=== PATIENT | female | born 1945 | race Caucasian/White ===

== ENCOUNTER → 2017-02-04 | Outpatient (CLI) | payer OTHER ==
[~2017-02-04] MED LIST: ALBINS/ NEB; ALBU18002 INH; ALBUAER2 INH; CALC1CAP36 PO; CELE1CAP30 PO; DICY10CA12 PO; DPH/ PO; DSY100 PO; DTRSR/2 PO; ERGO500011 PO; ERGO500037 PO; ESOM1CAP34 PO; FLNIN/ NAE; IBUP-1050 PO; LYR/50 PO; MBXC PO; MCRK20 PO; METH-589 PO; METH-848 PO; METH20TA66 PO; MIRT15TA PO; MIRT15TA3 PO; NYSS5 PO; ONDA-63 PO; ONDA8TAB62 SL; OXYC-164 PO; OXYC1TAB3 PO; POLY335019 PO; POTA20TA13 PO; RBX500 PO; RCL25 PO; ROPI1TAB29 PO; RQP2 PO; RTL20 PO; SIME1CAP11 PO; TRAZ100T29 PO; TRAZ300T PO; VNTHFA/IN INH; ZNTT/150 PO; immodium
[2017-02-04 13:19] LABS: HEMATOCRIT 43.3 % (37-47); MEAN CELL VOLUME 85.6 fL (80-100); MEAN CORPUSCULAR HEMOGLOBIN 30.2 pg (25-34); MEAN CORPUSCULAR HGB CONC 35.3 g/dl (32-36); PLATELET COUNT 297 K/uL (130-400); RED BLOOD COUNT 5.06 M/uL (4.2-5.4)
[2017-02-04 13:41] LABS: ESTIMATED AVERAGE GLUCOSE 114 mg/dl; HA1C FLAG Normal (Normal)
[2017-02-04 13:52] LABS: BLOOD UREA NITROGEN 12 mg/dl (7-18); CALCIUM 8.8 mg/dl (8.5-10.1); CARBON DIOXIDE 27 mmol/L (21-32); CHLORIDE 105 mmol/L (98-107); CHOLESTEROL 195 mg/dl (0-200); CREATININE 0.85 mg/dl (0.60-1.20); GLUCOSE 91 mg/dl (70-99); POTASSIUM 3.5 mmol/L (3.5-5.1); SODIUM 140 mmol/L (136-145)
[2017-02-04 14:03] LABS: ALB/GLOB RATIO 0.9 (0.9-2); ALKALINE PHOSPHATASE 89 U/L (45-117); ALT/SGPT 18 U/L (12-78); AST/SGOT 16 U/L (15-37); CHOLESTEROL/HDL RATIO 5.3; FERRITIN 70.1 ng/ml (8.0-388.0); HDL CHOLESTEROL 37 mg/dl; LDL CHOLESTEROL CALCULATED 123 mg/dl; THYROID STIMULATING HORMONE 0.359 uIu/ml (0.300-4.500); TRIGLYCERIDES 175 mg/dl (0-150); VERY LOW DENSITY LIPOPROT CALC 35 mg/dl
[2017-02-04 14:15] LABS: URINE APPEARANCE CLEAR (CLEAR); URINE BILIRUBIN NEG (NEG); URINE COLOR DK YELLOW; URINE NITRITE NEG (NEG); URINE SPECIFIC GRAVITY 1.016 (1.000-1.030); UROBILINOGEN NEG (NEG)
[2017-02-04 14:18] LABS: MANUAL MICROSCOPIC REQUIRED? NO; REVIEW REQ? NO
== END | disposition home or self-care (01) ==
LOC: C.LAB1850 12:15
PROVIDERS: ATTEND Physician Assistant
DX: Z00.00 Encounter for general adult medical examination without abnormal findings (principal); R39.9 Unspecified symptoms and signs involving the genitourinary system; L29.8 Other pruritus; R73.01 Impaired fasting glucose; G25.81 Restless legs syndrome; E01.2 Iodine-deficiency related (endemic) goiter, unspecified; M81.0 Age-related osteoporosis without current pathological fracture; E55.9 Vitamin D deficiency, unspecified; E88.09 Other disorders of plasma-protein metabolism, not elsewhere classified; N95.0 Postmenopausal bleeding

== ENCOUNTER → 2017-02-10 | Outpatient (CLI) | payer OTHER ==
[~2017-02-10] MED LIST changes: +OPTIRAY 320 IV PRN
--- NOTE | 2017-02-10 13:27 | DIAGNOSTIC IMAGING REPORT ---
CT SCAN OF THE ABDOMEN AND PELVIS WITH IV CONTRAST CLINICAL HISTORY: Adnexal mass. COMPARISON STUDY: Abdominal ultrasound dated 09/17/2010. TECHNIQUE: Following the IV administration of 92 cc of Optiray 320, CT scan of the abdomen and pelvis is performed from the lung bases to the proximal femora. Images are reviewed in the axial, sagittal, and coronal planes. IV contrast was administered without complication. Automated dose control exposure was utilized. CT DOSE: 1094.81 mGycm FINDINGS: Lung bases: The heart is mildly enlarged and there is a small pericardial effusion. There are foci of linear scarring versus atelectasis present the lung bases. No airspace consolidation or pleural effusion is seen. Liver: The contrast-enhanced liver is normal in size, contour, and attenuation. There is mild central intrahepatic biliary ductal dilatation. The hepatic veins and portal veins are patent. Gallbladder: Surgically absent noting clips in the gallbladder fossa. Spleen: Normal in size and attenuation. Pancreas: Moderately atrophic and grossly unremarkable. Adrenal glands: Unremarkable. Kidneys: The contrast enhanced kidneys demonstrate cortical atrophy and are without hydronephrosis. The kidneys enhance symmetrically. A subcentimeter cortical hypodensity in the interpolar right kidney likely represents a cyst but is too small for definitive characterization. Abdominal vasculature: The abdominal aorta is normal in course and caliber noting mild atherosclerotic calcification. Stomach and bowel: There is a moderate to large hiatal hernia, with approximately half of the stomach located in the thoracic cavity. The duodenum is normal in configuration. No bowel obstruction is seen. There is moderate to advanced colonic diverticulosis without CT evidence of acute diverticulitis. The appendix is well-visualized and normal. Peritoneum: There is no intraperitoneal free air or abdominal ascites. There is a small fat-containing umbilical hernia. There is a small fat-containing ventral hernia seen just the right of midline on image #[id number]. Lymphadenopathy: None. Pelvic viscera: The bladder is decompressed and grossly unremarkable. No adnexal lesion is seen. The uterus is enlarged. There are parenchyma calcifications and small uterine masses measuring up to 3.1 cm and are typical in appearance for fibroids. There is complex and predominantly low-attenuation material filling the distended uterine cavity. The cervix is heterogeneous. Skeletal structures: The skeletal structures are osteopenic. There is mild lumbosacral spondylosis. No lytic or blastic lesions are seen. IMPRESSION: 1. The endometrial canal is distended with complex and predominantly low-attenuation fluid/debris, likely representing hematocolpos. The cervix appears heterogeneous, and this could be related to cervical stenosis or possibly obstructing neoplasm. The top differential consideration would be a large involuted fibroid, which is considered much less likely. Gynecologic follow-up with possible hysteroscopy is recommended for further assessment. 2. Small uterine fibroids are identified. 3. Moderate to advanced colonic diverticulosis without CT evidence of acute diverticulitis. 4. Mild cardiomegaly. 5. Moderate to large hiatal hernia. 6. Additional changes as above. Electronically signed by: Juan J Nugent M.D. 02/10/2017 1:24 PM Dictated Date/Time: 02/10/2017 1:08 PM
== END | disposition home or self-care (01) ==
LOC: C.CTS 12:15
PROVIDERS: ATTEND Physician Assistant
DX: N85.2 Hypertrophy of uterus (principal); N94.9 Unspecified condition associated with female genital organs and menstrual cycle; R10.32 Left lower quadrant pain; D25.9 Leiomyoma of uterus, unspecified; K57.90 Diverticulosis of intestine, part unspecified, without perforation or abscess without bleeding

== ENCOUNTER → 2017-03-18 | Day surgery (SDC) | payer OTHER ==
[2017-02-16 13:35] VITALS: Ht 158.8 cm; Wt 83.6 kg
--- NOTE | 2017-02-25 12:17 | PAT Medication Instructions ---
Service Date Feb 25, 2017. Current Home Medication List Albuterol (Ventolin), 2 PUFFS INH QID PRN for SOB/Wheezing Albuterol Sulf (Proventil 0.083% 2.5MG/3ML), 2.5 MG INH Q4-6HR PRN Celecoxib (Celecoxib), 200 MG PO QAM Dicyclomine Hcl (Dicyclomine Hcl), 10 MG PO ACHS Esomeprazole Magnesium (Esomeprazole Magnesium), 40 MG PO BID Ibuprofen (Advil), 1,000 MG PO BID Methylphenidate (Ritalin), 20 MG PO BID Ondansetron Odt (Zofran Odt), 8 MG SL Q6H PRN for Nausea Oxycodone Immediate Rel Tab (Roxicodone Ir), 5 MG PO QID PRN for Severe Pain Pregabalin (Lyrica), 50 MG PO BID Ranitidine (Zantac), 150 MG PO HS Ropinirole Hcl (Requip), 2 MG PO BID PRN Medication Instructions For Your Scheduled Surgery -Check with surgeon for instructions: Ibuprofen (Advil), 1,000 MG PO BID Celecoxib (Celecoxib), 200 MG PO QAM - Hold the following medications 24 hours prior to surgery: Ropinirole Hcl (Requip), 2 MG PO BID PRN - Hold the following medications the morning of surgery: Methylphenidate (Ritalin), 20 MG PO BID Dicyclomine Hcl (Dicyclomine Hcl), 10 MG PO ACHS - Take the following medications the morning of surgery with a sip of water OTHERWISE NOTHING TO EAT OR DRINK AFTER MIDNIGHT: Pregabalin (Lyrica), 50 MG PO BID Albuterol (Ventolin), 2 PUFFS INH QID PRN for SOB/Wheezing (use if needed; BRING TO HOSPITAL) Albuterol Sulf (Proventil 0.083% 2.5MG/3ML), 2.5 MG INH Q4-6HR PRN Oxycodone Immediate Rel Tab (Roxicodone Ir), 5 MG PO QID PRN for Severe Pain ( may take if needed up to 4 hours prior to surgery) Esomeprazole Magnesium (Esomeprazole Magnesium), 40 MG PO BID Ondansetron Odt (Zofran Odt), 8 MG SL Q6H PRN for Nausea - Take the following medications as scheduled the night before surgery: Ranitidine (Zantac), 150 MG PO HS Pregabalin (Lyrica), 50 MG PO BID Methylphenidate (Ritalin), 20 MG PO BID Albuterol (Ventolin), 2 PUFFS INH QID PRN for SOB/Wheezing Dicyclomine Hcl (Dicyclomine Hcl), 10 MG PO ACHS Albuterol Sulf (Proventil 0.083% 2.5MG/3ML), 2.5 MG INH Q4-6HR PRN Oxycodone Immediate Rel Tab (Roxicodone Ir), 5 MG PO QID PRN for Severe Pain Esomeprazole Magnesium (Esomeprazole Magnesium), 40 MG PO BID Ondansetron Odt (Zofran Odt), 8 MG SL Q6H PRN for Nausea If you have any questions please call us at [phone] or [phone] or [phone]
--- NOTE | 2017-03-03 17:31 | HISTORY & PHYSICAL EXAMINATION ---
DATE OF ADMISSION: 03/18/2017 CHIEF COMPLAINT: Postmenopausal bleeding, thickened endometrium and uterine enlargement. HISTORY OF PRESENT ILLNESS: The patient is a 72-year-old white female 4, para 3, postmenopausal, was not sexually active, who presented for initial evaluation for followup of left lower quadrant pain, enlarged uterus and postmenopausal bleeding. The patient presented initially to our [facility] for left lower quadrant pain and postmenopausal bleeding. Ultrasound showed an enlarged uterus to 740 mL and an endometrium that was very abnormal measuring 63 mm with cystic and solid components. She subsequently had a CT scan showing an enlarged uterus with several fibroids. No adnexal masses or lesions in the endometrium as described above. The patient noted when she presented to me on February 11 that she had vaginal bleeding for about 2 weeks. She still notes slight bleeding. She also notes that she is very uncomfortable in her left lower quadrant. CT scan did not show an adnexal mass, but did show diverticulosis, but no inflammation. I attempted an endometrial biopsy in the office and was unfortunately not able to complete this. The cervix points directly posteriorly. I was able to straighten it out partially, but was not able to pass anything through the internal os and into the internal cavity to perform a biopsy. So, I have recommended a D\T\C hysteroscopy for initial evaluation of this thickened endometrium. REVIEW OF SYSTEMS: Negative except for that noted above. PAST MEDICAL HISTORY: Significant for an abnormal electrocardiogram, agoraphobia, allergic rhinitis, asthmatic bronchitis, degenerative disk disease of the lumbar spine, GERD, hiatal hernia, irritable bowel syndrome, major depression, Meniere's disease, goiter, osteoarthritis, osteoporosis, postherpetic neuralgia, rosacea and vitamin D deficiency. PAST SURGICAL HISTORY: Includes cholecystectomy, multiple corneal transplants, EGD, D\T\C, knee surgery, right salpingo-oophorectomy, bunion surgery, and tubal ligation. FAMILY HISTORY: Significant for mother with type 2 diabetes and osteoporosis. Father with acute AL, emphysema and hypertension. Sibling with colon cancer. There is no family history of breast cancer, cancer of the uterus or ovaries, pancreatic cancer, or prostate cancer. SOCIAL HISTORY: The patient denies tobacco, alcohol or drug use. She is a former smoker, however. She is . CURRENT MEDICATIONS: Albuterol, dicyclomine, esomeprazole, Lyrica, meloxicam, metronidazole lotion, Zofran, oxycodone as needed, ProAir, ranitidine, Ritalin, ropinirole, trazodone and vitamin D. ALLERGIES: CODEINE AND TORADOL. PHYSICAL EXAMINATION: GENERAL: This is a well-developed and well-nourished elderly white female in no acute distress. VITAL SIGNS: Height 5 feet 2 inches, weight 189 pounds, and BMI 34.5. Blood pressure 146/86. NECK: Supple without thyromegaly or lymphadenopathy. CHEST: Clear to auscultation bilaterally. CARDIOVASCULAR: Regular rate and rhythm without murmurs, gallops or rubs. BACK: Without costovertebral angle tenderness. PELVIC: There is normal external female genitalia. Normal Bartholin, urethra and [place] glands. The vagina is atrophic with scant bleeding. The cervix palpates very firm and points posteriorly. There are no obvious lesions on the cervix. The uterus palpates to 16-18 weeks' size. It is nontender and mobile. The adnexa are not palpable. Palpation of the bladder reveals no abnormalities. There are no appreciable femoral or inguinal lymph nodes. IMAGING STUDIES: Ultrasound performed on February 04 revealed a uterus, measuring 15.4 x 9.1 x 10.1 cm for a volume of 740 mL. The endometrium measures 63.9 mm. It is thick heterogeneous, containing both cystic and solid components. The right ovary is surgically absent per the patient. The left ovary was not seen with certainty. In the left adnexa though, there was a questionable potentially complex mass, although very difficult to evaluate. CT scan performed on February 10 revealed a mildly enlarged heart. A small pericardial effusion. Some linear scarring with atelectasis at all lung bases. There is some mild central intrahepatic biliary duct dilation. Gallbladder absent. Pancreas is moderate atrophic and grossly unremarkable. Kidneys demonstrated cortical atrophy and no hydronephrosis. A subcentimeter cortical hypodensity is noted in the right kidney, likely representing a cyst. The abdominal aorta is normal with mild atherosclerotic calcification. There is a moderate to large hiatal hernia that is approximately half of the stomach in the thoracic cavity. There is moderate advanced colonic diverticulosis without CT evidence of acute diverticulitis. The appendix is well visualized and normal. No intraperitoneal free air. Small fat containing umbilical hernia. The uterus is enlarged and there are masses within the uterus consistent with fibroids. There is a complex and predominantly low attenuation material filling the distended uterine cavity and the cervix is heterogeneous. ASSESSMENT: This is a 72-year-old postmenopausal patient with postmenopausal bleeding, had very abnormal appearing endometrium and enlarged uterus with the uterine fibroids. I tried to perform an endometrial biopsy in the office, but was unable to do so. Therefore, I have recommended a D\T\C hysteroscopy for evaluation. The risks of the procedure were discussed with the patient including the risks of anesthesia, bleeding requiring transfusion, infection and poor wound healing, 1% chance of perforation, damage to surrounding structures including bowel, bladder, vessels, nerves, ureters and uterus that may require further surgery, hospitalization or evaluation. The patient understands that if her pathology returns back cancer, she will need further evaluation with [employer]GER [employer] and oncology. Questions were asked and answered. Surgery is planned for March 18.
[~2017-03-18] VITALS: Ht 158.8 cm; Wt 83.6 kg
[~2017-03-18] MED LIST changes: +DEXAMETHASONE SOD INJ 4 MG/ML VIAL ONE; +EpHEDrine SULFATE INJ 50 MG/ML AMP IV PRN; +FENTANYL CITRATE INJ 50 MCG/1 ML 2 ML VIAL ONE; +IBUPROFEN 200 MG TAB ONE; +IBUPROFEN 600 MG TAB PO PRN; +LACTATED RINGER'S 1000ML 1,000 ML IV SCH; +LIDOCAINE HCL 2% 2 ML VIAL (20MG/ML) ONE; +ONDANSETRON INJ 2 MG/ML 2 ML VIAL IV PRN; +ONDANSETRON INJ 2 MG/ML 2 ML VIAL ONE; -OPTIRAY 320 IV PRN; +PROPOFOL IV EMULSION 10 MG/ML 20 ML VIAL IV ONE; +SODIUM CHLORIDE 0.9% 1000ML 1,000 ML IV SCH
--- NOTE | 2017-03-18 11:53 | History & Physical Bridge - SC ---
H&P Re-Evaluation Bridge Note: I have examined the patient, reviewed the History & Physical and in the interval since the performance of the History & Physical I have noted the following changes of clinical significance: No changes noted
--- NOTE | 2017-03-18 12:46 | [facility] Post Operative Brief Note ---
Immediate Operative Summary Operative Date March 18, 2017. Pre-Operative Diagnosis Post Menopausal Bleeding, Thickened Endometrium Post-Operative Diagnosis same Procedure(s) Performed Dilatation And Curettage, Hysteroscopy, Possible Polypectomy Surgeon Dr Suero Autobody Technician Surgeon(s) none Estimated Blood Loss 20cc Findings firm cervix, induration of the anterior vaginal wall from 10-2 o'clock, obvious bleeding from the cervical os. Was only able to sound to about 8cm. I do believe I was at least in the lower uterine segment and copious amounts of tissue noted. Could not visualize tubal ostia. Did not see a mass on the cervix or in the cervix. uterus was 16 weeks size by exam and irregular. Fluids (cc crystalloids) 500cc Specimens A) pap smear Drains none Anesthesia lma Complication(s) None Disposition Recovery Room / PACU
--- NOTE | 2017-03-18 12:47 | Discharge Instructions ---
Discharge Instructions Date of Service March 18, 2017. Visit Reason for Visit: Post Menopausal Bleeding, Thickened Endometrium Discharge Discharge Diagnosis / Problem: s/p Dilation and curretage with hysteroscopy Discharge Goals Goal(s): Specific goals Activity Recommendations Activity Limitations: per Instructions/Follow-up section Anesthesia . Post Anesthesia Instructions: If you have had General Anesthesia or IV Sedation: * Do not drive today. * Resume driving when surgeon permits. * Do not make important decisions or sign legal documents today. * Call surgeon for: 1. Temperature elevations greater than 101 degrees F. 2. Uncontrollable pain. 3. Excessive bleeding. 4. Persistent nausea and vomiting. 5. Medication intolerance (nausea, vomiting or rash). * For nausea and vomiting use only clear liquids such as: tea, soda, bouillon until nausea subsides, then gradually increase diet as tolerated. * If you have any concerns or questions, call your surgeon's office. If physician is unavailable and it is an emergency, call 911 or go to the nearest emergency room. . Instructions / Follow-Up Instructions / Follow-Up ACTIVITY RECOMMENDATIONS: * Avoid tampons, douching, hot tubs, pools, and intercourse until bleeding has stopped. * May shower as usual. * No strenuous activity for 24-48 hours. After 24-48 hours, you may do anything you feel like doing (driving and sports are okay). SPECIAL CARE INSTRUCTIONS: Special Diet: * Mild nausea may occur in the immediate post-operative period. * Take clear liquids such as tea, cola or bouillon until all nausea has subsided; you may then resume your normal diet. Special Care: * Light bleeding and vaginal spotting can last from a few days to 3-4 weeks. Call your doctor if bleeding becomes heavier than the heaviest part of your period. * Check your temperature twice a day for one week. If it goes above 100.4 degrees Fahrenheit (38.0 Celsius), notify your doctor. * Call your doctor's office for an appointment for 6 weeks after your surgery. FOLLOW-UP VISIT: Call your doctor's office for an appointment for 6 weeks after your surgery. Diet Recommendations Recommended Home Diet: no limitations, resume previous diet Procedures Procedures Performed: Dilatation And Curettage, Hysteroscopy, Pap Smear Pending Studies Studies pending at discharge: no Medical Emergencies . Who to Call and When: Medical Emergencies: If at any time you feel your situation is an emergency, please call 911 immediately. . Non-Emergent Contact Non-Emergency issues call your: Tape Maker . . "Provider Documentation" section prepared by Reva Suero. .
[2017-03-18] MEDS: FENTANYL CITRATE INJ 50 MCG/1 ML 2 ML VIAL IV PRN ×2 (13:11→13:19)
--- NOTE | 2017-03-18 14:03 | Anesthesia Progress Nt - [facility] ---
Anesthesia Post Op Note Date & Time March 18, 2017 at 14:03 Vital Signs Pain Intensity: 4 Vital Signs Past 12 Hours Date Time Temp Pulse Resp B/P Pulse Ox O2 Delivery O2 Flow Rate FiO2 03/18/17 13:37 36.7 72 16 152/82 94 Room Air 03/18/17 13:31 130/90 03/18/17 13:29 70 24 03/18/17 13:29 70 24 94 03/18/17 13:28 66 10 93 03/18/17 13:28 67 10 03/18/17 13:27 37.1 94 Room Air 03/18/17 13:26 109/71 03/18/17 13:23 69 15 03/18/17 13:23 69 15 93 03/18/17 13:21 121/66 03/18/17 13:18 72 13 03/18/17 13:18 71 13 94 03/18/17 13:17 70 20 03/18/17 13:17 70 20 94 03/18/17 13:16 132/86 03/18/17 13:12 73 13 96 03/18/17 13:12 74 13 03/18/17 13:11 156/95 03/18/17 13:07 73 14 03/18/17 13:07 72 14 94 03/18/17 13:05 145/94 03/18/17 13:02 73 21 94 03/18/17 13:02 74 21 03/18/17 13:01 132/86 03/18/17 12:57 75 20 93 03/18/17 12:57 76 20 03/18/17 12:56 143/88 03/18/17 12:52 72 19 03/18/17 12:52 73 19 98 03/18/17 12:51 143/102 03/18/17 12:47 75 18 03/18/17 12:47 75 18 100 03/18/17 12:46 150/82 03/18/17 12:42 36.7 70 16 130/96 100 Mask 8 03/18/17 12:42 130/96 03/18/17 11:17 37.0 91 20 139/104 99 Room Air 142/111 Notes Mental Status: alert / awake / arousable, participated in evaluation Pt Amnestic to Procedure: Yes Nausea / Vomiting: adequately controlled Pain: adequately controlled Airway Patency, RR, SpO2: stable & adequate BP & HR: stable & adequate Hydration State: stable & adequate Anesthetic Complications: no major complications apparent
[2017-03-18 14:05] VITALS: BP 144/82; PULSE 73; O2SAT 94
--- NOTE | 2017-03-18 18:08 | OPERATIVE REPORT ---
DATE OF OPERATION: 03/18/2017 PREOPERATIVE DIAGNOSES: 1. Postmenopausal bleeding. 2. Thickened endometrium with mass. POSTOPERATIVE DIAGNOSES: 1. Same. 2. Same. 3. Firm indurated cervix. 4. Indurated anterior vaginal wall. PROCEDURES: 1. Pap smear. 2. D\T\C hysteroscopy. 3. Pipelle endometrial biopsy. SURGEON: Dr. Reva Suero. COMMUNICATIONS BILLING ANALYST: No family and divorce legal assistant. ANESTHESIA: General per laryngeal mask. ESTIMATED BLOOD LOSS: 20 mL. FLUIDS: 500 mL of lactated Ringer's. INDICATIONS: The patient is a 72-year-old postmenopausal female who has had a few months of postmenopausal bleeding. Ultrasound shows an enlarged uterus with a volume of 700 mL. No obvious masses noted. The endometrium was 63 mm, filled with fluid and mass. I was unable to biopsy the patient in the office. FINDINGS: The anterior vaginal wall was indurated by exam and thickened. This is palpable from about 10 o'clock to 2 o'clock around the cervix. The cervix is multiparous and quite firm. There is obvious bleeding from the cervix. I was able to sound the uterus to a depth of 7 cm. I was able to place a hysteroscope into what I believe at least the lower uterine segment. There was significant amounts of tissue noted, making visualization difficult. The tubal ostia were not visualized. I did not visualize the mass on the external cervix or the internal cervix. The uterus on exam under anesthesia is approximately 16 weeks' size, mobile and irregular. The adnexa are not palpable. Four specimens were taken, the first for the Pap smear, the second was an endocervical curettage, the third was an endometrial curettage and the fourth was a Pipelle of the endometrium. I did remove firm tissue, most likely consistent with some kind of cancerous mass on both the endocervical curettage and the endometrial curettage. COMPLICATIONS: None. DRAINS: Platt. DISPOSITION: To recovery room in stable condition. DESCRIPTION OF PROCEDURE: The patient was taken to the operating room, where she was identified verbally and by bracelet. She was placed in dorsal supine position and general anesthesia was induced without difficulty. She was then placed in dorsal supine position in [facility] stirrups and prepped and draped in normal sterile fashion. Timeout was held identifying correct patient, procedure and positioning. An exam under anesthesia was performed with the above noted findings. The bladder was drained of urine with a metal straight catheterization. The cervix was visualized and it did point somewhat posteriorly with some difficult visualization, but no obvious mass was noted. I was able to place a curved dilator to 7 cm. At first, a Pap smear was done before all of that though and then an endocervical curettage was done with removal of tissue and then a hysteroscope was introduced with the above noted findings. Hysteroscope was removed. Curettage was performed with removal of firm tissue. After that, a Pipelle biopsy was then performed. I am not sure we got a lot of tissue with that, it was mostly blood. The procedure was terminated. The tenaculum was removed from the anterior cervix. There was a laceration of the cervix, but it was hemostatic, so no intervention was performed and the procedure was terminated. All sponge, lap and needle counts were correct x2. The patient tolerated the procedure well and was taken to recovery room in stable condition. I attest to the content of the Intraoperative Record and any orders documented therein. Any exceptions are noted below. MAXIMO
== END | disposition home or self-care (01) ==
LOC: X.SURG 11:03
PROVIDERS: ATTEND Obstetrics & Gynecology
DX: C54.1 Malignant neoplasm of endometrium (principal); N95.0 Postmenopausal bleeding; N85.2 Hypertrophy of uterus; K21.9 Gastro-esophageal reflux disease without esophagitis; F32.9 Major depressive disorder, single episode, unspecified; H81.09 Meniere's disease, unspecified ear; M81.0 Age-related osteoporosis without current pathological fracture; E55.9 Vitamin D deficiency, unspecified; Z87.891 Personal history of nicotine dependence

== ENCOUNTER → 2017-05-25 | Outpatient (CLI) | payer OTHER ==
[~2017-05-25] MED LIST changes: -DEXAMETHASONE SOD INJ 4 MG/ML VIAL ONE; +ERGO1CAP41 PO; -ERGO500011 PO; -EpHEDrine SULFATE INJ 50 MG/ML AMP IV PRN; -FENTANYL CITRATE INJ 50 MCG/1 ML 2 ML VIAL ONE; -IBUPROFEN 200 MG TAB ONE; -IBUPROFEN 600 MG TAB PO PRN; -LACTATED RINGER'S 1000ML 1,000 ML IV SCH; -LIDOCAINE HCL 2% 2 ML VIAL (20MG/ML) ONE; -ONDANSETRON INJ 2 MG/ML 2 ML VIAL IV PRN; -ONDANSETRON INJ 2 MG/ML 2 ML VIAL ONE; +OPTIRAY 320 IV PRN; -PROPOFOL IV EMULSION 10 MG/ML 20 ML VIAL IV ONE; -SODIUM CHLORIDE 0.9% 1000ML 1,000 ML IV SCH
--- NOTE | 2017-05-25 16:35 | DIAGNOSTIC IMAGING REPORT ---
CT SCAN OF THE BRAIN COMBO CLINICAL HISTORY: Pelvic cancer. COMPARISON STUDY: No priors. TECHNIQUE: Axial CT scan of the brain is performed from the vertex to the skull base before and following the IV administration of 92 cc of Optiray 320. IV contrast was administered without complication. CT DOSE: 1277.12 mGycm FINDINGS: Brain parenchyma: There are age-related involutional changes noting mild subcortical and periventricular microangiopathic change. There is no hemorrhage, mass effect, or evidence of acute territorial ischemia by CT criteria. No enhancing lesion is seen on the postcontrast images. [place]-white matter is preserved. No extra-axial fluid collection is seen. Ventricles, sulci, cisterns: Prominent secondary to involutional change. Intracranial vasculature: There is atherosclerotic calcification of the cavernous carotid and vertebral arteries. Calvarium: Unremarkable. Sinuses and mastoids: The visualized paranasal sinuses are clear. The mastoid air cells are well pneumatized. Orbits: The bony orbits are grossly intact. There are bilateral ocular lens implants. IMPRESSION: There is no hemorrhage, enhancing mass, or evidence of acute territorial ischemia by CT criteria. Electronically signed by: Juan J Nugent M.D. 05/25/2017 4:34 PM Dictated Date/Time: 05/25/2017 4:31 PM
== END | disposition home or self-care (01) ==
LOC: C.CTS 15:53
PROVIDERS: ATTEND Radiology Radiation Oncology
DX: Z51.0 Encounter for antineoplastic radiation therapy (principal); C76.3 Malignant neoplasm of pelvis; C54.1 Malignant neoplasm of endometrium

== ENCOUNTER 2017-07-22 12:33 | Inpatient (IN) | payer OTHER ==
[2017-07-22] VITALS (14 sets, daily range): BP systolic 108–144; BP diastolic 75–97; PULSE 80–93; TEMP 36.4–37; O2SAT 94–100; Ht 157.5 cm; Wt 76.0 kg
[~2017-07-22] VITALS: Ht 157.5 cm; Wt 76.0 kg
[~2017-07-22 12:33] MED LIST changes: -ALBINS/ NEB; -ALBU18002 INH; -CALC1CAP36 PO; -DICY10CA12 PO; -DSY100 PO; -ERGO1CAP41 PO; -ERGO500037 PO; -ESOM1CAP34 PO; -FLNIN/ NAE; -MBXC PO; -MCRK20 PO; -METH-589 PO; -METH-848 PO; -METH20TA66 PO; -MIRT15TA PO; -MIRT15TA3 PO; -NYSS5 PO; -ONDA-63 PO; -OPTIRAY 320 IV PRN; -OXYC-164 PO; -POLY335019 PO; -POTA20TA13 PO; -RBX500 PO; -RCL25 PO; -ROPI1TAB29 PO; -RTL20 PO; -TRAZ300T PO; -VNTHFA/IN INH
[2017-07-22] MEDS ORDERED: SODIUM CHLORIDE 0.9% 1000ML 1,000 ML IV STA ×2 (12:56)
[2017-07-22] MEDS ORDERED: LORAZEPAM 2 MG/ML 1 ML VIAL IV STA (12:56)
--- NOTE | 2017-07-22 13:04 | EMERGENCY ROOM VISIT NOTE ---
History Report prepared by Reva: Tashi Heredia Under the Supervision of: Dr. Juan J Damon M.D. First contact with patient: 12:49 Chief Complaint: WEAKNESS Stated Complaint: NAUSEA, TACHYCARDIA, SOB History of Present Illness The patient is a 72 year old female who presents to the Emergency Room via EMS with complaints of worsening weakness that started a couple days ago. She had 28 straight days of radiation for cervical cancer in early May, and has a history of Mnire disease and a D&C. The patient says that she has been short of breath the past few days, and she feels like her "insides have been shaking" . She adds that she feel like her heart is beating fast, but it could be anxiety related. She says that she has never had anxiety this bad before and she cannot sleep at night. She adds that she has been vomiting phlegm. The patient notes that she had diarrhea, but then it turned to constipation. She says that she has not been eating or drinking well lately, as her mouth has an "awful taste". The patient adds that she only ate a banana today. She states that she feels thirsty and dehydrated. She says that she has been given Oxycodone for pain but nothing for anxiety. She denies any fevers or suicidal ideations. Per medic report, the patient fell recently. The patient notes that she has had burning urination ever since the radiation. She notes no history of abdominal surgeries. Per the patient's family, the patient is having dehydration issues. The patient has not had any chemotherapy. She follows up with Dr. Keys from the cancer department and Dr. Suero of OBGYN. Source of History: patient, family Onset: Couple days ago Position: other (global - weakness) Timing: worsening Associated Symptoms: + SOB, + diarrhea (now constipation) Note: Associated symptoms: Recent fall. Heart beating fast, anxious, feels thirsty and dehydrated. Not eating or drinking well. Vomiting phlegm. Review of Systems See HPI for pertinent positives & negatives. A total of 10 systems reviewed and were otherwise negative. Past Medical & Surgical Medical Problems: (1) Asthma (2) Esophageal stricture (3) Herpes zoster (4) Multiple falls (5) Osteoporosis (6) Sciatic pain (7) severe hypokalemia (8) severe hypokalemia (9) Shingles Family History Cancer Diabetes mellitus Hypertension Lung disease Social History Smoking Status: Former Smoker Alcohol Use: none Marital Status: Housing Status: lives alone Occupation Status: unemployed Current/Historical Medications Scheduled Albuterol Hfa (Ventolin Hfa), 2-4 PUFFS INH Q6H Albuterol Sulf (Proventil 0.083% 2.5MG/3ML), 2.5 MG INH Q4-6HR PRN Celecoxib (Celecoxib), 200 MG PO QAM Dicyclomine Hcl (Dicyclomine Hcl), 10 MG PO ACHS Diphenoxylate W/ Atropine (Lomotil), 1 TAB PO DIRECTED Esomeprazole Magnesium (Esomeprazole Magnesium), 40 MG PO BID Fluticasone Propionate (Fluticasone Propionate), 2 SPRAYS MAY DAILY Ibuprofen (Advil), 1,000 MG PO BID Methocarbamol (Methocarbamol), 1 TAB PO TID Methylphenidate (Ritalin), 20 MG PO PRN Oxycodone Hcl (Oxycodone Hcl), 1 TAB PO Q6H Ropinirole Hcl (Requip), 2 MG PO BID PRN Simethicone (Simethicone), 250 MG PO QDL Trazodone Hcl (Trazodone), 100 MG PO HS Scheduled PRN Ondansetron Odt (Zofran Odt), 8 MG SL Q6H PRN for Nausea Allergies Coded Allergies: Codeine (Verified Allergy, Severe, ANAPHYLAXIS, 07/22/17) LIQUID CODEINE CAN TAKE PERCOCET OR HYDROCODONE VIA TABLET Homatropine (Verified Allergy, Intermediate, CHEST TIGHTNESS, 07/22/17) PT STATES SHE HAS USED PERCOCET AND VICODIN WITH NO S/SX Hydrocodone (Verified Allergy, Intermediate, CHEST TIGHTNESS, 07/22/17) PT STATES SHE HAS USED PERCOCET AND VICODIN WITH NO S/SX Aspirin (Verified Adverse Reaction, Mild, ACID REFLUX, 07/22/17) Ketorolac (Verified Adverse Reaction, Mild, SICK IN STOMACH, THROWS UP, ) Physical Exam Vital Signs Date Time Temp Pulse Resp B/P (MAP) Pulse Ox O2 Delivery O2 Flow Rate FiO2 07/22/17 15:32 83 18 123/85 07/22/17 13:40 96 Nasal Cannula 2.0 07/22/17 13:39 88 20 88 Room Air 07/22/17 12:52 96 Room Air 07/22/17 12:49 93 07/22/17 12:43 36.7 83 18 129/92 92 Room Air Physical Exam GENERAL: Patient is in no acute distress. HEENT: No acute trauma, normocephalic atraumatic, mucous membranes dry, no nasal congestion, no scleral icterus. NECK: No stridor, no adenopathy, no meningismus, trachea is midline. LUNGS: Clear to auscultation bilaterally, no wheeze, no rhonchi, breath sounds equal. HEART: Without murmurs gallops or rubs, regular rate and rhythm. ABDOMEN: Soft, nontender, bowel sounds positive, no hernias, no peritonitis. EXTREMITIES: No cyanosis or edema, full range of motion of all the joints without pain or difficulty, no signs for acute trauma. NEUROLOGIC: Oriented x 3, no acute motor or sensory deficits, no focal weakness. SKIN: No rash, no jaundice, no diaphoresis. Medical Decision & Procedures ER Provider Diagnostic Interpretation: Radiology results as stated below per my review and radiologist interpretation: HEAD WITHOUT CONTRAST (CT) CT DOSE: 537.48 mGy.cm HISTORY: Trauma. Mental status change. fall, confused TECHNIQUE: Multiaxial CT images of the head were performed without the use of intravenous contrast. A dose lowering technique was utilized adhering to the principles of ALARA. Comparison: 05/25/2017 Findings: The paranasal sinuses and mastoid air cells are clear. The calvarium and skull base are intact. The ventricles and sulci are within normal limits. There is no mass, hematoma, midline shift, or acute infarct. Impression: No acute intracranial abnormality. The above report was generated using voice recognition software. It may contain grammatical, syntax or spelling errors. Electronically signed by: Yayo Dolan M.D. 07/22/2017 2:03 PM Dictated Date/Time: 07/22/2017 2:01 PM SINGLE VIEW CHEST CLINICAL HISTORY: Generalized weakness. Change in mental status. FINDINGS: An AP, portable, upright chest radiograph is compared to chest x-ray and chest CT dated 03/01/2012. The cardiomediastinal heart is enlarged. The pulmonary vasculature is noncongested. Chronic interstitial thickening is similar to previous and there is bibasilar atelectasis. No airspace consolidation or large pleural effusion is identified. No pneumothorax is seen. The skeletal structures are osteopenic. The bony thorax is grossly intact. IMPRESSION: Cardiomegaly with no acute cardiopulmonary abnormality. Electronically signed by: Juan J Nugent M.D 07/22/2017 2:30 PM Dictated Date/Time: 07/22/2017 2:29 PM Laboratory Results 07/22/17 13:05 Red Blood Count 4.37, Mean Corpuscular Volume 90.8, Mean Corpuscular Hemoglobin 29.3, Mean Corpuscular Hemoglobin Concent 32.2, Mean Platelet Volume 10.0, Neutrophils (%) (Auto) 82.7, Lymphocytes (%) (Auto) 9.2, Monocytes (%) (Auto) 5.4, Eosinophils (%) (Auto) 0.0, Basophils (%) (Auto) 0.1, Neutrophils # (Auto) 6.28, Lymphocytes # (Auto) 0.70, Monocytes # (Auto) 0.41, Eosinophils # (Auto) 0.00, Basophils # (Auto) 0.01 07/22/17 15:45 Test 07/22/17 13:05 07/22/17 13:23 07/22/17 14:45 07/22/17 15:45 White Blood Count 7.60 K/uL (4.8-10.8) Red Blood Count 4.37 M/uL (4.2-5.4) Hemoglobin 12.8 g/dL (12.0-16.0) Hematocrit 39.7 % (37-47) Mean Corpuscular Volume 90.8 fL (80-100) Mean Corpuscular Hemoglobin 29.3 pg (25-34) Mean Corpuscular Hemoglobin Concent 32.2 g/dl (32-36) Platelet Count 127 K/uL (130-400) Mean Platelet Volume 10.0 fL (7.4-10.4) Neutrophils (%) (Auto) 82.7 % Lymphocytes (%) (Auto) 9.2 % Monocytes (%) (Auto) 5.4 % Eosinophils (%) (Auto) 0.0 % Basophils (%) (Auto) 0.1 % Neutrophils # (Auto) 6.28 K/uL (1.4-6.5) Lymphocytes # (Auto) 0.70 K/uL (1.2-3.4) Monocytes # (Auto) 0.41 K/uL (0.11-0.59) Eosinophils # (Auto) 0.00 K/uL (0-0.5) Basophils # (Auto) 0.01 K/uL (0-0.2) RDW Standard Deviation 52.0 fL (36.4-46.3) RDW Coefficient of Variation 15.8 % (11.5-14.5) Immature Granulocyte % (Auto) 2.6 % Immature Granulocyte # (Auto) 0.20 K/uL (0.00-0.02) Nucleated RBC Absolute Count (auto) 0.12 K/uL (0-0) Nucleated Red Blood Cells % 1.5 % Prothrombin Time 12.4 SECONDS (9.0-12.0) Prothromb Time International Ratio 1.2 (0.9-1.1) Activated Partial Thromboplast Time 22.2 SECONDS (21.0-31.0) Partial Thromboplastin Ratio 0.9 Total Bilirubin 2.1 mg/dl (0.2-1) Aspartate Amino Transf (AST/SGOT) 92 U/L (15-37) Alanine Aminotransferase (ALT/SGPT) 160 U/L (12-78) Alkaline Phosphatase 114 U/L (45-117) Troponin I 0.023 ng/ml (0-0.045) Total Protein 5.8 gm/dl (6.4-8.2) Albumin 2.9 gm/dl (3.4-5.0) Globulin 2.9 gm/dl (2.5-4.0) Albumin/Globulin Ratio 1.0 (0.9-2) Thyroid Stimulating Hormone (TSH) 0.016 uIu/ml (0.300-4.500) Free Triiodothyronine 2.60 pg/ml (2.30-4.20) Urine Color DK YELLOW Urine Appearance CLEAR (CLEAR) Urine pH 8.0 (4.5-7.5) Urine Specific [place] 1.023 (1.000-1.030) Urine Protein 2+ (NEG) Urine Glucose (UA) 1+ (NEG) Urine Ketones TRACE (NEG) Urine Occult Blood NEG (NEG) Urine Nitrite NEG (NEG) Urine Bilirubin NEG (NEG) Urine Urobilinogen POS (NEG) Urine Leukocyte Esterase TRACE (NEG) Urine WBC (Auto) 1-5 /hpf (0-5) Urine RBC (Auto) 0-4 /hpf (0-4) Urine Hyaline Casts (Auto) 5-10 /lpf (0-5) Urine Epithelial Cells (Auto) >30 /lpf (0-5) Urine Bacteria (Auto) NEG (NEG) Urine Renal Epithelial Cells 5-10 /lpf (0-5) Urine Pathogenic Casts 0-3 GRANULAR CASTS /lpf (0) Urine Mucus PRESENT (NONE PRSENT) Arterial Blood pH 7.60 (7.35-7.45) Arterial Blood Partial Pressure CO2 48 mmHg (35-46) Arterial Blood Partial Pressure O2 126 mm/Hg (80-95) Arterial Blood HCO3 45 mmol/L (19-24) Arterial Blood Oxygen Saturation 98.8 % (90-95) Arterial Blood Base Excess 21.3 mEq/L (-9-1.8) Arterial Blood Gas Delivery 2 L Kishore Test POS (POS) Anion Gap 6.0 mmol/L (3-11) Est Creatinine Clear Calc Drug Dose 130.0 ml/min Estimated GFR () 123.3 Estimated GFR (Non- 106.4 BUN/Creatinine Ratio 20.5 (10-20) Calcium Level 7.3 mg/dl (8.5-10.1) Phosphorus Level 1.2 mg/dl (2.5-4.9) Magnesium Level 2.1 mg/dl (1.8-2.4) Total Creatine Kinase 96 U/L (26-192) Free Thyroxine 1.75 ng/dl (0.80-1.60) Laboratory results reviewed by me. Medications Administered Medications (Trade) Dose Ordered Sig/Jose Route Start Time Stop Time Status Last Admin Dose Admin Sodium Chloride 1,000 ml @ 999 mls/hr Q1H1M STAT IV 07/22/17 12:56 07/22/17 13:56 DC 07/22/17 13:12 999 MLS/HR Sodium Chloride 1,000 ml @ 200 mls/hr Q5H STAT IV 07/22/17 12:56 07/22/17 17:52 DC 07/22/17 13:12 200 MLS/HR Lorazepam (Ativan Inj) 0.5 mg NOW STAT IV 07/22/17 12:56 07/22/17 13:00 DC 07/22/17 13:12 0.5 MG Potassium Chloride (Kcl 10 Meq / Wtr) 10 meq NOW STAT IV 07/22/17 14:00 07/22/17 14:01 DC 07/22/17 14:12 10 MEQ Potassium Chloride (Klor-Con M10) 40 meq NOW STAT PO 07/22/17 14:00 07/22/17 14:01 DC 07/22/17 14:11 40 MEQ Potassium Chloride (Klor-Con M10) 20 meq NOW STAT PO 07/22/17 15:57 07/22/17 16:42 DC 07/22/17 16:54 20 MEQ Pantoprazole Sodium (Protonix Tab) 40 mg NOW STAT PO 07/22/17 15:57 07/22/17 16:42 DC 07/22/17 16:54 40 MG ECG Indication: weakness Rate (beats per minute): 93 Rhythm: normal sinus Findings: no ectopy, other (nonspecific ST change, poor R-wave progression) ED Course 1250: The patient was evaluated in room B9. A complete history and physical exam was performed. 1256: Ordered Ativan Inj 0.5 mg IV, NSS 1000 ml @ 200 mls/hr IV, NSS 1000 ml @ 999 mls/hr IV. 1400: Ordered Klor-Con M10 40 meq PO, Kcl 10 Meq / Wtr 10 meq IV. 1410: Upon reexamination the patient is resting. I discussed results and treatment plan with the patient. She verbalizes agreement and understanding. The patient will be evaluated for further management. 1415: I discussed the patient with Dr. Emma BRISCOE hospitalist - he will evaluate the patient for further treatment. Medical Decision Differential diagnosis includes but is not limited to intracranial bleeding, dehydration, anxiety, thyroid disorder, electrolyte imbalance, anemia, UTI, dysrhythmia or RI. There is no leukocytosis or concerning anemia. Renal panel testing shows a markedly low potassium at 1.5. CO2 was elevated. No renal failure. There were some elevations to the liver enzymes. TSH was low suggesting some possible early hyperthyroidism. Urinalysis does not show obvious infection. EKG shows a normal sinus rhythm, no acute ischemia. Cardiac enzyme testing times one is not consistent with acute cardiac injury. Chest x-ray does not show CHF or pneumonia. Brain CT shows no acute bleed or mass effect. ABG demonstrates a metabolic alkalosis. The patient received IV saline, she was given IV potassium and oral potassium. She received IV Ativan. The patient presents with weakness and palpitations. She has a critically low potassium value. She is alkalotic. She requires a hospital stay for further workup and for correction of her chemistry abnormalities. I spoke with the patient and case management. The on-call hospitalist was consulted. Medication Reconcilliation Current Medication List: was personally reviewed by me Blood Pressure Screening Patient's blood pressure: Normal blood pressure Consults Time Called: 141 Consulting Physician: Dr. Emma BRISCOE hospitalist Returned Call: 1415 I discussed the patient with Dr. Emma BRISCOE hospitalist - he will evaluate the patient for further treatment. Impression Primary Impression: Dehydration Additional Impressions: Hypokalemia Anxiety Cervical cancer Scribe Attestation The scribe's documentation has been prepared under my direction and personally reviewed by me in its entirety. I confirm that the note above accurately reflects all work, treatment, procedures, and medical decision making performed by me. Departure Information Dispostion Being Evaluated By Hospitalist Referrals Sury Jones M.D. (PCP) Patient Instructions My [facility] Problem Qualifiers Additional Impressions: Cervical cancer Malignant neoplasm of cervix location: unspecified location Qualified Codes: C53.9 - Malignant neoplasm of cervix uteri, unspecified
[2017-07-22 13:24] LABS: BASO % 0.1 %; BASO ABS # 0.01 K/uL (0-0.2); COMPLETE YES; HEMATOCRIT 39.7 % (37-47); IG% 2.6 %; LYMPH % 9.2 %; MEAN CELL VOLUME 90.8 fL (80-100); MEAN CORPUSCULAR HEMOGLOBIN 29.3 pg (25-34); MEAN CORPUSCULAR HGB CONC 32.2 g/dl (32-36); MONO % 5.4 %; NEUT % 82.7 %; PLATELET COUNT 127 K/uL (130-400); RED BLOOD COUNT 4.37 M/uL (4.2-5.4)
[2017-07-22 13:39] LABS: URINE APPEARANCE CLEAR (CLEAR); URINE COLOR DK YELLOW; URINE EPITHELIAL CELL AUTO >30 /lpf (0-5); URINE NITRITE NEG (NEG); URINE SPECIFIC GRAVITY 1.023 (1.000-1.030); UROBILINOGEN POS (NEG); ZZURINE CULT IF INDIC CATH NO
[2017-07-22] MEDS ORDERED: RBX500 PO (13:45)
[2017-07-22] MEDS ORDERED: VNTHFA/IN INH (13:46)
[2017-07-22 13:50] LABS: MANUAL MICROSCOPIC REQUIRED? NO; REVIEW REQ? YES
[2017-07-22 13:51] LABS: SULFASALICYLIC ACID POS (NEG); URINE BILIRUBIN NEG (NEG)
[2017-07-22 14:00] LABS: BUN/CREATININE RATIO 18.4 (10-20); CALCIUM 8.1 mg/dl (8.5-10.1); CREATININE 0.55 mg/dl (0.60-1.20); MAGNESIUM 2.2 mg/dl (1.8-2.4); POTASSIUM 1.5 mmol/L (3.5-5.1); THYROID STIMULATING HORMONE 0.016 uIu/ml (0.300-4.500)
[2017-07-22] MEDS ORDERED: POTASSIUM CHLORIDE 10 MEQ / 100ML WTR IV STA (14:00)
[2017-07-22] MEDS ORDERED: POTASSIUM CHLORIDE 10 MEQ TABCR PO STA ×2 (14:00→15:57)
[2017-07-22 14:01] LABS: URINE PATH CASTS 0-3 GRANULAR CASTS /lpf (0)
[2017-07-22 14:02] LABS: URINE MUCUS PRESENT (NONE PRSENT)
--- NOTE | 2017-07-22 14:04 | DIAGNOSTIC IMAGING REPORT ---
HEAD WITHOUT CONTRAST (CT) CT DOSE: 537.48 mGy.cm HISTORY: Trauma. Mental status change. fall, confused TECHNIQUE: Multiaxial CT images of the head were performed without the use of intravenous contrast. A dose lowering technique was utilized adhering to the principles of ALARA. Comparison: 05/25/2017 Findings: The paranasal sinuses and mastoid air cells are clear. The calvarium and skull base are intact. The ventricles and sulci are within normal limits. There is no mass, hematoma, midline shift, or acute infarct. Impression: No acute intracranial abnormality. The above report was generated using voice recognition software. It may contain grammatical, syntax or spelling errors. Electronically signed by: Yayo Dolan M.D. 07/22/2017 2:03 PM Dictated Date/Time: 07/22/2017 2:01 PM
--- NOTE | 2017-07-22 14:31 | DIAGNOSTIC IMAGING REPORT ---
SINGLE VIEW CHEST CLINICAL HISTORY: Generalized weakness. Change in mental status. FINDINGS: An AP, portable, upright chest radiograph is compared to chest x-ray and chest CT dated 03/01/2012. The cardiomediastinal heart is enlarged. The pulmonary vasculature is noncongested. Chronic interstitial thickening is similar to previous and there is bibasilar atelectasis. No airspace consolidation or large pleural effusion is identified. No pneumothorax is seen. The skeletal structures are osteopenic. The bony thorax is grossly intact. IMPRESSION: Cardiomegaly with no acute cardiopulmonary abnormality. Electronically signed by: Juan J Nugent M.D. 07/22/2017 2:30 PM Dictated Date/Time: 07/22/2017 2:29 PM
[2017-07-22 14:56] LABS: ARTERIAL BLD GAS O2 SATURATION 98.8 % (90-95); ARTERIAL BLOOD GAS BASE EXCESS 21.3 mEq/L (-9-1.8); ARTERIAL BLOOD GAS HCO3 45 mmol/L (19-24); ARTERIAL BLOOD GAS PO2 126 mm/Hg (80-95)
[2017-07-22 14:59] LABS: ALLEN TEST POS (POS); O2 ADMINISTRATION 2 L
[2017-07-22] MEDS ORDERED: ALUMINUM/MAGNESIUM/SIMETH (MAALOX MAX) 30 ML UDC PO PRN (15:45)
[2017-07-22] MEDS ORDERED: ACETAMINOPHEN 325 MG TAB PO PRN (15:45)
[2017-07-22] MEDS ORDERED: MAGNESIUM HYDROXIDE SUSP 30 ML UDC PO PRN (15:45)
[2017-07-22] MEDS ORDERED: ZOLPIDEM TARTRATE 5 MG TAB PO PRN ×2 (15:45)
[2017-07-22] MEDS ORDERED: POTASSIUM CHLR 20 MEQ / WTR 40 MEQ in PREMIXED WATER 100 ML IV STA (15:49)
[2017-07-22] MEDS ORDERED: PANTOprazole SOD 40 MG TAB PO STA (15:57)
--- NOTE | 2017-07-22 16:12 | History and Physical ---
History & Physical Date of Service Jul 22, 2017. History & Physical severe hypokalemia, [id number]
[2017-07-22] MEDS ORDERED: POLYETHYLENE (MIRALAX) 17 GM PACK PO PRN (16:15)
[2017-07-22 16:32] LABS: INR 1.2 (0.9-1.1); PARTIAL THROMBOPLASTIN RATIO 0.9; PROTHROMBIN TIME (PATIENT) 12.4 SECONDS (9.0-12.0)
[2017-07-22 16:35] LABS: BUN/CREATININE RATIO 20.5 (10-20); CALCIUM 7.3 mg/dl (8.5-10.1); CREATININE 0.39 mg/dl (0.60-1.20); MAGNESIUM 2.1 mg/dl (1.8-2.4); PHOSPHORUS 1.2 mg/dl (2.5-4.9); POTASSIUM 1.7 mmol/L (3.5-5.1)
[2017-07-22] MEDS ORDERED: POTASSIUM CHLR 10 MEQ / WTR 10 MEQ in PREMIXED WATER 100 ML IV SCH (17:00)
--- NOTE | 2017-07-22 17:10 | HISTORY & PHYSICAL EXAMINATION ---
DATE OF ADMISSION: 07/22/2017 This is level 3 inpatient admission, 40 minutes. CHIEF COMPLAINT: Generalized weakness, not eating, drinking well. HISTORY OF PRESENT ILLNESS: This is a 72-year-old white female with a significant past medical history of recently diagnosed cervical cancer, had radiation treatment from May with radiation oncologist comes to the hospital Emergency Department because of the above chief complaint. The report has complained about worsening generalized weakness that started about 5-7 days. She started 28 straight days of radiation of cervical cancer early from May. History of Meniere disease and D&C. Report has shortness of breath for past few days, and sometimes shaky associated with racing heart. She thought may be anxiety related. Cannot sleep well, not eating, drinking well. Has been vomiting some. Denied diarrhea or constipation. Reported of some urine burning sensations for several days. Has not been eating, drinking well. There has been no taste or awful taste. She only ate some other today. Feels thirsty and dehydrated. She was given some pain medicines but nothing for anxiety. In the Emergency Room, she was found to have severe hypokalemia with potassium 1.5. ED physician gave 10 IV and 40 mEq p.o. of the potassium. When I interviewed with her, she was awake, alert and orientated, but has generalized weakness. Very difficult to move upper and lower extremities but able to move it. No labored breathing, does not need oxygen at home, but currently need 2 liter oxygen, pulse ox was 96%. When she arrived into the Emergency Room, pulse ox was 88% in room air. Denied fever or chills. Denied skin rashes. Denied nauseation and vomiting for now. Denied sputum or chest pain. Denied any were skin bluish or skin rashes. Denied facial droop, slurry speeches or local weakness. PAST MEDICAL HISTORY: Like I mentioned in the above include: 1. Cervical cancer, currently on radiation treatment. 2. Asthma. 3. Esophageal stricture. 4. Herpes zoster. 5. Multiple falls. 6. Osteoporosis. 7. Sciatica pain. 8. Shingle. FAMILY HISTORY: Include cancer, diabetic, hypertension, lung disease. SOCIAL HISTORY: Remote history of smoking. Denied alcohol abuse disorder. The patient is , lives alone. MEDICATIONS: Taking at home, which include: 1. Albuterol 2-4 puff inhaled q. 6 hours. 2. Celecoxib 200 mg p.o. q.a.m. 3. Dicyclomine 10 mg p.o. a.c. and at bedtime. 4. Lomotil 1 tab p.o. as directed. 5. Esomeprazole 40 mg p.o. b.i.d. 6. Fluticasone 2 sprays daily. 7. Ibuprofen 1000 mg p.o. b.i.d. 8. Methocarbamol 1 tab p.o. t.i.d. 9. Ritalin 20 mg p.o. p.r.n. 10. Oxycodone 1 tab p.o. 6 hours. 11. Requip 2 mg p.o. b.i.d. p.r.n. 12. Simethicone to 50 mg p.o. daily. 13. Trazodone 100 mg p.o. at bedtime. 14. Zofran 8 mg sublingual q. 6 hours p.r.n. for the nauseation. ALLERGIES: 1. CODEINE. 2. HOMATROPINE. 3. HYDROCODONE. 4. ASPIRIN. 5. KETOROLAC. REVIEW OF SYSTEMS: Please see HPI, otherwise 14 points organ system review were negative. PHYSICAL EXAMINATION: VITAL SIGNS: Temperature is 36.7, pulse 83, respirations 18, blood pressure 129/93, and pulse ox was 92% in room air. GENERAL: The patient is a white female, awake, alert and orientated, generalized weakness. HEAD: Normocephalic. EYES: Pupils equal, round responds to light. EARS: Ear was normal. NOSE: Normal. NECK: Supple, no acute trauma. Thyroid no enlargement. Trachea midline. HEART: Regular rhythm. S1, S2. LUNGS: Decreased breathing sounds. There were no wheezing, rhonchi or crackles. ABDOMEN: Soft, nontender. Bowel sound was positive. GENITOURINARY AND RECTAL: Deferred. Bilateral CVA was nontender. EXTREMITIES: The lower extremities, no edema. No limited range of motion. NEUROLOGICAL EVALUATION: Cranial nerve II-XII was intact. There were no local deficits. SKIN: Has no rashes. LABORATORY STUDIES: WBC 7, hemoglobin 12, platelet 127. BMP: Sodium 144, potassium 1.5, chloride 91, bicarbonate 45. BUN 10, creatinine 0.5. Blood glucose 165. Calcium 8.1, magnesium 2.2. Total bili 2.1, AST 92, ALT was 160. Alkaline phosphate 114. Troponin was negative. TSH 0.016. ABG: pH 7.6, pCO2 48, PaO2 126, bicarbonate 45. UA shows no obvious UTI. IMAGING STUDIES: Include: 1. Head CT studies has no acute intracranial disease. 2. Chest x-ray shows cardiomegaly, no acute cardiopulmonary abnormalities. 3. EKGs, there was normal sinus rhythm. There were no obvious ST-T phase changes, unspecific T wave changes. There was no obvious E wave. ASSESSMENT AND PLAN. A 72-year-old white female with significant conditions see below: 1. Severe hypokalemia, etiology unknown. 2. Metabolic alkalosis with elevated pH value at 7.6. 3. Borderline hypoxic. Pulse ox was 88% in room air, currently need oxygen. 4. Mild decreased platelet level at 127, which means mild thrombocytopenia. 5. Abnormal liver function tests with elevated AST at 92, ALT at 160. 6. Minimal decreased TSH at 0.16. 7. Possible urinary tract infection with dysuria. 8. Recently diagnosed of cervical cancer is on radiation treatment. 9. History of asthma, esophageal stricture, osteoporosis, sciatica pain. PLAN: 1. Because the patient has significant hypokalemia which may compromise respiratory muscles, after talking to ICU physician planned ICU admit. However , I will admit her to the PCU at least for now on a PCU bed. We will have tele monitor. We will have continuous pulse ox monitoring. Vital signs q. 12 hours x3 and then q. 4 hours x3. Any sign of respiratory muscle compromise, need to sent to ICU. In the Emergency Room, the patient got 10 mEq IV and 40 mEq p.o. of the potassium. I will order 40 mEq IV and another 20 mEq p.o. now. I ordered midnight potassium checking and nurse need to call to on-call M.D. to report potassium results. 2. Like I mentioned, I ordered continue possible monitoring to monitor of the respiratory muscles and respiratory rate. Nurse need to call M.D. if respiratory rate less than 10. Has ordered tomorrow morning labs include potassium, magnesium and phosphorus. Also, ordered 24-hour urine testing. Liver function test to follow up abnormal liver function test. The patient has some mild decrease TSH levels, possible like sick thyroid syndromes from the acute disease. We will need to follow up. I did order T3-T4. 3. For other medical conditions such as history of asthma, we will continue home medications. 4. Discussed with patient and family about the care plan. I answered all the questions. Discussed about the code status, patient is full code. MTDD
--- NOTE | 2017-07-22 17:25 | Critical Care Consultation ---
Critical Care Consultation Date of Consultation: Jul 22, 2017. Attending Physician: Reason for Consultation: profound hypokalemia. History of Present Illness Dear Dr. Harley: Thank you for your kind referral of Mrs. Marie to ICU service. this is 72 yo female with a hx of cervical CA , s/p XRTX finished in june of 2017, complicated by diarrhea requiring Lomotil on regular basis. she also has a hx of Asthma but denies using her MDI excessively. no chemo therapy was given. she underwent D and C at [facility] a week ago under general anesthesia but she never had a bad reaction to GA in the past. she was brought to the ED by her Daughter and granddaughter who are the caregivers , they noted she has been weak and unable to stand from a chair position. she claims having palpitation but no chest pain. no abdominal pain , only cramps, no NV and now she is constipated. In the ED, she was found to have a profound hypokalemia with met alkalosis , she was started on IVF, IV potassium, no EKG changes noted , profound fatigue was the only findings. other labs were acceptable, she denies recent sick contact , no travel and has had hx of hypokalemia in the past as well. she does have periodic episodes of weakness but not since childhood. she has been followed by Dr. Keys from [facility] and from [facility]. Family History Cancer Diabetes mellitus Hypertension Lung disease Social History Smoking Status: Former Smoker Alcohol Use: none Drug Use: none Marital Status: Housing Status: lives alone Occupation Status: unemployed Allergies Coded Allergies: Codeine (Verified Allergy, Severe, ANAPHYLAXIS, 07/22/17) LIQUID CODEINE CAN TAKE PERCOCET OR HYDROCODONE VIA TABLET Homatropine (Verified Allergy, Intermediate, CHEST TIGHTNESS, 07/22/17) PT STATES SHE HAS USED PERCOCET AND VICODIN WITH NO S/SX Hydrocodone (Verified Allergy, Intermediate, CHEST TIGHTNESS, 07/22/17) PT STATES SHE HAS USED PERCOCET AND VICODIN WITH NO S/SX Aspirin (Verified Adverse Reaction, Mild, ACID REFLUX, 07/22/17) Ketorolac (Verified Adverse Reaction, Mild, SICK IN STOMACH, THROWS UP, ) Home Medications Scheduled Albuterol Hfa (Ventolin Hfa), 2-4 PUFFS INH Q6H Albuterol Sulf (Proventil 0.083% 2.5MG/3ML), 2.5 MG INH Q4-6HR PRN Celecoxib (Celecoxib), 200 MG PO QAM Dicyclomine Hcl (Dicyclomine Hcl), 10 MG PO ACHS Diphenoxylate W/ Atropine (Lomotil), 1 TAB PO DIRECTED Esomeprazole Magnesium (Esomeprazole Magnesium), 40 MG PO BID Fluticasone Propionate (Fluticasone Propionate), 2 SPRAYS MAY DAILY Ibuprofen (Advil), 1,000 MG PO BID Methocarbamol (Methocarbamol), 1 TAB PO TID Methylphenidate (Ritalin), 20 MG PO PRN Oxycodone Hcl (Oxycodone Hcl), 1 TAB PO Q6H Ropinirole Hcl (Requip), 2 MG PO BID PRN Simethicone (Simethicone), 250 MG PO QDL Trazodone Hcl (Trazodone), 100 MG PO HS Scheduled PRN Ondansetron Odt (Zofran Odt), 8 MG SL Q6H PRN for Nausea Current Inpatient Medications Current Inpatient Medications Medications (Trade) Dose Ordered Sig/Jose Route Start Time Stop Time Status Last Admin Dose Admin Sodium Chloride 1,000 ml @ 200 mls/hr Q5H STAT IV 07/22/17 12:56 07/22/17 17:55 07/22/17 13:12 200 MLS/HR Enoxaparin Sodium (Lovenox Inj) 40 mg Q24H SC 07/22/17 15:45 08/21/17 15:44 UNV Potassium Chloride/Sodium Chloride 1,000 ml @ 100 mls/hr Q10H IV 07/22/17 15:44 08/21/17 15:43 UNV Acetaminophen (Tylenol Tab) 650 mg Q4H PRN PO 07/22/17 15:45 08/21/17 15:44 Al Hydrox/Mg Hydrox/Simethicone (Maalox Max Susp) 15 ml Q4H PRN PO 07/22/17 15:45 08/21/17 15:44 Magnesium Hydroxide (Milk Of Magnesia Susp) 30 ml Q12H PRN PO 07/22/17 15:45 08/21/17 15:44 Zolpidem Tartrate (Ambien Tab) 5 mg HSZ PRN PO 07/22/17 15:45 08/21/17 15:44 Zolpidem Tartrate (Ambien Tab) 5 mg HSZ PRN PO 07/22/17 15:45 08/21/17 15:44 Ondansetron HCl (Zofran Inj) 4 mg Q6H PRN IV 07/22/17 15:45 08/21/17 15:44 Polyethylene (Miralax Powder Packet) 17 gm DAILY PRN PO 07/22/17 16:15 08/21/17 16:14 Cephalexin Monohydrate (Keflex Cap) 500 mg QID PO 07/22/17 17:00 08/01/17 16:59 Pantoprazole Sodium (Protonix Tab) 40 mg QAM PO 07/23/17 09:00 08/22/17 08:59 Potassium Chloride 10 meq/ Prmx 100 ml @ 100 mls/hr Q1H IV 07/22/17 17:00 07/22/17 18:59 07/22/17 16:54 100 MLS/HR Review of Systems Constitutional: + chills, + sweats, No fever, No weight loss, No weakness, No fatigue, No problem reported Eyes: + worsening of vision, No eye pain, No redness, No discharge, No diplopia , No problem reported ENT: + hearing loss, No unusual epistaxis, No nasal symptoms, No sore throat, No tinnitus, No dental problems, No trouble swallowing, No problem reported Respiratory: + cough, + sputum, No wheezing, No shortness of breath, No dyspnea on exertion, No dyspnea at rest, No hemoptysis, No problem reported Cardiovascular: No chest pain, No orthopnea, No PND, No edema, No claudication , No palpitations, No problem reported Abdomen: + diarrhea, + constipation Musculoskeletal: + joint pain Genitourinary - Female: + urinary frequency, + urinary urgency Neurologic: + memory loss Psychiatric: + depression symptoms, + anhedonism Endocrine: + fatigue Integumentary: No rash, No itch, No new/changing skin lesions, No color change , No bleeding, No problem reported Allergic / Immunologic: No environmental allergies, No seasonal allergies, No pet sensitivities, No food allergies, No hives, No frequent infections, No poor healing, No prolonged convalescence, No problem reported Physical Exam Date Time Temp Pulse Resp B/P (MAP) Pulse Ox O2 Delivery O2 Flow Rate FiO2 07/22/17 15:32 83 18 123/85 07/22/17 13:40 96 Nasal Cannula 2.0 07/22/17 13:39 88 20 88 Room Air 07/22/17 12:52 96 Room Air 07/22/17 12:49 93 07/22/17 12:43 36.7 83 18 129/92 92 Room Air her VSS , hr 85 in NSR, BP is 121/57, sat on RA was 94%, lungs are clear, enlarged goitre, abdomen is benign, no edema. neuro is non focal but difficult to assess. General Appearance: well-appearing, no apparent distress Eyes: PERRLA, no discharge, EOMI Neck: normal range of motion Respiratory: breath sounds normal, clear to auscultation, clear to percussion Cardiovasular: regular rate/rhythm, normal S1S2, no M/G/R Abdomen: non tender Lower Extremities: no edema, no deformity Pulses: dorsalis pedis (R), dorsalis pedis (L) Neuro: alert, oriented x 3, normal motor exam, normal sensation Psychiatric: normal affect Laboratory Results Last 24 Hours Test 07/22/17 13:05 07/22/17 13:23 07/22/17 14:45 07/22/17 15:45 White Blood Count 7.60 K/uL Red Blood Count 4.37 M/uL Hemoglobin 12.8 g/dL Hematocrit 39.7 % Mean Corpuscular Volume 90.8 fL Mean Corpuscular Hemoglobin 29.3 pg Mean Corpuscular Hemoglobin Concent 32.2 g/dl Platelet Count 127 K/uL Mean Platelet Volume 10.0 fL Neutrophils (%) (Auto) 82.7 % Lymphocytes (%) (Auto) 9.2 % Monocytes (%) (Auto) 5.4 % Eosinophils (%) (Auto) 0.0 % Basophils (%) (Auto) 0.1 % Neutrophils # (Auto) 6.28 K/uL Lymphocytes # (Auto) 0.70 K/uL Monocytes # (Auto) 0.41 K/uL Eosinophils # (Auto) 0.00 K/uL Basophils # (Auto) 0.01 K/uL RDW Standard Deviation 52.0 fL RDW Coefficient of Variation 15.8 % Immature Granulocyte % (Auto) 2.6 % Immature Granulocyte # (Auto) 0.20 K/uL Nucleated RBC Absolute Count (auto) 0.12 K/uL Nucleated Red Blood Cells % 1.5 % Prothrombin Time 12.4 SECONDS Prothromb Time International Ratio 1.2 Activated Partial Thromboplast Time 22.2 SECONDS Partial Thromboplastin Ratio 0.9 Sodium Level 144 mmol/L 143 mmol/L Potassium Level 1.5 mmol/L 1.7 mmol/L Chloride Level 91 mmol/L 94 mmol/L Carbon Dioxide Level 45 mmol/L 44 mmol/L Anion Gap 8.0 mmol/L 6.0 mmol/L Blood Urea Nitrogen 10 mg/dl 8 mg/dl Creatinine 0.55 mg/dl 0.39 mg/dl Est Creatinine Clear Calc Drug Dose 92.2 ml/min 130.0 ml/min Estimated GFR () 110.1 123.3 Estimated GFR (Non- 95.0 106.4 BUN/Creatinine Ratio 18.4 20.5 Random Glucose 165 mg/dl 164 mg/dl Calcium Level 8.1 mg/dl 7.3 mg/dl Magnesium Level 2.2 mg/dl 2.1 mg/dl Total Bilirubin 2.1 mg/dl Aspartate Amino Transf (AST/SGOT) 92 U/L Alanine Aminotransferase (ALT/SGPT) 160 U/L Alkaline Phosphatase 114 U/L Total Creatine Kinase 99 U/L Troponin I 0.023 ng/ml Total Protein 5.8 gm/dl Albumin 2.9 gm/dl Globulin 2.9 gm/dl Albumin/Globulin Ratio 1.0 Thyroid Stimulating Hormone (TSH) 0.016 uIu/ml Free Triiodothyronine 2.60 pg/ml Urine Color DK YELLOW Urine Appearance CLEAR Urine pH 8.0 Urine Specific [place] 1.023 Urine Protein 2+ Urine Glucose (UA) 1+ Urine Ketones TRACE Urine Occult Blood NEG Urine Nitrite NEG Urine Bilirubin NEG Urine Urobilinogen POS Urine Leukocyte Esterase TRACE Urine WBC (Auto) 1-5 /hpf Urine RBC (Auto) 0-4 /hpf Urine Hyaline Casts (Auto) 5-10 /lpf Urine Epithelial Cells (Auto) >30 /lpf Urine Bacteria (Auto) NEG Urine Renal Epithelial Cells 5-10 /lpf Urine Pathogenic Casts 0-3 GRANULAR CASTS /lpf Urine Mucus PRESENT Arterial Blood pH 7.60 Arterial Blood Partial Pressure CO2 48 mmHg Arterial Blood Partial Pressure O2 126 mm/Hg Arterial Blood HCO3 45 mmol/L Arterial Blood Oxygen Saturation 98.8 % Arterial Blood Base Excess 21.3 mEq/L Arterial Blood Gas Delivery 2 L Kishore Test POS Phosphorus Level 1.2 mg/dl Free Thyroxine 1.75 ng/dl Diagnostic Results CXR was unremarkable. head ct was negative. reviewed personally. Assessment & Plan 1- profound hypokalemia, appeared to be recurrent from the past. 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 2- fatigue appeared to be chronic, related to the above as well. 3- cervical CA , completed her XRTX, no chemo. 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 now constipated. 5- Thyroid Goiter, ? Grave's which accompany hypokalemia. 6- Asthma, not using excessive amount of albuterol per pt. now in remission. 7- esophageal Schatzki ring , s/p dilation in 2013. Plan: 1- continue with IVF, watch for the sodium that is elevated to begin with. 2- aggressive potassium replacement. 3- check urine potassium and chloride , eval for secondary cause of met alkalosis other than volume loss. 4- if the above failed to restore her potassium , will add Amiloride 10 mg po daily for potassium sparing, Aldactone is another option. 5- place a central line for aggressive potassium replacement. 6- check T 4 with reflex, eval for Grave's. Thyroglobulin as well. 7- oral intake with solid food , the family confirmed she has no restrictions. 8- stop Lomotil, the pt is constipated. 9- avoid Albuterol for BD , use Atrovent only. 10- labs every 4 hours. 11- check CPK. 12- consider renal consult. 13- thyroid US. 14- Heparin SC. 15- ICU monitoring. 16- check phosphorus. 17- I do believe that her hypokalemia and fatigue are chronic, the level of K would have been detrimental on her cardiac status, no arrhythmia noted whatsoever. discussed with the staff and with Dr. Harley and with the family in details. CCT 60 min excluding procedure time.
[2017-07-22] MEDS ORDERED: POTASSIUM PHOS 3 MMOL/1 ML INFUSION IV STA ×2 (18:14→18:24)
--- NOTE | 2017-07-22 18:20 | Procedure Note ---
Procedure Note Procedure Date Jul 22, 2017. Procedure Description Procedure Name: central line placement. Procedure time out: side/site verified, patient ID confirmed, correct procedure Consent obtained: written Performed by: attending Indications: therapeutic Contraindications: none Description: the pt needed a central line for aggressive potassium replacement. consent obtained from the pt , discussed with the family, risks and benefits, agreed to the procedure . the pt had right IJ approached under US guidance, strict sterile field, chlorhexidine , 5 ml 1% lido, Viptable tech, no scalple. dilator and the CVL placed to 16 cm. all ports flushed with NS. secured with two surgical sutures. covered with surgical dressing. no immediate complication. CXR reviewed. tip of the CVL at the SVC. no PTX, may use the line.
--- NOTE | 2017-07-22 18:26 | DIAGNOSTIC IMAGING REPORT ---
CHEST ONE VIEW PORTABLE CLINICAL HISTORY: Central line confirmation COMPARISON STUDY: 07/22/2017 FINDINGS: The heart remains enlarged. There has been interval placement of a right internal jugular central venous catheter. The tip projects over the superior vena cava. There is no pneumothorax. There is no focal pulmonary consolidation. There is stable linear scar/atelectatic change at the lung bases. No pleural effusions are visualized.[ IMPRESSION: No evidence of pneumothorax status post placement of a right internal jugular central venous catheter. The tip projects over the superior vena cava. Electronically signed by: Vargas Barnett M.D. 07/22/2017 6:25 PM Dictated Date/Time: 07/22/2017 6:24 PM
[2017-07-22] MEDS: NSS + 20MEQ KCL 1000ML 1,000 ML IV SCH (18:41)
[2017-07-22] MEDS ORDERED: INFLUENZA ADMINISTRATION CHARGE ONE (19:00)
[2017-07-22] MEDS ORDERED: INFLUENZA VACCINE HIGH DOSE 65+ 0.5 ML SYR IM. ONE (19:00)
[2017-07-22] MEDS ORDERED: POTASSIUM PHOSPHATE INJ 30 MMOL in SODIUM CHLORIDE 0.9% 500ML 500 ML IV SCH (19:30)
[2017-07-22] MEDS: CEPHALEXIN MONOHYDRATE 500 MG CAP PO SCH ×2 (19:41→22:58)
[2017-07-22] MEDS: ENOXAPARIN 40 MG/0.4 ML SYR SC SCH (21:00)
--- NOTE | 2017-07-22 21:34 | DIAGNOSTIC IMAGING REPORT ---
THYROID ULTRASONOGRAPHY CLINICAL HISTORY: Thyromegaly. Low TSH. COMPARISON STUDY: No previous studies for comparison. FINDINGS: The right lobe measures 34 x 11 x 13 mm. The right lobe is heterogeneous in echotexture. The left globe is enlarged measuring 73 x 32 x 32 mm. The lobe is heterogeneous in echotexture. There are 2 tangential nodules measuring 35 x 27 x 30 mm and 45 x 42 x 41 mm. The dominant lower pole nodule is heterogeneous in echotexture. There are no definite calcifications. IMPRESSION: 1. Diffusely heterogeneous thyroid echotexture, a finding consistent with a history of thyroiditis. 2. There are 2 dominant left lobe nodules, the largest of which is located within the lower pole measuring 4.5 cm in maximal diameter. Fine-needle aspiration should be considered based on size criteria. Electronically signed by: Vargas Barnett M.D. 07/22/2017 9:33 PM Dictated Date/Time: 07/22/2017 9:30 PM
[2017-07-23] VITALS (28 sets, daily range): BP systolic 97–161; BP diastolic 57–114; PULSE 69–98; TEMP 36.7–37; O2SAT 92–99
[2017-07-23 00:30] LABS: CALCIUM 6.4 mg/dl (8.5-10.1); CREATININE 0.37 mg/dl (0.60-1.20); POTASSIUM 2.1 mmol/L (3.5-5.1)
[2017-07-23] MEDS ORDERED: NURSING VERBAL MED ORDER ONE ×2 (00:45→12:30)
[2017-07-23] MEDS ORDERED: OXYCODONE HCL IR 5 MG TAB (IMMEDIATE RELEASE) PO PRN (01:00)
[2017-07-23] MEDS: POTASSIUM PHOSPHATE INJ 30 MMOL in SODIUM CHLORIDE 0.9% 500ML 500 ML IV SCH ×3 (01:02→11:59)
[2017-07-23] MEDS ORDERED: NURSING VERBAL MED ORDER STA (01:34)
[2017-07-23] MEDS ORDERED: OXYCODONE HCL IR 5 MG TAB (IMMEDIATE RELEASE) PO STA (01:43)
[2017-07-23] MEDS: NSS + 20MEQ KCL 1000ML 1,000 ML IV SCH (04:45)
[2017-07-23 05:50] LABS: HEMATOCRIT 32.8 % (37-47); MEAN CELL VOLUME 90.9 fL (80-100); MEAN CORPUSCULAR HEMOGLOBIN 30.2 pg (25-34); MEAN CORPUSCULAR HGB CONC 33.2 g/dl (32-36); RED BLOOD COUNT 3.61 M/uL (4.2-5.4); WHITE BLOOD COUNT 5.19 K/uL (4.8-10.8)
[2017-07-23] MEDS: ALBUTEROL HFA 8 GM INHALER INH SCH ×3 (06:00→17:44)
[2017-07-23 06:06] LABS: ESTIMATED AVERAGE GLUCOSE 114 mg/dl; HA1C FLAG Normal (Normal)
[2017-07-23] MEDS: DICYCLOMINE HCL 10 MG CAP PO SCH ×4 (06:21→19:29)
[2017-07-23 06:30] LABS: MEAN PLATELET VOLUME 9.4 fL (7.4-10.4); PLATELET COUNT 91 K/uL (130-400)
[2017-07-23 06:36] LABS: BASO % 0.2 %; BASO ABS # 0.01 K/uL (0-0.2); COMPLETE YES; EOS % 0.2 %; IG% 4.2 %; LYMPH % 8.1 %; LYMPH ABS # 0.42 K/uL (1.2-3.4); MONO % 5.4 %; NEUT % 81.9 %; PLT ESTIMATE DECREASED
[2017-07-23 06:43] LABS: BUN/CREATININE RATIO 14.4 (10-20); CALCIUM 6.3 mg/dl (8.5-10.1); CREATININE 0.3 mg/dl (0.60-1.20); PHOSPHORUS 3.8 mg/dl (2.5-4.9); POTASSIUM 2.2 mmol/L (3.5-5.1)
[2017-07-23] MEDS: CEPHALEXIN MONOHYDRATE 500 MG CAP PO SCH ×4 (09:07→19:28)
[2017-07-23] MEDS: POTASSIUM CHLR 10 MEQ / WTR 10 MEQ in PREMIXED WATER 100 ML IV SCH ×3 (09:07→11:59)
[2017-07-23] MEDS: FLUTICASONE PROPIONATE NA SPR 16 GM BTL NAE SCH (09:07)
[2017-07-23] MEDS: METHOCARBAMOL 500 MG TAB PO SCH ×4 (09:09→21:19)
[2017-07-23] MEDS: CeleBREX 200 MG CAP PO SCH (09:09)
[2017-07-23] MEDS ORDERED: POTASSIUM CHLORIDE 10 MEQ TABCR PO ONE (09:45)
[2017-07-23] MEDS: PANTOprazole SOD 40 MG TAB PO SCH (09:48)
--- NOTE | 2017-07-23 09:50 | Critical Care Progress Note ---
Critical Care Progress Note Date of Service Jul 23, 2017. Attending Dr. Loredo Subjective asymptomatic overnight, slightly confused, no pain , no nausia or vomiting, following commands. Objective inadvertently, she pulled her CVL. no evidence of bleeding or large hematoma. other harvey uneventful night. Current SOFA Score SOFA Score Response (Comments) Value PaO2/FiO2 (mmHg) < 400 1 SaO2 / FIO2 221 - 301 1 Platelets (x10) > 150 0 Bilirubin (mg/dL) < 1.2 0 Divine Coma Score 15 0 Level of Hypotension No Hypotension 0 Creatinine (mg/dL) < 1.2 0 Total 2 Assessment & Plan 1- profound hypokalemia with hypertension and hypophosphatemia and fatigue with alkalosis, concerning to me for hyperaldosteronism . 2- thyroid nodule, which needs eval due to r/o Grave's / hyperthyroidism, although usually it is diffuse thyromegaly . 3- cervical CA with persistent diarrhea due to XRTX, done in June 2017, responding to Lomotil , now she is off Lomotil due to constipation. 4- HTN. 5- generalized weakness with hypophosphatemia. Plan: 1- check aldosterone level, and add aldosterone to the 24 hr urine already been collected. 2- continue to replace K and Po4. 3- will add aldactone once the urine is collected, ( significant hypokalemia with alkalosis). 4- FNA of the thyroid, appreciate Dr. Marquez assist in obtaining it. 5- dc IVF and continue with potassium supplements. ( hypernatremia). 6- oral intake. 7- place PICC line, she is consented to it. she pulled her CVL last night inadvertently. 8- PT/OT , eval for movement OOB. 9- disposition plan per attending of records. 10- discussed in details with the staff on rounds. 11- no skin issues. 12- refused heparin sc and venodyne boots, she understand the risk of DVT without prophylaxis especially with generalized weakness. 13 full code. CCT 45 min. Consults & Procedures Consultants: ccm, renal, endocrine. IR for thyroid FNA Procedures: CVL, FNA. Data Medications: Current Inpatient Medications Medications (Trade) Dose Ordered Sig/Jose Route Start Time Stop Time Status Last Admin Dose Admin Enoxaparin Sodium (Lovenox Inj) 40 mg HS SC 07/22/17 21:00 08/21/17 20:59 Acetaminophen (Tylenol Tab) 650 mg Q4H PRN PO 07/22/17 15:45 08/21/17 15:44 Al Hydrox/Mg Hydrox/Simethicone (Maalox Max Susp) 15 ml Q4H PRN PO 07/22/17 15:45 08/21/17 15:44 Magnesium Hydroxide (Milk Of Magnesia Susp) 30 ml Q12H PRN PO 07/22/17 15:45 08/21/17 15:44 Zolpidem Tartrate (Ambien Tab) 5 mg HSZ PRN PO 07/22/17 15:45 08/21/17 15:44 07/22/17 21:17 5 MG Ondansetron HCl (Zofran Inj) 4 mg Q6H PRN IV 07/22/17 15:45 08/21/17 15:44 Polyethylene (Miralax Powder Packet) 17 gm DAILY PRN PO 07/22/17 16:15 08/21/17 16:14 Cephalexin Monohydrate (Keflex Cap) 500 mg QID PO 07/22/17 17:00 08/01/17 16:59 07/23/17 09:07 500 MG Pantoprazole Sodium (Protonix Tab) 40 mg QAM PO 07/23/17 09:00 08/22/17 08:59 Potassium Phosphate 30 mmol/ Sodium Chloride 510 ml @ 88 mls/hr Q4H IV 07/23/17 01:15 08/22/17 01:14 07/23/17 06:21 88 MLS/HR Albuterol (Ventolin Hfa Inhaler) 2 puffs Q6HWA INH 07/23/17 06:00 08/22/17 05:59 Celecoxib (CeleBREX CAP) 200 mg QAM PO 07/23/17 09:00 08/22/17 08:59 07/23/17 09:09 200 MG Dicyclomine HCl (Bentyl Cap) 10 mg ACHS PO 07/23/17 06:45 08/22/17 06:44 07/23/17 06:21 10 MG Diphenoxylate HCl/ Atropine (Lomotil Tab) 1 tab Q6H PRN PO 07/23/17 01:00 08/22/17 00:59 Fluticasone Propionate (Flonase Nasal [place]) 2 sprays DAILY MAY 07/23/17 09:00 08/22/17 08:59 07/23/17 09:07 2 SPRAYS Methocarbamol (Robaxin Tab) 500 mg TID PO 07/23/17 09:00 08/22/17 08:59 07/23/17 09:09 500 MG Ropinirole HCl (Requip Tab) 2 mg HS PO 07/23/17 21:00 08/22/17 20:59 Trazodone HCl (Desyrel Tab) 100 mg HS PO 07/23/17 21:00 08/22/17 20:59 Oxycodone HCl (Roxicodone Immediate Rel Tab) 10 mg Q6H PRN PO 07/23/17 01:45 08/06/17 01:44 Potassium Chloride 10 meq/ Prmx 100 ml @ 100 mls/hr Q1H IV 07/23/17 09:00 08/22/17 08:59 07/23/17 09:07 100 MLS/HR Potassium Chloride (Klor-Con M10) 40 meq NOW ONCE PO 07/23/17 09:45 07/23/17 09:46 Calcium Gluconate 1000 mg/Sodium Chloride 60 ml @ 240 mls/hr NOW ONCE IV 07/23/17 10:00 07/23/17 10:14 Vital Signs: Date Time Temp Pulse Resp B/P (MAP) Pulse Ox O2 Delivery O2 Flow Rate FiO2 07/23/17 08:01 36.9 95 14 134/98 (110) 93 Room Air 07/23/17 08:00 Room Air 07/23/17 06:01 72 12 127/76 (96) 97 07/23/17 05:01 80 17 123/76 (93) 97 07/23/17 04:01 69 21 112/57 (79) 98 07/23/17 04:00 37.0 07/23/17 04:00 99 Nasal Cannula 1.0 07/23/17 03:01 76 12 109/81 (87) 99 07/23/17 02:01 71 14 135/79 (96) 99 07/23/17 01:01 80 18 131/88 (101) 98 07/23/17 00:31 85 20 124/75 (80) 95 07/23/17 00:01 37.0 07/23/17 00:01 78 18 136/81 (97) 99 07/22/17 23:59 99 Nasal Cannula 2.0 07/22/17 23:01 81 16 134/90 (111) 99 07/22/17 22:30 84 14 98 07/22/17 22:22 80 16 133/92 (104) 98 07/22/17 22:12 88 10 137/94 (105) 98 07/22/17 21:30 92 24 97 07/22/17 21:01 88 14 138/78 (110) 97 07/22/17 20:30 90 15 98 07/22/17 20:01 93 17 131/91 (119) 98 07/22/17 20:00 95 Nasal Cannula 2.0 07/22/17 20:00 37.0 07/22/17 19:30 93 16 100 07/22/17 19:02 92 17 108/75 (85) 94 07/22/17 18:00 87 16 140/97 (111) 95 Nasal Cannula 2.0 07/22/17 17:45 36.4 91 18 144/96 96 Nasal Cannula 2.0 07/22/17 17:24 85 16 130/89 96 07/22/17 15:32 83 18 123/85 07/22/17 13:40 96 Nasal Cannula 2.0 07/22/17 13:39 88 20 88 Room Air 07/22/17 12:52 96 Room Air 07/22/17 12:49 93 07/22/17 12:43 36.7 83 18 129/92 92 Room Air Laboratory Results: Last 24 Hours Test 07/22/17 13:05 07/22/17 13:23 07/22/17 14:45 07/22/17 15:45 White Blood Count 7.60 K/uL Red Blood Count 4.37 M/uL Hemoglobin 12.8 g/dL Hematocrit 39.7 % Mean Corpuscular Volume 90.8 fL Mean Corpuscular Hemoglobin 29.3 pg Mean Corpuscular Hemoglobin Concent 32.2 g/dl Platelet Count 127 K/uL Mean Platelet Volume 10.0 fL Neutrophils (%) (Auto) 82.7 % Lymphocytes (%) (Auto) 9.2 % Monocytes (%) (Auto) 5.4 % Eosinophils (%) (Auto) 0.0 % Basophils (%) (Auto) 0.1 % Neutrophils # (Auto) 6.28 K/uL Lymphocytes # (Auto) 0.70 K/uL Monocytes # (Auto) 0.41 K/uL Eosinophils # (Auto) 0.00 K/uL Basophils # (Auto) 0.01 K/uL RDW Standard Deviation 52.0 fL RDW Coefficient of Variation 15.8 % Immature Granulocyte % (Auto) 2.6 % Immature Granulocyte # (Auto) 0.20 K/uL Nucleated RBC Absolute Count (auto) 0.12 K/uL Nucleated Red Blood Cells % 1.5 % Prothrombin Time 12.4 SECONDS Prothromb Time International Ratio 1.2 Activated Partial Thromboplast Time 22.2 SECONDS Partial Thromboplastin Ratio 0.9 Sodium Level 144 mmol/L 143 mmol/L Potassium Level 1.5 mmol/L 1.7 mmol/L Chloride Level 91 mmol/L 94 mmol/L Carbon Dioxide Level 45 mmol/L 44 mmol/L Anion Gap 8.0 mmol/L 6.0 mmol/L Blood Urea Nitrogen 10 mg/dl 8 mg/dl Creatinine 0.55 mg/dl 0.39 mg/dl Est Creatinine Clear Calc Drug Dose 92.2 ml/min 130.0 ml/min Estimated GFR () 110.1 123.3 Estimated GFR (Non- 95.0 106.4 BUN/Creatinine Ratio 18.4 20.5 Random Glucose 165 mg/dl 164 mg/dl Calcium Level 8.1 mg/dl 7.3 mg/dl Magnesium Level 2.2 mg/dl 2.1 mg/dl Total Bilirubin 2.1 mg/dl Aspartate Amino Transf (AST/SGOT) 92 U/L Alanine Aminotransferase (ALT/SGPT) 160 U/L Alkaline Phosphatase 114 U/L Total Creatine Kinase 99 U/L 96 U/L Troponin I 0.023 ng/ml Total Protein 5.8 gm/dl Albumin 2.9 gm/dl Globulin 2.9 gm/dl Albumin/Globulin Ratio 1.0 Thyroid Stimulating Hormone (TSH) 0.016 uIu/ml Free Triiodothyronine 2.60 pg/ml Urine Color DK YELLOW Urine Appearance CLEAR Urine pH 8.0 Urine Specific [place] 1.023 Urine Protein 2+ Urine Glucose (UA) 1+ Urine Ketones TRACE Urine Occult Blood NEG Urine Nitrite NEG Urine Bilirubin NEG Urine Urobilinogen POS Urine Leukocyte Esterase TRACE Urine WBC (Auto) 1-5 /hpf Urine RBC (Auto) 0-4 /hpf Urine Hyaline Casts (Auto) 5-10 /lpf Urine Epithelial Cells (Auto) >30 /lpf Urine Bacteria (Auto) NEG Urine Renal Epithelial Cells 5-10 /lpf Urine Pathogenic Casts 0-3 GRANULAR CASTS /lpf Urine Mucus PRESENT Arterial Blood pH 7.60 Arterial Blood Partial Pressure CO2 48 mmHg Arterial Blood Partial Pressure O2 126 mm/Hg Arterial Blood HCO3 45 mmol/L Arterial Blood Oxygen Saturation 98.8 % Arterial Blood Base Excess 21.3 mEq/L Arterial Blood Gas Delivery 2 L Kishore Test POS Phosphorus Level 1.2 mg/dl Free Thyroxine 1.75 ng/dl Test 07/22/17 18:55 07/22/17 19:21 07/22/17 23:17 07/23/17 05:37 Urine Random Potassium 29.7 mEq/L Sodium Level 146 mmol/L 147 mmol/L Potassium Level 2.1 mmol/L 2.2 mmol/L Chloride Level 99 mmol/L 99 mmol/L Carbon Dioxide Level 41 mmol/L 40 mmol/L Anion Gap 6.0 mmol/L 7.0 mmol/L Blood Urea Nitrogen 6 mg/dl 4 mg/dl Creatinine 0.37 mg/dl 0.30 mg/dl Est Creatinine Clear Calc Drug Dose 135.4 ml/min 168.6 ml/min Estimated GFR () 125.5 134.5 Estimated GFR (Non- 108.3 116.0 BUN/Creatinine Ratio 17.0 14.4 Random Glucose 164 mg/dl 153 mg/dl Calcium Level 6.4 mg/dl 6.3 mg/dl White Blood Count 5.19 K/uL Red Blood Count 3.61 M/uL Hemoglobin 10.9 g/dL Hematocrit 32.8 % Mean Corpuscular Volume 90.9 fL Mean Corpuscular Hemoglobin 30.2 pg Mean Corpuscular Hemoglobin Concent 33.2 g/dl Platelet Count 91 K/uL Mean Platelet Volume 9.4 fL Neutrophils (%) (Auto) 81.9 % Lymphocytes (%) (Auto) 8.1 % Monocytes (%) (Auto) 5.4 % Eosinophils (%) (Auto) 0.2 % Basophils (%) (Auto) 0.2 % Neutrophils # (Auto) 4.25 K/uL Lymphocytes # (Auto) 0.42 K/uL Monocytes # (Auto) 0.28 K/uL Eosinophils # (Auto) 0.01 K/uL Basophils # (Auto) 0.01 K/uL RDW Standard Deviation 52.6 fL RDW Coefficient of Variation 16.1 % Immature Granulocyte % (Auto) 4.2 % Immature Granulocyte # (Auto) 0.22 K/uL Nucleated RBC Absolute Count (auto) 0.05 K/uL Nucleated Red Blood Cells % 1.0 % Platelet Estimate DECREASED Estimated Average Glucose 114 mg/dl Hemoglobin A1c 5.6 % Phosphorus Level 3.8 mg/dl Total Bilirubin 1.2 mg/dl Direct Bilirubin 0.5 mg/dl Aspartate Amino Transf (AST/SGOT) 69 U/L Alanine Aminotransferase (ALT/SGPT) 131 U/L Alkaline Phosphatase 95 U/L Total Protein 4.8 gm/dl Albumin 2.3 gm/dl Test 07/23/17 05:47 07/23/17 08:11 07/23/17 08:20 07/23/17 08:58 Bedside Glucose 150 mg/dl Test 07/23/17 09:22
[2017-07-23] MEDS ORDERED: CALCIUM GLUCONATE 10% 1,000 MG in SODIUM CHLORIDE 0.9% 50ML 50 ML IV ONE (10:00)
--- NOTE | 2017-07-23 11:10 | DIAGNOSTIC IMAGING REPORT ---
CHEST ONE VIEW PORTABLE CLINICAL HISTORY: Picc tip placement COMPARISON STUDY: No previous studies for comparison. FINDINGS: PICC catheter placement of left-sided approach. The tip is located within the superior vena cava and is oriented slightly in a cephalad direction. The catheter should be pulled back slightly. No evidence pneumothorax. IMPRESSION: PICC catheter place in superior vena cava with the tip slightly cephalad in terms of angulation. The catheter should be pulled back slightly. No evidence pneumothorax. The above report was generated using voice recognition software. It may contain grammatical, syntax or spelling errors. Electronically signed by: Yayo Dolan M.D. 07/23/2017 11:08 AM Dictated Date/Time: 07/23/2017 11:06 AM
--- NOTE | 2017-07-23 12:02 | Clinical Documentation Query ---
CLINICAL DOCUMENTATION QUERY A 72 yo female with a significant hypokalemia, generalized weakness, and episode of altered mental status. In your clinical opinion is this patient being managed for: ( xx ) Encephalopathy, resolved ( ) Not Agree ( ) Other explanation of clinical findings (Please Explain) ( ) Unable to determine (Please Define) ( ) Need to Discuss The medical record reflects the following clinical findings, treatment, and risk factors. Clinical Indicators: Episode of confusion and pulling of CVL, SOFA score of 2, documented hypoxemia Treatment: ICU monitoring, O2, IV fluids Risk Factors: age, metabolic processes, fall Please clarify and document your clinical opinion in the progress notes and discharge summary. Terms such as "probable", "suspected", "likely", "questionable", "possible", or "still to be ruled out" are acceptable. IF IN AGREEMENT, YOU MUST DOCUMENT ABOVE DIAGNOSTIC STATEMENT IN DAILY PROGRESS NOTES AND DISCHARGE SUMMARY. This document is not part of the patient's record. Thank You, Rosalie Brian RN [phone]
[2017-07-23] MEDS ORDERED: METOPROLOL TARTRATE 1 MG/ML VIAL ONE (12:18)
[2017-07-23] MEDS: METOPROLOL TARTRATE 1 MG/ML VIAL IV. SCH ×2 (12:30→17:44)
[2017-07-23 12:31] LABS: CREATININE RANDOM URINE < 13.0 mg/dl
--- NOTE | 2017-07-23 12:45 | ECHOCARDIOGRAM REPORT ---
*NOTICE TO RECEIVING DEMOCRAT AGENCY This information is strictly Confidential and protected under [place] law. [place] law prohibits you from making any further disclosure of this information unless further disclosure is expressly permitted by the written consent of the person to whom it pertains or is authorized by law. A general authorization for the release of medical or other information is not sufficient for this purpose. Hospital accepts no responsibility if the information is made available to any other person, INCLUDING THE PATIENT. Interpretation Summary * Name: DECLAN LIMA Study Date: 07/23/2017 09:15 AM BP: 134/98 mmHg * Patient Location: [facility] [place]\S\[address]\S\1 HR: 100 * : 1945 (M/d/yyyy) Gender: Female Height: 62 in * Age: 72 yrs Ethnicity: [place] Weight: 172 lb * Ordering Physician: Keny Loredo * Referring Physician: Self, Referred * Performed By: Shana Pham [facility] * * Reason For Study: CARDIOMEGALY * BSA: 1.8 m2 * -- Conclusions -- * 1. Normal left ventricular size and systolic function. EF 60-65%. No regional wall motion abnormalities. No left ventricular hypertrophy. Type 1 diastolic dysfunction. * 2. No significant valvular abnormalities visualized. * 3. No prior study available for comparison. Procedure Details * A complete two-dimensional transthoracic echocardiogram was performed (2D, M-mode, Doppler and color flow Doppler). Left Ventricle * Normal left ventricular size and systolic function. EF 60-65%. No regional wall motion abnormalities. No left ventricular hypertrophy. Type 1 diastolic dysfunction. Right Ventricle * The right ventricle is normal in size and function. * The right ventricular systolic function is normal as assessed by tricuspid annular plane systolic excursion (TAPSE) (normal >1.5 cm). Atria * Borderline left atrial enlargement. * Right atrium not well visualized. * The thickening of interatrial septum suggests lipomatous hypertrophy. Mitral Valve * The mitral valve is grossly normal. * There is no mitral valve stenosis. * Significant mitral regurgitation is absent. Tricuspid Valve * The tricuspid valve is not well visualized. * There is no tricuspid stenosis. * Significant tricuspid regurgitation is absent. Aortic Valve * The aortic valve is not well visualized. * The aortic valve opens well. * No hemodynamically significant valvular aortic stenosis. * No aortic regurgitation is present. Pulmonic Valve * The pulmonary valve is inadequately visualized, but the Doppler data is adequate for interpretation. * There is no pulmonic valvular stenosis. * Trace pulmonic valvular regurgitation. Great Vessels * The aortic root is normal size. * Ascending aorta of normal dimension * Aortic arch of normal dimension. Pericardium/Pleural * There is no pericardial effusion. Great Vessels * Normal pulmonary venous flow pattern. * Normal inferior vena cava size and collapsability with sniff indicates a normal right atrial pressure of 3 mmHg MMode 2D Measurements and Calculations IVSd 0.79 cm IVSs 1.5 cm LVIDd 4.7 cm LVIDs 2.9 cm LVPWd 0.80 cm LVPWs 1.1 cm IVS/LVPW 0.99 FS 37.0 % EDV(Teich) 100.2 ml ESV(Teich) 33.1 ml EF(Teich) 66.9 % EDV(cubed) 101.0 ml ESV(cubed) 25.2 ml EF(cubed) 75.0 % % IVS thick 92.4 % % LVPW thick 38.3 % LV mass(C)d 120.3 grams LV mass(C)dI 67.1 grams/m\S\2 LV mass(C)s 123.7 grams LV mass(C)sI 69.0 grams/m\S\2 SV(Teich) 67.1 ml SI(Teich) 37.4 ml/m\S\2 SV(cubed) 75.8 ml SI(cubed) 42.3 ml/m\S\2 Ao root diam 3.0 cm Ao root area 7.0 cm\S\2 ACS 1.7 cm asc Aorta Diam 2.7 cm LVOT diam 2.0 cm LVOT area 3.3 cm\S\2 LVAd ap4 21.7 cm\S\2 LVLd ap4 6.6 cm EDV(MOD-sp4) 59.0 ml EDV(sp4-el) 60.4 ml LVAs ap4 11.6 cm\S\2 LVLs ap4 5.9 cm ESV(MOD-sp4) 20.6 ml ESV(sp4-el) 19.6 ml EF(MOD-sp4) 65.1 % EF(sp4-el) 67.5 % SV(MOD-sp4) 38.4 ml SI(MOD-sp4) 21.4 ml/m\S\2 SV(sp4-el) 40.7 ml SI(sp4-el) 22.7 ml/m\S\2 Doppler Measurements and Calculations MV E max tayler 94.9 cm/sec MV A max tayler 114.3 cm/sec MV E/A 0.83 MV P1/2t max tayler 99.2 cm/sec MV P1/2t 51.1 msec MVA(P1/2t) 4.3 cm\S\2 MV dec slope 568.9 cm/sec\S\2 MV dec time 0.11 sec Ao V2 max 166.9 cm/sec Ao max PG 11.1 mmHg Ao max PG (full) 6.0 mmHg JENNIFER(V,A) 2.2 cm\S\2 JENNIFER(V,D) 2.2 cm\S\2 LV V1 max PG 5.2 mmHg LV V1 max 113.8 cm/sec PA V2 max 117.3 cm/sec PA max PG 5.5 mmHg RAP systole 3.0 mmHg
[2017-07-23] MEDS: POTASSIUM CHLR 20 MEQ / WTR 20 MEQ in PREMIXED WATER 100 ML IV SCH ×2 (13:12→15:29)
[2017-07-23 13:32] LABS: ISTAT CARBON DIOXIDE > 40 mEq/l (24-31); ISTAT CHLORIDE 86 mEq/L (101-112); ISTAT CREATININE 0.6 mg/dl (0.6-1.3); ISTAT HEMATOCRIT 33 % (37-47); ISTAT HEMOGLOBIN 11.2 g/dl (12.0-16.0); ISTAT IONIZED CALCIUM 0.85 mmol/l (1.12-1.32); ISTAT SODIUM 143 mEq/L (135-144)
--- NOTE | 2017-07-23 13:32 | Nephrology Consultation ---
Nephrology Consultation Date & Providers Date of Consultation: Jul 23, 2017. Primary Care Provider: Sury Jones M.D. Referring Provider: Reason for Consultation Evaluation management for hypokalemia and metabolic alkalosis. 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 Electronic medical records including labs and imaging are reviewed in detail during patient's visit. Rosi presented to the hospital with 3 days history of generalized weakness and shortness of breath On admission she was found to have profound hypokalemia, potassium was 1.6, metabolic alkalosis, hypophosphatemia and hypocalcemia. She has been receiving replacement with both oral and IV however potassium continues to be low at 2.2. Has normal renal function. Urinalysis was positive for 2+ proteinuria The she denies any recent diuretic use. Has been using Celebrex for pain. She reports having diarrhea for last almost 1 month which stopped few days before admission Appetite and p.o. intake has been poor. She was diagnosed with endometrial adenocarcinoma by biopsy on 03/18/2017. She was scheduled for surgery however during surgery hysterectomy was not done due to extensive disease and adhesion to bladder and decision was made to treat with radiation therapy. Did not receive any chemotherapy. She received 28 days of radiation therapy completed on 06/16/2017. Since the completion of radiation overall she has been feeling poorly. CT abdomen pelvis in January 2017 showed otherwise normal adrenal gland, kidney had cortical thinning but otherwise normal. She has low TSH and imaging showed thyroid nodule. Allergies Coded Allergies: Codeine (Verified Allergy, Severe, ANAPHYLAXIS, 07/22/17) LIQUID CODEINE CAN TAKE PERCOCET OR HYDROCODONE VIA TABLET Homatropine (Verified Allergy, Intermediate, CHEST TIGHTNESS, 07/22/17) PT STATES SHE HAS USED PERCOCET AND VICODIN WITH NO S/SX Hydrocodone (Verified Allergy, Intermediate, CHEST TIGHTNESS, 07/22/17) PT STATES SHE HAS USED PERCOCET AND VICODIN WITH NO S/SX Aspirin (Verified Adverse Reaction, Mild, ACID REFLUX, 07/22/17) Ketorolac (Verified Adverse Reaction, Mild, SICK IN STOMACH, THROWS UP, ) Inpatient Medications Current Inpatient Medications Medications (Trade) Dose Ordered Sig/Jose Route Start Time Stop Time Status Last Admin Dose Admin Enoxaparin Sodium (Lovenox Inj) 40 mg HS SC 07/22/17 21:00 08/21/17 20:59 Potassium Chloride/Sodium Chloride 1,000 ml @ 100 mls/hr Q10H IV 07/22/17 18:30 08/21/17 18:29 07/23/17 04:45 100 MLS/HR Acetaminophen (Tylenol Tab) 650 mg Q4H PRN PO 07/22/17 15:45 08/21/17 15:44 Al Hydrox/Mg Hydrox/Simethicone (Maalox Max Susp) 15 ml Q4H PRN PO 07/22/17 15:45 08/21/17 15:44 Magnesium Hydroxide (Milk Of Magnesia Susp) 30 ml Q12H PRN PO 07/22/17 15:45 08/21/17 15:44 Zolpidem Tartrate (Ambien Tab) 5 mg HSZ PRN PO 07/22/17 15:45 08/21/17 15:44 07/22/17 21:17 5 MG Ondansetron HCl (Zofran Inj) 4 mg Q6H PRN IV 07/22/17 15:45 08/21/17 15:44 Polyethylene (Miralax Powder Packet) 17 gm DAILY PRN PO 07/22/17 16:15 08/21/17 16:14 Cephalexin Monohydrate (Keflex Cap) 500 mg QID PO 07/22/17 17:00 08/01/17 16:59 07/22/17 22:58 500 MG Pantoprazole Sodium (Protonix Tab) 40 mg QAM PO 07/23/17 09:00 08/22/17 08:59 Potassium Phosphate 30 mmol/ Sodium Chloride 510 ml @ 88 mls/hr Q4H IV 07/23/17 01:15 08/22/17 01:14 07/23/17 06:21 88 MLS/HR Albuterol (Ventolin Hfa Inhaler) 2 puffs Q6HWA INH 07/23/17 06:00 08/22/17 05:59 Celecoxib (CeleBREX CAP) 200 mg QAM PO 07/23/17 09:00 08/22/17 08:59 Dicyclomine HCl (Bentyl Cap) 10 mg ACHS PO 07/23/17 06:45 08/22/17 06:44 07/23/17 06:21 10 MG Diphenoxylate HCl/ Atropine (Lomotil Tab) 1 tab Q6H PRN PO 07/23/17 01:00 08/22/17 00:59 Fluticasone Propionate (Flonase Nasal Dennis) 2 sprays DAILY MAY 07/23/17 09:00 08/22/17 08:59 Methocarbamol (Robaxin Tab) 500 mg TID PO 07/23/17 09:00 08/22/17 08:59 Ropinirole HCl (Requip Tab) 2 mg HS PO 07/23/17 21:00 08/22/17 20:59 Trazodone HCl (Desyrel Tab) 100 mg HS PO 07/23/17 21:00 08/22/17 20:59 Oxycodone HCl (Roxicodone Immediate Rel Tab) 10 mg Q6H PRN PO 07/23/17 01:45 08/06/17 01:44 Potassium Chloride 10 meq/ Prmx 100 ml @ 100 mls/hr Q1H IV 07/23/17 09:00 08/22/17 08:59 Family History Cancer Diabetes mellitus Hypertension Lung disease Social History Smoking Status: Never Smoker Alcohol Use: none Drug Use: none Marital Status: Housing Status: lives alone Occupation: unemployed Review of Systems A complete review of systems was performed. Pertinent positives are noted above. All other systems are negative. Physical Exam Date Time Temp Pulse Resp B/P (MAP) Pulse Ox O2 Delivery O2 Flow Rate FiO2 07/23/17 08:01 36.9 95 14 134/98 (110) 93 Room Air 07/23/17 08:00 Room Air 07/23/17 06:01 72 12 127/76 (96) 97 07/23/17 05:01 80 17 123/76 (93) 97 07/23/17 04:01 69 21 112/57 (79) 98 07/23/17 04:00 37.0 07/23/17 04:00 99 Nasal Cannula 1.0 07/23/17 03:01 76 12 109/81 (87) 99 07/23/17 02:01 71 14 135/79 (96) 99 07/23/17 01:01 80 18 131/88 (101) 98 07/23/17 00:31 85 20 124/75 (80) 95 07/23/17 00:01 37.0 07/23/17 00:01 78 18 136/81 (97) 99 07/22/17 23:59 99 Nasal Cannula 2.0 07/22/17 23:01 81 16 134/90 (111) 99 07/22/17 22:30 84 14 98 07/22/17 22:22 80 16 133/92 (104) 98 07/22/17 22:12 88 10 137/94 (105) 98 07/22/17 21:30 92 24 97 07/22/17 21:01 88 14 138/78 (110) 97 07/22/17 20:30 90 15 98 07/22/17 20:01 93 17 131/91 (119) 98 07/22/17 20:00 95 Nasal Cannula 2.0 07/22/17 20:00 37.0 07/22/17 19:30 93 16 100 07/22/17 19:02 92 17 108/75 (85) 94 07/22/17 18:00 87 16 140/97 (111) 95 Nasal Cannula 2.0 07/22/17 17:45 36.4 91 18 144/96 96 Nasal Cannula 2.0 07/22/17 17:24 85 16 130/89 96 07/22/17 15:32 83 18 123/85 07/22/17 13:40 96 Nasal Cannula 2.0 07/22/17 13:39 88 20 88 Room Air 07/22/17 12:52 96 Room Air 07/22/17 12:49 93 07/22/17 12:43 36.7 83 18 129/92 92 Room Air GENERAL: Elderly female. AAA x 3, pleasant, healthy-appearing, not in any distress. HEENT: Atraumatic, normocephalic. NECK: Supple, no JVD, no carotid bruit appreciated. ENT: No sinus tenderness MOUTH and THROAT: Moist oral mucosa, no oral ulcer or pharyngeal erythema RESPIRATORY: Normal breathing efforts, no accessory muscle use, clear to auscultation bilaterally, no wheezes or rales. CARDIOVASCULAR: S1, S2 normal, rate rhythm regular. ABDOMEN: Soft, nontender, positive bowel sound. MUSCULOSKELETAL: No CVA tenderness. No joint swelling, erythema or tenderness. Normal range of motion. SKIN: No skin rash EXTREMITY: No lower extremity edema NEURO: No gross focal neurological deficit, speech fluent. PSYCHIATRY: Normal mood and judgment Laboratory Results Last 24 Hours Test 07/22/17 13:05 07/22/17 13:23 07/22/17 14:45 07/22/17 15:45 White Blood Count 7.60 K/uL Red Blood Count 4.37 M/uL Hemoglobin 12.8 g/dL Hematocrit 39.7 % Mean Corpuscular Volume 90.8 fL Mean Corpuscular Hemoglobin 29.3 pg Mean Corpuscular Hemoglobin Concent 32.2 g/dl Platelet Count 127 K/uL Mean Platelet Volume 10.0 fL Neutrophils (%) (Auto) 82.7 % Lymphocytes (%) (Auto) 9.2 % Monocytes (%) (Auto) 5.4 % Eosinophils (%) (Auto) 0.0 % Basophils (%) (Auto) 0.1 % Neutrophils # (Auto) 6.28 K/uL Lymphocytes # (Auto) 0.70 K/uL Monocytes # (Auto) 0.41 K/uL Eosinophils # (Auto) 0.00 K/uL Basophils # (Auto) 0.01 K/uL RDW Standard Deviation 52.0 fL RDW Coefficient of Variation 15.8 % Immature Granulocyte % (Auto) 2.6 % Immature Granulocyte # (Auto) 0.20 K/uL Nucleated RBC Absolute Count (auto) 0.12 K/uL Nucleated Red Blood Cells % 1.5 % Prothrombin Time 12.4 SECONDS Prothromb Time International Ratio 1.2 Activated Partial Thromboplast Time 22.2 SECONDS Partial Thromboplastin Ratio 0.9 Sodium Level 144 mmol/L 143 mmol/L Potassium Level 1.5 mmol/L 1.7 mmol/L Chloride Level 91 mmol/L 94 mmol/L Carbon Dioxide Level 45 mmol/L 44 mmol/L Anion Gap 8.0 mmol/L 6.0 mmol/L Blood Urea Nitrogen 10 mg/dl 8 mg/dl Creatinine 0.55 mg/dl 0.39 mg/dl Est Creatinine Clear Calc Drug Dose 92.2 ml/min 130.0 ml/min Estimated GFR () 110.1 123.3 Estimated GFR (Non- 95.0 106.4 BUN/Creatinine Ratio 18.4 20.5 Random Glucose 165 mg/dl 164 mg/dl Calcium Level 8.1 mg/dl 7.3 mg/dl Magnesium Level 2.2 mg/dl 2.1 mg/dl Total Bilirubin 2.1 mg/dl Aspartate Amino Transf (AST/SGOT) 92 U/L Alanine Aminotransferase (ALT/SGPT) 160 U/L Alkaline Phosphatase 114 U/L Total Creatine Kinase 99 U/L 96 U/L Troponin I 0.023 ng/ml Total Protein 5.8 gm/dl Albumin 2.9 gm/dl Globulin 2.9 gm/dl Albumin/Globulin Ratio 1.0 Thyroid Stimulating Hormone (TSH) 0.016 uIu/ml Free Triiodothyronine 2.60 pg/ml Urine Color DK YELLOW Urine Appearance CLEAR Urine pH 8.0 Urine Specific [place] 1.023 Urine Protein 2+ Urine Glucose (UA) 1+ Urine Ketones TRACE Urine Occult Blood NEG Urine Nitrite NEG Urine Bilirubin NEG Urine Urobilinogen POS Urine Leukocyte Esterase TRACE Urine WBC (Auto) 1-5 /hpf Urine RBC (Auto) 0-4 /hpf Urine Hyaline Casts (Auto) 5-10 /lpf Urine Epithelial Cells (Auto) >30 /lpf Urine Bacteria (Auto) NEG Urine Renal Epithelial Cells 5-10 /lpf Urine Pathogenic Casts 0-3 GRANULAR CASTS /lpf Urine Mucus PRESENT Arterial Blood pH 7.60 Arterial Blood Partial Pressure CO2 48 mmHg Arterial Blood Partial Pressure O2 126 mm/Hg Arterial Blood HCO3 45 mmol/L Arterial Blood Oxygen Saturation 98.8 % Arterial Blood Base Excess 21.3 mEq/L Arterial Blood Gas Delivery 2 L Kishore Test POS Phosphorus Level 1.2 mg/dl Free Thyroxine 1.75 ng/dl Test 07/22/17 18:55 07/22/17 19:21 07/22/17 23:17 07/23/17 05:37 Urine Random Potassium 29.7 mEq/L Sodium Level 146 mmol/L 147 mmol/L Potassium Level 2.1 mmol/L 2.2 mmol/L Chloride Level 99 mmol/L 99 mmol/L Carbon Dioxide Level 41 mmol/L 40 mmol/L Anion Gap 6.0 mmol/L 7.0 mmol/L Blood Urea Nitrogen 6 mg/dl 4 mg/dl Creatinine 0.37 mg/dl 0.30 mg/dl Est Creatinine Clear Calc Drug Dose 135.4 ml/min 168.6 ml/min Estimated GFR () 125.5 134.5 Estimated GFR (Non- 108.3 116.0 BUN/Creatinine Ratio 17.0 14.4 Random Glucose 164 mg/dl 153 mg/dl Calcium Level 6.4 mg/dl 6.3 mg/dl White Blood Count 5.19 K/uL Red Blood Count 3.61 M/uL Hemoglobin 10.9 g/dL Hematocrit 32.8 % Mean Corpuscular Volume 90.9 fL Mean Corpuscular Hemoglobin 30.2 pg Mean Corpuscular Hemoglobin Concent 33.2 g/dl Platelet Count 91 K/uL Mean Platelet Volume 9.4 fL Neutrophils (%) (Auto) 81.9 % Lymphocytes (%) (Auto) 8.1 % Monocytes (%) (Auto) 5.4 % Eosinophils (%) (Auto) 0.2 % Basophils (%) (Auto) 0.2 % Neutrophils # (Auto) 4.25 K/uL Lymphocytes # (Auto) 0.42 K/uL Monocytes # (Auto) 0.28 K/uL Eosinophils # (Auto) 0.01 K/uL Basophils # (Auto) 0.01 K/uL RDW Standard Deviation 52.6 fL RDW Coefficient of Variation 16.1 % Immature Granulocyte % (Auto) 4.2 % Immature Granulocyte # (Auto) 0.22 K/uL Nucleated RBC Absolute Count (auto) 0.05 K/uL Nucleated Red Blood Cells % 1.0 % Platelet Estimate DECREASED Estimated Average Glucose 114 mg/dl Hemoglobin A1c 5.6 % Phosphorus Level 3.8 mg/dl Total Bilirubin 1.2 mg/dl Direct Bilirubin 0.5 mg/dl Aspartate Amino Transf (AST/SGOT) 69 U/L Alanine Aminotransferase (ALT/SGPT) 131 U/L Alkaline Phosphatase 95 U/L Total Protein 4.8 gm/dl Albumin 2.3 gm/dl Test 07/23/17 05:47 07/23/17 08:11 07/23/17 08:20 Bedside Glucose 150 mg/dl Sharon Aranda is a 72-year-old female admitted with severe hypokalemia, metabolic alkalosis, hypophosphatemia, hypocalcemia and generalized weakness for several days. She was having diarrhea for almost a month with RT. She was diagnosed with endometrial adenocarcinoma, treated with radiation completed on 06/16/2017. Had surgery but could not have hysterectomy because of extensive disease and did not receive any chemotherapy. On admission potassium was 1.6, slightly improved to 2.2 after oral and IV replacement, has metabolic alkalosis. TTKG 8 suggestive of renal K loss although pt has been having diarrhea for almost a month. Normal renal function. Blood pressure has been stable. Was not on any diuretics. Concern for hyperaldosteronism remains, CT abdomen pelvis with IV contrast in January showed otherwise normal adrenal gland. Hypokalemia definitely worsened metabolic alkalosis due to transcellular shift Recommendations --Give extra dose of 40 meq1 dose now and another dose in 4 hours --check ionized ca, give ca Gluconate 1 gm IV x 1 dose --check PTH, vit D --discontinue normal saline change the IV to KCl 40 meq over 4 hours --once urine study samples were collected, will start on spironolactone --check electrolyte panel every 6 hours Thank you for allowing me to participate in your patient's care. It was a pleasure to see Rosi This chart was completed utilizing [employer] Speech and voice recognition software. Grammatical errors, random word insertions, pronoun errors and incomplete sentences are occasional consequences of this system. Any questions or concerns about the content, text or information contained within the body of this dictation should be addressed directly to the physician for clarification.
[2017-07-23 15:46] LABS: BUN/CREATININE RATIO 8.9 (10-20); CALCIUM 6.8 mg/dl (8.5-10.1); CREATININE 0.41 mg/dl (0.60-1.20)
[2017-07-23 16:17] LABS: PHOSPHORUS 4.1 mg/dl (2.5-4.9)
[2017-07-23] MEDS: LISINOPRIL 20 MG TAB PO SCH (16:24)
--- NOTE | 2017-07-23 17:18 | Progress Note ---
Subjective Date of Service: Jul 23, 2017. Subjective Patient feels somewhat better having persistent paresthesias to her hands she feels generally weak however she was able tolerate small amounts of oral intake is no focal complaints or problems and is not noticeable of a thyroid nodule described on initial ultrasound Problem List Medical Problems: (1) Acute exacerbation of chronic low back pain Status: Acute (2) Anxiety Status: Acute (3) Cervical cancer Status: Acute (4) Dehydration Status: Acute (5) Hypokalemia Status: Acute Review of Systems Constitutional: + weakness, + fatigue, No fever, No chills Respiratory: No cough, No sputum Cardiac: No chest pain, No edema Abdomen: No pain, No nausea, No vomiting, No diarrhea Female : No dysuria, No urinary frequency Objective Vital Signs Date Time Temp Pulse Resp B/P (MAP) Pulse Ox O2 Delivery O2 Flow Rate FiO2 07/23/17 16:01 36.7 95 18 137/105 (116) 97 Room Air 07/23/17 16:00 Room Air 07/23/17 15:17 84 93 07/23/17 15:01 90 16 140/106 (117) 95 Room Air 07/23/17 14:30 83 15 156/100 (118) 95 Room Air 07/23/17 14:26 85 12 144/107 (119) 07/23/17 14:01 86 13 140/98 (112) 97 Room Air 07/23/17 13:01 82 16 143/100 (114) 95 Room Air 07/23/17 12:25 79 20 156/103 (120) 97 Room Air 07/23/17 12:20 92 161/109 07/23/17 12:12 93 14 161/109 (126) 94 Room Air 07/23/17 12:11 93 14 151/104 (120) 95 Room Air 07/23/17 12:01 92 14 157/114 (128) 97 Room Air 07/23/17 12:00 Room Air 07/23/17 11:01 36.9 87 14 146/99 (115) 95 Room Air 07/23/17 09:01 98 20 127/98 (108) 92 Room Air 07/23/17 08:01 36.9 95 14 134/98 (110) 93 Room Air 07/23/17 08:00 Nasal Cannula 07/23/17 08:00 Room Air 07/23/17 06:01 72 12 127/76 (96) 97 07/23/17 05:01 80 17 123/76 (93) 97 07/23/17 04:01 69 21 112/57 (79) 98 07/23/17 04:00 37.0 07/23/17 04:00 99 Nasal Cannula 1.0 07/23/17 03:01 76 12 109/81 (87) 99 07/23/17 02:01 71 14 135/79 (96) 99 07/23/17 01:01 80 18 131/88 (101) 98 07/23/17 00:31 85 20 124/75 (80) 95 07/23/17 00:01 37.0 07/23/17 00:01 78 18 136/81 (97) 99 07/22/17 23:59 99 Nasal Cannula 2.0 07/22/17 23:01 81 16 134/90 (111) 99 07/22/17 22:30 84 14 98 07/22/17 22:22 80 16 133/92 (104) 98 07/22/17 22:12 88 10 137/94 (105) 98 07/22/17 21:30 92 24 97 07/22/17 21:01 88 14 138/78 (110) 97 07/22/17 20:30 90 15 98 07/22/17 20:01 93 17 131/91 (119) 98 07/22/17 20:00 95 Nasal Cannula 2.0 07/22/17 20:00 37.0 07/22/17 19:30 93 16 100 07/22/17 19:02 92 17 108/75 (85) 94 07/22/17 18:00 87 16 140/97 (111) 95 Nasal Cannula 2.0 07/22/17 17:45 36.4 91 18 144/96 96 Nasal Cannula 2.0 07/22/17 17:24 85 16 130/89 96 Physical Exam General Appearance: WD/WN, + mild distress Eyes: PERRL, EOMI ENT: hearing grossly normal, pharynx normal Respiratory/Chest: chest non-tender, lungs clear, normal breath sounds Cardiovascular: regular rate, rhythm, no murmur Abdomen: normal bowel sounds, non tender, soft Extremities: non-tender, no pedal edema Skin: normal color, warm/dry Laboratory Results Last 24 Hours Test 07/22/17 18:55 07/22/17 19:21 07/22/17 22:34 07/22/17 23:17 Urine Random Potassium 29.7 mEq/L Bedside Glucose 170 mg/dl Sodium Level 146 mmol/L Potassium Level 2.1 mmol/L Chloride Level 99 mmol/L Carbon Dioxide Level 41 mmol/L Anion Gap 6.0 mmol/L Blood Urea Nitrogen 6 mg/dl Creatinine 0.37 mg/dl Est Creatinine Clear Calc Drug Dose 135.4 ml/min Estimated GFR () 125.5 Estimated GFR (Non- 108.3 BUN/Creatinine Ratio 17.0 Random Glucose 164 mg/dl Calcium Level 6.4 mg/dl Test 07/23/17 05:37 07/23/17 05:47 07/23/17 10:05 07/23/17 10:32 White Blood Count 5.19 K/uL Red Blood Count 3.61 M/uL Hemoglobin 10.9 g/dL Hematocrit 32.8 % Mean Corpuscular Volume 90.9 fL Mean Corpuscular Hemoglobin 30.2 pg Mean Corpuscular Hemoglobin Concent 33.2 g/dl Platelet Count 91 K/uL Mean Platelet Volume 9.4 fL Neutrophils (%) (Auto) 81.9 % Lymphocytes (%) (Auto) 8.1 % Monocytes (%) (Auto) 5.4 % Eosinophils (%) (Auto) 0.2 % Basophils (%) (Auto) 0.2 % Neutrophils # (Auto) 4.25 K/uL Lymphocytes # (Auto) 0.42 K/uL Monocytes # (Auto) 0.28 K/uL Eosinophils # (Auto) 0.01 K/uL Basophils # (Auto) 0.01 K/uL RDW Standard Deviation 52.6 fL RDW Coefficient of Variation 16.1 % Immature Granulocyte % (Auto) 4.2 % Immature Granulocyte # (Auto) 0.22 K/uL Nucleated RBC Absolute Count (auto) 0.05 K/uL Nucleated Red Blood Cells % 1.0 % Platelet Estimate DECREASED Sodium Level 147 mmol/L Potassium Level 2.2 mmol/L Chloride Level 99 mmol/L Carbon Dioxide Level 40 mmol/L Anion Gap 7.0 mmol/L Blood Urea Nitrogen 4 mg/dl Creatinine 0.30 mg/dl Est Creatinine Clear Calc Drug Dose 168.6 ml/min Estimated GFR () 134.5 Estimated GFR (Non- 116.0 BUN/Creatinine Ratio 14.4 Random Glucose 153 mg/dl Estimated Average Glucose 114 mg/dl Hemoglobin A1c 5.6 % Calcium Level 6.3 mg/dl Phosphorus Level 3.8 mg/dl Total Bilirubin 1.2 mg/dl Direct Bilirubin 0.5 mg/dl Aspartate Amino Transf (AST/SGOT) 69 U/L Alanine Aminotransferase (ALT/SGPT) 131 U/L Alkaline Phosphatase 95 U/L Total Protein 4.8 gm/dl Albumin 2.3 gm/dl Bedside Glucose 150 mg/dl Osmolality 297 mOsm/kg Ionized Calcium 0.81 mmol/l Test 07/23/17 11:10 07/23/17 11:40 07/23/17 15:09 Bedside Glucose 161 mg/dl Urine Osmolality 382 mOms/kg Urine Random Creatinine < 13.0 mg/dl Urine Random Potassium 22.3 mEq/L Sodium Level 145 mmol/L Potassium Level 3.0 mmol/L Chloride Level 99 mmol/L Carbon Dioxide Level 38 mmol/L Anion Gap 5.0 mmol/L Blood Urea Nitrogen 4 mg/dl Creatinine 0.41 mg/dl Est Creatinine Clear Calc Drug Dose 123.3 ml/min Estimated GFR () 121.3 Estimated GFR (Non- 104.7 BUN/Creatinine Ratio 8.9 Random Glucose 153 mg/dl Calcium Level 6.8 mg/dl Phosphorus Level 4.1 mg/dl Total Bilirubin 1.3 mg/dl Aspartate Amino Transf (AST/SGOT) 84 U/L Alanine Aminotransferase (ALT/SGPT) 157 U/L Alkaline Phosphatase 119 U/L Total Protein 5.6 gm/dl Albumin 2.8 gm/dl Globulin 2.8 gm/dl Albumin/Globulin Ratio 1.0 25-Hydroxy Vitamin D Total 11.3 ng/ml Parathyroid Hormone (Intact) 791.0 pg/mL Assessment and Plan 72-year-old female profound hypokalemia and recent treatment for cervical cancer with radiation therapy and radiation proctitis Profound hypokalemia continue aggressive augmentation endocrinological evaluation is underway including 24-hour urine collection. There is some consideration as aldosterone has been sent. Beginning spironolactone may be begun once the 24 urine collection is underway nephrology is participating in this management. An SHEYLA inhibitor has been begun Patient previously had outpatient diarrhea associated with likely radiation changes from therapy this however has stopped continue to follow supportive care Abnormal urinalysis was present on admission but culture could not be obtained because of 24 urine collection The patient does have minor anemia unclear whether this is anemia of chronic disease given her recent chemotherapeutic treatment Thyroid nodule considerations for fine-needle aspiration be undertaken during this hospital stay Patient has refused chemoprophylaxis for DVT therapy
[2017-07-23] MEDS: SODIUM CHLORIDE 0.9% IV SCH ×2 (17:42→21:48)
[2017-07-23] MEDS: POTASSIUM PHOSPHATE IV SCH ×2 (17:42→21:48)
[2017-07-23] MEDS: STERILE WATER IV SCH ×3 (17:43→21:47)
[2017-07-23] MEDS: POTASSIUM CHLORIDE IV SCH ×3 (17:43→21:47)
[2017-07-23] MEDS: CHOLECALCIFEROL 1000 INTER.UNIT TAB PO SCH (17:48)
[2017-07-23] MEDS: OXYCODONE HCL IR 5 MG TAB (IMMEDIATE RELEASE) PO PRN (19:22)
[2017-07-23] MEDS: ROPINIROLE HCL 1 MG TAB PO SCH (19:24)
[2017-07-23] MEDS: ENOXAPARIN 40 MG/0.4 ML SYR SC SCH (20:17)
[2017-07-23] MEDS: TRAZODONE HCL 100 MG TAB PO SCH (21:19)
[2017-07-23 22:54] LABS: BUN/CREATININE RATIO 11.9 (10-20); CALCIUM 7.3 mg/dl (8.5-10.1); CREATININE 0.31 mg/dl (0.60-1.20); PHOSPHORUS 5.7 mg/dl (2.5-4.9); POTASSIUM 4.1 mmol/L (3.5-5.1)
[2017-07-24] VITALS (11 sets, daily range): BP systolic 114–149; BP diastolic 67–91; PULSE 69–88; TEMP 36.5–37; O2SAT 92–99
[2017-07-24] MEDS: POTASSIUM CHLORIDE IV SCH ×3 (00:11→03:11)
[2017-07-24] MEDS: STERILE WATER IV SCH ×3 (00:11→03:11)
[2017-07-24] MEDS: SODIUM CHLORIDE 0.9% IV SCH (01:24)
[2017-07-24] MEDS: POTASSIUM PHOSPHATE IV SCH (01:24)
[2017-07-24] MEDS: METOPROLOL TARTRATE 1 MG/ML VIAL IV. SCH ×2 (01:25→06:17)
[2017-07-24 01:36] LABS: POTASSIUM URINE 36.9 meq/L
[2017-07-24 05:34] LABS: HEMATOCRIT 32.8 % (37-47); MEAN CELL VOLUME 91.1 fL (80-100); MEAN CORPUSCULAR HEMOGLOBIN 30.3 pg (25-34); MEAN CORPUSCULAR HGB CONC 33.2 g/dl (32-36); WHITE BLOOD COUNT 5.36 K/uL (4.8-10.8)
[2017-07-24 05:36] LABS: MEAN PLATELET VOLUME 9.8 fL (7.4-10.4); PLATELET COUNT 95 K/uL (130-400)
[2017-07-24 06:07] LABS: CALCIUM 6.8 mg/dl (8.5-10.1); CREATININE 0.31 mg/dl (0.60-1.20); MAGNESIUM 1.8 mg/dl (1.8-2.4); POTASSIUM 4.7 mmol/L (3.5-5.1)
[2017-07-24] MEDS: ALBUTEROL HFA 8 GM INHALER INH SCH ×2 (06:17)
[2017-07-24 06:26] LABS: PHOSPHORUS 4.2 mg/dl (2.5-4.9)
[2017-07-24] MEDS: CeleBREX 200 MG CAP PO SCH (08:44)
[2017-07-24] MEDS: METOPROLOL TARTRATE 25 MG TAB PO SCH ×2 (08:45→20:05)
[2017-07-24] MEDS: PANTOprazole SOD 40 MG TAB PO SCH (08:45)
[2017-07-24] MEDS: LISINOPRIL 20 MG TAB PO SCH (08:45)
[2017-07-24] MEDS: DICYCLOMINE HCL 10 MG CAP PO SCH ×4 (08:45→20:39)
[2017-07-24] MEDS: FLUTICASONE PROPIONATE NA SPR 16 GM BTL NAE SCH (08:45)
[2017-07-24] MEDS: CEPHALEXIN MONOHYDRATE 500 MG CAP PO SCH ×4 (08:46→20:03)
[2017-07-24] MEDS: CHOLECALCIFEROL 1000 INTER.UNIT TAB PO SCH (08:46)
[2017-07-24] MEDS ORDERED: ERGOCALCIFEROL 50,000 INTER.UNIT CAP PO SCH (09:00)
--- NOTE | 2017-07-24 09:51 | Critical Care Progress Note ---
Critical Care Progress Note Date of Service Jul 24, 2017. Attending Dr. Loredo Subjective continued to have fatigue and dysphagia , no sob , although one episode yesterday occurred , possible anxiety component. today she denies further symptoms. minimal lethargy likely ativan related. Objective inadvertently, she pulled her CVL. no evidence of bleeding or large hematoma. other harvey uneventful night. Current SOFA Score SOFA Score Response (Comments) Value PaO2/FiO2 (mmHg) < 400 1 SaO2 / FIO2 221 - 301 1 Platelets (x10) > 150 0 Bilirubin (mg/dL) < 1.2 0 Divine Coma Score 15 0 Level of Hypotension No Hypotension 0 Creatinine (mg/dL) < 1.2 0 Total 2 Assessment & Plan 1- profound hypokalemia, resolved. 2- hyperparathyroidism. 3- hyperthyroidism. 4- ? hyperaldo. 5- esophageal stricture. 6- thyroid nodule. Plan: 1- stop potassium supplement , K is > 4. 2- stop phosphorus. 3- appreciate Dr. Yadav input. 4- the pt will need Endocrine consult. 5- GI consult to Dr. Jaquez in regard to EGD with esophageal dilation. 6- discussed with Dr. Marquez, appreciate his acceptance of this case to regular floor. discussed with the staff on rounds in details. Consults & Procedures Consultants: ccm, renal, endocrine. IR for thyroid FNA Procedures: CVL, FNA. Data Medications: Current Inpatient Medications Medications (Trade) Dose Ordered Sig/Jose Route Start Time Stop Time Status Last Admin Dose Admin Enoxaparin Sodium (Lovenox Inj) 40 mg HS SC 07/22/17 21:00 08/21/17 20:59 Acetaminophen (Tylenol Tab) 650 mg Q4H PRN PO 07/22/17 15:45 08/21/17 15:44 Al Hydrox/Mg Hydrox/Simethicone (Maalox Max Susp) 15 ml Q4H PRN PO 07/22/17 15:45 08/21/17 15:44 Ondansetron HCl (Zofran Inj) 4 mg Q6H PRN IV 07/22/17 15:45 08/21/17 15:44 Cephalexin Monohydrate (Keflex Cap) 500 mg QID PO 07/22/17 17:00 08/01/17 16:59 07/23/17 19:28 500 MG Pantoprazole Sodium (Protonix Tab) 40 mg QAM PO 07/23/17 09:00 08/22/17 08:59 07/23/17 09:48 40 MG Celecoxib (CeleBREX CAP) 200 mg QAM PO 07/23/17 09:00 08/22/17 08:59 07/23/17 09:09 200 MG Dicyclomine HCl (Bentyl Cap) 10 mg ACHS PO 07/23/17 06:45 08/22/17 06:44 07/23/17 19:29 10 MG Diphenoxylate HCl/ Atropine (Lomotil Tab) 1 tab Q6H PRN PO 07/23/17 01:00 08/22/17 00:59 Fluticasone Propionate (Flonase Nasal Wilmer) 2 sprays DAILY MAY 07/23/17 09:00 08/22/17 08:59 07/23/17 09:07 2 SPRAYS Ropinirole HCl (Requip Tab) 2 mg HS PO 07/23/17 21:00 08/22/17 20:59 07/23/17 19:24 2 MG Trazodone HCl (Desyrel Tab) 100 mg HS PO 07/23/17 21:00 08/22/17 20:59 07/23/17 21:19 100 MG Oxycodone HCl (Roxicodone Immediate Rel Tab) 10 mg Q6H PRN PO 07/23/17 01:45 08/06/17 01:44 07/23/17 19:22 10 MG Lisinopril (Zestril Tab) 20 mg DAILY PO 07/23/17 15:30 08/22/17 15:29 07/23/17 16:24 20 MG Cholecalciferol (Vitamin D Tab) 3,000 inter.unit DAILY PO 07/23/17 17:00 08/22/17 16:59 07/23/17 17:48 3,000 INTER.UNIT Heparin Sodium (Porcine) (Heparin 10 Unit/ ml 5 ml Flush) 5 ml PRN PRN FLUSH 07/24/17 00:45 08/23/17 00:44 Albuterol (Ventolin Hfa Inhaler) 2 puffs Q6HWA PRN INH 07/24/17 12:00 08/23/17 11:59 Metoprolol Tartrate (Lopressor Tab) 25 mg BID PO 07/24/17 09:00 08/23/17 08:59 Ergocalciferol (Vitamin D Cap) 50,000 interunit Fr@0900 PO 07/24/17 09:00 10/09/17 09:01 Calcitriol (Rocaltrol Cap) 0.25 mcg QAM PO 07/24/17 09:00 08/23/17 08:59 UNV Vital Signs: Date Time Temp Pulse Resp B/P (MAP) Pulse Ox O2 Delivery O2 Flow Rate FiO2 07/24/17 08:02 77 22 130/67 (88) 92 Room Air 07/24/17 08:00 Room Air 07/24/17 07:01 79 16 128/85 (99) 94 Room Air 07/24/17 06:17 84 138/86 07/24/17 06:07 78 17 138/86 (103) 98 07/24/17 04:00 97 Nasal Cannula 2.0 07/24/17 04:00 17 114/72 (86) 97 Nasal Cannula 2.0 07/24/17 01:25 77 131/79 07/24/17 01:01 79 21 131/79 (96) 99 07/24/17 00:01 36.9 78 18 135/85 (102) 98 Nasal Cannula 2.0 07/24/17 00:00 98 Nasal Cannula 2.0 07/23/17 22:00 76 21 113/77 (89) 98 Nasal Cannula 2.0 07/23/17 20:00 97 Nasal Cannula 2.0 07/23/17 20:00 36.7 81 22 135/87 (103) 97 Nasal Cannula 2.0 07/23/17 18:02 81 18 97/73 (81) 96 Room Air 07/23/17 17:44 96 126/97 07/23/17 17:42 97 12 126/97 (107) 95 Room Air 07/23/17 17:01 90 16 136/94 (108) 96 Room Air 07/23/17 16:01 36.7 95 18 137/105 (116) 97 Room Air 07/23/17 16:00 Room Air 07/23/17 15:17 84 93 07/23/17 15:01 90 16 140/106 (117) 95 Room Air 07/23/17 14:30 83 15 156/100 (118) 95 Room Air 07/23/17 14:26 85 12 144/107 (119) 07/23/17 14:01 86 13 140/98 (112) 97 Room Air 07/23/17 13:01 82 16 143/100 (114) 95 Room Air 07/23/17 12:25 79 20 156/103 (120) 97 Room Air 07/23/17 12:20 92 161/109 07/23/17 12:12 93 14 161/109 (126) 94 Room Air 07/23/17 12:11 93 14 151/104 (120) 95 Room Air 07/23/17 12:01 92 14 157/114 (128) 97 Room Air 07/23/17 12:00 Room Air 07/23/17 11:01 36.9 87 14 146/99 (115) 95 Room Air Laboratory Results: Last 24 Hours Test 07/23/17 10:05 07/23/17 11:10 07/23/17 11:40 07/23/17 15:09 Osmolality 297 mOsm/kg Ionized Calcium 0.81 mmol/l Bedside Glucose 161 mg/dl Urine Osmolality 382 mOms/kg Urine Random Creatinine < 13.0 mg/dl Urine Random Potassium 22.3 mEq/L Sodium Level 145 mmol/L Potassium Level 3.0 mmol/L Chloride Level 99 mmol/L Carbon Dioxide Level 38 mmol/L Anion Gap 5.0 mmol/L Blood Urea Nitrogen 4 mg/dl Creatinine 0.41 mg/dl Est Creatinine Clear Calc Drug Dose 123.3 ml/min Estimated GFR () 121.3 Estimated GFR (Non- 104.7 BUN/Creatinine Ratio 8.9 Random Glucose 153 mg/dl Calcium Level 6.8 mg/dl Phosphorus Level 4.1 mg/dl Total Bilirubin 1.3 mg/dl Aspartate Amino Transf (AST/SGOT) 84 U/L Alanine Aminotransferase (ALT/SGPT) 157 U/L Alkaline Phosphatase 119 U/L Total Protein 5.6 gm/dl Albumin 2.8 gm/dl Globulin 2.8 gm/dl Albumin/Globulin Ratio 1.0 25-Hydroxy Vitamin D Total 11.3 ng/ml Parathyroid Hormone (Intact) 791.0 pg/mL Test 07/23/17 21:53 07/23/17 23:55 07/24/17 00:55 07/24/17 05:15 Sodium Level 144 mmol/L 145 mmol/L Potassium Level 4.1 mmol/L 4.7 mmol/L Chloride Level 101 mmol/L 106 mmol/L Carbon Dioxide Level 36 mmol/L 36 mmol/L Anion Gap 7.0 mmol/L 3.0 mmol/L Blood Urea Nitrogen 4 mg/dl 4 mg/dl Creatinine 0.31 mg/dl 0.31 mg/dl Est Creatinine Clear Calc Drug Dose 163.1 ml/min 163.1 ml/min Estimated GFR () 133.0 133.0 Estimated GFR (Non- 114.8 114.8 BUN/Creatinine Ratio 11.9 14.0 Random Glucose 157 mg/dl 148 mg/dl Calcium Level 7.3 mg/dl 6.8 mg/dl Phosphorus Level 5.7 mg/dl 4.2 mg/dl Urine Collection Time 24 HOURS Urine Total Volume 3800 mL Urine Potassium 24 Hour 140 MEQ/24 H White Blood Count 5.36 K/uL Red Blood Count 3.60 M/uL Hemoglobin 10.9 g/dL Hematocrit 32.8 % Mean Corpuscular Volume 91.1 fL Mean Corpuscular Hemoglobin 30.3 pg Mean Corpuscular Hemoglobin Concent 33.2 g/dl RDW Standard Deviation 59.2 fL RDW Coefficient of Variation 18.0 % Platelet Count 95 K/uL Mean Platelet Volume 9.8 fL Nucleated RBC Absolute Count (auto) 0.07 K/uL Nucleated Red Blood Cells % 1.3 % Magnesium Level 1.8 mg/dl Total Bilirubin 0.7 mg/dl Aspartate Amino Transf (AST/SGOT) 65 U/L Alanine Aminotransferase (ALT/SGPT) 132 U/L Alkaline Phosphatase 102 U/L Total Protein 4.9 gm/dl Albumin 2.4 gm/dl Globulin 2.5 gm/dl Albumin/Globulin Ratio 1.0 Test 07/24/17 05:25 Bedside Glucose 145 mg/dl
--- NOTE | 2017-07-24 10:31 | Nephrology Progress Note ---
Nephrology Progress Note Date of Service Jul 24, 2017. Chief Complaint F/U for hypokalemia and metabolic alkalosis. Katie Aranda was seen and examined in her room this am. Overall she feels better, BP well controlled, denies SOB, CP, fever, chills. Electrolyte abnormality mostly resolved. Review of Systems A complete review of systems was performed. Pertinent positives are noted above. All other systems are negative. Vital Signs Last 8 Hrs Date Time Temp Pulse Resp B/P (MAP) Pulse Ox O2 Delivery O2 Flow Rate FiO2 07/24/17 06:17 84 138/86 07/24/17 06:07 78 17 138/86 (103) 98 07/24/17 04:00 97 Nasal Cannula 2.0 07/24/17 04:00 17 114/72 (86) 97 Nasal Cannula 2.0 07/24/17 01:25 77 131/79 07/24/17 01:01 79 21 131/79 (96) 99 07/24/17 00:01 36.9 78 18 135/85 (102) 98 Nasal Cannula 2.0 07/24/17 00:00 98 Nasal Cannula 2.0 Last Recorded Weight Weight (Kilograms): 77.800 Physical Exam GENERAL: elderly female, AAA x 3, pleasant, not in any distress. NECK: Supple, no JVD. RESPIRATORY: Normal breathing efforts. CTA. CARDIOVASCULAR: S1, S2 normal, rate rhythm regular. EXTREMITY: No lower extremity edema NEURO: speech fluent. PSYCHIATRY: Normal mood and judgment Family History Cancer Diabetes mellitus Hypertension Lung disease Social History Smoking Status: Current some day smoker Alcohol Use: none Drug Use: none Marital Status: Housing Status: lives alone Occupation: unemployed Laboratory Results Past 24 Hours 07/24/17 05:15 07/23/17 15:09 07/23/17 21:53 07/24/17 05:15 Test 07/23/17 10:05 07/23/17 11:10 07/23/17 11:40 07/23/17 15:09 Osmolality 297 mOsm/kg (280-300) Ionized Calcium 0.81 mmol/l (1.12-1.32) Bedside Glucose 161 mg/dl (70-90) Urine Osmolality 382 mOms/kg (500-800) Urine Random Creatinine < 13.0 mg/dl Urine Random Potassium 22.3 mEq/L Anion Gap 5.0 mmol/L (3-11) Est Creatinine Clear Calc Drug Dose 123.3 ml/min Estimated GFR () 121.3 Estimated GFR (Non- 104.7 BUN/Creatinine Ratio 8.9 (10-20) Calcium Level 6.8 mg/dl (8.5-10.1) Phosphorus Level 4.1 mg/dl (2.5-4.9) Total Bilirubin 1.3 mg/dl (0.2-1) Aspartate Amino Transf (AST/SGOT) 84 U/L (15-37) Alanine Aminotransferase (ALT/SGPT) 157 U/L (12-78) Alkaline Phosphatase 119 U/L (45-117) Total Protein 5.6 gm/dl (6.4-8.2) Albumin 2.8 gm/dl (3.4-5.0) Globulin 2.8 gm/dl (2.5-4.0) Albumin/Globulin Ratio 1.0 (0.9-2) 25-Hydroxy Vitamin D Total 11.3 ng/ml (30-100) Parathyroid Hormone (Intact) 791.0 pg/mL (11.1-79.5) Test 07/23/17 21:53 07/23/17 23:55 07/24/17 00:55 07/24/17 05:15 Anion Gap 7.0 mmol/L (3-11) 3.0 mmol/L (3-11) Est Creatinine Clear Calc Drug Dose 163.1 ml/min 163.1 ml/min Estimated GFR () 133.0 133.0 Estimated GFR (Non- 114.8 114.8 BUN/Creatinine Ratio 11.9 (10-20) 14.0 (10-20) Calcium Level 7.3 mg/dl (8.5-10.1) 6.8 mg/dl (8.5-10.1) Phosphorus Level 5.7 mg/dl (2.5-4.9) 4.2 mg/dl (2.5-4.9) Urine Collection Time 24 HOURS Urine Total Volume 3800 mL Urine Potassium 24 Hour 140 MEQ/24 H (30-90) Red Blood Count 3.60 M/uL (4.2-5.4) Mean Corpuscular Volume 91.1 fL (80-100) Mean Corpuscular Hemoglobin 30.3 pg (25-34) Mean Corpuscular Hemoglobin Concent 33.2 g/dl (32-36) RDW Standard Deviation 59.2 fL (36.4-46.3) RDW Coefficient of Variation 18.0 % (11.5-14.5) Mean Platelet Volume 9.8 fL (7.4-10.4) Nucleated RBC Absolute Count (auto) 0.07 K/uL (0-0) Nucleated Red Blood Cells % 1.3 % Magnesium Level 1.8 mg/dl (1.8-2.4) Total Bilirubin 0.7 mg/dl (0.2-1) Aspartate Amino Transf (AST/SGOT) 65 U/L (15-37) Alanine Aminotransferase (ALT/SGPT) 132 U/L (12-78) Alkaline Phosphatase 102 U/L (45-117) Total Protein 4.9 gm/dl (6.4-8.2) Albumin 2.4 gm/dl (3.4-5.0) Globulin 2.5 gm/dl (2.5-4.0) Albumin/Globulin Ratio 1.0 (0.9-2) Test 07/24/17 05:25 Bedside Glucose 145 mg/dl (70-90) Allergies Coded Allergies: Codeine (Verified Allergy, Severe, ANAPHYLAXIS, 07/22/17) LIQUID CODEINE CAN TAKE PERCOCET OR HYDROCODONE VIA TABLET Homatropine (Verified Allergy, Intermediate, CHEST TIGHTNESS, 07/22/17) PT STATES SHE HAS USED PERCOCET AND VICODIN WITH NO S/SX Hydrocodone (Verified Allergy, Intermediate, CHEST TIGHTNESS, 07/22/17) PT STATES SHE HAS USED PERCOCET AND VICODIN WITH NO S/SX Aspirin (Verified Adverse Reaction, Mild, ACID REFLUX, 07/22/17) Ketorolac (Verified Adverse Reaction, Mild, SICK IN STOMACH, THROWS UP, ) Medications Current Inpatient Medications Medications (Trade) Dose Ordered Sig/Jose Route Start Time Stop Time Status Last Admin Dose Admin Enoxaparin Sodium (Lovenox Inj) 40 mg HS SC 07/22/17 21:00 08/21/17 20:59 Acetaminophen (Tylenol Tab) 650 mg Q4H PRN PO 07/22/17 15:45 08/21/17 15:44 Al Hydrox/Mg Hydrox/Simethicone (Maalox Max Susp) 15 ml Q4H PRN PO 07/22/17 15:45 08/21/17 15:44 Ondansetron HCl (Zofran Inj) 4 mg Q6H PRN IV 07/22/17 15:45 08/21/17 15:44 Cephalexin Monohydrate (Keflex Cap) 500 mg QID PO 07/22/17 17:00 08/01/17 16:59 07/23/17 19:28 500 MG Pantoprazole Sodium (Protonix Tab) 40 mg QAM PO 07/23/17 09:00 08/22/17 08:59 07/23/17 09:48 40 MG Celecoxib (CeleBREX CAP) 200 mg QAM PO 07/23/17 09:00 08/22/17 08:59 07/23/17 09:09 200 MG Dicyclomine HCl (Bentyl Cap) 10 mg ACHS PO 07/23/17 06:45 08/22/17 06:44 07/23/17 19:29 10 MG Diphenoxylate HCl/ Atropine (Lomotil Tab) 1 tab Q6H PRN PO 07/23/17 01:00 08/22/17 00:59 Fluticasone Propionate (Flonase Nasal Rand) 2 sprays DAILY MAY 07/23/17 09:00 08/22/17 08:59 07/23/17 09:07 2 SPRAYS Methocarbamol (Robaxin Tab) 500 mg TID PO 07/23/17 09:00 08/22/17 08:59 07/23/17 21:19 500 MG Ropinirole HCl (Requip Tab) 2 mg HS PO 07/23/17 21:00 08/22/17 20:59 07/23/17 19:24 2 MG Trazodone HCl (Desyrel Tab) 100 mg HS PO 07/23/17 21:00 08/22/17 20:59 07/23/17 21:19 100 MG Oxycodone HCl (Roxicodone Immediate Rel Tab) 10 mg Q6H PRN PO 07/23/17 01:45 08/06/17 01:44 07/23/17 19:22 10 MG Lisinopril (Zestril Tab) 20 mg DAILY PO 07/23/17 15:30 08/22/17 15:29 07/23/17 16:24 20 MG Cholecalciferol (Vitamin D Tab) 3,000 inter.unit DAILY PO 07/23/17 17:00 08/22/17 16:59 07/23/17 17:48 3,000 INTER.UNIT Heparin Sodium (Porcine) (Heparin 10 Unit/ ml 5 ml Flush) 5 ml PRN PRN FLUSH 07/24/17 00:45 08/23/17 00:44 Albuterol (Ventolin Hfa Inhaler) 2 puffs Q6HWA PRN INH 07/24/17 12:00 08/23/17 11:59 Metoprolol Tartrate (Lopressor Tab) 25 mg BID PO 07/24/17 09:00 08/23/17 08:59 Impression (1) Hypokalemia (2) Hypocalcemia (3) Hypertension (4) Hyperparathyroidism (5) Endometrial adenocarcinoma Rosi is a 72-year-old female admitted with severe hypokalemia, metabolic alkalosis, hypophosphatemia, hypocalcemia and generalized weakness for several days. She was having diarrhea for almost a month with RT. She was diagnosed with endometrial adenocarcinoma, treated with radiation completed on 06/16/2017. Had surgery but could not have hysterectomy because of extensive disease and did not receive any chemotherapy. On admission potassium was 1.6, slightly improved to 2.2 after oral and IV replacement, has metabolic alkalosis. TTKG 8 suggestive of renal K loss. Normal renal function. Blood pressure has been stable. Was not on any diuretics. Concern for hyperaldosteronism remains, CT abdomen pelvis with IV contrast in January showed otherwise normal adrenal gland. Urine study suggest renal potassium wasting, pending [place]in [place]. has low ca and high PTH possibly primary hyperparathyroidism. vit D was 11 ? Concern for renal tubulopathy or paraneoplastic syndrome with multiple electrolyte abnormality and malignancy Recommendations --start on ergocalciferol. calcitriol 0.25 mcg /d --schedule for NM parathyroid scan once stable or as an out pt --would hold ACEI/ARB and aldosterone antagonist until we have a definitive diagnosis as these can alter the results in case we need to do a saline suppression test for possible hyperal. will sign off and see for f/u as out pt.
[2017-07-24] MEDS ORDERED: ALBUTEROL HFA 8 GM INHALER INH PRN (12:00)
[2017-07-24] MEDS: CALCITRIOL 0.25 MCG CAP PO SCH (13:09)
[2017-07-24] MEDS: METHIMAZOLE 5 MG TAB PO SCH ×2 (13:09→20:05)
[2017-07-24] MEDS: ONDANSETRON INJ 2 MG/ML 2 ML VIAL IV PRN (17:12)
--- NOTE | 2017-07-24 19:12 | Progress Note ---
Subjective Date of Service: Jul 24, 2017. Subjective this pt states she does not feel like herself, she however cannot be more clear , she has no focal complaints Problem List Medical Problems: (1) Acute exacerbation of chronic low back pain Status: Acute (2) Anxiety Status: Acute (3) Cervical cancer Status: Acute (4) Dehydration Status: Acute (5) Hypokalemia Status: Acute Review of Systems Constitutional: No fever, No chills Respiratory: No cough, No sputum Objective Vital Signs Date Time Temp Pulse Resp B/P (MAP) Pulse Ox O2 Delivery O2 Flow Rate FiO2 07/24/17 16:00 Room Air 07/24/17 15:32 36.5 75 18 127/84 (98) 96 Room Air 07/24/17 11:06 36.6 69 18 143/91 (108) 95 Room Air 07/24/17 10:36 36.9 77 22 92 07/24/17 08:02 77 22 130/67 (88) 92 Room Air 07/24/17 08:00 Room Air Nasal Cannula 07/24/17 08:00 Room Air 07/24/17 07:01 79 16 128/85 (99) 94 Room Air 07/24/17 06:17 84 138/86 07/24/17 06:07 78 17 138/86 (103) 98 07/24/17 04:00 97 Nasal Cannula 2.0 07/24/17 04:00 17 114/72 (86) 97 Nasal Cannula 2.0 07/24/17 01:25 77 131/79 07/24/17 01:01 79 21 131/79 (96) 99 07/24/17 00:01 36.9 78 18 135/85 (102) 98 Nasal Cannula 2.0 07/24/17 00:00 98 Nasal Cannula 2.0 07/23/17 22:00 76 21 113/77 (89) 98 Nasal Cannula 2.0 07/23/17 20:00 97 Nasal Cannula 2.0 07/23/17 20:00 36.7 81 22 135/87 (103) 97 Nasal Cannula 2.0 Physical Exam General Appearance: WD/WN, + mild distress Eyes: PERRL, EOMI Neck: supple, no JVD Respiratory/Chest: chest non-tender, lungs clear, normal breath sounds Cardiovascular: regular rate, rhythm, no murmur Abdomen: normal bowel sounds, non tender, soft Extremities: no pedal edema, no calf tenderness Neurologic/Psychiatric: alert, oriented x 3 Laboratory Results Last 24 Hours Test 07/23/17 21:53 07/23/17 23:55 07/24/17 00:55 07/24/17 05:15 Sodium Level 144 mmol/L 145 mmol/L Potassium Level 4.1 mmol/L 4.7 mmol/L Chloride Level 101 mmol/L 106 mmol/L Carbon Dioxide Level 36 mmol/L 36 mmol/L Anion Gap 7.0 mmol/L 3.0 mmol/L Blood Urea Nitrogen 4 mg/dl 4 mg/dl Creatinine 0.31 mg/dl 0.31 mg/dl Est Creatinine Clear Calc Drug Dose 163.1 ml/min 163.1 ml/min Estimated GFR () 133.0 133.0 Estimated GFR (Non- 114.8 114.8 BUN/Creatinine Ratio 11.9 14.0 Random Glucose 157 mg/dl 148 mg/dl Calcium Level 7.3 mg/dl 6.8 mg/dl Phosphorus Level 5.7 mg/dl 4.2 mg/dl Urine Collection Time 24 HOURS Urine Total Volume 3800 mL Urine Potassium 24 Hour 140 MEQ/24 H White Blood Count 5.36 K/uL Red Blood Count 3.60 M/uL Hemoglobin 10.9 g/dL Hematocrit 32.8 % Mean Corpuscular Volume 91.1 fL Mean Corpuscular Hemoglobin 30.3 pg Mean Corpuscular Hemoglobin Concent 33.2 g/dl RDW Standard Deviation 59.2 fL RDW Coefficient of Variation 18.0 % Platelet Count 95 K/uL Mean Platelet Volume 9.8 fL Nucleated RBC Absolute Count (auto) 0.07 K/uL Nucleated Red Blood Cells % 1.3 % Magnesium Level 1.8 mg/dl Total Bilirubin 0.7 mg/dl Aspartate Amino Transf (AST/SGOT) 65 U/L Alanine Aminotransferase (ALT/SGPT) 132 U/L Alkaline Phosphatase 102 U/L Total Protein 4.9 gm/dl Albumin 2.4 gm/dl Globulin 2.5 gm/dl Albumin/Globulin Ratio 1.0 Test 07/24/17 05:25 Bedside Glucose 145 mg/dl Assessment and Plan 72-year-old female profound hypokalemia and recent treatment for cervical cancer with radiation therapy and radiation proctitis Profound hypokalemia continue aggressive augmentation, did discuss with Endocrine and feels this maybe longstanding untreated Graves disease, she has has supressed TSH for some time and if it is profound could be associated with hypokalemia Vitamin D deficiency may be associated with dyana Calcium and thus high parathyroid hormone Patient previously had outpatient diarrhea associated with likely radiation changes from therapy this however has stopped continue to follow supportive care Abnormal urinalysis was present on admission but culture pending The patient does have minor anemia unclear whether this is anemia of chronic disease given her recent chemotherapeutic treatment Thyroid nodule considerations for fine-needle aspiration be undertaken but endocrine feels maybe associated with graves disease, starting methimazole Patient has refused chemoprophylaxis for DVT therapy
[2017-07-24] MEDS: TRAZODONE HCL 100 MG TAB PO SCH (20:39)
[2017-07-24] MEDS: ENOXAPARIN 40 MG/0.4 ML SYR SC SCH (20:39)
[2017-07-24] MEDS: ROPINIROLE HCL 1 MG TAB PO SCH (20:39)
[2017-07-25] VITALS (7 sets, daily range): BP systolic 124–156; BP diastolic 77–94; PULSE 64–87; TEMP 36.4–36.7; O2SAT 92–96
[2017-07-25] MEDS: DICYCLOMINE HCL 10 MG CAP PO SCH ×4 (06:06→19:34)
[2017-07-25] MEDS: LISINOPRIL 20 MG TAB PO SCH (08:26)
[2017-07-25] MEDS: DIPHENOXYLATE/ATROPINE 2.5/0.025MG TAB PO PRN ×2 (08:26→16:19)
[2017-07-25] MEDS: METOPROLOL TARTRATE 25 MG TAB PO SCH (08:26)
[2017-07-25] MEDS: CeleBREX 200 MG CAP PO SCH (08:27)
[2017-07-25] MEDS: CEPHALEXIN MONOHYDRATE 500 MG CAP PO SCH ×2 (08:27→12:28)
[2017-07-25] MEDS: CALCITRIOL 0.25 MCG CAP PO SCH (08:28)
[2017-07-25] MEDS: PANTOprazole SOD 40 MG TAB PO SCH (08:28)
[2017-07-25] MEDS: METHIMAZOLE 5 MG TAB PO SCH ×3 (08:28→19:34)
[2017-07-25] MEDS: CHOLECALCIFEROL 1000 INTER.UNIT TAB PO SCH (08:29)
[2017-07-25] MEDS: FLUTICASONE PROPIONATE NA SPR 16 GM BTL NAE SCH (08:29)
[2017-07-25] MEDS: ONDANSETRON INJ 2 MG/ML 2 ML VIAL IV PRN (08:33)
[2017-07-25] MEDS ORDERED: CHOLECALCIFEROL 1000 INTER.UNIT TAB PO SCH (09:00)
[2017-07-25 10:23] LABS: BUN/CREATININE RATIO 18.9 (10-20); CREATININE 0.37 mg/dl (0.60-1.20); POTASSIUM 3.1 mmol/L (3.5-5.1)
[2017-07-25] MEDS: POTASSIUM CITRATE 10 MEQ TAB PO SCH ×2 (13:03→19:34)
--- NOTE | 2017-07-25 15:45 | Progress Note ---
Subjective Date of Service: Jul 25, 2017. Subjective pt feels weak and is not like herself, she has some stomach upset after taking po potassium Problem List Medical Problems: (1) Acute exacerbation of chronic low back pain Status: Acute (2) Anxiety Status: Acute (3) Cervical cancer Status: Acute (4) Dehydration Status: Acute (5) Hypokalemia Status: Acute Review of Systems Constitutional: No fever, No chills Respiratory: No cough, No sputum Cardiac: No chest pain Abdomen: + pain, + nausea Objective Vital Signs Date Time Temp Pulse Resp B/P (MAP) Pulse Ox O2 Delivery O2 Flow Rate FiO2 07/25/17 11:23 36.6 86 18 156/90 (112) 94 Room Air 07/25/17 10:30 Room Air 07/25/17 06:22 36.6 87 19 154/94 (114) 92 Room Air 07/25/17 03:35 36.7 84 16 147/87 (107) 93 Room Air 07/25/17 00:15 Room Air 07/25/17 00:13 36.7 74 20 140/87 (104) 94 Room Air 07/24/17 20:04 37.0 88 20 149/88 (108) 96 Room Air 07/24/17 16:00 Room Air Physical Exam General Appearance: WD/WN, + mild distress Eyes: PERRL, EOMI Respiratory/Chest: chest non-tender, lungs clear, normal breath sounds Cardiovascular: regular rate, rhythm, no murmur Abdomen: normal bowel sounds, non tender, soft Extremities: no pedal edema, no calf tenderness Neurologic/Psychiatric: alert, oriented x 3 Laboratory Results Last 24 Hours Test 07/25/17 08:54 Sodium Level 145 mmol/L Potassium Level 3.1 mmol/L Chloride Level 105 mmol/L Carbon Dioxide Level 32 mmol/L Anion Gap 8.0 mmol/L Blood Urea Nitrogen 7 mg/dl Creatinine 0.37 mg/dl Est Creatinine Clear Calc Drug Dose 137.0 ml/min Estimated GFR () 125.5 Estimated GFR (Non- 108.3 BUN/Creatinine Ratio 18.9 Random Glucose 152 mg/dl Calcium Level 8.0 mg/dl Assessment and Plan 72-year-old female profound hypokalemia and recent treatment for cervical cancer with radiation therapy and radiation proctitis Profound hypokalemia continue augmentation, did discuss with Endocrine and feels this maybe longstanding untreated Graves disease, she has has suppressed TSH for some time(since 1997) and if it is profound could be associated with hypokalemia . with concern for hyperthyroidism started on methimazole Vitamin D deficiency continue supplementation may be associated with dyana Calcium and thus high parathyroid hormone Patient previously had outpatient diarrhea associated with likely radiation changes from therapy this however has stopped continue to follow supportive care Abnormal urinalysis was present on admission but culture shows no growth The patient does have minor anemia unclear whether this is anemia of chronic disease given her recent chemotherapeutic treatment Thyroid nodule considerations for fine-needle aspiration be undertaken but endocrine feels maybe associated with graves disease, starting methimazole Patient has refused chemoprophylaxis for DVT therapy
[2017-07-25] MEDS: METOPROLOL TARTRATE 50 MG TAB PO SCH (19:32)
[2017-07-25] MEDS: ENOXAPARIN 40 MG/0.4 ML SYR SC SCH ×2 (19:33→19:37)
[2017-07-25] MEDS: ROPINIROLE HCL 1 MG TAB PO SCH (19:33)
[2017-07-25] MEDS: TRAZODONE HCL 100 MG TAB PO SCH (19:34)
[2017-07-26] VITALS (7 sets, daily range): BP systolic 99–163; BP diastolic 66–109; PULSE 61–81; TEMP 36.4–36.8; O2SAT 92–96
[2017-07-26] MEDS: DICYCLOMINE HCL 10 MG CAP PO SCH ×4 (05:54→20:28)
[2017-07-26 06:42] LABS: BUN/CREATININE RATIO 18.4 (10-20); CREATININE 0.44 mg/dl (0.60-1.20); POTASSIUM 3.6 mmol/L (3.5-5.1)
[2017-07-26] MEDS: FLUTICASONE PROPIONATE NA SPR 16 GM BTL NAE SCH ×2 (08:38→20:29)
[2017-07-26] MEDS: CHOLECALCIFEROL 1000 INTER.UNIT TAB PO SCH (08:38)
[2017-07-26] MEDS: LISINOPRIL 20 MG TAB PO SCH (08:38)
[2017-07-26] MEDS: CALCITRIOL 0.25 MCG CAP PO SCH (08:39)
[2017-07-26] MEDS: CeleBREX 200 MG CAP PO SCH (08:39)
[2017-07-26] MEDS: METOPROLOL TARTRATE 50 MG TAB PO SCH ×2 (08:39→19:34)
[2017-07-26] MEDS: POTASSIUM CITRATE 10 MEQ TAB PO SCH ×3 (08:40→19:34)
[2017-07-26] MEDS: PANTOprazole SOD 40 MG TAB PO SCH (08:40)
[2017-07-26] MEDS: METHIMAZOLE 5 MG TAB PO SCH ×2 (08:40→19:34)
--- NOTE | 2017-07-26 14:03 | Progress Note ---
Subjective Date of Service: Jul 26, 2017. Subjective this pt is feeling better she does have caregivers at home typically but is still requiring assistance to transfer, otherwise no new issues Problem List Medical Problems: (1) Acute exacerbation of chronic low back pain Status: Acute (2) Anxiety Status: Acute (3) Cervical cancer Status: Acute (4) Dehydration Status: Acute (5) Hypokalemia Status: Acute Review of Systems Constitutional: No fever, No chills Cardiac: No chest pain, No edema Abdomen: No pain, No nausea, No vomiting Objective Vital Signs Date Time Temp Pulse Resp B/P (MAP) Pulse Ox O2 Delivery O2 Flow Rate FiO2 07/26/17 11:16 36.8 64 18 125/82 (96) 95 Room Air 07/26/17 09:00 Room Air 07/26/17 07:26 36.5 81 16 118/79 (92) 96 Room Air 07/26/17 05:54 79 130/84 (99) 07/26/17 04:49 36.4 81 20 163/109 (127) 95 Room Air 152/103 (119) 07/26/17 03:40 Room Air 07/25/17 23:09 36.5 64 18 124/79 (94) 94 Room Air 07/25/17 20:00 Room Air 07/25/17 19:14 36.4 78 20 127/82 (97) 95 Room Air 07/25/17 17:19 Room Air 07/25/17 15:54 36.7 71 16 131/77 (95) 96 Room Air Physical Exam General Appearance: WD/WN, + mild distress Eyes: PERRL, EOMI Respiratory/Chest: chest non-tender, lungs clear, normal breath sounds Cardiovascular: regular rate, rhythm, no murmur Abdomen: normal bowel sounds, non tender, soft Extremities: no pedal edema, no calf tenderness Neurologic/Psychiatric: alert, oriented x 3 (can be confused in the morning) Laboratory Results Last 24 Hours Test 07/26/17 05:50 Sodium Level 145 mmol/L Potassium Level 3.6 mmol/L Chloride Level 105 mmol/L Carbon Dioxide Level 34 mmol/L Anion Gap 6.0 mmol/L Blood Urea Nitrogen 8 mg/dl Creatinine 0.44 mg/dl Est Creatinine Clear Calc Drug Dose 115.2 ml/min Estimated GFR () 118.5 Estimated GFR (Non- 102.3 BUN/Creatinine Ratio 18.4 Random Glucose 150 mg/dl Calcium Level 8.0 mg/dl Assessment and Plan 72-year-old female profound hypokalemia and recent treatment for cervical cancer with radiation therapy and radiation proctitis Profound hypokalemia continue augmentation with daily supplementation, did discuss with Endocrine Dr Hawk and he feels this maybe longstanding untreated Graves disease, she has has suppressed TSH for some time(since 1997) and if it is profound could be associated with hypokalemia . with concern for hyperthyroidism started on methimazole Vitamin D deficiency supplementation to also improve low Calcium and thus high parathyroid hormone Patient previously had outpatient diarrhea associated with likely radiation changes from therapy this however has resolved Abnormal urinalysis was present on admission but culture shows no growth anemia of chronic disease given her recent chemotherapeutic treatment Thyroid nodule considerations for fine-needle aspiration be undertaken but endocrine feels maybe associated with graves disease, starting methimazole Patient has refused chemoprophylaxis for DVT therapy
[2017-07-26] MEDS: ENOXAPARIN 40 MG/0.4 ML SYR SC SCH (19:36)
[2017-07-26] MEDS: TRAZODONE HCL 100 MG TAB PO SCH (20:28)
[2017-07-26] MEDS: ROPINIROLE HCL 1 MG TAB PO SCH (20:29)
[2017-07-26] MEDS: OXYCODONE HCL IR 5 MG TAB (IMMEDIATE RELEASE) PO PRN (20:31)
[2017-07-27 04:56] VITALS: BP 138/85; PULSE 72; TEMP 36.5; O2SAT 96
[2017-07-27] MEDS: DICYCLOMINE HCL 10 MG CAP PO SCH ×4 (06:02→19:43)
[2017-07-27 06:31] LABS: BUN/CREATININE RATIO 15.7 (10-20); CALCIUM 8.3 mg/dl (8.5-10.1); CREATININE 0.47 mg/dl (0.60-1.20); POTASSIUM 4.1 mmol/L (3.5-5.1)
[2017-07-27 07:47] VITALS: BP 110/69; PULSE 65; TEMP 36.5; O2SAT 97
[2017-07-27] MEDS: CeleBREX 200 MG CAP PO SCH (08:11)
[2017-07-27] MEDS: METOPROLOL TARTRATE 50 MG TAB PO SCH ×2 (08:11→19:42)
[2017-07-27] MEDS: PANTOprazole SOD 40 MG TAB PO SCH (08:12)
[2017-07-27] MEDS: CALCITRIOL 0.25 MCG CAP PO SCH (08:12)
[2017-07-27] MEDS: POTASSIUM CITRATE 10 MEQ TAB PO SCH ×2 (08:12→19:43)
[2017-07-27] MEDS: METHIMAZOLE 5 MG TAB PO SCH ×2 (08:12→19:42)
[2017-07-27] MEDS: CHOLECALCIFEROL 1000 INTER.UNIT TAB PO SCH (08:13)
[2017-07-27] MEDS: LISINOPRIL 20 MG TAB PO SCH (08:13)
[2017-07-27 11:34] VITALS: BP 116/80; PULSE 57; TEMP 36.7; O2SAT 95
[2017-07-27] MEDS: NYSTATIN SUSP 500,000 U/5 ML UDC PO SCH ×3 (14:06→19:44)
[2017-07-27 15:09] VITALS: BP 132/80; PULSE 64; TEMP 36.6; O2SAT 94
--- NOTE | 2017-07-27 15:42 | DIAGNOSTIC IMAGING REPORT ---
LUMBAR SPINE WITHOUT CT DOSE: 895.35 mGy.cm HISTORY: Pain cervical cancer, weakness of legs; bowel/bladder incontinence TECHNIQUE: Multiaxial CT images of the lumbar spine were performed and reformatted in the sagittal and coronal plane without the use of contrast. A dose lowering technique was utilized adhering to the principles of ALARA. COMPARISON: Routine lumbar spine 10/23/2014 CT abdomen and pelvis 11/12/2016 FINDINGS: Mild compression deformity superior endplate L3. Has minimal loss of vertebral body height is 10-20%. No significant retropulsion of any component of the posterior margin of the vertebral body. Moderate degenerative disc change throughout. No additional compression deformity. The findings in its superior and but of L3 was not present on the prior study. This appears to relate to an osteoporotic compression deformity. No significant surrounding soft tissue lesion or mass. No evidence for major compromise of the spinal canal. Degenerative changes of the posterior elements throughout the mid to lower lumbar region. Moderate degenerative change superior sacroiliac joints. IMPRESSION: 1. Mild compression deformity superior endplate L3. 2. This appears to relate to a benign osteoporotic compression deformity. 3. Estimated loss of vertebral body height is no more than 10-20%. 4. Moderate degenerative disc change as well as vertebral endplate disc changes throughout. 5. No significant compromise of the spinal canal. The above report was generated using voice recognition software. It may contain grammatical, syntax or spelling errors. Electronically signed by: Yayo Dolan M.D. 07/27/2017 3:40 PM Dictated Date/Time: 07/27/2017 3:33 PM
[2017-07-27 16:00] VITALS: O2SAT 94
[2017-07-27] MEDS: ENOXAPARIN 40 MG/0.4 ML SYR SC SCH (19:39)
[2017-07-27] MEDS: OXYCODONE HCL IR 5 MG TAB (IMMEDIATE RELEASE) PO PRN (19:41)
[2017-07-27] MEDS: ROPINIROLE HCL 1 MG TAB PO SCH (19:42)
[2017-07-27] MEDS: TRAZODONE HCL 100 MG TAB PO SCH (19:43)
[2017-07-28] VITALS: BP 120/75; PULSE 66; TEMP 36.4; O2SAT 93
[2017-07-28 04:00] VITALS: BP 118/74; PULSE 68; TEMP 36.7; O2SAT 97
[2017-07-28] MEDS: DICYCLOMINE HCL 10 MG CAP PO SCH ×2 (05:52→12:20)
[2017-07-28 05:59] LABS: HEMATOCRIT 36.9 % (37-47); MEAN CELL VOLUME 93.4 fL (80-100); MEAN CORPUSCULAR HEMOGLOBIN 30.9 pg (25-34); MEAN CORPUSCULAR HGB CONC 33.1 g/dl (32-36); RED BLOOD COUNT 3.95 M/uL (4.2-5.4)
[2017-07-28 06:04] LABS: PLATELET COUNT 97 K/uL (130-400)
[2017-07-28 06:34] LABS: BUN/CREATININE RATIO 20.2 (10-20); CALCIUM 8.2 mg/dl (8.5-10.1); CREATININE 0.45 mg/dl (0.60-1.20); MAGNESIUM 2.1 mg/dl (1.8-2.4)
[2017-07-28] MEDS: CeleBREX 200 MG CAP PO SCH (07:43)
[2017-07-28] MEDS: CALCITRIOL 0.25 MCG CAP PO SCH (07:43)
[2017-07-28] MEDS: METOPROLOL TARTRATE 50 MG TAB PO SCH (07:43)
[2017-07-28] MEDS: FLUTICASONE PROPIONATE NA SPR 16 GM BTL NAE SCH (07:43)
[2017-07-28] MEDS: CHOLECALCIFEROL 1000 INTER.UNIT TAB PO SCH (07:44)
[2017-07-28] MEDS: METHIMAZOLE 5 MG TAB PO SCH (07:45)
[2017-07-28] MEDS: POTASSIUM CITRATE 10 MEQ TAB PO SCH (07:45)
[2017-07-28] MEDS: PANTOprazole SOD 40 MG TAB PO SCH (07:45)
[2017-07-28 07:57] VITALS: BP 137/85; PULSE 72; TEMP 36.5; O2SAT 96
[2017-07-28] MEDS: NYSTATIN SUSP 500,000 U/5 ML UDC PO SCH ×2 (08:04→12:20)
--- NOTE | 2017-07-28 08:07 | Progress Note ---
Subjective Date of Service: Jul 27, 2017. Subjective Pt evaluation today including: conversation w/ patient, physical exam, chart review, lab review, review of studies (thyroid u/s, Lumbar spine CT), review of inpatient medication list PO Intake: poor Voiding: incontinence reports worsening b/l leg weakness, urinary incontinence, and bowel incontinence for about 1 month and getting worse no dysuria no appetite ever since getting radiation treatment for cervical cancer wants to go home - does NOT want rehab does c/o low back pain - present for a "few weeks" Problem List Medical Problems: (1) Acute exacerbation of chronic low back pain Status: Acute (2) Anxiety Status: Acute (3) Cervical cancer Status: Acute (4) Dehydration Status: Acute (5) Hypokalemia Status: Acute Review of Systems Constitutional: No fever Respiratory: No shortness of breath Cardiac: No chest pain Abdomen: No pain Objective Vital Signs Date Time Temp Pulse Resp B/P (MAP) Pulse Ox O2 Delivery O2 Flow Rate FiO2 07/27/17 16:00 94 Room Air 07/27/17 15:09 36.6 64 18 132/80 (97) 94 Room Air 07/27/17 11:34 36.7 57 18 116/80 (92) 95 07/27/17 10:56 Room Air 07/27/17 07:47 36.5 65 18 110/69 (83) 97 Room Air 07/27/17 04:56 36.5 72 18 138/85 (102) 96 Room Air 07/27/17 00:00 Room Air 07/26/17 22:55 36.4 61 18 99/66 (77) 92 Room Air Physical Exam General Appearance: no apparent distress ENT: pharynx normal Neck: no JVD Respiratory/Chest: lungs clear, no respiratory distress, no accessory muscle use Cardiovascular: regular rate, rhythm, no gallop, no murmur Abdomen: normal bowel sounds, non tender, soft, no organomegaly Extremities: no pedal edema Neurologic/Psychiatric: alert, oriented x 3, + pertinent finding (mild hip flexion weakness but distal leg strength 5/5 bilaterally; b/l arm strength 5/5 - proximally and distally ) Laboratory Results Last 24 Hours Test 07/27/17 05:27 Sodium Level 143 mmol/L Potassium Level 4.1 mmol/L Chloride Level 104 mmol/L Carbon Dioxide Level 33 mmol/L Anion Gap 6.0 mmol/L Blood Urea Nitrogen 7 mg/dl Creatinine 0.47 mg/dl Est Creatinine Clear Calc Drug Dose 106.1 ml/min Estimated GFR () 116.0 Estimated GFR (Non- 100.1 BUN/Creatinine Ratio 15.7 Random Glucose 141 mg/dl Calcium Level 8.3 mg/dl Assessment and Plan 72-year-old female with: 1. hypokalemia - resolved. could be due to renal wasting. diarrhea from radiation proctitis could have contributing. long-standing mild hyperthyroidism could have caused wasting as well. continue K supplement but cut back to BID dosing. BMP in am. Check mag as well. 2. hyperthyroidism - appears long-standing. cont methimazole BID will need f/u with endo no overt hyperthyroid symptoms at this time 3. thyroid nodule - will likely need bx in future as outpatient 4. radiation proctitis - if this worsens then GI consultation 5. cervical cancer - s/p extensive radiation treatment 6. lumbar back pain, urinary/bowel incontinence - checked l-spine CT to r/o cord issues/mets - none seen unsure if her bowel/bladder issues are due to cervical cancer and xrt - follow for now 7. anemia of chronic disease - CBC in am 8. vitamin D def - supplement 9. DVT proph - lovenox 10. 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
[2017-07-28 12:03] VITALS: BP 115/74; PULSE 58; TEMP 36.5; O2SAT 94
[2017-07-28 15:28] VITALS: BP 121/70; PULSE 70; TEMP 36.7; O2SAT 94
[2017-07-28] MEDS ORDERED: MIRT15TA PO (16:15)
[2017-07-28] MEDS ORDERED: NYSS5 PO (16:15)
[2017-07-28] MEDS ORDERED: METH-589 PO (16:15)
[2017-07-28] MEDS ORDERED: RCL25 PO (16:15)
[2017-07-28] MEDS ORDERED: MCRK20 PO (16:15)
[2017-07-28] MEDS ORDERED: ERGO1CAP41 PO (16:15)
--- NOTE | 2017-07-28 16:33 | Discharge Instructions ---
Discharge Instructions Date of Service Jul 28, 2017. Admission Reason for Admission: Hypokalemia (very low potassium) Discharge Discharge Diagnosis / Problem: Low potassium - resolved. Hyperthyroidism - Mild. Discharge Goals Goal(s): Learn about illness, Diagnostic testing, Therapeutic intervention Activity Recommendations Activity Limitations: resume your previous activity (as tolerated and with assistance of PT/OT at home as well as your children) . Instructions / Follow-Up Instructions / Follow-Up From Dr. Rowell - 1. For your low potassium - * please note that your potassium level on day of discharge was 4.1 * this is well within normal range * please continue on potassium supplementation - script called to [facility] * take 40meq twice daily until otherwise instructed; start this TONIGHT * please have your potassium level RECHECKED THIS 07/31/17 * you can do this at [facility] - take the prescription for the lab draw to the Main Entrance for this * see Dr. Yadav - kidney doctor - thursday as scheduled 2. For your low vitamin D levels - * take ergocalciferol 40717 units once a week for 12 weeks * take calcitriol daily * both prescriptions sent to [facility] 3. For your mild hyperthyroidism - * take methimazole 2.5mg twice daily until otherwise instructed * follow-up with [facility] - they will be calling you with an appointment date/time 4. For your thrush - * this is yeast infection in the mouth * swish and swallow 5ml of nystatin solution four times a day for 7--10 days 5. For your depression and lack of sleep and lack of appetite - * start remeron (mirtazapine) 15mg once a night at bedtime * the biggest side effect is sedation * if you find it is making you too sleepy please talk to your doctors about this medication * it will start to help your appetite in the next 1-2 weeks * it will start to help your depression in the next 3-4 weeks 6. Return to [facility] if - * you develop extreme weakness - much like what brought you to the hospital a few days ago * you have fever over 100.4 degrees * you develop difficulty breathing, chest pain, abdominal pain * any other concerns 7. Follow-up appointments - * see Dr. Yadav - nephrology (kidney doctor) - thursday as scheduled * see [facility] in the next 2-3 weeks, sooner if possible * see oncology at [place] as scheduled * see Dr. Jones, your family doctor, for any other needs Current Hospital Diet Patient's current hospital diet: Regular Diet Discharge Diet Recommended Diet: Regular Diet Procedures Procedures Performed: CAT scan of head - normal. CAT scan of lumbar spine - NO evidence of cancer in the bones of the back. Spinal cord was normal. You do have a compression fracture (from osteoporosis) in one of the bones. Thyroid ultrasound showing a large nodule. Pending Studies Studies pending at discharge: yes List of pending studies: renin, aldosterone levels Laboratory Results Hemoglobin A1c Test 07/23/17 05:37 Range/Units Estimated Average Glucose 114 mg/dl Hemoglobin A1c 5.6 4.5-5.6 % Medical Emergencies . Who to Call and When: Medical Emergencies: If at any time you feel your situation is an emergency, please call 911 immediately. . Non-Emergent Contact Non-Emergency issues call your: Primary Care Provider, Banana Expert, Oncologist Call Non-Emergent contact if: temperature is above 100.5, your pain is not controlled, your pain is worsening, your pain is unusual for you, your pain is concerning you, you have any medication questions . . "Provider Documentation" section prepared by Chava Rowell. . VTE Core Measure Inpt VTE Proph given/why not?: Enoxaparin (Lovenox)SQ
[2017-07-28 16:56] VITALS: BP 121/70; PULSE 70; TEMP 36.7; O2SAT 94
--- NOTE | 2017-07-31 08:35 | Discharge Summary ---
Discharge Summary Date of Service Jul 30, 2017. Discharge Summary Admission Date: Jul 22, 2017 at 16:30 Discharge Date: Jul 28, 2017 Discharge Disposition: Home with services Principal Diagnosis: severe hypokalemia Problems/Secondary Diagnoses: 1. severe metabolic alkalosis 2. abnormal LFTs 3. hyperthyroidism 4. hypocalcemia 5. hypophosphatemia 6. cervical cancer 7. radiation proctitis 8. urinary incontinence 9. ambulatory dysfunction / deconditioning 10. L3 compression fracture 11. osteoporosis 12. asthma 13. thrush 14. depression 15. anemia of chronic disease 16. vitamin D deficiency 17. thyroid nodule Immunizations: Have You Had Influenza Vaccine: No History of Tetanus Vaccine?: Yes Tetanus Immunization Date: Jan 02, 2006 History of Pneumococcal: No History of Hepatitis B Vaccine: No Procedures: 1. echocardiogram: -- Conclusions -- 1. Normal left ventricular size and systolic function. EF 60-65%. No regional wall motion abnormalities. No left ventricular hypertrophy. Type 1 diastolic dysfunction. 2. No significant valvular abnormalities visualized. 3. No prior study available for comparison. 2. head CT: normal. No stroke or ICH. 3. thyroid ultrasound: IMPRESSION: 1. Diffusely heterogeneous thyroid echotexture, a finding consistent with a history of thyroiditis. 2. There are 2 dominant left lobe nodules, the largest of which is located within the lower pole measuring 4.5 cm in maximal diameter. Fine-needle aspiration should be considered based on size criteria. 4. lumbar spine CT: IMPRESSION: 1. Mild compression deformity superior endplate L3. 2. This appears to relate to a benign osteoporotic compression deformity. 3. Estimated loss of vertebral body height is no more than 10-20%. 4. Moderate degenerative disc change as well as vertebral endplate disc changes throughout. 5. No significant compromise of the spinal canal. 5. central venous catheter line placement 6. PICC line placement Consultations: critical care nephrology PT, OT Medication Reconciliation New Medications: Mirtazapine (Remeron) 15 Mg Tab 1 TAB PO HS for 30 Days, #30 TAB 1 Refill for depression, sleep difficulty, and poor appetite Potassium Chloride (Klor-Con M20) 20 Meq Tabcr 40 MEQ PO BID for 14 Days, #56 TAB 0 Refills Calcitriol (Calcitriol) 0.25 Mcg Cap 0.25 MCG PO QAM, #30 CAP 2 Refills Ergocalciferol (Vitamin D 27831 Unit) 50,000 Unit Cap 42762 INTERUNIT PO once a week, #4 CAP 2 Refills total course of 12 weeks Methimazole (Methimazole ) 5 Mg Tab 2.5 MG PO BID, #60 TAB 2 Refills for hyperthyroidism Nystatin (Nystatin) 5 Ml Susp 5 ML PO QID for 10 Days, #200 ML 0 Refills swish and swallow Continued Medications: Albuterol Hfa (Ventolin Hfa) 200 Puffs/95240 Mcg Aers 2-4 PUFFS INH Q6H Albuterol Sulf (Proventil 0.083% 2.5MG/3ML) 2.5 Mg/3 Ml Nebu 2.5 MG INH Q4-6HR PRN Celecoxib (Celecoxib) 200 Mg Cap 200 MG PO QAM Dicyclomine Hcl (Dicyclomine Hcl) 10 Mg Cap 10 MG PO ACHS Diphenoxylate W/ Atropine (Lomotil) 1 Tab Tab 1 TAB PO DIRECTED, TAB Esomeprazole Magnesium (Esomeprazole Magnesium) 40 Mg Cap 40 MG PO BID Fluticasone Propionate (Fluticasone Propionate) 120 Sprays/6000 Mcg Inha 2 SPRAYS MAY DAILY, #16 Methylphenidate (Ritalin) 20 Mg Tab 20 MG PO PRN, TAB Ondansetron Odt (Zofran Odt) 8 Mg Soltab 8 MG SL Q6H PRN for Nausea, TAB Oxycodone Hcl (Oxycodone Hcl) 10 Mg Tab 1 TAB PO Q6H, #120 Ropinirole Hcl (Requip) 2 Mg Tab 2 MG PO BID PRN for RESTLESS LEG Simethicone (Simethicone) 180 Mg Cap 250 MG PO QDL Trazodone Hcl (Trazodone) 100 Mg Tab 100 MG PO HS, TAB Discontinued Medications: Ibuprofen (Advil) 200 Mg Tab 1000 MG PO BID for Pain Discharge Exam Physical Exam: General Appearance: WD/WN, no apparent distress ENT: pharynx normal (thrush resolving) Neck: no JVD Respiratory/Chest: lungs clear, no respiratory distress, no accessory muscle use Cardiovascular: regular rate, rhythm, no gallop, no murmur, normal peripheral pulses Abdomen / GI: normal bowel sounds, non tender, soft, no organomegaly Extremities: no pedal edema Neurologic/Psychiatric: alert, oriented x 3 Hospital Course HISTORY OF PRESENT ILLNESS: Mrs. Marie is a pleasant 72yo female with recent history of cervical CA , s/p XRT with completion in June of 2017, complicated by diarrhea requiring Lomotil on regular basis. She also has a history of asthma but denies using her MDI excessively. She did not receive chemotherapy for her cervical cancer. She underwent D and C at [facility] a week ago under general anesthesia but she never had a bad reaction to anesthesia in the past. She was brought to the ED by her daughter and granddaughter who are the caregivers as they noted she had been profoundly weak and unable to stand from a chair. She claims having palpitations but no chest pain or abdominal pain. Denied any nausea or emesis. In the ED, she was found to have a profound hypokalemia with metabolic alkalosis. She was started on IVF, IV potassium. Fortunately she had no EKG changes. She denied any recent sick contacts or travel. Denied any past history of hypokalemia. HOSPITAL COURSE: 1. hypokalemia - the patient was initially admitted to the ICU due to the severity of her hypokalemia. The patient's presenting potassium level was 1.5 with discharge potassium level of 4. She required copious amounts of IV/PO potassium to resolve the issue. The cause of the severe hypokalemia was felt to be multifactorial including GI losses due to diarrhea/radiation proctitis, renal losses through wasting ( proven based on urine potassium levels), and perhaps even poor oral intake in the setting of her cancer. Her newly diagnosed hyperthyroidism could have also been contributing via renal losses. Hyperaldosteronism was considered and renin & aldosterone levels were sent prior to discharge. Phosphorus and calcium levels were replaced as needed. Surprisingly her magnesium level was normal her entire stay. At discharge she will take 40meq of potassium twice a day and have a repeat BMP on 07/31/17. She will then follow-up with Dr. Yadav from nephrology early the following week. 2. hyperthyroidism - bases on old TSH levels it appears she has had subclinical hyperthyroidism for some time. Her thyroid functions were now consistent with mild hyperthyroidism, however. Dr. Ajay Hawk from endocrinology was contacted who recommended initiation of methimazole 2.5mg twice a day. Thyroid ultrasound was completed; see full report above. TSH and free T4 will be repeated on 07/31/17. Endocrinology follow-up has been established in the [facility] End[facility] clinic. 3. lumbar back pain, urinary/bowel incontinence - checked l-spine CT to rule out cord compromise and the CT was negative for such. No metastatic disease was found either. However, there was incidental finding of L3 compression fracture, likely from osteoporosis. 4. vitamin D deficiency - she will supplement with ergocalciferol and calcitriol. Close follow-up with future levels will be needed. 5. severe deconditioning / ambulatory dysfunction - the patient received PT/OT services while hospitalized. Rehab was recommended, but she has multiple family caregivers and all parties felt she could return home with them. Due to her significant weakness and ambulatory difficulties a hospital bed was ordered for the patient as well as home PT/OT services. 6. abnormal LFTs - these improved during her stay. The exact cause of such was uncertain. She will need repeat LFTs in the future to ensure normalization. All other medical problems remained stable while here. Total Time Spent: Greater than 30 minutes This includes examination of the patient, discharge planning, medication reconciliation, and communication with other providers. Discharge Instructions Please refer to the electronic Patient Visit Report (Discharge Instructions) for additional information. Follow-Up 1. Dr. Nazanin Yadav - ThursdayAugust 03 at 8:45 am 2. [facility] Endocrinology - Dr. Tom - September 28 at 1:50 pm 3. [facility] - as scheduled Additional Copies To Sury Jones M.D.; Reva Suero M.D.; Nazanin Yadav MD; Katherin Keys M.D.(CALL CENTER DISPATCHER/OB); Bharti Tom M.D. ; [facility]
[2017-08-04] MEDS ORDERED: RTL20 PO (13:32)
[2017-08-04] MEDS ORDERED: OXYC-164 PO (13:45)
[2017-08-04] MEDS ORDERED: FLNIN/ NAE (13:45)
[2017-08-04] MEDS ORDERED: ALBINS/ NEB (15:19)
[2017-08-04] MEDS ORDERED: ESOM1CAP34 PO (16:15)
[2017-08-04] MEDS ORDERED: DICY10CA12 PO (16:15)
== END 2017-07-28 17:40 | disposition home health service (06) | DRG 641 ==
LOC: EDBD 12:33 → C.EDB 12:34 → CANRESERV 16:05 → ENRESERV 16:05 → C.MSICU 16:30 → CANBEDREQ 16:35 → CANRESERV 16:59 → ENRESERV 16:59 → C.4E 07-24 10:58
PROVIDERS: ADMIT Hospitalist; ATTEND Internal Medicine
PROC: 05HM33Z Insertion of Infusion Device into Right Internal Jugular Vein, Percutaneous Approach (ICD-10-PCS; principal; 2017-07-22)
DX: E87.6 Hypokalemia (principal); N39.0 Urinary tract infection, site not specified; J45.909 Unspecified asthma, uncomplicated; M81.0 Age-related osteoporosis without current pathological fracture; C53.9 Malignant neoplasm of cervix uteri, unspecified; E86.0 Dehydration; F41.9 Anxiety disorder, unspecified; E87.3 Alkalosis; E05.00 Thyrotoxicosis with diffuse goiter without thyrotoxic crisis or storm; K62.7 Radiation proctitis; Z87.891 Personal history of nicotine dependence; Z83.3 Family history of diabetes mellitus; Z80.9 Family history of malignant neoplasm, unspecified; Z82.49 Family history of ischemic heart disease and other diseases of the circulatory system

== ENCOUNTER → 2017-07-31 | Day surgery (SDC) | payer OTHER ==
[~2017-07-31] VITALS: Ht 215.9 cm; Wt 75.5 kg
[~2017-07-31] MED LIST changes: +ALBINS/ NEB; +ALBU18002 INH; -ALBUAER2 INH; +CALC1CAP36 PO; +DICY10CA12 PO; -DTRSR/2 PO; +ERGO1CAP41 PO; +ERGO500037 PO; +ESOM1CAP34 PO; +FENTANYL CITRATE INJ 50 MCG/1 ML 2 ML VIAL ONE; +FLNIN/ NAE; -IBUP-1050 PO; +LIDOCAINE HCL 2% 2 ML VIAL (20MG/ML) ONE; -LYR/50 PO; +MCRK20 PO; +METH-589 PO; +METH-848 PO; +METH20TA66 PO; +MIRT15TA PO; +MIRT15TA3 PO; +NYSS5 PO; +ONDA-63 PO; +OXYC-164 PO; -OXYC1TAB3 PO; +POTA20TA13 PO; +PROPOFOL IV EMULSION 10 MG/ML 20 ML VIAL IV ONE; +RCL25 PO; +ROPI1TAB29 PO; +RTL20 PO; +TRAZ300T PO; +VNTHFA/IN INH; -ZNTT/150 PO; -immodium
[2017-07-31 14:03] VITALS: Ht 215.9 cm; Wt 75.5 kg
--- NOTE | 2017-07-31 14:24 | Endo History and Physical ---
History & Physical Date of Service: Jul 31, 2017. Chief Complaint: dysphagia Referring Physician: Dr. Sury Jones History of Present Illness 72 yo CF who presents for EGD secondary to dysphagia. Past Surgical History Hx Cardiac Surgery: No Hx Internal Defibrillator: No Hx Pacemaker: No Hx Abdominal Surgery: Yes (gallbladder) Hx of Implantable Prosthesis: No Hx Post-Op Nausea and Vomiting: No Hx Cancer Surgery: Yes (D&C with bx) Hx Thoracic Surgery: No Hx Orthopedic: No Hx Urinary Tract Surgery: No Family History None Social History Smoking Status: Former Smoker Hx Substance Use: No Hx Alcohol Use: No Allergies Coded Allergies: Codeine (Verified Allergy, Severe, ANAPHYLAXIS, 07/22/17) LIQUID CODEINE CAN TAKE PERCOCET OR HYDROCODONE VIA TABLET Homatropine (Verified Allergy, Intermediate, CHEST TIGHTNESS, 07/22/17) PT STATES SHE HAS USED PERCOCET AND VICODIN WITH NO S/SX Hydrocodone (Verified Allergy, Intermediate, CHEST TIGHTNESS, 07/22/17) PT STATES SHE HAS USED PERCOCET AND VICODIN WITH NO S/SX Aspirin (Verified Adverse Reaction, Mild, ACID REFLUX, 07/22/17) Ketorolac (Verified Adverse Reaction, Mild, SICK IN STOMACH, THROWS UP, ) Current Medications Reported Home Medications Medications Dose Route/Sig Max Daily Dose Days Date Category Dose Instructions Klor-Con M20 (Potassium Chloride) 20 Meq Tabcr 40 Meq PO BID 14 07/28/17 Rx Remeron (Mirtazapine) 15 Mg Tab 1 Tab PO HS 30 07/28/17 Rx for depression, sleep difficulty, and poor appetite Vitamin D 20981 Unit (Ergocalciferol) 50,000 Unit Cap 50,000 Interunit PO ONCE A WEEK 07/28/17 Rx total course of 12 weeks Calcitriol 0.25 Mcg Cap 0.25 Mcg PO QAM 07/28/17 Rx Methimazole (Methimazole) 5 Mg Tab 2.5 Mg PO BID 07/28/17 Rx for hyperthyroidism Nystatin 5 Ml Susp 5 Ml PO QID 10 07/28/17 Rx swish and swallow Ventolin Hfa (Albuterol) 200 Puffs/40739 Mcg Aers 2-4 Puffs INH Q6H 07/22/17 Reported Fluticasone Propionate 120 Sprays/6000 Mcg Inha 2 Sprays MAY DAILY 07/22/17 Reported Oxycodone Hcl 10 Mg Tab 1 Tab PO Q6H 07/22/17 Reported Lomotil (Diphenoxylate W/ Atropine) 1 Tab Tab 1 Tab PO DIRECTED 05/25/17 Reported Simethicone 180 Mg Cap 250 Mg PO QDL 05/18/17 Reported Trazodone (Trazodone HCl) 100 Mg Tab 100 Mg PO HS 04/23/17 Reported Ritalin (Methylphenidate HCl) 20 Mg Tab 20 Mg PO PRN 02/16/17 Reported Zofran Odt (Ondansetron HCl) 8 Mg Soltab 8 Mg SL Q6H PRN 02/16/17 Reported Celecoxib 200 Mg Cap 200 Mg PO QAM 01/16/16 Reported Esomeprazole Magnesium 40 Mg Cap 40 Mg PO BID 01/16/16 Reported Dicyclomine Hcl 10 Mg Cap 10 Mg PO ACHS 01/16/16 Reported Requip (Ropinirole Hcl) 2 Mg Tab 2 Mg PO BID PRN 03/01/12 Reported Proventil 0.083% 2.5MG/3ML (Albuterol Sulf) 2.5 Mg/3 Ml Nebu 2.5 Mg INH Q4-6HR PRN 03/01/12 Reported Vital Signs Weight (Kilograms): 75.45 Height (Feet): 5 Height (Inches): 25 Date Time Temp Pulse Resp B/P (MAP) Pulse Ox O2 Delivery O2 Flow Rate FiO2 07/31/17 14:12 36.9 97 20 140/80 (100) 97 Room Air Physical Exam General Appearance: WD/WN, no apparent distress Respiratory/Chest: Auscultation: breath sounds normal Cardiovascular: Heart Auscultation: RRR Abdomen: Bowel Sounds: normal Inspection & Palpation: soft, non-distended, no tenderness, guarding & rebound Assessment and Plan Assessment: 72 yo CF who presents for EGD secondary to dysphagia. Plan: Proceed with EGD.
--- NOTE | 2017-07-31 15:31 | GI REPORT ---
Procedure Date: 07/31/2017 2:50 PM Procedure: Upper GI endoscopy Indications: Dysphagia Medicines: Monitored Anesthesia Care Complications: No immediate complications. Estimated Blood Loss: Estimated blood loss: none. Procedure: Pre-Anesthesia Assessment: - Prior to the procedure, a History and Physical was performed, and patient medications and allergies were reviewed. The patient's tolerance of previous anesthesia was also reviewed. The risks and benefits of the procedure and the sedation options and risks were discussed with the patient. All questions were answered, and informed consent was obtained. Prior Anticoagulants: The patient has taken no previous anticoagulant or antiplatelet agents. ASA Grade Assessment: III - A patient with severe systemic disease. After reviewing the risks and benefits, the patient was deemed in satisfactory condition to undergo the procedure. After obtaining informed consent, the endoscope was passed under direct vision. Throughout the procedure, the patient's blood pressure, pulse, and oxygen saturations were monitored continuously. The scope was introduced through the mouth, and advanced to the second part of duodenum. The upper GI endoscopy was accomplished without difficulty. The patient tolerated the procedure well. Findings: One moderate benign-appearing, intrinsic stenosis was found. This measured 1.6 cm (inner diameter) x 1 cm (in length) and was traversed. A guidewire was placed and the scope was withdrawn. Dilation was performed with a Savary dilator with mild resistance at 54 Fr and 60 Fr. A small hiatus hernia was present. The examined duodenum was normal. Impression: - Benign-appearing esophageal stenosis. Dilated. - Small hiatus hernia. - Normal examined duodenum. - No specimens collected. Recommendation: - Resume previous diet. - Continue present medications. - Return to GI office as previously scheduled. Estuardo Jaquez, 07/31/2017 3:31:16 PM This report has been signed electronically. Note Initiated On: 07/31/2017 2:50 PM I attest to the content of the Intraoperative Record and orders documented therein, exceptions below
--- NOTE | 2017-07-31 15:34 | Discharge Instructions ---
Endoscopy Patient Instructions Date / Procedure(s) Performed Jul 31, 2017. EGD Allergy Information Coded Allergies: Codeine (Verified Allergy, Severe, ANAPHYLAXIS, 07/22/17) LIQUID CODEINE CAN TAKE PERCOCET OR HYDROCODONE VIA TABLET Homatropine (Verified Allergy, Intermediate, CHEST TIGHTNESS, 07/22/17) PT STATES SHE HAS USED PERCOCET AND VICODIN WITH NO S/SX Hydrocodone (Verified Allergy, Intermediate, CHEST TIGHTNESS, 07/22/17) PT STATES SHE HAS USED PERCOCET AND VICODIN WITH NO S/SX Aspirin (Verified Adverse Reaction, Mild, ACID REFLUX, 07/22/17) Ketorolac (Verified Adverse Reaction, Mild, SICK IN STOMACH, THROWS UP, ) Discharge Date / Findings Jul 31, 2017. Esophageal stricture s/p dilation Hiatal hernia Medication Instructions OK to resume all medications today as prescribed Reported Home Medications Medications Dose Route/Sig Max Daily Dose Days Date Category Dose Instructions Klor-Con M20 (Potassium Chloride) 20 Meq Tabcr 40 Meq PO BID 14 07/28/17 Rx Remeron (Mirtazapine) 15 Mg Tab 1 Tab PO HS 30 07/28/17 Rx for depression, sleep difficulty, and poor appetite Vitamin D 96781 Unit (Ergocalciferol) 50,000 Unit Cap 50,000 Interunit PO ONCE A WEEK 07/28/17 Rx total course of 12 weeks Calcitriol 0.25 Mcg Cap 0.25 Mcg PO QAM 07/28/17 Rx Methimazole (Methimazole) 5 Mg Tab 2.5 Mg PO BID 07/28/17 Rx for hyperthyroidism Nystatin 5 Ml Susp 5 Ml PO QID 10 07/28/17 Rx swish and swallow Ventolin Hfa (Albuterol) 200 Puffs/67495 Mcg Aers 2-4 Puffs INH Q6H 07/22/17 Reported Fluticasone Propionate 120 Sprays/6000 Mcg Inha 2 Sprays MAY DAILY 07/22/17 Reported Oxycodone Hcl 10 Mg Tab 1 Tab PO Q6H 07/22/17 Reported Lomotil (Diphenoxylate W/ Atropine) 1 Tab Tab 1 Tab PO DIRECTED 05/25/17 Reported Simethicone 180 Mg Cap 250 Mg PO QDL 05/18/17 Reported Trazodone (Trazodone HCl) 100 Mg Tab 100 Mg PO HS 04/23/17 Reported Ritalin (Methylphenidate HCl) 20 Mg Tab 20 Mg PO PRN 02/16/17 Reported Zofran Odt (Ondansetron HCl) 8 Mg Soltab 8 Mg SL Q6H PRN 02/16/17 Reported Celecoxib 200 Mg Cap 200 Mg PO QAM 01/16/16 Reported Esomeprazole Magnesium 40 Mg Cap 40 Mg PO BID 01/16/16 Reported Dicyclomine Hcl 10 Mg Cap 10 Mg PO ACHS 01/16/16 Reported Requip (Ropinirole Hcl) 2 Mg Tab 2 Mg PO BID PRN 03/01/12 Reported Proventil 0.083% 2.5MG/3ML (Albuterol Sulf) 2.5 Mg/3 Ml Nebu 2.5 Mg INH Q4-6HR PRN 03/01/12 Reported Provider Instructions Activity Restrictions - No exercising or heavy lifting for 24 hours. - Do not drink alcohol the day of the procedure. - Do not drive a car or operate machinery until the day after the procedure. - Do not make any important decisions or sign important papers in 24 hours after the procedure. Following Day: - Return to full activity which may include returning to work/school. Diet Start your diet with liquids and light foods (jello, soup, juice, toast). Then eat your usual diet if not nauseated. Treatment For Common After Affects For mild abdominal pain, bloating, or excessive gas: - Rest - Eat lightly - Lie on right side Follow-Up Information Follow-up with Dr. Sury Jones as scheduled Anesthesia Information What You Should Know You have had a procedure that required some medicine to reduce anxiety and discomfort. This treatment is called moderate sedation. After receiving the treatment, you may be sleepy, but you will be able to breathe on your own. The effects of the treatment may last for several hours. Follow these instructions along with Activity/Diet recommendations noted above: * Do NOT do anything where dizziness or clumsiness would be dangerous. * Rest quietly at home today, then you can be up and about tomorrow. * Have a responsible person stay with you the rest of today. * You may have had an I.V. today. If so, you may take the dressing off later today. Recommendations Call your doctor if: * Trouble breathing * Continuous vomiting for more than 24 hours * Temperature above 101 degrees * Severe abdominal pain or bloating * Pain not relieved by pain medicine ordered * There is increased drainage or redness from any incision * A large amount of rectal bleeding greater than 2-3 tablespoons. (If you had a polyp/s removed or have hemorrhoids, a small amount of blood - from the rectum is to be expected.) * You have any unanswered questions or concerns. IN THE EVENT OF A SERIOUS EMERGENCY, GO TO THE NEAREST EMERGENCY ROOM Your discharge instructions were prepared by provider Estuardo Jaquez. Patient Instructions Signature Page Rosi Marie Patient (or Guardian) Signature/Date: I have read and understand the instructions given to me by my caregivers. Caregiver/RN/Doctor Signature/Date: The above-named patient and/or guardian has received patient instructions on this date. + Original Patient Signature Page (only) stays with chart. Please make copy for patient.
--- NOTE | 2017-07-31 15:45 | Anesthesiology Progress Note ---
Anesthesia Post Op Note Date & Time Jul 31, 2017 at 15:45 Vital Signs Pain Intensity: 0 Vital Signs Past 12 Hours Date Time Temp Pulse Resp B/P (MAP) Pulse Ox O2 Delivery O2 Flow Rate FiO2 07/31/17 15:29 88 20 124/76 (92) 94 Room Air 07/31/17 14:12 36.9 97 20 140/80 (100) 97 Room Air Notes Mental Status: alert / awake / arousable, participated in evaluation Pt Amnestic to Procedure: Yes Nausea / Vomiting: adequately controlled Pain: adequately controlled Airway Patency, RR, SpO2: stable & adequate BP & HR: stable & adequate Hydration State: stable & adequate Anesthetic Complications: no major complications apparent
[2017-07-31 16:16] VITALS: BP 142/93; PULSE 97; O2SAT 98
== END | disposition home or self-care (01) ==
LOC: C.GI 13:03
PROVIDERS: ATTEND Internal Medicine
DX: K22.2 Esophageal obstruction (principal); K44.9 Diaphragmatic hernia without obstruction or gangrene; Z87.891 Personal history of nicotine dependence; Z79.899 Other long term (current) drug therapy

== ENCOUNTER 2017-08-04 19:12 | Inpatient (IN) | payer OTHER ==
[2017-08-03] MEDS: POTASSIUM CHLR 10 MEQ / WTR 10 MEQ in PREMIXED WATER 100 ML IV SCH (00:45)
[~2017-08-04] VITALS: Ht 157.5 cm; Wt 79.6 kg
[~2017-08-04 19:12] MED LIST changes: -ALBU18002 INH; -CALC1CAP36 PO; -ERGO500037 PO; -METH-848 PO; -METH20TA66 PO; -MIRT15TA3 PO; -ONDA-63 PO; -POTA20TA13 PO; -ROPI1TAB29 PO; -TRAZ300T PO
[2017-08-04] MEDS ORDERED: SODIUM CHLORIDE 0.9% 1000ML 1,000 ML IV STA (20:10)
[2017-08-04] MEDS ORDERED: POTASSIUM CHLORIDE 10 MEQ / 100ML WTR IV STA (20:10)
[2017-08-04] MEDS ORDERED: ONDANSETRON INJ 2 MG/ML 2 ML VIAL IV STA (20:27)
[2017-08-04] MEDS ORDERED: FAMOTIDINE 20MG/102 ML D5W IV STA (20:27)
[2017-08-04 20:34] LABS: BASO % 0.2 %; BASO ABS # 0.02 K/uL (0-0.2); COMPLETE YES; HEMATOCRIT 40.3 % (37-47); IG% 3.4 %; LYMPH ABS # 0.62 K/uL (1.2-3.4); MEAN CELL VOLUME 89.4 fL (80-100); MEAN CORPUSCULAR HEMOGLOBIN 29.9 pg (25-34); MEAN CORPUSCULAR HGB CONC 33.5 g/dl (32-36); MEAN PLATELET VOLUME 11.2 fL (7.4-10.4); MONO % 5.3 %; NEUT % 84.1 %; PLATELET COUNT 117 K/uL (130-400); RED BLOOD COUNT 4.51 M/uL (4.2-5.4); WHITE BLOOD COUNT 8.92 K/uL (4.8-10.8)
[2017-08-04 20:51] LABS: BUN/CREATININE RATIO 12.8 (10-20); CALCIUM 7.9 mg/dl (8.5-10.1); CREATININE 0.64 mg/dl (0.60-1.20)
[2017-08-04 20:52] LABS: POTASSIUM 1.9 mmol/L (3.5-5.1)
[2017-08-04 20:57] LABS: PHOSPHORUS 1.8 mg/dl (2.5-4.9)
--- NOTE | 2017-08-04 20:59 | DIAGNOSTIC IMAGING REPORT ---
SINGLE VIEW CHEST CLINICAL HISTORY: Generalized abdominal pain. FINDINGS: An AP, portable, upright chest radiograph is compared to chest x-ray dated 07/23/2017 and correlated with chest CT dated 03/01/2012. The examination is degraded by portable technique and patient rotation. The heart is enlarged. The pulmonary vasculature is noncongested. Chronic interstitial thickening is similar to previous and there is left bibasilar atelectasis. No airspace consolidation typical for pneumonia or large pleural effusion is identified. No pneumothorax is seen. The skeletal structures are osteopenic. The bony thorax is grossly intact. Degenerative change is seen throughout the thoracic spine. IMPRESSION: Cardiomegaly with no acute cardiopulmonary abnormality. Electronically signed by: Juan J Nugent M.D. 08/04/2017 8:58 PM Dictated Date/Time: 08/04/2017 8:57 PM
[2017-08-04] MEDS ORDERED: MIRT15TA3 PO (21:08)
[2017-08-04] MEDS ORDERED: METH20TA66 PO (21:08)
[2017-08-04] MEDS ORDERED: POTA20TA13 PO (21:08)
[2017-08-04] MEDS ORDERED: ERGO500037 PO (21:08)
[2017-08-04] MEDS ORDERED: CALC1CAP36 PO (21:08)
[2017-08-04] MEDS ORDERED: METH-848 PO (21:08)
[2017-08-04] MEDS ORDERED: ROPI1TAB29 PO (21:28)
[2017-08-04] MEDS ORDERED: ALBU18002 INH (21:28)
[2017-08-04] MEDS ORDERED: ONDA-63 PO (21:28)
[2017-08-04] MEDS ORDERED: TRAZ300T PO (21:28)
--- NOTE | 2017-08-04 23:08 | History and Physical ---
History & Physical Date & Time of Service: Aug 04, 2017 at 23:08 Chief Complaint: Weakness, Abnormal Lab Primary Care Physician: Sury Jones M.D. History of Present Illness Source: patient, family The patient is a 72-year-old female, status post [facility] hospitalization from July 22 through July 28, who presents to the emergency department with persistent weakness over the past few months. She did undergo an EGD by Dr. Jaquez on July 31, which revealed a benign appearing 1.6 cm area of stenosis that was easily dilated. Her daughter reports that she was unable to take potassium pills, and her insurance would not pay for potassium liquid, so therefore she has not had any potassium supplementation since last hospitalization. During her last hospitalization she was admitted from the ED due to hypokalemia of 1.5. She has had intermittent issues with diarrhea during this interval, and reports that her diarrhea has been more severe again today. Her daughter brought her to the emergency department today, due to concerns regarding low potassium again. Past Medical/Surgical History Medical Problems: (1) Asthma Status: Chronic (2) Esophageal stricture Status: Chronic (3) Herpes zoster Status: Resolved (4) Multiple falls Status: Resolved (5) Osteoporosis Status: Chronic (6) Sciatic pain Status: Resolved (7) Shingles Status: Chronic Family History Cancer Diabetes mellitus Hypertension Lung disease Social History Smoking Status: Former Smoker Smokeless Tobacco Use: No Alcohol Use: none Drug Use: none Marital Status: Housing status: lives alone Occupational Status: unemployed Immunizations History of Influenza Vaccine: No History of Tetanus Vaccine?: Yes Tetanus Immunization Date: Jan 02, 2006 History of Pneumococcal: No History of Hepatitis B Vaccine: No Multi-Drug Resistant Organisms History of MDRO: No Allergies Coded Allergies: Codeine (Verified Allergy, Severe, ANAPHYLAXIS, 07/22/17) LIQUID CODEINE CAN TAKE PERCOCET OR HYDROCODONE VIA TABLET Homatropine (Verified Allergy, Intermediate, CHEST TIGHTNESS, 07/22/17) PT STATES SHE HAS USED PERCOCET AND VICODIN WITH NO S/SX Hydrocodone (Verified Allergy, Intermediate, CHEST TIGHTNESS, 07/22/17) PT STATES SHE HAS USED PERCOCET AND VICODIN WITH NO S/SX Aspirin (Verified Adverse Reaction, Mild, ACID REFLUX, 07/22/17) Ketorolac (Verified Adverse Reaction, Mild, SICK IN STOMACH, THROWS UP, ) Home Medications Scheduled Calcitriol (Calcitriol), 0.25 MCG PO QAM Dicyclomine Hcl (Dicyclomine Hcl), 10 MG PO ACHS Ergocalciferol (Vitamin D 97475 Unit), 50,000 INTER.UNIT PO WK Esomeprazole Magnesium (Esomeprazole Magnesium), 40 MG PO BID Methimazole (Methimazole), 2.5 MG PO BID Methylphenidate (Ritalin), 20 MG PO QD@1200 Methylphenidate HCl (Methylphenidate HCl), 20 MG PO QAM Mirtazapine (Remeron), 15 MG PO HS Nystatin (Nystatin), 5 ML PO QID Oxycodone Hcl (Oxycodone Hcl), 10 MG PO Q6H Potassium Chloride Microencaps (Potassium Chloride Er), 40 MEQ PO BID Ropinirole HCl (Ropinirole HCl), 1 MG PO HS Simethicone (Simethicone), 250 MG PO QDL Trazodone Hcl (Desyrel), 300 MG PO HS Scheduled PRN Albuterol Sulf (Proventil 0.083% 2.5MG/3ML), 2.5 MG NEB Q4-6HRS PRN for Wheezing Albuterol Sulfate (Proair Respiclick), 2 PUFFS INH Q6H PRN for Cough/Wheeze Fluticasone Propionate (Fluticasone Propionate), 2 SPRAYS MAY DAILY PRN for Allergy Symptoms Ondansetron (Ondansetron HCl), 8 MG PO Q6H PRN for Nausea Review of Systems The patient denies chest pain, palpitations, shortness of breath, cough, lower extremity swelling, vision change, hearing change, sore throat, fevers, chills, sweats, weight change, nausea, vomiting, constipation, abdominal pain, pelvic pain, blood in urine or stool, dysuria, urinary frequency or urgency, lightheadedness , dizziness, headache, memory loss, rash, abnormal bruising or bleeding, imbalance, focal weakness, numbness or tingling in arms or legs, generalized arthralgias or myalgias, back or neck pain, or night sweats. The review of systems is otherwise negative other than for that already noted above, and at least 10 systems have been reviewed. Physical Exam Vital Signs Date Time Temp Pulse Resp B/P (MAP) Pulse Ox O2 Delivery O2 Flow Rate FiO2 08/04/17 21:05 99 14 120/86 92 Room Air 08/04/17 20:41 102 08/04/17 19:53 93 Room Air 08/04/17 19:21 37.0 108 20 132/87 93 Room Air The patient is awake, alert and oriented 3, normocephalic and atraumatic, looks chronically ill, lying in bed and in no acute distress. HEENT--PERRL, EOMI, mucous membranes and oropharynx dry. Neck--supple, no JVD or bruits, thyroid normal, trachea midline, no adenopathy. Heart--normal S1 and S2, no extra beats, no murmurs, rubs or gallops. Lungs--clear bilaterally, but diminished throughout, no respiratory distress, no accessory muscle use. Abdomen--normal bowel sounds and soft, nontender and nondistended, no hernias or masses, no organomegaly. Extremities--no cyanosis, clubbing or edema. There are good distal pulses b/l. Dermatologic--skin is dry and flaky. Neurologic--cranial nerves II through XII grossly intact. Rheumatologic--normal range of motion, nontender, muscles and joints. Psychiatric--normal affect. Diagnostics Laboratory Results Results Past 24 Hours Test 08/04/17 19:40 Range/Units White Blood Count 8.92 4.8-10.8 K/uL Red Blood Count 4.51 4.2-5.4 M/uL Hemoglobin 13.5 12.0-16.0 g/dL Hematocrit 40.3 37-47 % Mean Corpuscular Volume 89.4 80-100 fL Mean Corpuscular Hemoglobin 29.9 25-34 pg Mean Corpuscular Hemoglobin Concent 33.5 32-36 g/dl Platelet Count 117 130-400 K/uL Mean Platelet Volume 11.2 7.4-10.4 fL Neutrophils (%) (Auto) 84.1 % Lymphocytes (%) (Auto) 7.0 % Monocytes (%) (Auto) 5.3 % Eosinophils (%) (Auto) 0.0 % Basophils (%) (Auto) 0.2 % Neutrophils # (Auto) 7.51 1.4-6.5 K/uL Lymphocytes # (Auto) 0.62 1.2-3.4 K/uL Monocytes # (Auto) 0.47 0.11-0.59 K/uL Eosinophils # (Auto) 0.00 0-0.5 K/uL Basophils # (Auto) 0.02 0-0.2 K/uL RDW Standard Deviation 51.5 36.4-46.3 fL RDW Coefficient of Variation 16.0 11.5-14.5 % Immature Granulocyte % (Auto) 3.4 % Immature Granulocyte # (Auto) 0.30 0.00-0.02 K/uL Nucleated RBC Absolute Count (auto) 0.07 0-0 K/uL Nucleated Red Blood Cells % 0.8 % Sodium Level 143 136-145 mmol/L Potassium Level 1.9 3.5-5.1 mmol/L Chloride Level 97 98-107 mmol/L Carbon Dioxide Level 34 21-32 mmol/L Anion Gap 12.0 3-11 mmol/L Blood Urea Nitrogen 8 7-18 mg/dl Creatinine 0.64 0.60-1.20 mg/dl Est Creatinine Clear Calc Drug Dose 78.7 ml/min Estimated GFR () 104.8 Estimated GFR (Non- 90.4 BUN/Creatinine Ratio 12.8 10-20 Random Glucose 236 70-99 mg/dl Calcium Level 7.9 8.5-10.1 mg/dl Phosphorus Level 1.8 2.5-4.9 mg/dl Magnesium Level 2.0 1.8-2.4 mg/dl Total Bilirubin 1.2 0.2-1 mg/dl Direct Bilirubin 0.6 0-0.2 mg/dl Aspartate Amino Transf (AST/SGOT) 111 15-37 U/L Alanine Aminotransferase (ALT/SGPT) 217 12-78 U/L Alkaline Phosphatase 136 45-117 U/L Troponin I 0.028 0-0.045 ng/ml Total Protein 5.4 6.4-8.2 gm/dl Albumin 2.4 3.4-5.0 gm/dl Lipase 131 73-393 U/L Diagnostic Radiology Patient Name: DECLAN LIMA Unit Number: [id number] Dictated: 08/04/172056 Transcribed: 08/04/172056 EV Printed Date/Time: [~ rep prt dt]/[~ rep prt tm] [~ rep ct labl] - [~ rep ct ivnm] [facility] Radiology Department [place], [place] [id number] Dictated: 08/04/172056 Transcribed: 08/04/172056 EV Printed Date/Time: [~ rep prt dt]/[~ rep prt tm] [~ rep ct labl] - [~ rep ct ivnm] SINGLE VIEW CHEST CLINICAL HISTORY: Generalized abdominal pain. FINDINGS: An AP, portable, upright chest radiograph is compared to chest x-ray dated 07/23/2017 and correlated with chest CT dated 03/01/2012. The examination is degraded by portable technique and patient rotation. The heart is enlarged. The pulmonary vasculature is noncongested. Chronic interstitial thickening is similar to previous and there is left bibasilar atelectasis. No airspace consolidation typical for pneumonia or large pleural effusion is identified. No pneumothorax is seen. The skeletal structures are osteopenic. The bony thorax is grossly intact. Degenerative change is seen throughout the thoracic spine. IMPRESSION: Cardiomegaly with no acute cardiopulmonary abnormality. Electronically signed by: Juan J Nugent M.D. 08/04/2017 8:58 PM Dictated Date/Time: 08/04/2017 8:57 PM The status of this report is Signed. Draft = Not yet reviewed or approved by Radiologist. Signed = Reviewed and approved by Radiologist. <AttendingPhy></AttendingPhy> <FamilyPhy>Sury Jones M.D.</FamilyPhy > <PrimaryPhy>Sury Jones M.D.</PrimaryPhy> <UnitNumber>[id number]</ UnitNumber> <VisitNumber>[id number]</VisitNumber> <PatientName>JANIEDECLAN Mayfield< /PatientName> <DateOfBirth>1945</DateOfBirth> <Location>[facility]</Location> < ServiceDate>08/04/17</ServiceDate> <MNE>ESINDI</MNE> <OrderingPhy>Jay Pickard M.D.</OrderingPhy> <OrderingPhyMNE>f rep ord dr mar</OrderingPhyMNE> <DictatingPhyMNE>f rep dict dr mar</DictatingPhyMNE> <CCListMNE>f rep ct zaid</ CCListMNE> <AdmittingPhyMNE>f pt admit dr mar</AdmittingPhyMNE> <AttendingPhyMNE >f pt attend dr mar</AttendingPhyMNE> <ConsultingPhyMNE>f pt consult dr mar</ConsultingPhyMNE> <FamilyPhyMNE>f pt fam dr mar</FamilyPhyMNE> <OtherPhyMNE>f pt other dr mar</OtherPhyMNE> < PrimaryPhyMNE>f pt prim care dr mar</PrimaryPhyMNE> <ReferringPhyMNE>f pt referring dr mar</ReferringPhyMNE> Impression Assessment and Plan Severe hypokalemia/diarrhea/dehydration-- Admit to telemetry unit for rhythm monitoring. Has received 40 mEq of potassium chloride IV in the ED. Given another 60 mEq of potassium IV. K-Phos 30 mmol IV. Repeat laboratories every morning. Hold Lomotil as it tends to cause severe constipation. Give cholestyramine powder 4 g tonight and then twice a day. Hyperthyroidism/thyrotoxicosis-- She was started on methimazole 2.5 mg by mouth twice a day during last admission due to concerns regarding contribution to severe hypokalemia. Increased dosing to 5 mg by mouth twice a day. Diabetes mellitus-- Her blood sugar was 236 upon admission. She does not appear to be on any active medications at this time. Place on Accu-Cheks before meals and at bedtime with NovoLog coverage per scale. Thrombocytopenia-- Platelets have improved to 117. GERD/esophageal stricture/diarrhea-- Status post dilatation on July 31. Change Nexium to pantoprazole 40 mg by mouth twice a day. Discontinue Lomotil since it causes severe constipation. Start Cholestyramine powder 4 g by mouth twice a day. Continue simethicone and dicyclomine Anxiety and depression/ADD-- Continue methylphenidate, mirtazapine, trazodone RLS-- Continue Requip 1 mg by mouth at bedtime. Chronic pain management-- Continue oxycodone 10 mg by mouth every 6 hours. Transaminitis-- Worsening since last visit. Check an ultrasound of right upper quadrant of abdomen. Level of Care Telemetry Advanced Directives Existing Advance Directive: No Existing Living Will: No Existing Power of Regional Cra: No Resuscitation Status FULL RESUSCITATION VTE Prophylaxis VTE Risk Assessment Done? Y/N: Yes Risk Level: Moderate Given or contraindicated: SCD's Social Service Consult Cancer Patient Under [place]
[2017-08-04] MEDS ORDERED: CHOLESTYRAMINE LIGHT 4 GM PKT PO ONE (23:14)
[2017-08-04] MEDS ORDERED: ALBUTEROL HFA 8 GM INHALER INH PRN (23:15)
[2017-08-04] MEDS ORDERED: ALBUTEROL 0.083% NEBU SOLN 3 ML VIAL INH PRN (23:15)
[2017-08-04] MEDS ORDERED: FLUTICASONE PROPIONATE NA SPR 16 GM BTL NAE PRN (23:15)
[2017-08-04] MEDS ORDERED: ZOLPIDEM TARTRATE 5 MG TAB PO PRN (23:15)
[2017-08-04] MEDS ORDERED: ACETAMINOPHEN 325 MG TAB PO PRN (23:15)
[2017-08-04] MEDS ORDERED: POTASSIUM PHOS 3 MMOL/1 ML INFUSION IV STA (23:21)
--- NOTE | 2017-08-04 23:22 | EMERGENCY ROOM VISIT NOTE ---
History Report prepared by Reva: Gosia Sharma Under the Supervision of: Dr. Jay Pickard M.D. First contact with patient: 19:51 Chief Complaint: ABNORMAL LABS Stated Complaint: WEAKNESS, ABNORMAL LAB History of Present Illness The patient is a 72 year old female who presents to the Emergency Room with complaints of persistent weakness for the past couple of months. She was sent to the ED by her ICU doctor. She was admitted last week to the ICU after her potassium was found to be low. She has had difficulty taking her potassium over the past week. She has a history of esophageal stricture. She had her esophagus stretched 4 days ago. She feels that her throat is closing up again. She has also had nausea when she tries to take her potassium and has been vomiting. They are concerned that her potassium is low again. She states that her throat feels dry. She has some abdominal pain and diarrhea which started today. She denies any chest pain, SOB, back pain, constipation, or dysuria. The patient is being treated for uterine cancer. Source of History: patient, family Onset: couple months Position: other (global) Quality: other (weakness) Timing: other (persistent) Associated Symptoms: + nausea, + vomiting, + abdominal pain, + diarrhea, No chest pain, No SOB, No back pain Note: Pt reports dry throat. Pt denies constipation. Review of Systems See HPI for pertinent positives and negatives. A total of ten systems were reviewed and were otherwise negative. Past Medical & Surgical Medical Problems: (1) Asthma (2) Esophageal stricture (3) Herpes zoster (4) Hyperparathyroidism (5) Hypertension (6) Hypocalcemia (7) Multiple falls (8) Osteoporosis (9) Sciatic pain (10) severe hypokalemia (11) severe hypokalemia (12) Shingles Family History Cancer Diabetes mellitus Hypertension Lung disease Social History Smoking Status: Former Smoker Alcohol Use: none Drug Use: none Marital Status: Housing Status: lives alone Occupation Status: unemployed Current/Historical Medications Scheduled Calcitriol (Calcitriol), 0.25 MCG PO QAM Dicyclomine Hcl (Dicyclomine Hcl), 10 MG PO ACHS Ergocalciferol (Vitamin D 63740 Unit), 50,000 INTER.UNIT PO WK Esomeprazole Magnesium (Esomeprazole Magnesium), 40 MG PO BID Methimazole (Methimazole), 2.5 MG PO BID Methylphenidate (Ritalin), 20 MG PO QD@1200 Methylphenidate HCl (Methylphenidate HCl), 20 MG PO QAM Mirtazapine (Remeron), 15 MG PO HS Nystatin (Nystatin), 5 ML PO QID Oxycodone Hcl (Oxycodone Hcl), 10 MG PO Q6H Potassium Chloride Microencaps (Potassium Chloride Er), 40 MEQ PO BID Ropinirole HCl (Ropinirole HCl), 1 MG PO HS Simethicone (Simethicone), 250 MG PO QDL Trazodone Hcl (Desyrel), 300 MG PO HS Scheduled PRN Albuterol Sulf (Proventil 0.083% 2.5MG/3ML), 2.5 MG NEB Q4-6HRS PRN for Wheezing Albuterol Sulfate (Proair Respiclick), 2 PUFFS INH Q6H PRN for Cough/Wheeze Fluticasone Propionate (Fluticasone Propionate), 2 SPRAYS MAY DAILY PRN for Allergy Symptoms Ondansetron (Ondansetron HCl), 8 MG PO Q6H PRN for Nausea Allergies Coded Allergies: Codeine (Verified Allergy, Severe, ANAPHYLAXIS, 07/22/17) LIQUID CODEINE CAN TAKE PERCOCET OR HYDROCODONE VIA TABLET Homatropine (Verified Allergy, Intermediate, CHEST TIGHTNESS, 07/22/17) PT STATES SHE HAS USED PERCOCET AND VICODIN WITH NO S/SX Hydrocodone (Verified Allergy, Intermediate, CHEST TIGHTNESS, 07/22/17) PT STATES SHE HAS USED PERCOCET AND VICODIN WITH NO S/SX Aspirin (Verified Adverse Reaction, Mild, ACID REFLUX, 07/22/17) Ketorolac (Verified Adverse Reaction, Mild, SICK IN STOMACH, THROWS UP, ) Physical Exam Vital Signs Date Time Temp Pulse Resp B/P (MAP) Pulse Ox O2 Delivery O2 Flow Rate FiO2 08/04/17 21:05 99 14 120/86 92 Room Air 08/04/17 20:41 102 08/04/17 19:53 93 Room Air 08/04/17 19:21 37.0 108 20 132/87 93 Room Air Physical Exam GENERAL: Awake, alert, well-appearing, in no distress HENT: Normocephalic, atraumatic. Dry mucous membranes. Slight thrush on the tongue. No pain with tracheal manipulation. No tongue elevation. No trismus. No stridor. EYES: Normal conjunctiva. Sclera non-icteric. NECK: Supple. No nuchal rigidity. FROM. No JVD. RESPIRATORY: Clear to auscultation. CARDIAC: Regular rate, normal rhythm. Extremities warm and well perfused. Pulses equal. ABDOMEN: Soft, non-distended. Mild generalized abdominal tenderness to palpation. No peritoneal signs. No rebound or guarding. No masses. RECTAL: Deferred. MUSCULOSKELETAL: Chest examination reveals no tenderness. The back is symmetrical on inspection without obvious abnormality. There is no CVA tenderness to palpation. No joint edema. LOWER EXTREMITIES: Calves are equal size bilaterally and non-tender. No edema. No discoloration. NEURO: Normal sensorium. No sensory or motor deficits noted. SKIN: No rash or jaundice noted. Medical Decision & Procedures ER Provider Diagnostic Interpretation: Radiology results as stated below per my review and radiologist interpretation: SINGLE VIEW CHEST CLINICAL HISTORY: Generalized abdominal pain. FINDINGS: An AP, portable, upright chest radiograph is compared to chest x-ray dated 07/23/2017 and correlated with chest CT dated 03/01/2012. The examination is degraded by portable technique and patient rotation. The heart is enlarged. The pulmonary vasculature is noncongested. Chronic interstitial thickening is similar to previous and there is left bibasilar atelectasis. No airspace consolidation typical for pneumonia or large pleural effusion is identified. No pneumothorax is seen. The skeletal structures are osteopenic. The bony thorax is grossly intact. Degenerative change is seen throughout the thoracic spine. IMPRESSION: Cardiomegaly with no acute cardiopulmonary abnormality. Electronically signed by: Juan J Nugent M.D. 08/04/2017 8:58 PM Dictated Date/Time: 08/04/2017 8:57 PM Laboratory Results Test 08/04/17 19:40 08/04/17 19:55 Phosphorus Level 1.8 mg/dl (2.5-4.9) Troponin I 0.028 ng/ml (0-0.045) Lipase 131 U/L (73-393) Thyroid Stimulating Hormone (TSH) 0.010 uIu/ml (0.300-4.500) Bedside Hemoglobin 12.9 g/dl (12.0-16.0) Bedside Hematocrit 38 % (37-47) Bedside Sodium 142 mEq/L (135-144) Bedside Potassium < 2.0 mEq/L (3.3-5.0) Bedside Chloride 92 mEq/L (101-112) Bedside Total CO2 39 mEq/l (24-31) Bedside Blood Urea Nitrogen 8 mg/dl (7-18) Bedside Creatinine 0.6 mg/dl (0.6-1.3) Bedside Glucose (other) 237 mg/dl (70-99) Bedside Ionized Calcium (Maribel) 0.96 mmol/l (1.12-1.32) Laboratory results reviewed by me Medications Administered Medications (Trade) Dose Ordered Sig/Jose Route Start Time Stop Time Status Last Admin Dose Admin Sodium Chloride 1,000 ml @ 999 mls/hr Q1H1M STAT IV 08/04/17 20:10 08/04/17 21:10 DC 08/04/17 20:33 999 MLS/HR Potassium Chloride (Kcl 10 Meq / Wtr) 40 meq NOW STAT IV 08/04/17 20:10 08/04/17 20:14 DC 08/04/17 20:34 40 MEQ Famotidine (Pepcid 20mg/100 ml) 20 mg ONE STAT IV 08/04/17 20:27 08/04/17 20:30 DC 08/04/17 21:04 20 MG Ondansetron HCl (Zofran Inj) 4 mg NOW STAT IV 08/04/17 20:27 08/04/17 20:30 DC 08/04/17 21:04 4 MG ECG Indication: other (hypokalemia) Rate (beats per minute): 106 Rhythm: sinus tachycardia Findings: no acute ischemic change, left axis deviation ED Course 2006: The patient was evaluated in room C2B. A complete history and physical exam was performed. 2009: Potassium Chloride 40 meq IV, NSS 1000 ml @ 999 mls/hr IV. 2026: Zofran Inj 4 mg IV, Famotidine 20 mg IV. 2142: Upon reexamination, the patient was resting comfortably. I discussed the test results and treatment plan with her. The patient will be evaluated for further management. 2199: I discussed the patient's case with Dr. Manzo, [facility] hospitalist. The patient will be evaluated for further treatment and disposition. Medical Decision I reviewed the patient's past medical history, medications, and the nursing notes as described above. Differential diagnosis: gastroenteritis, gastritis, esophageal stricture, electrolyte abnormality, dehydration, UTI. The patient is a 72-year-old woman with a past medical history of a esophageal strictures with regular surveillance and dilations recently admitted for esophageal dilation discharged and return for repeat dilation on Thursday after patient had persistent this dysphagia. While initially improved subsequently had return of her symptoms and was unable to tolerate her oral potassium is going had significantly reduced potassium and 1.6 on outpatient labs and sent to the ED for evaluation. While the patient appears chronically ill, fatigued, she is in no acute distress. Afebrile with stable vital signs. Potassium 1.9. Given the patient's profound hypokalemia and her persistent dysphagia will admit the patient for further electrolyte repletion and likely GI consultation. Case d/w Dr. Manzo, [facility] hospitalist who will admit the patient for further management. Medication Reconcilliation Current Medication List: was personally reviewed by me Blood Pressure Screening Patient's blood pressure: Normal blood pressure Blood pressure disposition: Did not require urgent referral Consults Time Called: 2152 Consulting Physician: Dr. Wilcox, [facility] hospitalist Returned Call: 2200 Discussed the patient's case. The patient will be evaluated for further treatment and disposition. Impression Primary Impression: Hypokalemia Additional Impression: Dysphagia Scribe Attestation The scribe's documentation has been prepared under my direction and personally reviewed by me in its entirety. I confirm that the note above accurately reflects all work, treatment, procedures, and medical decision making performed by me. Departure Information Dispostion Being Evaluated By Hospitalist Referrals Sury Jones M.D. (PCP) Patient Instructions My [facility] Problem Qualifiers
[2017-08-04] MEDS ORDERED: LORAZEPAM 2 MG/ML 1 ML VIAL IV PRN (23:30)
[2017-08-04] MEDS ORDERED: ALBUMIN HUMAN 25% 12.5 GM/50 ML VIAL IV STA (23:44)
[2017-08-04] MEDS ORDERED: POTASSIUM PHOSPHATE INJ 30 MMOL in SODIUM CHLORIDE 0.9% 500ML 500 ML IV STA (23:45)
[2017-08-05] VITALS (8 sets, daily range): BP systolic 98–143; BP diastolic 63–94; PULSE 87–111; TEMP 36.3–36.9; O2SAT 90–97; Ht 157.5 cm; Wt 79.6 kg
[2017-08-05] MEDS ORDERED: LORAZEPAM 2 MG/ML 1 ML VIAL ONE (00:15)
[2017-08-05] MEDS: NSS + 20MEQ KCL 1000ML 1,000 ML IV SCH ×2 (01:40→11:46)
[2017-08-05] MEDS: POTASSIUM CHLR 10 MEQ / WTR 10 MEQ in PREMIXED WATER 100 ML IV SCH ×5 (02:05→07:18)
[2017-08-05 02:44] LABS: URINE APPEARANCE CLOUDY (CLEAR); URINE COLOR DK YELLOW; URINE EPITHELIAL CELL AUTO >30 /lpf (0-5); URINE NITRITE NEG (NEG); URINE PH 6.5 (4.5-7.5); URINE SPECIFIC GRAVITY 1.023 (1.000-1.030); UROBILINOGEN POS (NEG); ZZUR CULT IF INDIC CLEAN CATCH YES
[2017-08-05] MEDS ORDERED: DEXTROSE 50% 50 ML SYR IV PRN (02:45)
[2017-08-05] MEDS ORDERED: GLUCOSE 10 TABS/TUBE PO PRN (02:45)
[2017-08-05] MEDS ORDERED: GLUCOSE 40% GEL 15 GM TUBE PO PRN (02:45)
[2017-08-05] MEDS ORDERED: GLUCAGON FOR INJ 1 MG VIAL SQ PRN (02:45)
[2017-08-05 02:46] LABS: MANUAL MICROSCOPIC REQUIRED? NO; REVIEW REQ? YES
[2017-08-05 02:48] LABS: URINE BILIRUBIN NEG (NEG)
[2017-08-05 03:15] LABS: URINE MUCUS PRESENT (NONE PRSENT)
[2017-08-05] MEDS ORDERED: INFLUENZA ADMINISTRATION CHARGE ONE (03:15)
[2017-08-05] MEDS ORDERED: INFLUENZA VACCINE HIGH DOSE 65+ 0.5 ML SYR IM. ONE (03:15)
[2017-08-05 03:44] LABS: THYROID STIMULATING HORMONE 0.01 uIu/ml (0.300-4.500)
[2017-08-05] MEDS: OXYCODONE HCL IR 5 MG TAB (IMMEDIATE RELEASE) PO PRN (03:56)
[2017-08-05 07:33] LABS: HEMATOCRIT 31.7 % (37-47); MEAN CORPUSCULAR HEMOGLOBIN 30.3 pg (25-34); MEAN CORPUSCULAR HGB CONC 34.1 g/dl (32-36); RED BLOOD COUNT 3.56 M/uL (4.2-5.4); WHITE BLOOD COUNT 5.35 K/uL (4.8-10.8)
[2017-08-05 07:44] LABS: INR 1.2 (0.9-1.1); PARTIAL THROMBOPLASTIN RATIO 0.9; PROTHROMBIN TIME (PATIENT) 12.6 SECONDS (9.0-12.0)
[2017-08-05 08:01] LABS: PLATELET COUNT 68 K/uL (130-400)
[2017-08-05 08:03] LABS: BUN/CREATININE RATIO 16.7 (10-20); CALCIUM 6.7 mg/dl (8.5-10.1); CREATININE 0.33 mg/dl (0.60-1.20); MAGNESIUM 1.7 mg/dl (1.8-2.4); POTASSIUM 3.1 mmol/L (3.5-5.1)
[2017-08-05 08:04] LABS: BASO % 0.2 %; BASO ABS # 0.01 K/uL (0-0.2); COMPLETE YES; HYPERSEGMENTED POLYS 1+; IG% 4.5 %; LYMPH % 6.2 %; LYMPH ABS # 0.33 K/uL (1.2-3.4); MONO % 4.1 %; PLT ESTIMATE DECREASED
--- NOTE | 2017-08-05 08:31 | DIAGNOSTIC IMAGING REPORT ---
ABDOMINAL ULTRASOUND, RIGHT UPPER QUADRANT HISTORY: Worsening liver function tests. COMPARISON: CT of the abdomen and pelvis February 10, 2017. FINDINGS: The liver is heterogeneous. There is suggestion of multiple hepatic lesions, some of which have a target appearance. The largest apparent lesion measures 2.5 cm. These were not present on CT of February 10, 2017. The common bile duct is mildly dilated status post cholecystectomy, measuring 8 mm in caliber. The pancreas is obscured. There is no right hydronephrosis. A small amount of perihepatic ascites is noted. IMPRESSION: 1. Heterogeneous appearance of the liver with multiple suspected hepatic lesions which raises the possibility of metastatic disease. A three-phase CT of the liver is recommended. 2. Mild dilatation of the common bile duct status post cholecystectomy. Electronically signed by: Clifford Jones M.D. 08/05/2017 8:30 AM Dictated Date/Time: 08/05/2017 8:17 AM
[2017-08-05] MEDS ORDERED: INSULIN GLARGINE SOLOSTAR 100 UNITS/ML 3 ML PEN SC SCH (09:00)
[2017-08-05] MEDS ORDERED: POTASSIUM CHLORIDE 20 MEQ TABCR PO SCH (09:00)
[2017-08-05] MEDS: INSULIN ASPART 100 UNITS/ML 3 ML PEN SC SCH ×4 (09:08→21:11)
[2017-08-05] MEDS: PANTOprazole SOD 40 MG TAB PO SCH ×2 (09:14→21:09)
[2017-08-05] MEDS: DICYCLOMINE HCL 10 MG CAP PO SCH ×4 (09:15→21:08)
[2017-08-05] MEDS: CALCITRIOL 0.25 MCG CAP PO SCH (09:16)
[2017-08-05] MEDS: NYSTATIN SUSP 500,000 U/5 ML UDC PO SCH ×4 (09:16→21:06)
[2017-08-05] MEDS: METHIMAZOLE 5 MG TAB PO SCH ×2 (09:16→21:08)
[2017-08-05] MEDS: METHYLPHENIDATE HCL 10 MG TAB PO SCH ×2 (09:23→12:00)
[2017-08-05] MEDS ORDERED: NURSING VERBAL MED ORDER ONE (10:45)
[2017-08-05] MEDS: CHOLESTYRAMINE LIGHT 4 GM PKT PO SCH ×2 (11:41→22:00)
[2017-08-05] MEDS: POTASSIUM CHLORIDE 20MEQ/15ML 473ML PO SCH ×2 (11:44→18:06)
[2017-08-05] MEDS: SIMETHICONE 80 MG CHEW PO SCH (11:48)
[2017-08-05] MEDS: MAGNESIUM SULFATE 1GM / D5W 1 GM in PREMIXED IN D5W 100 ML IV SCH ×2 (12:52→14:00)
[2017-08-05 14:58] LABS: ISTAT CARBON DIOXIDE 39 mEq/l (24-31); ISTAT CHLORIDE 92 mEq/L (101-112); ISTAT CREATININE 0.6 mg/dl (0.6-1.3); ISTAT HEMATOCRIT 38 % (37-47); ISTAT HEMOGLOBIN 12.9 g/dl (12.0-16.0); ISTAT IONIZED CALCIUM 0.96 mmol/l (1.12-1.32); ISTAT SODIUM 142 mEq/L (135-144)
[2017-08-05] MEDS ORDERED: OPTIRAY 320 IV PRN (15:15)
--- NOTE | 2017-08-05 16:07 | DIAGNOSTIC IMAGING REPORT ---
(CHEST FOR PE) ANGIO WITH CT DOSE: 893.14 mGy.cm HISTORY: 72 years-old Female presents with acute tachycardia with history of endometrial carcinoma. TECHNIQUE: Multiple CTA images of the chest were obtained after the intravenous administration of Optiray 320. Coronal and sagittal MIPS were obtained from the axial data set and were submitted for review. A dose lowering technique was utilized adhering to the principles of ALARA. COMPARISON: CTA chest 03/01/2012, CT abdomen and pelvis of same day and also 02/10/2017. FINDINGS: CTA: Heart is moderately enlarged. Thoracic aorta is normal in course and caliber with mild atherosclerotic plaquing. The imaged great vessels are patent. Note is made of the left vertebral artery emanating directly from the aortic arch. There is mild tortuosity of the descending thoracic aorta. The distal segmental and subsegmental branches are not well-seen secondary to extensive respiratory motion. No focal filling defect identified to suggest pulmonary thromboembolic disease. CT CHEST: Large multinodular goiter is redemonstrated which extends into the anterior mediastinum measuring over 5 cm in greatest dimension. There is no definite pathologic adenopathy about the chest identified. There is no pneumothorax identified. There are trace bilateral pleural effusions. Subsegmental bibasilar consolidative opacities are noted. There are multiple new randomly distributed bilateral noncalcified pulmonary nodules, many of which are pleural-based measuring up to 7 mm. Nodularity of the adrenal glands is noted, also new from 02/10/2017. Innumerable hepatic metastasis are also seen. Prior cholecystectomy. Moderate sized hiatal hernia with partially intrathoracic stomach. Soft tissues are unremarkable. The bones are osteopenic. No definite lytic or blastic bony lesions identified. IMPRESSION: 1. Limited evaluation of the distal segmental and subsegmental branches of the pulmonary arterial tree secondary to respiratory motion. Within the limitations of the study, there is no acute aortic pathology or evidence of pulmonary thromboembolic disease. 2. Multiple noncalcified pulmonary nodules as well innumerable low attenuating hepatic lesions and adrenal nodularity are new from comparison studies, most compatible with metastatic disease as above. Please see CT abdomen and pelvis study of same day for further details. 3. Hiatal hernia with partially intrathoracic stomach. 4. Trace bilateral pleural effusions with bibasilar subsegmental consolidative opacities suggesting atelectasis or pneumonitis. The above report was generated using voice recognition software. It may contain grammatical, syntax or spelling errors. Electronically signed by: Efrain Magdaleno M.D. 08/05/2017 4:06 PM Dictated Date/Time: 08/05/2017 3:57 PM
--- NOTE | 2017-08-05 16:11 | DIAGNOSTIC IMAGING REPORT ---
CT SCAN OF THE ABDOMEN AND PELVIS WITH IV CONTRAST CLINICAL HISTORY: Endometrial cancer. COMPARISON STUDY: Abdominal CT dated 02/10/2017. Abdominal ultrasound dated 08/05/2017. TECHNIQUE: Following the IV administration of 94 cc of Optiray 320, CT scan of the abdomen and pelvis is performed from the lung bases to the proximal femora. Images are reviewed in the axial, sagittal, and coronal planes. IV contrast was administered without complication. Automated dose control exposure was utilized. Examination is significantly degraded by motion artifact. FINDINGS: Lung bases: The heart is mildly enlarged and there is a small pericardial effusion. There are trace pleural effusions with bibasilar atelectasis. A 9 mm pulmonary nodule is seen in the left lung base on image #20. At least 5 additional smaller pulmonary nodules are present at both lung bases. Liver: The contrast-enhanced liver is normal in size, contour, and attenuation. There is minimal central intrahepatic biliary ductal dilatation. The hepatic veins and portal veins are patent. There are numerous (greater than 20) low-attenuation hepatic lesions identified. The largest measures 1.7 cm as seen in the right lobe on image #63. These are new from 02/10/2017 and consistent with multifocal hepatic metastatic disease. Gallbladder: Surgically absent noting clips in the gallbladder fossa. Spleen: Normal in size and attenuation. Pancreas: Moderately atrophic and grossly unremarkable. Adrenal glands: There is nonspecific thickening of the adrenal glands. This has increased from 02/10/2017. Kidneys: The contrast enhanced kidneys demonstrate cortical atrophy and are without hydronephrosis. The kidneys enhance symmetrically. A subcentimeter cortical hypodensity in the interpolar right kidney likely represents a cyst but is too small for definitive characterization. Abdominal vasculature: The abdominal aorta is normal in course and caliber noting mild atherosclerotic calcification. Stomach and bowel: There is a moderate to large hiatal hernia, with approximately half of the stomach located in the thoracic cavity. The duodenum is normal in configuration. No bowel obstruction is seen. There is moderate to advanced colonic diverticulosis without CT evidence of acute diverticulitis. Wall thickening suggested in the right colon. The appendix is normal as visualized. Peritoneum: There is trace perihepatic and perisplenic free fluid. There is a small volume of free fluid in the pelvis. No intraperitoneal free air is seen. There is a small fat-containing umbilical hernia. There are numerous small foci of peritoneal nodularity. The largest is seen in the ventral mesentery on image #169 measuring 2.4 cm. Additional indirect sales representative nodules are seen below the left hemidiaphragm on images #36 and #40, in the left upper quadrant on image #123, and in the left lower quadrant image #244. Lymphadenopathy: There is an enlarged left periaortic lymph node seen on image #171. This measures 1.3 cm. Pelvic viscera: The bladder is normal as visualized. No adnexal lesion is seen. The uterus is enlarged and the endometrium is thickened, and the volume of intraluminal debris has decreased from 02/10/2017. Uterine mass lesions and calcified fibroids are noted. The cervix is heterogeneous. Skeletal structures: The skeletal structures are osteopenic. There is mild lumbosacral spondylosis. There is a mild superior endplate compression deformity of L3, new from 02/10/2017. No lytic or blastic lesions are seen. IMPRESSION: 1. Findings are overall consistent with marked progression of multifocal metastatic disease as compared to 02/10/2017. 2. There is diffuse/multifocal hepatic metastatic disease. 3. Metastatic pulmonary lesions are seen at the lung bases. 4. There is evidence of peritoneal carcinomatosis with a small volume of abdominopelvic ascites. 5. There is metastatic retroperitoneal lymphadenopathy. 6. The endometrium remains thickened and heterogeneous. The volume of intraluminal debris has improved from 02/10/2017. 7. Cardiomegaly and hiatal hernia. 8. Moderate to advanced colonic diverticulosis without CT evidence of acute diverticulitis. 9. There is nonspecific wall thickening suggested in the right colon. Clinical correlation will be required. 10. Trace pleural effusions. 11. There is a mild superior endplate compression deformity of L3, new from 02/10/2017. 12. Additional findings as above. Electronically signed by: Juan J Nugent M.D. 08/05/2017 4:10 PM Dictated Date/Time: 08/05/2017 3:58 PM
--- NOTE | 2017-08-05 17:45 | Progress Note ---
Subjective Date of Service: Aug 05, 2017. Subjective Pt evaluation today including: conversation w/ patient, conversation w/ family (daughter), physical exam, chart review, lab review, review of studies (CT chest /abd/pelvis), conversation w/ analytical consultant (heme/onc), review of inpatient medication list Pain: denies any chest pain/abd pain PO Intake: poor Voiding: no voiding problems tele with NSR or sinus tach she feels very weak she voices she "wants to get stronger" but refuses any rehab, stating she will ultimately go home continues with difficulty swallowing despite recent dilatation during her EGD reports she cannot swallow the potassium pills and that her insurance would not pay for potassium liquid Problem List Medical Problems: (1) Acute exacerbation of chronic low back pain Status: Acute (2) Anxiety Status: Acute (3) Cervical cancer Status: Acute (4) Dehydration Status: Acute (5) Dysphagia Status: Acute (6) Hypokalemia Status: Acute (7) Hypokalemia Status: Acute Review of Systems Constitutional: No fever Respiratory: No cough, No shortness of breath, No dyspnea on exertion Cardiac: No chest pain Abdomen: No pain, No nausea, No vomiting Objective Vital Signs Date Time Temp Pulse Resp B/P (MAP) Pulse Ox O2 Delivery O2 Flow Rate FiO2 08/05/17 16:15 36.9 111 18 125/92 (103) 90 Room Air 08/05/17 16:00 Room Air 08/05/17 12:07 36.7 110 16 131/89 (103) 92 Room Air 08/05/17 12:00 Room Air 08/05/17 08:00 Room Air 08/05/17 07:50 36.4 89 20 131/89 (103) 96 Room Air 08/05/17 04:15 36.3 88 20 122/82 (95) 97 Room Air 08/05/17 04:10 93 Room Air 08/05/17 00:45 Room Air 08/05/17 00:45 36.5 87 17 126/80 08/05/17 00:29 93 116/73 93 08/05/17 00:00 87 17 94 08/04/17 23:50 119/79 08/04/17 23:30 87 16 93 08/04/17 23:17 92 20 137/88 90 Room Air 08/04/17 21:05 99 14 120/86 92 Room Air 08/04/17 20:41 102 08/04/17 19:53 93 Room Air 08/04/17 19:21 37.0 108 20 132/87 93 Room Air Physical Exam General Appearance: no apparent distress, + pertinent finding (slightly confused) ENT: + pertinent finding (MM dry with ?thrush plaquest on buccal mucosa) Neck: no JVD Respiratory/Chest: no respiratory distress, no accessory muscle use, + decreased breath sounds (both bases) Cardiovascular: no gallop, no murmur, + tachycardia Abdomen: normal bowel sounds, non tender, soft, no organomegaly Extremities: no pedal edema Neurologic/Psychiatric: alert Laboratory Results Last 24 Hours Test 08/04/17 19:40 08/04/17 19:55 08/05/17 02:15 08/05/17 06:30 White Blood Count 8.92 K/uL Red Blood Count 4.51 M/uL Hemoglobin 13.5 g/dL Hematocrit 40.3 % Mean Corpuscular Volume 89.4 fL Mean Corpuscular Hemoglobin 29.9 pg Mean Corpuscular Hemoglobin Concent 33.5 g/dl Platelet Count 117 K/uL Mean Platelet Volume 11.2 fL Neutrophils (%) (Auto) 84.1 % Lymphocytes (%) (Auto) 7.0 % Monocytes (%) (Auto) 5.3 % Eosinophils (%) (Auto) 0.0 % Basophils (%) (Auto) 0.2 % Neutrophils # (Auto) 7.51 K/uL Lymphocytes # (Auto) 0.62 K/uL Monocytes # (Auto) 0.47 K/uL Eosinophils # (Auto) 0.00 K/uL Basophils # (Auto) 0.02 K/uL RDW Standard Deviation 51.5 fL RDW Coefficient of Variation 16.0 % Immature Granulocyte % (Auto) 3.4 % Immature Granulocyte # (Auto) 0.30 K/uL Nucleated RBC Absolute Count (auto) 0.07 K/uL Nucleated Red Blood Cells % 0.8 % Sodium Level 143 mmol/L Potassium Level 1.9 mmol/L Chloride Level 97 mmol/L Carbon Dioxide Level 34 mmol/L Anion Gap 12.0 mmol/L mmol/L Blood Urea Nitrogen 8 mg/dl Creatinine 0.64 mg/dl Est Creatinine Clear Calc Drug Dose 78.7 ml/min Estimated GFR () 104.8 Estimated GFR (Non- 90.4 BUN/Creatinine Ratio 12.8 Random Glucose 236 mg/dl Calcium Level 7.9 mg/dl Phosphorus Level 1.8 mg/dl Magnesium Level 2.0 mg/dl Total Bilirubin 1.2 mg/dl Direct Bilirubin 0.6 mg/dl Aspartate Amino Transf (AST/SGOT) 111 U/L Alanine Aminotransferase (ALT/SGPT) 217 U/L Alkaline Phosphatase 136 U/L Troponin I 0.028 ng/ml Total Protein 5.4 gm/dl Albumin 2.4 gm/dl Lipase 131 U/L Thyroid Stimulating Hormone (TSH) 0.010 uIu/ml Bedside Hemoglobin 12.9 g/dl Bedside Hematocrit 38 % Bedside Sodium 142 mEq/L Bedside Potassium < 2.0 mEq/L Bedside Chloride 92 mEq/L Bedside Total CO2 39 mEq/l Bedside Blood Urea Nitrogen 8 mg/dl Bedside Creatinine 0.6 mg/dl Bedside Glucose (other) 237 mg/dl Bedside Ionized Calcium ([place]) 0.96 mmol/l Urine Color DK YELLOW Urine Appearance CLOUDY Urine pH 6.5 Urine Specific [place] 1.023 Urine Protein 1+ Urine Glucose (UA) 3+ Urine Ketones NEG Urine Occult Blood NEG Urine Nitrite NEG Urine Bilirubin NEG Urine Urobilinogen POS Urine Leukocyte Esterase TRACE Urine WBC (Auto) 5-10 /hpf Urine RBC (Auto) 0-4 /hpf Urine Hyaline Casts (Auto) 10-30 /lpf Urine Epithelial Cells (Auto) >30 /lpf Urine Bacteria (Auto) NEG Urine Renal Epithelial Cells /lpf Urine Crystals HIPPURIC ACID Urine Mucus PRESENT Urine Yeast (Auto) BUDDING Bedside Glucose 183 mg/dl Test 08/05/17 07:12 08/05/17 11:14 08/05/17 16:38 White Blood Count 5.35 K/uL Red Blood Count 3.56 M/uL Hemoglobin 10.8 g/dL Hematocrit 31.7 % Mean Corpuscular Volume 89.0 fL Mean Corpuscular Hemoglobin 30.3 pg Mean Corpuscular Hemoglobin Concent 34.1 g/dl Platelet Count 68 K/uL Mean Platelet Volume 10.0 fL Neutrophils (%) (Auto) 85.0 % Lymphocytes (%) (Auto) 6.2 % Monocytes (%) (Auto) 4.1 % Eosinophils (%) (Auto) 0.0 % Basophils (%) (Auto) 0.2 % Neutrophils # (Auto) 4.55 K/uL Lymphocytes # (Auto) 0.33 K/uL Monocytes # (Auto) 0.22 K/uL Eosinophils # (Auto) 0.00 K/uL Basophils # (Auto) 0.01 K/uL RDW Standard Deviation 52.9 fL RDW Coefficient of Variation 16.3 % Immature Granulocyte % (Auto) 4.5 % Immature Granulocyte # (Auto) 0.24 K/uL Nucleated RBC Absolute Count (auto) 0.04 K/uL Nucleated Red Blood Cells % 0.7 % Hypersegmented Polys 1+ Platelet Estimate DECREASED Prothrombin Time 12.6 SECONDS Prothromb Time International Ratio 1.2 Activated Partial Thromboplast Time 22.6 SECONDS Partial Thromboplastin Ratio 0.9 Sodium Level 146 mmol/L Potassium Level 3.1 mmol/L Chloride Level 106 mmol/L Carbon Dioxide Level 31 mmol/L Anion Gap 9.0 mmol/L Blood Urea Nitrogen 6 mg/dl Creatinine 0.33 mg/dl Est Creatinine Clear Calc Drug Dose 150.9 ml/min Estimated GFR () 130.3 Estimated GFR (Non- 112.4 BUN/Creatinine Ratio 16.7 Random Glucose 195 mg/dl Calcium Level 6.7 mg/dl Magnesium Level 1.7 mg/dl Total Bilirubin 1.3 mg/dl Direct Bilirubin 0.7 mg/dl Aspartate Amino Transf (AST/SGOT) 86 U/L Alanine Aminotransferase (ALT/SGPT) 166 U/L Alkaline Phosphatase 101 U/L Total Protein 4.7 gm/dl Albumin 2.4 gm/dl Bedside Glucose 218 mg/dl 155 mg/dl Assessment and Plan 72yo female - 1. severe hypokalemia - improving. Recently hospitalized for same issue. Thought to be multifactorial with largest culprit due to renal wasting. Poor oral intake also suspected. +/- diarrhea. Continue supplementation; BMP am. 2. endometrial cancer, stage 4 - pt reported having scans at [facility] about 1 month ago; I reviewed her record from [facility] - no scans found. Obtained l[place]-CT today -- extensive metastatic disease. Family coming today - will discuss all results. Consult heme/onc in AM for any remaining options for her vs hospice. 3. hyperglycemia - 2nd to stress from illness. Lantus + novolog. 4. failure to thrive - due to #2. 5. recent thrush - nystatin QID. 6. abnormal LFTs - 2nd to liver mets. 7. dysphagia - s/p EGD last week with dilatation. Still with symptoms - speech therapy consult for swallow eval. 8. DVT proph - add heparin TID. 9. hyperthyroidism - methimazole increased to 5mg BID. 10. dispo - really needs SNF vs rehab. D/w pt's daughter later today. Continued [facility] stay due to: inadequate po fluid intake, ambulation difficulties , multiple IV medications needed Discharge planning: uncertain
--- NOTE | 2017-08-05 19:55 | Progress Note ---
Progress Note Date of Service Aug 05, 2017. Progress Note time - 1951 Lengthy discussion (minimum 30-35 minutes) spent with patient and her daughter discussing results of CT chest/abd/pelvis today. I told them that her cancer had progressed considerably since her last scans and that there was evidence of mets to the lungs, liver, etc. We discussed heme/onc consultation tomorrow and that I had already spoken with Dr. Stern regarding her case. They were very tearful and had numerous questions. They asked about whether they should continue the care at [facility] or here. I told them that it was their choice but I felt that her care could be managed locally at [facility]. Formal consult placed to Dr. Stern. Total time today including the above discussion - about 60 minutes which included reviewing records from [place], multiple visits to the pt's room, the above discussion, etc. Chava Rowell MD
[2017-08-05] MEDS: TRAZODONE HCL 100 MG TAB PO SCH (21:06)
[2017-08-05] MEDS: MIRTAZAPINE TAB 15 MG TAB PO SCH (21:08)
[2017-08-05] MEDS: ROPINIROLE HCL 1 MG TAB PO SCH (21:09)
[2017-08-06] VITALS (8 sets, daily range): BP systolic 115–138; BP diastolic 76–92; PULSE 86–124; TEMP 36.4–37.2; O2SAT 18–97
[2017-08-06] MEDS: POTASSIUM CHLORIDE 20MEQ/15ML 473ML PO SCH ×4 (01:28→20:49)
[2017-08-06] MEDS: NSS + 20MEQ KCL 1000ML 1,000 ML IV SCH (01:29)
[2017-08-06 06:12] LABS: HEMATOCRIT 33.1 % (37-47); MEAN CELL VOLUME 90.2 fL (80-100); MEAN CORPUSCULAR HEMOGLOBIN 29.7 pg (25-34); MEAN CORPUSCULAR HGB CONC 32.9 g/dl (32-36); RED BLOOD COUNT 3.67 M/uL (4.2-5.4); WHITE BLOOD COUNT 5.86 K/uL (4.8-10.8)
[2017-08-06 06:23] LABS: MEAN PLATELET VOLUME 9.9 fL (7.4-10.4); PLATELET COUNT 76 K/uL (130-400)
[2017-08-06 06:42] LABS: BUN/CREATININE RATIO 11.5 (10-20); CALCIUM 6.5 mg/dl (8.5-10.1); CREATININE 0.31 mg/dl (0.60-1.20); MAGNESIUM 2.1 mg/dl (1.8-2.4)
[2017-08-06] MEDS: PANTOprazole SOD 40 MG TAB PO SCH ×2 (07:55→20:50)
[2017-08-06] MEDS: DICYCLOMINE HCL 10 MG CAP PO SCH ×4 (07:55→20:50)
[2017-08-06] MEDS: METHIMAZOLE 5 MG TAB PO SCH ×2 (07:56→20:53)
[2017-08-06] MEDS: CALCITRIOL 0.25 MCG CAP PO SCH (07:56)
[2017-08-06] MEDS: NYSTATIN SUSP 500,000 U/5 ML UDC PO SCH ×4 (07:57→20:49)
[2017-08-06] MEDS: METHYLPHENIDATE HCL 10 MG TAB PO SCH ×2 (08:00→11:10)
[2017-08-06 08:20] LABS: BASO % 0.2 %; BASO ABS # 0.01 K/uL (0-0.2); COMPLETE YES; IG% 6.3 %; LYMPH ABS # 0.47 K/uL (1.2-3.4); MONO % 4.3 %; NEUT % 81.2 %
[2017-08-06] MEDS ORDERED: SODIUM CHLOR 0.45% + 20MEQ KCL 1,000 ML IV SCH (08:30)
[2017-08-06] MEDS: CHOLESTYRAMINE LIGHT 4 GM PKT PO SCH ×2 (09:49→20:53)
[2017-08-06] MEDS: INSULIN ASPART 100 UNITS/ML 3 ML PEN SC SCH ×4 (09:52→20:58)
[2017-08-06] MEDS: INSULIN GLARGINE SOLOSTAR 100 UNITS/ML 3 ML PEN SC SCH (09:53)
[2017-08-06] MEDS: ONDANSETRON INJ 2 MG/ML 2 ML VIAL IV PRN (11:07)
[2017-08-06] MEDS: SIMETHICONE 80 MG CHEW PO SCH (11:09)
[2017-08-06] MEDS ORDERED: LORAZEPAM 0.5 MG TAB PO PRN (15:30)
--- NOTE | 2017-08-06 15:55 | Oncology Consultation ---
Oncology/Heme Consultation Date of Consultation: Aug 06, 2017. Attending Physician: Chava Rowell MD Reason for Consultation: Endometrial cancer New radiographic evidence of metastatic disease History of Present Illness Ms. Marie is a 72 year old woman with a history of hyperthyroidism. She came to attention in January,, with LLQ abdominal pain and postmenopausal bleeding. A pelvic US revealed a 15.3 x 10 cm uterus with a thickened, heterogeneous endometrial stripe containing solid and cystic elements, measuring 6.4 cm. She underwent D&C with hysteroscopy on 03/18/17, which revealed that the anterior vaginal wall was indurated on exam and thickened. Pathology revealed high-grade squamous intraepithelial lesion and carcinoma consistenet with endometrial adenocarcinoma, endometrioid type, grade 3. She was seen by Dr. Sutherland at [facility] for evaluation for surgery. On 04/13/17, she underwent EUA with cystoscopy and proctoscopy, which revealed a large uterocervical mass involving the cervix and vagina with some palpable parametrial involvement, though the mass was mobile. No evidence of direct invasion of the bladder or rectum was identified. She then underwent neoadjuvant pelvic radiation (50.4 Gy in 28 fx from 05/06 - 06/16/17). 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 Since that time, she has been admitted twice to [facility] for altered mental status, dehydration, and hypokalemia. In this same period, she has taken a very marked clinical decline. She has been fatigued and weak and spends most of her day in bed. She is able to get back and forth to the bathroom and describes being mostly independent with ADLs. That being said, she has someone in the house with her 24 hours a day to assist her. She has generally been disinterested in eating and has lost ~30 lb over the last few months. Past Medical/Surgical History Medical Problems: (1) Acute exacerbation of chronic low back pain Status: Acute (2) Anxiety Status: Acute (3) Cervical cancer Status: Acute (4) Dehydration Status: Acute (5) Dysphagia Status: Acute (6) Hypokalemia Status: Acute (7) Hypokalemia Status: Acute Family History Cancer Diabetes mellitus Hypertension Lung disease Social History Smoking Status: Never Smoker Smokeless Tobacco Use: No Alcohol Use: none Drug Use: none Marital Status: Housing Status: lives alone Occupation Status: unemployed Allergies Coded Allergies: Codeine (Verified Allergy, Severe, ANAPHYLAXIS, 07/22/17) LIQUID CODEINE CAN TAKE PERCOCET OR HYDROCODONE VIA TABLET Homatropine (Verified Allergy, Intermediate, CHEST TIGHTNESS, 07/22/17) PT STATES SHE HAS USED PERCOCET AND VICODIN WITH NO S/SX Hydrocodone (Verified Allergy, Intermediate, CHEST TIGHTNESS, 07/22/17) PT STATES SHE HAS USED PERCOCET AND VICODIN WITH NO S/SX Aspirin (Verified Adverse Reaction, Mild, ACID REFLUX, 07/22/17) Ketorolac (Verified Adverse Reaction, Mild, SICK IN STOMACH, THROWS UP, ) Home Medications Scheduled Calcitriol (Calcitriol), 0.25 MCG PO QAM Dicyclomine Hcl (Dicyclomine Hcl), 10 MG PO ACHS Ergocalciferol (Vitamin D 51225 Unit), 50,000 INTER.UNIT PO WK Esomeprazole Magnesium (Esomeprazole Magnesium), 40 MG PO BID Methimazole (Methimazole), 2.5 MG PO BID Methylphenidate (Ritalin), 20 MG PO QD@1200 Methylphenidate HCl (Methylphenidate HCl), 20 MG PO QAM Mirtazapine (Remeron), 15 MG PO HS Nystatin (Nystatin), 5 ML PO QID Oxycodone Hcl (Oxycodone Hcl), 10 MG PO Q6H Potassium Chloride Microencaps (Potassium Chloride Er), 40 MEQ PO BID Ropinirole HCl (Ropinirole HCl), 1 MG PO HS Simethicone (Simethicone), 250 MG PO QDL Trazodone Hcl (Desyrel), 300 MG PO HS Scheduled PRN Albuterol Sulf (Proventil 0.083% 2.5MG/3ML), 2.5 MG NEB Q4-6HRS PRN for Wheezing Albuterol Sulfate (Proair Respiclick), 2 PUFFS INH Q6H PRN for Cough/Wheeze Fluticasone Propionate (Fluticasone Propionate), 2 SPRAYS MAY DAILY PRN for Allergy Symptoms Ondansetron (Ondansetron HCl), 8 MG PO Q6H PRN for Nausea Current Inpatient Medications Current Inpatient Medications Medications (Trade) Dose Ordered Sig/Jose Route Start Time Stop Time Status Last Admin Dose Admin Acetaminophen (Tylenol Tab) 650 mg Q4H PRN PO 08/04/17 23:15 09/03/17 23:14 Albuterol Sulfate (Ventolin 0.083% 2.5MG/3ML Neb) 2.5 mg Q4H PRN INH 08/04/17 23:15 09/03/17 23:14 Calcitriol (Rocaltrol Cap) 0.25 mcg QAM PO 08/05/17 09:00 09/04/17 08:59 08/06/17 07:56 0.25 MCG Dicyclomine HCl (Bentyl Cap) 10 mg ACHS PO 08/05/17 07:00 09/04/17 06:59 08/06/17 11:08 10 MG Fluticasone Propionate (Flonase Nasal [place]) 2 sprays DAILY PRN MAY 08/04/17 23:15 09/03/17 23:14 Methimazole (Methimazole Tab) 5 mg BID PO 08/05/17 09:00 09/04/17 08:59 08/06/17 07:56 5 MG Mirtazapine (Remeron Tab) 15 mg HS PO 08/05/17 21:00 09/04/17 20:59 08/05/17 21:08 15 MG Nystatin (Mycostatin Susp) 5 ml QID PO 08/05/17 09:00 08/15/17 08:59 08/06/17 11:10 5 ML Ropinirole HCl (Requip Tab) 1 mg HS PO 08/05/17 21:00 09/04/17 20:59 08/05/17 21:09 1 MG Trazodone HCl (Desyrel Tab) 300 mg HS PO 08/05/17 21:00 09/04/17 20:59 08/05/17 21:06 300 MG Simethicone (Mylicon Chew Tab) 240 mg QDL PO 08/05/17 11:00 09/04/17 10:59 08/06/17 11:09 240 MG Albuterol (Ventolin Hfa Inhaler) 2 puffs Q4H PRN INH 08/04/17 23:15 09/03/17 23:14 Pantoprazole Sodium (Protonix Tab) 40 mg BID PO 08/05/17 09:00 09/04/17 08:59 08/06/17 07:55 40 MG Oxycodone HCl (Roxicodone Immediate Rel Tab) 10 mg Q6H PRN PO 08/04/17 23:15 08/18/17 23:14 08/05/17 03:56 10 MG Cholestyramine Resin (Questran Powder Light) 4 gm BID@ PO 08/05/17 10:00 09/04/17 09:59 08/06/17 09:49 4 GM Ondansetron HCl (Zofran Inj) 4 mg Q6H PRN IV 08/04/17 23:30 09/03/17 23:29 08/06/17 11:07 4 MG Insulin Aspart (novoLOG ASPART) SLIDING SCALE If C... ACHS SC 08/05/17 07:00 09/04/17 06:59 08/06/17 13:24 5 UNITS Glucose (Glucose 40% Gel) UD PRN PO 08/05/17 02:45 09/04/17 02:44 Glucose (Glucose Chew Tab) 1 tabs UD PRN PO 08/05/17 02:45 09/04/17 02:44 Dextrose (Dextrose 50% 50ML Syringe) 50 ml UD PRN IV 08/05/17 02:45 09/04/17 02:44 Glucagon (Glucagon Inj) 1 mg UD PRN SQ 08/05/17 02:45 09/04/17 02:44 Potassium Chloride (Veronika Ciel Elix) 40 meq TID PO 08/05/17 11:30 09/04/17 11:29 08/06/17 07:55 40 MEQ Ioversol (Optiray 320) 125 ml UD PRN IV 08/05/17 15:15 08/09/17 15:14 Insulin Glargine (Lantus Solostar Pen) 15 units QAM SC 08/06/17 09:00 09/04/17 08:59 08/06/17 09:53 15 UNITS Lorazepam (Ativan Tab) 0.5 mg Q6H PRN PO 08/06/17 15:30 09/05/17 15:29 Review of Systems Constitutional: + weight loss, + weakness, + fatigue ENT: + trouble swallowing, No unusual epistaxis Respiratory: No cough, No shortness of breath Cardiovascular: No chest pain Abdomen: No pain, No nausea, No vomiting Genitourinary - Female: No hematuria, No vaginal bleeding Neurologic: No paralysis, No weakness Hematologic / Lymphatic: No abnormal bleeding/bruising Physical Exam Date Time Temp Pulse Resp B/P (MAP) Pulse Ox O2 Delivery O2 Flow Rate FiO2 08/06/17 12:03 36.7 115 22 134/92 (106) 97 Room Air 08/06/17 12:00 Room Air 08/06/17 08:00 Room Air 08/06/17 07:59 36.6 92 20 138/84 (102) 94 Room Air 08/06/17 04:29 36.5 86 18 119/81 (94) 97 Room Air 08/06/17 04:00 Room Air 08/05/17 23:59 Room Air 08/05/17 23:11 36.4 89 16 98/63 (75) 94 Room Air 08/05/17 20:00 Room Air 08/05/17 19:30 36.3 108 18 143/94 (110) 95 Room Air 08/05/17 16:15 36.9 111 18 125/92 (103) 90 Room Air 08/05/17 16:00 Room Air General Appearance: no apparent distress, + obese (ill-appearing and weak) Eyes: EOMI Respiratory/Chest: lungs clear Cardiovascular: regular rate, rhythm Abdomen/GI: non tender, soft Extremities/Musculoskelatal: no pedal edema Neurologic/Psych: no motor/sensory deficits, alert, oriented x 3 Skin: no rash Laboratory Results Last 24 Hours Test 08/05/17 16:38 08/05/17 19:51 08/06/17 05:59 08/06/17 06:45 Bedside Glucose 155 mg/dl 185 mg/dl 163 mg/dl White Blood Count 5.86 K/uL Red Blood Count 3.67 M/uL Hemoglobin 10.9 g/dL Hematocrit 33.1 % Mean Corpuscular Volume 90.2 fL Mean Corpuscular Hemoglobin 29.7 pg Mean Corpuscular Hemoglobin Concent 32.9 g/dl Platelet Count 76 K/uL Mean Platelet Volume 9.9 fL Neutrophils (%) (Auto) 81.2 % Lymphocytes (%) (Auto) 8.0 % Monocytes (%) (Auto) 4.3 % Eosinophils (%) (Auto) 0.0 % Basophils (%) (Auto) 0.2 % Neutrophils # (Auto) 4.76 K/uL Lymphocytes # (Auto) 0.47 K/uL Monocytes # (Auto) 0.25 K/uL Eosinophils # (Auto) 0.00 K/uL Basophils # (Auto) 0.01 K/uL RDW Standard Deviation 56.1 fL RDW Coefficient of Variation 17.2 % Immature Granulocyte % (Auto) 6.3 % Immature Granulocyte # (Auto) 0.37 K/uL Nucleated RBC Absolute Count (auto) 0.05 K/uL Nucleated Red Blood Cells % 0.8 % Sodium Level 147 mmol/L Potassium Level 3.0 mmol/L Chloride Level 110 mmol/L Carbon Dioxide Level 30 mmol/L Anion Gap 7.0 mmol/L Blood Urea Nitrogen 4 mg/dl Creatinine 0.31 mg/dl Est Creatinine Clear Calc Drug Dose 161.9 ml/min Estimated GFR () 133.0 Estimated GFR (Non- 114.8 BUN/Creatinine Ratio 11.5 Random Glucose 176 mg/dl Calcium Level 6.5 mg/dl Magnesium Level 2.1 mg/dl Test 08/06/17 11:04 Bedside Glucose 203 mg/dl Assessment & Plan Ms. Marie' scans are very worrisome for metastatic endometrial cancer. Her pathology is serous type, which is a much more aggressive variant of endometrial cancer. This is a new diagnosis and she was understandably upset about the news. Generally, management for metastatic high grade endometrial carcinoma would be chemotherapy with Carboplatin and Paclitaxel. However, her performance status is such that I do not think she would tolerate this therapy. Many of the issues that are limiting her function, like the fatigue, weakness, and electrolyte disturbances, are likely related to her disease and associated deconditioning. It is certainly possible that she might improve clinically to such a point that chemo becomes feasible, but that would likely entail time in rehab and control of her potassium wasting. However, her albumin is low and her disease is both widespread and very aggressive and so without treatment I suspect she will decline further quite rapidly. As a result, I doubt she will be able to improve enough to make treatment safe in the time she has remaining and so I suggested she consider hospice care. She was not ready to make a decision about this issue and wanted some time to speak with her family and think things over. In the meantime, we should focus on supportive care and her comfort. Fortunately, she is without pain at this time. I will check back in with her tomorrow to discuss her decisions regarding the future of her care.
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
--- NOTE | 2017-08-06 19:17 | Progress Note ---
Subjective Date of Service: Aug 06, 2017. Subjective Pt evaluation today including: conversation w/ patient, conversation w/ family (daughter at bedside), physical exam, chart review, lab review, review of studies (CTs), conversation w/ [facility] consultant (heme/onc, palliative care ) Pain: minimal abdominal pain PO Intake: improved - swallowing is better, mouth pain improved Voiding: no voiding problems tele stable overnight sinus tach at times, especially when she is anxious very tearful today after our discussion last pm regarding her metastatic endometrial cancer said multiple times to me today "I know I am going to " we had a very lengthy discussion today about her test results, plan of care, heme/onc consult, getting palliative care involved, etc denied any new complaints Problem List Medical Problems: (1) Acute exacerbation of chronic low back pain Status: Acute (2) Anxiety Status: Acute (3) Cervical cancer Status: Acute (4) Dehydration Status: Acute (5) Dysphagia Status: Acute (6) Hypokalemia Status: Acute (7) Hypokalemia Status: Acute Review of Systems Constitutional: No fever, No chills Respiratory: No cough, No dyspnea at rest Cardiac: No chest pain Abdomen: + pain, No nausea, No vomiting, No diarrhea (no stool in 2 days) Psychiatric: + depression symptoms, + anxiety Objective Vital Signs Date Time Temp Pulse Resp B/P (MAP) Pulse Ox O2 Delivery O2 Flow Rate FiO2 08/06/17 16:00 Room Air 08/06/17 15:23 36.4 120 18 132/90 (104) 96 Room Air 08/06/17 12:03 36.7 115 22 134/92 (106) 97 Room Air 08/06/17 12:00 Room Air 08/06/17 08:00 Room Air 08/06/17 07:59 36.6 92 20 138/84 (102) 94 Room Air 08/06/17 04:29 36.5 86 18 119/81 (94) 97 Room Air 08/06/17 04:00 Room Air 08/05/17 23:59 Room Air 08/05/17 23:11 36.4 89 16 98/63 (75) 94 Room Air 08/05/17 20:00 Room Air 08/05/17 19:30 36.3 108 18 143/94 (110) 95 Room Air Physical Exam General Appearance: no apparent distress, + pertinent finding (very anxious, tearful) ENT: pharynx normal (MMM, thrush resolved) Neck: no JVD Respiratory/Chest: lungs clear, no respiratory distress, no accessory muscle use Cardiovascular: no gallop, no murmur, + tachycardia Abdomen: normal bowel sounds, non tender, soft, no organomegaly Extremities: no pedal edema Neurologic/Psychiatric: alert, oriented x 3, + depressed affect Laboratory Results Last 24 Hours Test 08/05/17 19:51 08/06/17 05:59 08/06/17 06:45 08/06/17 11:04 Bedside Glucose 185 mg/dl 163 mg/dl 203 mg/dl White Blood Count 5.86 K/uL Red Blood Count 3.67 M/uL Hemoglobin 10.9 g/dL Hematocrit 33.1 % Mean Corpuscular Volume 90.2 fL Mean Corpuscular Hemoglobin 29.7 pg Mean Corpuscular Hemoglobin Concent 32.9 g/dl Platelet Count 76 K/uL Mean Platelet Volume 9.9 fL Neutrophils (%) (Auto) 81.2 % Lymphocytes (%) (Auto) 8.0 % Monocytes (%) (Auto) 4.3 % Eosinophils (%) (Auto) 0.0 % Basophils (%) (Auto) 0.2 % Neutrophils # (Auto) 4.76 K/uL Lymphocytes # (Auto) 0.47 K/uL Monocytes # (Auto) 0.25 K/uL Eosinophils # (Auto) 0.00 K/uL Basophils # (Auto) 0.01 K/uL RDW Standard Deviation 56.1 fL RDW Coefficient of Variation 17.2 % Immature Granulocyte % (Auto) 6.3 % Immature Granulocyte # (Auto) 0.37 K/uL Nucleated RBC Absolute Count (auto) 0.05 K/uL Nucleated Red Blood Cells % 0.8 % Sodium Level 147 mmol/L Potassium Level 3.0 mmol/L Chloride Level 110 mmol/L Carbon Dioxide Level 30 mmol/L Anion Gap 7.0 mmol/L Blood Urea Nitrogen 4 mg/dl Creatinine 0.31 mg/dl Est Creatinine Clear Calc Drug Dose 161.9 ml/min Estimated GFR () 133.0 Estimated GFR (Non- 114.8 BUN/Creatinine Ratio 11.5 Random Glucose 176 mg/dl Calcium Level 6.5 mg/dl Magnesium Level 2.1 mg/dl Assessment and Plan 72yo female - 1. severe hypokalemia - improving. Recently hospitalized for same issue. Thought to be multifactorial with largest culprit due to renal wasting; poor oral intake also suspected. Diarrhea may have contributed as well. Continue oral supplementation; needs 40meq BID-TID daily to maintain normal K levels. BMP am. 2. endometrial cancer, stage 4 - luevano-CT 08/05/17 with extensive metastatic disease (lungs, liver, peritoneum, possibly adrenal glands). CT head in late July w/o overt mets. Heme/onc consult by Dr. Stern appreciated. Poor candidate for palliative chemo unless functional status improves. Hospice/palliative care may be best option. Palliative care consult requested. 3. hyperglycemia - 2nd to stress from illness? Other? Hemoglobin a1c in July was <6%. Despite such her surgars remain high. They were high during her July admission as well. Cont Lantus + novolog. Adjust as needed. 4. failure to thrive - due to #2. 5. recent thrush - nystatin QID. Improved/resolved. 6. abnormal LFTs - ?2nd to liver mets. repeat in am to ensure stability. 7. dysphagia - s/p EGD last week with dilatation. Still with symptoms at times. Speech evaluated him - slippery diet recommended. 8. DVT proph - add heparin TID in am if platelets are stable. 9. hyperthyroidism - methimazole increased to 5mg BID at time of hospital presentation. 10. anxiety - ativan 0.5mg q6h prn. 11. depression - remeron 15mg HS. 12. tachycardia - 2nd to anxiety?? CTA negative for PE. 13. thrombocytopenia - 2nd to liver dysfunction from liver mets? repeat CBC in am for stability. 14. hypernatremia - 1/2 NS x 1 liter then saline lock; BMP am lengthy discussion again held with patient/daughter today support given questions answered explained to patient/daughter that when she is ready to leave the hospital she will 25/05 supervision/help/care they voiced understanding poor prognosis await palliative care consult Continued [facility] stay due to: inadequate po fluid intake, ambulation difficulties , multiple IV medications needed Discharge planning: uncertain
[2017-08-06] MEDS: ROPINIROLE HCL 1 MG TAB PO SCH (20:50)
[2017-08-06] MEDS: TRAZODONE HCL 100 MG TAB PO SCH (20:51)
[2017-08-06] MEDS: MIRTAZAPINE TAB 15 MG TAB PO SCH (20:52)
[2017-08-07] VITALS (7 sets, daily range): BP systolic 119–146; BP diastolic 75–97; PULSE 91–119; TEMP 36.4–36.7; O2SAT 94–97
[2017-08-07 08:31] LABS: HEMATOCRIT 36.1 % (37-47); MEAN CELL VOLUME 90.5 fL (80-100); MEAN CORPUSCULAR HEMOGLOBIN 31.1 pg (25-34); MEAN CORPUSCULAR HGB CONC 34.3 g/dl (32-36); RED BLOOD COUNT 3.99 M/uL (4.2-5.4); WHITE BLOOD COUNT 7.19 K/uL (4.8-10.8)
[2017-08-07 08:39] LABS: INR 1.1 (0.9-1.1); PROTHROMBIN TIME (PATIENT) 11.6 SECONDS (9.0-12.0)
[2017-08-07 08:43] LABS: MEAN PLATELET VOLUME 10.9 fL (7.4-10.4); PLATELET COUNT 84 K/uL (130-400)
[2017-08-07] MEDS: DICYCLOMINE HCL 10 MG CAP PO SCH ×4 (08:53→20:53)
[2017-08-07] MEDS: METHIMAZOLE 5 MG TAB PO SCH ×2 (08:54→20:54)
[2017-08-07] MEDS: POTASSIUM CHLORIDE 20MEQ/15ML 473ML PO SCH ×2 (08:54→09:00)
[2017-08-07] MEDS: NYSTATIN SUSP 500,000 U/5 ML UDC PO SCH ×4 (08:54→20:54)
[2017-08-07] MEDS: CALCITRIOL 0.25 MCG CAP PO SCH (08:54)
[2017-08-07] MEDS: PANTOprazole SOD 40 MG TAB PO SCH ×2 (08:54→20:54)
[2017-08-07] MEDS: INSULIN GLARGINE SOLOSTAR 100 UNITS/ML 3 ML PEN SC SCH (08:57)
[2017-08-07 09:07] LABS: BUN/CREATININE RATIO 9.8 (10-20); CALCIUM 7.8 mg/dl (8.5-10.1); CREATININE 0.4 mg/dl (0.60-1.20); POTASSIUM 3.4 mmol/L (3.5-5.1)
[2017-08-07] MEDS: INSULIN ASPART 100 UNITS/ML 3 ML PEN SC SCH ×4 (09:08→21:00)
[2017-08-07 09:10] LABS: BASO % 0.3 %; BASO ABS # 0.02 K/uL (0-0.2); COMPLETE YES; IG% 6.5 %; LYMPH % 6.4 %; LYMPH ABS # 0.46 K/uL (1.2-3.4); MONO % 4.2 %; NEUT % 82.6 %; POLYCHROMASIA 1+
[2017-08-07] MEDS: CHOLESTYRAMINE LIGHT 4 GM PKT PO SCH ×2 (10:22→20:54)
[2017-08-07] MEDS: POTASSIUM CHLORIDE 20 MEQ TABCR PO SCH ×2 (10:22→17:02)
[2017-08-07] MEDS ORDERED: ARTIFICIAL TEARS OP SOLN OP SCH ×2 (11:30)
[2017-08-07] MEDS: SIMETHICONE 80 MG CHEW PO SCH (12:33)
[2017-08-07] MEDS: [UNRECOGNIZED DRUG - OTHER] OP SCH (12:33)
--- NOTE | 2017-08-07 14:17 | Palliative Care Progress Note ---
Palliative Care Progress Note Date of Service Aug 07, 2017. Subjective Pt evaluation today including: conversation w/ family (daughters, Lauren and Bella) Met with patient's daughters, Bella and Lauren, with patient's permission outside of room. Bella is the daughter who is a paid caregiver for patient. Bella and Lauren both acknowledged they understand the severity of patient's situation and they just want what's best for their mom. They, too, are accepting of hospice care, but are unsure of where patient will go to have it. Their plan at this point is to contact the waiver program and see what is the maximum amount of hours patient could receive in the home, and they of course would want the addition of hospice. Bella was tearful and states that she cannot provide the 24-hour care as she is too emotional and this is too hard for her. If they are not able to get enough care in the home, it may have to be discussed about going to SNF/ECF-- probably initially with skilled care with transition to hospice. Family will let us know as soon as they hear back from waiver program about in- home care and how many hours can be provided. I updated oil field caser.
--- NOTE | 2017-08-07 16:26 | Progress Note ---
Subjective Date of Service: Aug 07, 2017. Subjective pt is tearful and talks about going to , she offers no specific complaints or focal issues other than feeling not like herself Problem List Medical Problems: (1) Acute exacerbation of chronic low back pain Status: Acute (2) Anxiety Status: Acute (3) Cervical cancer Status: Acute (4) Dehydration Status: Acute (5) Dysphagia Status: Acute (6) Hypokalemia Status: Acute (7) Hypokalemia Status: Acute Review of Systems Constitutional: + weakness, + fatigue, No fever, No chills Respiratory: No cough, No sputum Neurologic: + memory loss, + weakness, + balance problems, No paralysis Psychiatric: + depression symptoms, + anhedonism, No anxiety Objective Vital Signs Date Time Temp Pulse Resp B/P (MAP) Pulse Ox O2 Delivery O2 Flow Rate FiO2 08/07/17 04:21 36.5 91 16 142/83 (102) 96 08/07/17 04:00 95 Room Air 08/06/17 23:59 95 Room Air 08/06/17 23:51 36.8 95 18 115/76 (89) 18 Room Air 08/06/17 20:00 95 Room Air 08/06/17 19:15 37.2 124 18 128/87 (101) 95 Room Air 08/06/17 16:00 Room Air 08/06/17 15:23 36.4 120 18 132/90 (104) 96 Room Air 08/06/17 12:03 36.7 115 22 134/92 (106) 97 Room Air 08/06/17 12:00 Room Air 08/06/17 08:00 Room Air 08/06/17 07:59 36.6 92 20 138/84 (102) 94 Room Air Physical Exam General Appearance: WD/WN, no apparent distress Neck: supple, no JVD Respiratory/Chest: chest non-tender, lungs clear, normal breath sounds Cardiovascular: regular rate, rhythm, + systolic murmur Abdomen: normal bowel sounds, non tender, soft Neurologic/Psychiatric: alert, oriented x 3 Laboratory Results Last 24 Hours Test 08/06/17 06:45 08/06/17 11:04 08/06/17 16:06 08/06/17 20:06 Bedside Glucose 163 mg/dl 203 mg/dl 150 mg/dl 171 mg/dl Test 08/07/17 04:44 Assessment and Plan 72yo female -readmission after treatment of hyperthyroidism and severe hypokalemia, returns with severe hypokalemia with non adherence to outpt treatment, now concern for metastatic endometrial malignancy severe hypokalemia -hyperthyroidism and renal wasting, KCL 40meq BID-TID daily endometrial cancer, stage 4 - luevano-CT 08/05/17 with extensive metastatic disease ( lungs, liver, peritoneum, possibly adrenal glands).progressed from january 2017 CT head in late July w/o overt mets. Heme/onc consult by Dr. Stern feels she is a poor candidate for palliative chemo unless functional status improves. failure to thrive Hospice/palliative care consult requested. hyperglycemia - Hemoglobin a1c in July was <6%. basal bolus Abnormal LFTs - ?2nd to liver mets. dysphagia - recent thrush - nystatin QID. Improved/resolved. s/p EGD last week with dilatation of stricture, Still with symptoms at times. Speech evaluated him - slippery diet recommended. DVT proph - add heparin TID in am if platelets are stable, pt has refused in the past. hyperthyroidism - methimazole increased to 5mg BID at time of hospital presentation. anxiety/ depression - remeron 15mg HS plus ativan prn. thrombocytopenia - 2nd to liver dysfunction poor prognosis await palliative care consult Continued [facility] stay due to: inadequate po fluid intake, ambulation difficulties , multiple IV medications needed Discharge planning: uncertain
--- NOTE | 2017-08-07 17:07 | Hematology/Oncology Prog Note ---
Hematology/Onc Progress Note Date of Service Aug 07, 2017. Diagnoses Metastatic endometrial cancer Hypokalemia Dehydration Medications Medications Administered Medications (Trade) Dose Ordered Sig/Jose Route Start Time Stop Time Status Last Admin Dose Admin Sodium Chloride 1,000 ml @ 999 mls/hr Q1H1M STAT IV 08/04/17 20:10 08/04/17 21:10 DC 08/04/17 20:33 999 MLS/HR Potassium Chloride (Kcl 10 Meq / Wtr) 40 meq NOW STAT IV 08/04/17 20:10 08/04/17 20:14 DC 08/04/17 20:34 40 MEQ Famotidine (Pepcid 20mg/100 ml) 20 mg ONE STAT IV 08/04/17 20:27 08/04/17 20:30 DC 08/04/17 21:04 20 MG Ondansetron HCl (Zofran Inj) 4 mg NOW STAT IV 08/04/17 20:27 08/04/17 20:30 DC 08/04/17 21:04 4 MG Potassium Chloride/Sodium Chloride 1,000 ml @ 125 mls/hr Q8H IV 08/05/17 01:22 08/06/17 08:00 DC 08/06/17 01:29 125 MLS/HR Calcitriol (Rocaltrol Cap) 0.25 mcg QAM PO 08/05/17 09:00 09/04/17 08:59 08/07/17 08:54 0.25 MCG Dicyclomine HCl (Bentyl Cap) 10 mg ACHS PO 08/05/17 07:00 09/04/17 06:59 08/07/17 10:22 10 MG Methimazole (Methimazole Tab) 5 mg BID PO 08/05/17 09:00 09/04/17 08:59 08/07/17 08:54 5 MG Methylphenidate HCl (Ritalin Tab) 20 mg QAM PO 08/05/17 09:00 08/06/17 15:21 DC 08/06/17 08:00 20 MG Mirtazapine (Remeron Tab) 15 mg HS PO 08/05/17 21:00 09/04/17 20:59 08/06/17 20:52 15 MG Nystatin (Mycostatin Susp) 5 ml QID PO 08/05/17 09:00 08/15/17 08:59 08/07/17 12:33 5 ML Ropinirole HCl (Requip Tab) 1 mg HS PO 08/05/17 21:00 09/04/17 20:59 08/06/17 20:50 1 MG Trazodone HCl (Desyrel Tab) 300 mg HS PO 08/05/17 21:00 09/04/17 20:59 08/06/17 20:51 300 MG Simethicone (Mylicon Chew Tab) 240 mg QDL PO 08/05/17 11:00 09/04/17 10:59 08/07/17 12:33 240 MG Pantoprazole Sodium (Protonix Tab) 40 mg BID PO 08/05/17 09:00 09/04/17 08:59 08/07/17 08:54 40 MG Oxycodone HCl (Roxicodone Immediate Rel Tab) 10 mg Q6H PRN PO 08/04/17 23:15 08/18/17 23:14 08/05/17 03:56 10 MG Cholestyramine Resin (Questran Powder Light) 4 gm BID@ PO 08/05/17 10:00 09/04/17 09:59 08/07/17 10:22 4 GM Cholestyramine Resin (Questran Powder Light) 4 gm 2314 ONCE PO 08/04/17 23:14 08/05/17 01:23 DC 08/05/17 01:40 4 GM Potassium Chloride 10 meq/ Prmx 100 ml @ 100 mls/hr Q1H IV 08/04/17 23:30 08/05/17 05:29 DC 08/05/17 07:18 100 MLS/HR Lorazepam (Ativan Inj) 1 mg Q4H PRN IV 08/04/17 23:30 08/06/17 15:21 DC 08/05/17 00:22 1 MG Ondansetron HCl (Zofran Inj) 4 mg Q6H PRN IV 08/04/17 23:30 09/03/17 23:29 08/06/17 11:07 4 MG Albumin Human (Albumin 25%) 25 gm NOW STAT IV 08/04/17 23:44 08/04/17 23:45 DC 08/05/17 00:22 25 GM Potassium Phosphate 30 mmol/ Sodium Chloride 510 ml @ 88 mls/hr NOW STAT IV 08/04/17 23:45 08/05/17 05:32 DC 08/05/17 01:25 88 MLS/HR Insulin Aspart (novoLOG ASPART) SLIDING SCALE If C... ACHS SC 08/05/17 07:00 09/04/17 06:59 08/07/17 12:36 2 UNITS Insulin Glargine (Lantus Solostar Pen) 10 units QAM SC 08/05/17 09:00 08/06/17 08:00 DC 08/05/17 09:09 10 UNITS Potassium Chloride (Veronika Ciel Elix) 40 meq TID PO 08/05/17 11:30 08/07/17 09:39 DC 08/06/17 20:49 40 MEQ Magnesium Sulfate 1 gm/Prmx 100 ml @ 100 mls/hr Q1H IV 08/05/17 13:00 08/05/17 14:59 DC 08/05/17 14:00 100 MLS/HR Insulin Glargine (Lantus Solostar Pen) 15 units QAM SC 08/06/17 09:00 09/04/17 08:59 08/07/17 08:57 15 UNITS Potassium Chloride/Sodium Chloride 1,000 ml @ 100 mls/hr Q10H IV 08/06/17 08:30 08/06/17 14:25 DC 08/06/17 09:49 100 MLS/HR Potassium Chloride (Klor-Con Tab) 40 meq AC PO 08/07/17 11:00 09/06/17 10:59 08/07/17 10:22 40 MEQ Prednisolone Sodium Phosphate (Inflamase-Forte Soln) 2 drops DAILY OP 08/07/17 11:30 09/06/17 11:29 08/07/17 12:33 2 DROPS Artificial Tears (Artificial Tears) 2 drops QS OP 08/07/17 11:30 08/07/17 16:49 DC 08/07/17 12:32 2 DROPS Subjective Ms. Marie looks much better today. She is more alert and conversational. She has not been out of bed, however, except to the restroom. She is having an easier time swallowing and is eating more as a result. Review of Systems: Constitutional: + weakness (generalized), + fatigue Respiratory: No cough, No shortness of breath Cardiovascular: No chest pain Abdomen: No pain, No nausea, No vomiting Musculoskeletal: No joint pain, No muscle pain Heme: No abnormal bleeding/bruising Vital Signs Vital Signs Past 12 Hours Date Time Temp Pulse Resp B/P (MAP) Pulse Ox O2 Delivery O2 Flow Rate FiO2 08/07/17 16:00 Room Air 08/07/17 15:07 36.6 119 18 139/86 (103) 97 Room Air 08/07/17 12:00 Room Air 08/07/17 11:50 36.7 113 16 146/83 (104) 97 Room Air 08/07/17 08:00 36.6 99 18 143/97 (112) 96 Room Air 08/07/17 08:00 Room Air Physical Exam Constitutional: General Apperance: obese Level of Distress: NAD, chronically ill Psychiatric: Mental Status: active & alert Orientation: oriented except where noted Lungs: Auscuitation: CTA except as noted Cardiovascular: Heart Auscultation: RRR Abdomen: Inspection & Palpation: soft, no tenderness, guarding & rebound Extremities: no edema Laboratory Last 24 Hours Test 08/06/17 20:06 08/07/17 06:49 08/07/17 07:48 08/07/17 10:52 Bedside Glucose 171 mg/dl 155 mg/dl 194 mg/dl White Blood Count 7.19 K/uL Red Blood Count 3.99 M/uL Hemoglobin 12.4 g/dL Hematocrit 36.1 % Mean Corpuscular Volume 90.5 fL Mean Corpuscular Hemoglobin 31.1 pg Mean Corpuscular Hemoglobin Concent 34.3 g/dl Platelet Count 84 K/uL Mean Platelet Volume 10.9 fL Neutrophils (%) (Auto) 82.6 % Lymphocytes (%) (Auto) 6.4 % Monocytes (%) (Auto) 4.2 % Eosinophils (%) (Auto) 0.0 % Basophils (%) (Auto) 0.3 % Neutrophils # (Auto) 5.94 K/uL Lymphocytes # (Auto) 0.46 K/uL Monocytes # (Auto) 0.30 K/uL Eosinophils # (Auto) 0.00 K/uL Basophils # (Auto) 0.02 K/uL RDW Standard Deviation 58.0 fL RDW Coefficient of Variation 17.7 % Immature Granulocyte % (Auto) 6.5 % Immature Granulocyte # (Auto) 0.47 K/uL Nucleated RBC Absolute Count (auto) 0.07 K/uL Nucleated Red Blood Cells % 1.0 % Polychromasia 1+ Prothrombin Time 11.6 SECONDS Prothromb Time International Ratio 1.1 Sodium Level 145 mmol/L Potassium Level 3.4 mmol/L Chloride Level 107 mmol/L Carbon Dioxide Level 30 mmol/L Anion Gap 8.0 mmol/L Blood Urea Nitrogen 4 mg/dl Creatinine 0.40 mg/dl Est Creatinine Clear Calc Drug Dose 125.5 ml/min Estimated GFR () 122.3 Estimated GFR (Non- 105.5 BUN/Creatinine Ratio 9.8 Random Glucose 155 mg/dl Calcium Level 7.8 mg/dl Total Bilirubin 0.8 mg/dl Direct Bilirubin 0.4 mg/dl Aspartate Amino Transf (AST/SGOT) 67 U/L Alanine Aminotransferase (ALT/SGPT) 161 U/L Alkaline Phosphatase 120 U/L Total Protein 5.3 gm/dl Albumin 2.5 gm/dl Test 08/07/17 15:51 Bedside Glucose 168 mg/dl Assessment & Plan Ms. Marie looks better today, though this is likely due to the aggressive supportive care she's received here. She apparently looked similarly well prior to discharge home during her last admission, only to completely fall apart once she was out of the supportive environment of the hospital. I reiterated my concerns, outlined in my previous note, that her performance status is prohibitive of chemotherapy. While it is certainly possible she may recover to a point where treatment is feasible, I have generally found in such situations that patients tend to decline instead of improve, as their cancer continues to progress. As a result, I again advised she consider hospice care. We had a somewhat circular conversation about this and other goals of care and did not come to a clear decision. Should she refuse hospice, I would be happy to see her in the office after she's had some time to rehabilitate and get stronger. If she is a candidate at that time, we can consider possible chemotherapy. Otherwise, I would be happy to refer her for hospice and be her attending of record.
[2017-08-07] MEDS: ARTIFICIAL TEARS OP SOLN OP SCH ×2 (19:09)
[2017-08-07] MEDS: MIRTAZAPINE TAB 15 MG TAB PO SCH (20:53)
[2017-08-07] MEDS: ROPINIROLE HCL 1 MG TAB PO SCH (20:54)
[2017-08-07] MEDS: TRAZODONE HCL 100 MG TAB PO SCH (20:54)
--- NOTE | 2017-08-07 22:21 | CONSULTATION REPORT ---
DATE OF CONSULTATION: 08/07/2017 CONSULTATION NOTE AND OPERATIVE REPORT DATE OF INPATIENT CONSULTATION: 08/07/2017. REASON FOR CONSULTATION: Change in vision, both eyes. HISTORY OF PRESENT ILLNESS: The patient is a 72-year-old white female who was admitted with metastatic endometrial cancer and acute hypokalemia who is reporting that she has not seen as well as she used to. She called me personally from her bedside and asked me to come in to see her today. She states that her vision seems not quite as crisp and sharp and a little bit more douglass out of both eyes. She has a history of a penetrating keratoplasty in the right eye and DSAEK surgery in the left eye as well as cataract surgery in both eyes. She is currently treated at home for dry eye disease as well. She reports that she has not had any of her eyedrops since admission and she did not report them to the admitting team. PHYSICAL EXAMINATION: HEENT: On examination today, her visual acuity with her current glasses with near is 20/100 in the right eye and 20/60 in the left. Her pupils are equal and reactive. On slit lamp examination, she has a clear penetrating keratoplasty graft in the right eye and a clear DSAEK graft in the left with a clear posterior chamber lenses in both eyes. 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 IMPRESSION AND PLAN: I discussed with Ms. 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 She has been started on prednisolone eye drops 1 drop once a day to both eyes as well as artificial tears to both eyes. I recommend that she have prednisolone drops 1 drop once a day to both eyes and artificial tears every 4 hours while awake to both and as needed for dryness. If I can be of any other help, do not hesitate to contact me.
[2017-08-08 03:44] VITALS: BP 125/73; PULSE 90; TEMP 36.3; O2SAT 98
[2017-08-08] MEDS: ARTIFICIAL TEARS OP SOLN OP SCH ×8 (06:07→17:17)
[2017-08-08] MEDS: DICYCLOMINE HCL 10 MG CAP PO SCH ×4 (06:07→23:30)
[2017-08-08] MEDS: POTASSIUM CHLORIDE 20 MEQ TABCR PO SCH ×3 (06:07→17:16)
[2017-08-08] MEDS: PANTOprazole SOD 40 MG TAB PO SCH ×2 (08:22→23:30)
[2017-08-08] MEDS: NYSTATIN SUSP 500,000 U/5 ML UDC PO SCH ×4 (08:22→23:30)
[2017-08-08] MEDS: CALCITRIOL 0.25 MCG CAP PO SCH (08:22)
[2017-08-08] MEDS: METHIMAZOLE 5 MG TAB PO SCH ×2 (08:23→23:30)
[2017-08-08] MEDS: [UNRECOGNIZED DRUG - OTHER] OP SCH (08:27)
[2017-08-08] MEDS: INSULIN ASPART 100 UNITS/ML 3 ML PEN SC SCH ×4 (08:32→23:31)
[2017-08-08] MEDS: INSULIN GLARGINE SOLOSTAR 100 UNITS/ML 3 ML PEN SC SCH (08:35)
[2017-08-08 09:31] VITALS: BP 143/81; PULSE 103; TEMP 36.8; O2SAT 96
[2017-08-08] MEDS: CHOLESTYRAMINE LIGHT 4 GM PKT PO SCH ×2 (10:30→22:00)
[2017-08-08] MEDS: SIMETHICONE 80 MG CHEW PO SCH ×2 (12:19→15:07)
[2017-08-08 12:26] VITALS: BP 132/88; PULSE 107; TEMP 36.6; O2SAT 94
--- NOTE | 2017-08-08 13:55 | Progress Note ---
Subjective Date of Service: Aug 08, 2017. Subjective pt is weak and pleasantly confused Problem List Medical Problems: (1) Acute exacerbation of chronic low back pain Status: Acute (2) Anxiety Status: Acute (3) Cervical cancer Status: Acute (4) Dehydration Status: Acute (5) Dysphagia Status: Acute (6) Hypokalemia Status: Acute (7) Hypokalemia Status: Acute Review of Systems Constitutional: + weakness, + fatigue, No fever, No chills Respiratory: No cough, No sputum, No wheezing Objective Vital Signs Date Time Temp Pulse Resp B/P (MAP) Pulse Ox O2 Delivery O2 Flow Rate FiO2 08/08/17 04:00 Room Air 08/08/17 03:44 36.3 90 18 125/73 (90) 98 Room Air 08/08/17 00:00 Room Air 08/07/17 23:23 36.5 91 16 119/75 (90) 96 Room Air 08/07/17 20:00 Room Air 08/07/17 19:44 36.4 110 18 139/94 (109) 94 Room Air 08/07/17 16:00 Room Air 08/07/17 15:07 36.6 119 18 139/86 (103) 97 Room Air 08/07/17 12:00 Room Air 08/07/17 11:50 36.7 113 16 146/83 (104) 97 Room Air Physical Exam General Appearance: WD/WN, + mild distress Neck: supple, no JVD Respiratory/Chest: chest non-tender, lungs clear, normal breath sounds Cardiovascular: regular rate, rhythm, no murmur Abdomen: non tender, soft Extremities: no pedal edema, no calf tenderness Laboratory Results Last 24 Hours Test 08/07/17 10:52 08/07/17 15:51 08/07/17 20:05 08/08/17 06:42 Bedside Glucose 194 mg/dl 168 mg/dl 193 mg/dl 162 mg/dl Assessment and Plan 72yo female -readmission after treatment of hyperthyroidism and severe hypokalemia, returns with severe hypokalemia with non adherence to outpt treatment, now concern for metastatic endometrial malignancy severe hypokalemia -hyperthyroidism and renal wasting, KCL 40meq BID-TID daily with good results endometrial cancer, stage 4 - luevano-CT 08/05/17 with extensive metastatic disease ( lungs, liver, peritoneum, possibly adrenal glands).progressed from january 2017 CT head in late July w/o overt mets. Heme/onc consult by Dr. Stern feels she is a poor candidate for palliative chemo unless functional status improves. failure to thrive Hospice/palliative care consult in play family on board need to arrange home care hyperglycemia - Hemoglobin a1c in July was <6%. basal bolus, if moving to palliative care may not aggressively treat Abnormal LFTs - ?2nd to liver mets. dysphagia - recent thrush - nystatin QID. eating without complatins after EGD last week with dilatation of stricture, Speech evaluated him - slippery diet recommended. DVT proph - add heparin TID but pt has refused in the past. hyperthyroidism - methimazole increased to 5mg BID at time of hospital presentation. anxiety/ depression - remeron 15mg HS plus ativan prn. thrombocytopenia - 2nd to liver dysfunction dirty ua, culture with 3 organisms recollected 08/08 poor prognosis palliative care consult spoke to family spoke to daughter at bedside 08/08, they are on board to getting pt to home on palliated care Continued [facility] stay due to: inadequate po fluid intake, ambulation difficulties , multiple IV medications needed Discharge planning: uncertain
[2017-08-08 14:45] VITALS: BP 132/88; PULSE 107; TEMP 36.6; O2SAT 94
[2017-08-08 15:30] VITALS: BP 125/84; PULSE 118; TEMP 36.8; O2SAT 96
[2017-08-08] MEDS: TRAZODONE HCL 100 MG TAB PO SCH (23:31)
[2017-08-08] MEDS: MIRTAZAPINE TAB 15 MG TAB PO SCH (23:31)
[2017-08-08] MEDS: ROPINIROLE HCL 1 MG TAB PO SCH (23:31)
[2017-08-09 00:02] VITALS: BP 141/91; PULSE 97; TEMP 36.9; O2SAT 96
[2017-08-09 00:08] VITALS: O2SAT 96
[2017-08-09] MEDS: DICYCLOMINE HCL 10 MG CAP PO SCH ×4 (06:16→21:43)
[2017-08-09] MEDS: POTASSIUM CHLORIDE 20 MEQ TABCR PO SCH ×4 (06:16→17:18)
[2017-08-09] MEDS: ARTIFICIAL TEARS OP SOLN OP SCH ×8 (07:00→19:00)
[2017-08-09 07:33] LABS: BUN/CREATININE RATIO 14.4 (10-20); CALCIUM 7.7 mg/dl (8.5-10.1); CREATININE 0.45 mg/dl (0.60-1.20); POTASSIUM 3.7 mmol/L (3.5-5.1)
[2017-08-09] MEDS: METHIMAZOLE 5 MG TAB PO SCH ×2 (07:49→21:41)
[2017-08-09] MEDS: [UNRECOGNIZED DRUG - OTHER] OP SCH (07:49)
[2017-08-09] MEDS: NYSTATIN SUSP 500,000 U/5 ML UDC PO SCH ×4 (07:50→21:44)
[2017-08-09] MEDS: CALCITRIOL 0.25 MCG CAP PO SCH (07:50)
[2017-08-09] MEDS: PANTOprazole SOD 40 MG TAB PO SCH ×2 (07:50→21:43)
[2017-08-09 08:02] VITALS: BP 132/87; PULSE 92; TEMP 36.6; O2SAT 97
[2017-08-09] MEDS: INSULIN GLARGINE SOLOSTAR 100 UNITS/ML 3 ML PEN SC SCH (09:22)
[2017-08-09] MEDS: INSULIN ASPART 100 UNITS/ML 3 ML PEN SC SCH ×4 (09:23→21:37)
[2017-08-09] MEDS: CHOLESTYRAMINE LIGHT 4 GM PKT PO SCH ×2 (10:00→21:50)
[2017-08-09] MEDS: SIMETHICONE 80 MG CHEW PO SCH (12:00)
[2017-08-09 15:27] VITALS: BP 125/85; PULSE 104; TEMP 36.5; O2SAT 96
--- NOTE | 2017-08-09 16:04 | Progress Note ---
Subjective Date of Service: Aug 09, 2017. Subjective pt was initially refusing her medication today then agreed, at times she acts like she does not fully understand her diagnosis, at times she does, she ultimately wants to go home with hospice Problem List Medical Problems: (1) Acute exacerbation of chronic low back pain Status: Acute (2) Anxiety Status: Acute (3) Cervical cancer Status: Acute (4) Dehydration Status: Acute (5) Dysphagia Status: Acute (6) Hypokalemia Status: Acute (7) Hypokalemia Status: Acute Review of Systems Constitutional: + weakness, + fatigue, No fever, No chills Respiratory: No cough, No shortness of breath Cardiac: No chest pain, No edema Abdomen: No pain, No nausea, No vomiting, No diarrhea Objective Vital Signs Date Time Temp Pulse Resp B/P (MAP) Pulse Ox O2 Delivery O2 Flow Rate FiO2 08/09/17 00:08 96 Room Air 08/09/17 00:02 36.9 97 18 141/91 (108) 96 Room Air 08/08/17 16:00 Room Air 08/08/17 15:30 36.8 118 18 125/84 (98) 96 08/08/17 14:45 36.6 107 18 94 08/08/17 12:26 36.6 107 18 132/88 (103) 94 08/08/17 12:00 Room Air 08/08/17 09:31 36.8 103 18 143/81 (101) 96 Room Air 08/08/17 08:00 Room Air Physical Exam General Appearance: WD/WN, + mild distress Respiratory/Chest: chest non-tender, lungs clear, normal breath sounds Cardiovascular: regular rate, rhythm, no murmur Abdomen: normal bowel sounds, soft, + guarding, + tenderness Neurologic/Psychiatric: alert, oriented x 3 Laboratory Results Last 24 Hours Test 08/08/17 11:28 08/08/17 17:13 08/08/17 19:46 08/09/17 06:09 Bedside Glucose 140 mg/dl 173 mg/dl 256 mg/dl Sodium Level 146 mmol/L Potassium Level 3.7 mmol/L Chloride Level 110 mmol/L Carbon Dioxide Level 29 mmol/L Anion Gap 7.0 mmol/L Blood Urea Nitrogen 7 mg/dl Creatinine 0.45 mg/dl Est Creatinine Clear Calc Drug Dose 111.8 ml/min Estimated GFR () 117.7 Estimated GFR (Non- 101.5 BUN/Creatinine Ratio 14.4 Random Glucose 215 mg/dl Calcium Level 7.7 mg/dl Assessment and Plan 72yo female -readmission after treatment of hyperthyroidism and severe hypokalemia, returns with severe hypokalemia with non adherence to outpt treatment, now concern for metastatic endometrial malignancy severe hypokalemia -hyperthyroidism and renal wasting, KCL 40meq BID-TID daily with good results, pt needs reinforcement with compliance, she states she just wants to like as long as she can endometrial cancer, stage 4 - luevano-CT 08/05/17 with extensive metastatic disease ( lungs, liver, peritoneum, possibly adrenal glands).progressed from january 2017 CT head in late July w/o overt mets. Heme/onc consult by Dr. Stern feels she is a poor candidate for palliative chemo unless functional status improves. failure to thrive Hospice/palliative care consult in play family on board need to arrange home care, pt just wants to return home hyperglycemia - Hemoglobin a1c in July was <6%. basal bolus, if moving to palliative care may not aggressively treat Abnormal LFTs - ?2nd to liver mets, no clinical symptoms dysphagia - recent thrush - nystatin QID. eating without complaints after EGD last week with dilatation of stricture, Speech evaluated him - slippery diet recommended. DVT proph - heparin hyperthyroidism - methimazole increased to 5mg BID at time of hospital presentation. anxiety/ depression - remeron 15mg HS plus ativan prn. thrombocytopenia - 2nd to liver dysfunction dirty ua, culture with 3 organisms recollected 08/08 poor prognosis palliative care consult spoke to family spoke to daughter at bedside 08/08, they are on board to getting pt to home on palliated care Continued [facility] stay due to: inadequate po fluid intake, ambulation difficulties , multiple IV medications needed Discharge planning: uncertain
[2017-08-09] MEDS ORDERED: MICONAZOLE NITRATE POWDER 43 GM ONE (16:37)
[2017-08-09] MEDS ORDERED: NURSING VERBAL MED ORDER ONE (17:00)
[2017-08-09] MEDS ORDERED: MICONAZOLE NITRATE POWDER 43 GM EXT PRN (17:00)
[2017-08-09] MEDS ORDERED: MAGIC SWIZZLE PO PRN (18:45)
[2017-08-09] MEDS ORDERED: LIDOCAINE HCL 2% VISCOUS SOLN 60 ML, DiphenhydrAMINE HCL SYRUP 150 MG, ALUMINUM/MAGNESI... MT PRN ×4 (19:00)
[2017-08-09] MEDS: TRAZODONE HCL 100 MG TAB PO SCH (21:42)
[2017-08-09] MEDS: ROPINIROLE HCL 1 MG TAB PO SCH (21:44)
[2017-08-09] MEDS: MIRTAZAPINE TAB 15 MG TAB PO SCH (21:45)
[2017-08-09 23:34] VITALS: BP 121/83; PULSE 106; TEMP 36.7; O2SAT 95
[2017-08-10] MEDS: ARTIFICIAL TEARS OP SOLN OP SCH ×8 (06:07→19:00)
[2017-08-10] MEDS: DICYCLOMINE HCL 10 MG CAP PO SCH ×2 (06:07→11:00)
[2017-08-10] MEDS: POTASSIUM CHLORIDE 20 MEQ TABCR PO SCH ×4 (06:07→21:00)
[2017-08-10 06:29] LABS: BUN/CREATININE RATIO 16.8 (10-20); CALCIUM 7.6 mg/dl (8.5-10.1); CREATININE 0.37 mg/dl (0.60-1.20); MAGNESIUM 1.7 mg/dl (1.8-2.4); POTASSIUM 3.3 mmol/L (3.5-5.1)
[2017-08-10 07:27] VITALS: BP 144/89; PULSE 96; TEMP 36.5; O2SAT 95
[2017-08-10] MEDS: [UNRECOGNIZED DRUG - OTHER] OP SCH (08:00)
[2017-08-10] MEDS: CALCITRIOL 0.25 MCG CAP PO SCH (08:00)
[2017-08-10] MEDS: NYSTATIN SUSP 500,000 U/5 ML UDC PO SCH ×3 (08:00→12:00)
[2017-08-10] MEDS: METHIMAZOLE 5 MG TAB PO SCH ×2 (08:29→20:08)
[2017-08-10] MEDS: PANTOprazole SOD 40 MG TAB PO SCH (08:29)
[2017-08-10] MEDS ORDERED: POTASSIUM CHLORIDE 20 MEQ TABCR PO ONE (08:30)
[2017-08-10] MEDS: INSULIN GLARGINE SOLOSTAR 100 UNITS/ML 3 ML PEN SC SCH (08:36)
[2017-08-10] MEDS: INSULIN ASPART 100 UNITS/ML 3 ML PEN SC SCH ×4 (08:36→21:04)
[2017-08-10] MEDS: CHOLESTYRAMINE LIGHT 4 GM PKT PO SCH (10:00)
[2017-08-10] MEDS: ONDANSETRON INJ 2 MG/ML 2 ML VIAL IV PRN (11:00)
[2017-08-10] MEDS: SIMETHICONE 80 MG CHEW PO SCH (12:00)
--- NOTE | 2017-08-10 14:28 | Palliative Care Progress Note ---
Palliative Care Progress Note Date of Service Aug 10, 2017. Subjective Pt evaluation today including: conversation w/ patient, conversation w/ family , physical exam, chart review, review of inpatient medication list Pain: 0/10 PO Intake: small amounts Voiding: no voiding problems -Received call from daughterLauren, this morning at 0800 requesting meeting with myself and adult protective caseworker at 1000. -Met with daughters at 1000 with Colleen Oneal, adult protective caseworker. Lauren and Bella both state that they have decided to take patient home with hospice. They have spoken to patient's disability services through waiver program and are able to have care increased to 25/05. -POLST form was explained to patient and family thoroughly. Patient filled out POLST form for herself. See plan below. Review of Systems Constitutional: + weakness, + fatigue ENT: No trouble swallowing Respiratory: No cough, No shortness of breath Cardiac: No chest pain Abdomen: + nausea, No pain, No vomiting Female : No problem reported Psychiatric: + anxiety Objective Vital Signs Date Time Temp Pulse Resp B/P (MAP) Pulse Ox O2 Delivery O2 Flow Rate FiO2 08/10/17 08:00 Room Air 08/10/17 07:27 36.5 96 18 144/89 (107) 95 Room Air 08/10/17 00:00 Room Air 08/09/17 23:34 36.7 106 18 121/83 (96) 95 Room Air 08/09/17 16:00 Room Air 08/09/17 15:27 36.5 104 20 125/85 (98) 96 Room Air Physical Exam General Appearance: no apparent distress ENT: hearing grossly normal Neck: supple, no JVD Respiratory/Chest: no respiratory distress, no accessory muscle use Cardiovascular: regular rate, rhythm, + normal peripheral pulses Abdomen: non tender, soft Neurologic/Psychiatric: alert, normal mood/affect, oriented x 3, + pertinent finding (affect a little more flat today) Skin: normal color Laboratory Results Last 24 Hours Test 08/09/17 17:29 08/09/17 20:49 08/10/17 05:12 08/10/17 07:50 Bedside Glucose 243 mg/dl 199 mg/dl 203 mg/dl Sodium Level 147 mmol/L Potassium Level 3.3 mmol/L Chloride Level 109 mmol/L Carbon Dioxide Level 31 mmol/L Anion Gap 7.0 mmol/L Blood Urea Nitrogen 6 mg/dl Creatinine 0.37 mg/dl Est Creatinine Clear Calc Drug Dose 135.9 ml/min Estimated GFR () 125.5 Estimated GFR (Non- 108.3 BUN/Creatinine Ratio 16.8 Random Glucose 191 mg/dl Calcium Level 7.6 mg/dl Magnesium Level 1.7 mg/dl Test 08/10/17 11:34 Bedside Glucose 97 mg/dl Assessment and Plan Problem list: Weakness Dysphagia s/p esophageal dilation in July 2017 Severe hypokalemia Metastatic endometrial cancer- widespread metastatic disease found on CT scan this admission. LYNDSEY Failure to thrive Thrush-improved Hx PTSD, depression, anxiety Goals of care (Z51.5) Palliative care recs: -Goal, as stated by patient, daughters Lauren and Bella, is home with hospice. -Will have 25/05 caregivers through waiver program. -[facility]. patient financial services manager aware and is making referral. -Pain is controlled at this time. -POLST form completed with patient as follows: DNR, full treatment with add'l order: "Full treatment if there is a reversible cause. If no hope of recovery, please make me comfortable," abx if life can be prolonged, trial of IVF but NO feeding tube with add'l order: "Trial of IVF if there is a reversible cause. If not, please discontinue." -Patient stated that her two daughter, Lauren and Bella, are her decision makers in the case she is unable. They are listed as surrogate on back of POLST. -POLST form with patient's wishes/choices was fully discussed with Bella Aguilar, and Bella's daughter (Patient's granddaughter and caregiver). Continued [facility] stay due to: inadequate po fluid intake, ambulation difficulties , multiple IV medications needed Discharge planning: uncertain
[2017-08-10 15:04] VITALS: BP 135/86; PULSE 102; TEMP 36.8; O2SAT 96
--- NOTE | 2017-08-10 15:27 | Progress Note ---
Subjective Date of Service: Aug 10, 2017. Subjective pt is requesting to reduce med passes, I updated daughters in the hallway privately and they are on board with moving to home hospice Problem List Medical Problems: (1) Acute exacerbation of chronic low back pain Status: Acute (2) Anxiety Status: Acute (3) Cervical cancer Status: Acute (4) Dehydration Status: Acute (5) Dysphagia Status: Acute (6) Hypokalemia Status: Acute (7) Hypokalemia Status: Acute Review of Systems Constitutional: + weakness, + fatigue (in am maybe from night time meds), No fever, No chills Respiratory: No cough, No sputum, No wheezing, No shortness of breath Cardiac: No chest pain, No edema Abdomen: + nausea, No pain, No vomiting, No diarrhea Female : No dysuria, No urinary frequency Psychiatric: + depression symptoms, No anhedonism Objective Vital Signs Date Time Temp Pulse Resp B/P (MAP) Pulse Ox O2 Delivery O2 Flow Rate FiO2 08/10/17 15:04 36.8 102 18 135/86 (102) 96 Room Air 08/10/17 08:00 Room Air 08/10/17 07:27 36.5 96 18 144/89 (107) 95 Room Air 08/10/17 00:00 Room Air 08/09/17 23:34 36.7 106 18 121/83 (96) 95 Room Air 08/09/17 16:00 Room Air 08/09/17 15:27 36.5 104 20 125/85 (98) 96 Room Air Physical Exam General Appearance: WD/WN, + mild distress Respiratory/Chest: chest non-tender, + decreased breath sounds (bases) Cardiovascular: regular rate, rhythm, no murmur Abdomen: normal bowel sounds, non tender, soft Extremities: no pedal edema, no calf tenderness Neurologic/Psychiatric: alert, oriented x 3 Laboratory Results Last 24 Hours Test 08/09/17 17:29 08/09/17 20:49 08/10/17 05:12 08/10/17 07:50 Bedside Glucose 243 mg/dl 199 mg/dl 203 mg/dl Sodium Level 147 mmol/L Potassium Level 3.3 mmol/L Chloride Level 109 mmol/L Carbon Dioxide Level 31 mmol/L Anion Gap 7.0 mmol/L Blood Urea Nitrogen 6 mg/dl Creatinine 0.37 mg/dl Est Creatinine Clear Calc Drug Dose 135.9 ml/min Estimated GFR () 125.5 Estimated GFR (Non- 108.3 BUN/Creatinine Ratio 16.8 Random Glucose 191 mg/dl Calcium Level 7.6 mg/dl Magnesium Level 1.7 mg/dl Test 08/10/17 11:34 Bedside Glucose 97 mg/dl Assessment and Plan 72yo female -readmission after treatment of hyperthyroidism and severe hypokalemia, returns with severe hypokalemia with non adherence to outpt treatment, now concern for metastatic endometrial malignancy, patient and family on board with home hospice severe hypokalemia -hyperthyroidism and renal wasting, KCL 40meq ac hs needs reinforcement with compliance, she states she just wants to like as long as she can endometrial cancer, stage 4 - luev[place]-CT 08/05/17 with extensive metastatic disease ( lungs, liver, peritoneum, possibly adrenal glands).progressed from january 2017 CT head in late July w/o overt mets. Heme/onc consult by Dr. Stern feels she is a poor candidate for palliative chemo unless functional status improves. failure to thrive Hospice/palliative care consult in play family on board need to arrange home care, pt just wants to return home hyperglycemia - Hemoglobin a1c in July was <6%. basal bolus, if moving to palliative care may not aggressively treat Abnormal LFTs - ?2nd to liver mets, no clinical symptoms dysphagia - recent thrush - nystatin QID. eating without complaints after EGD last week with dilatation of stricture, Speech evaluated him - slippery diet recommended. DVT proph - heparin hyperthyroidism - methimazole increased to 5mg BID at time of hospital presentation. anxiety/ depression - stopped remeron and trazadone due to morning lethargy thrombocytopenia - 2nd to liver dysfunction dirty ua, culture with 3 organisms recollected 08/08 poor prognosis palliative care consult spoke to family spoke to daughters at bedside 08/10, they are on board to getting pt to home on palliative care Continued [facility] stay due to: inadequate po fluid intake, ambulation difficulties , multiple IV medications needed Discharge planning: uncertain
[2017-08-10] MEDS ORDERED: TRAZODONE HCL 100 MG TAB PO SCH (21:00)
[2017-08-10] MEDS: ROPINIROLE HCL 1 MG TAB PO SCH (21:01)
[2017-08-10 23:55] VITALS: BP 127/83; PULSE 95; TEMP 36.6; O2SAT 95
[2017-08-11] MEDS ORDERED: POTA20TA13 PO ×2 (05:41→08:47)
[2017-08-11] MEDS ORDERED: METH-848 PO (05:41)
[2017-08-11] MEDS ORDERED: OXYC-164 PO (05:41)
[2017-08-11] MEDS ORDERED: ONDA-63 PO (05:41)
[2017-08-11] MEDS ORDERED: DSY100 PO (05:41)
[2017-08-11] MEDS ORDERED: MBXC PO (05:44)
--- NOTE | 2017-08-11 05:46 | Discharge Instructions ---
Discharge Instructions Date of Service Aug 11, 2017. Admission Reason for Admission: Severe Hypokalemia Discharge Discharge Diagnosis / Problem: low poatssium, metastatic endometrial cancer Discharge Goals Goal(s): Diagnostic testing, Therapeutic intervention Activity Recommendations Activity Limitations: resume your previous activity Please be cautious of overly sugary foods, your blood glucose is a bit elevated but we will not continue on insulin Please resume your eye drops previously given to you by Dr cMkeon . Current Hospital Diet Patient's current hospital diet: Diabetes Type 2 Diet Discharge Diet Recommended Diet: Regular Diet Pending Studies Studies pending at discharge: no Laboratory Results Hemoglobin A1c Test 07/23/17 05:37 Range/Units Estimated Average Glucose 114 mg/dl Hemoglobin A1c 5.6 4.5-5.6 % Medical Emergencies . Who to Call and When: Medical Emergencies: If at any time you feel your situation is an emergency, please call 911 immediately. . Non-Emergent Contact Non-Emergency issues call your: Primary Care Provider Call Non-Emergent contact if: temperature is above 101, your pain is unusual for you . . "Provider Documentation" section prepared by Negro Marquez. . VTE Core Measure Inpt VTE Proph given/why not?: SCD's
[2017-08-11 06:11] LABS: BUN/CREATININE RATIO 23.3 (10-20); CALCIUM 7.7 mg/dl (8.5-10.1); CREATININE 0.38 mg/dl (0.60-1.20); POTASSIUM 4.6 mmol/L (3.5-5.1)
[2017-08-11] MEDS: ARTIFICIAL TEARS OP SOLN OP SCH ×8 (06:53→18:39)
[2017-08-11 07:33] VITALS: BP 142/94; PULSE 91; TEMP 36.5; O2SAT 96
[2017-08-11] MEDS: [UNRECOGNIZED DRUG - OTHER] OP SCH (08:03)
[2017-08-11] MEDS: METHIMAZOLE 5 MG TAB PO SCH ×2 (08:03→20:00)
[2017-08-11] MEDS: CALCITRIOL 0.25 MCG CAP PO SCH (08:03)
[2017-08-11] MEDS: PANTOprazole SOD 40 MG TAB PO SCH (08:03)
[2017-08-11] MEDS: INSULIN GLARGINE SOLOSTAR 100 UNITS/ML 3 ML PEN SC SCH (08:59)
[2017-08-11] MEDS: INSULIN ASPART 100 UNITS/ML 3 ML PEN SC SCH ×4 (08:59→21:00)
[2017-08-11] MEDS: POTASSIUM CHLORIDE 20 MEQ TABCR PO SCH ×4 (09:37→20:36)
[2017-08-11] MEDS: OXYCODONE HCL IR 5 MG TAB (IMMEDIATE RELEASE) PO PRN ×2 (10:58→18:38)
--- NOTE | 2017-08-11 11:00 | Medical Student: [facility] ---
Med Student Progress Note Date of Service Aug 11, 2017. Subjective Pt evaluation today including: conversation w/ patient, chart review, lab review Patient says she is doing "okay". She said she did not sleep very well last night. She would like to stay off of the Remeron for now but would like to go back to her dose of trazodone, for which she said "she has been taking for a very long time". She says even though she is very tired this morning from the lack of sleep, she is still much more alert than she was yesterday. She was eager for breakfast this morning. Objective Vital Signs Date Time Temp Pulse Resp B/P (MAP) Pulse Ox O2 Delivery O2 Flow Rate FiO2 08/11/17 08:30 Room Air 08/11/17 07:33 36.5 91 16 142/94 (110) 96 Room Air 08/11/17 00:15 Room Air 08/10/17 23:55 36.6 95 18 127/83 (98) 95 Room Air 08/10/17 20:05 Room Air 08/10/17 15:04 36.8 102 18 135/86 (102) 96 Room Air Physical Exam General Appearance: no apparent distress Laboratory Results Last 24 Hours Test 08/10/17 11:34 08/10/17 16:49 08/10/17 20:24 08/11/17 05:15 Bedside Glucose 97 mg/dl 119 mg/dl 187 mg/dl Sodium Level 145 mmol/L Potassium Level 4.6 mmol/L Chloride Level 111 mmol/L Carbon Dioxide Level 30 mmol/L Anion Gap 4.0 mmol/L Blood Urea Nitrogen 9 mg/dl Creatinine 0.38 mg/dl Est Creatinine Clear Calc Drug Dose 134.6 ml/min Estimated GFR () 124.4 Estimated GFR (Non- 107.3 BUN/Creatinine Ratio 23.3 Random Glucose 156 mg/dl Calcium Level 7.7 mg/dl Test 08/11/17 07:54 Bedside Glucose 163 mg/dl Medications Current Inpatient Medications Medications (Trade) Dose Ordered Sig/Jose Route Start Time Stop Time Status Last Admin Dose Admin Acetaminophen (Tylenol Tab) 650 mg Q4H PRN PO 08/04/17 23:15 09/03/17 23:14 Albuterol Sulfate (Ventolin 0.083% 2.5MG/3ML Neb) 2.5 mg Q4H PRN INH 08/04/17 23:15 09/03/17 23:14 Calcitriol (Rocaltrol Cap) 0.25 mcg QAM PO 08/05/17 09:00 09/04/17 08:59 08/11/17 08:03 0.25 MCG Fluticasone Propionate (Flonase Nasal [place]) 2 sprays DAILY PRN MAY 08/04/17 23:15 09/03/17 23:14 Methimazole (Methimazole Tab) 5 mg BID PO 08/05/17 09:00 09/04/17 08:59 08/11/17 08:03 5 MG Ropinirole HCl (Requip Tab) 1 mg HS PO 08/05/17 21:00 09/04/17 20:59 08/10/17 21:01 1 MG Simethicone (Mylicon Chew Tab) 240 mg QDL PO 08/05/17 11:00 09/04/17 10:59 08/07/17 12:33 240 MG Albuterol (Ventolin Hfa Inhaler) 2 puffs Q4H PRN INH 08/04/17 23:15 09/03/17 23:14 Oxycodone HCl (Roxicodone Immediate Rel Tab) 10 mg Q6H PRN PO 08/04/17 23:15 08/18/17 23:14 08/11/17 10:58 10 MG Ondansetron HCl (Zofran Inj) 4 mg Q6H PRN IV 08/04/17 23:30 09/03/17 23:29 08/10/17 11:00 4 MG Insulin Aspart (novoLOG ASPART) SLIDING SCALE If C... ACHS SC 08/05/17 07:00 09/04/17 06:59 08/11/17 08:59 2 UNITS Glucose (Glucose 40% Gel) UD PRN PO 08/05/17 02:45 09/04/17 02:44 Glucose (Glucose Chew Tab) 1 tabs UD PRN PO 08/05/17 02:45 09/04/17 02:44 Dextrose (Dextrose 50% 50ML Syringe) 50 ml UD PRN IV 08/05/17 02:45 09/04/17 02:44 Glucagon (Glucagon Inj) 1 mg UD PRN SQ 08/05/17 02:45 09/04/17 02:44 Insulin Glargine (Lantus Solostar Pen) 15 units QAM SC 08/06/17 09:00 09/04/17 08:59 08/11/17 08:59 15 UNITS Lorazepam (Ativan Tab) 0.5 mg Q6H PRN PO 08/06/17 15:30 09/05/17 15:29 08/11/17 02:41 0.5 MG Prednisolone Sodium Phosphate (Inflamase-Forte Soln) 2 drops DAILY OP 08/07/17 11:30 09/06/17 11:29 08/11/17 08:03 2 DROPS Artificial Tears (Artificial Tears) 2 drops [id number] OP 08/07/17 19:00 09/06/17 11:29 08/08/17 17:17 2 DROPS Miconazole Nitrate (Desenex Powder) 1 appln PRN PRN EXT 08/09/17 17:00 09/08/17 16:59 Lidocaine HCl/ Diphenhydramine HCl/Al Hydroxide/ Mg Hydroxide/ Glycerin/Barcode Q6 PRN MT 08/09/17 19:00 09/08/17 18:59 Potassium Chloride (Klor-Con Tab) 40 meq ACHS PO 08/10/17 11:00 09/09/17 10:59 08/10/17 21:00 40 MEQ Pantoprazole Sodium (Protonix Tab) 40 mg DAILY PO 08/11/17 08:00 09/10/17 07:59 08/11/17 08:03 40 MG Trazodone HCl (Desyrel Tab) 100 mg HS PO 08/10/17 21:00 09/09/17 20:59 08/10/17 21:00 100 MG Assessment and Plan Assessment and Plan: Impression: Patient is a 72 year old female with endometrial adenocarcinoma and mets. Hospital stay has been complicated by severe hypokalemia, dehydration, and hyperthyroidism. Assessment/Plan: 1. Endometrial Adenocarcinoma w/ mets and poor prognosis 1a Stage 4 endometrial cancer as per luevano-CT on 08/05/17 with extensive metastatic disease to lungs, liver, peritoneum, possible met to adrenal gland(s) [facility] - poor candidate for palliative chemo unless functional status improves 1c Patient's state goal today "I just want a little more time"; has prior goal of wanting to go home 1d Establish plan for hospice/palliative care to get patient out of hospital when stable enough for discharge 1e medicine reconciliation as per palliation 2. Severe hypokalemia //Hyperthyroidism 2a hyperthyroidism and renal wasting 2b -K-C-L- -4-0- -m-E-q- -B-I-D- -t-o- -T-I-D- -d-a-i-l-y- Discontinue/ Decrease KCl 40mEq medication as per normalization of Blood Potassium to 4.6 most recently 3. Dysphagia 3a Adjust meals in hospital accordingly with easy to swallow meals/meats 4. Dehydration 4a Care mgmt vigilance 4b Educated patient on maintaining fluid intake 5. Anxiety 5a -O-n- -M-s-j-d-n-t-n-1-5-m-g- -a-t- -n-i-g-h-t- -a-n-d- ativan prn Discontinue Remeron at night secondary to excessive morning drowsiness. 6. Difficulty Sleeping 6a She would like us to switch her trazadone 100mg higher - start trazadone 200mg qHS Continued [facility] stay due to: inadequate po fluid intake, ambulation difficulties , multiple IV medications needed Discharge planning: uncertain
[2017-08-11 11:49] VITALS: BP 136/88; PULSE 104; TEMP 36.8; O2SAT 96
[2017-08-11] MEDS: SIMETHICONE 80 MG CHEW PO SCH (12:00)
--- NOTE | 2017-08-11 15:09 | Progress Note ---
Subjective Date of Service: Aug 11, 2017. Subjective pt is with poor sleep with reducing her trazadone, she is wanting to re increase it tonight, still trying to arrange home for hospice care Problem List Medical Problems: (1) Acute exacerbation of chronic low back pain Status: Acute (2) Anxiety Status: Acute (3) Cervical cancer Status: Acute (4) Dehydration Status: Acute (5) Dysphagia Status: Acute (6) Hypokalemia Status: Acute (7) Hypokalemia Status: Acute Review of Systems Constitutional: + weakness, No fever, No chills Respiratory: No cough, No sputum, No wheezing, No shortness of breath Cardiac: No chest pain, No edema Objective Vital Signs Date Time Temp Pulse Resp B/P (MAP) Pulse Ox O2 Delivery O2 Flow Rate FiO2 08/11/17 11:49 36.8 104 18 136/88 (104) 96 Room Air 08/11/17 08:30 Room Air 08/11/17 07:33 36.5 91 16 142/94 (110) 96 Room Air 08/11/17 00:15 Room Air 08/10/17 23:55 36.6 95 18 127/83 (98) 95 Room Air 08/10/17 20:05 Room Air Physical Exam General Appearance: WD/WN, + mild distress Eyes: PERRL, EOMI Respiratory/Chest: chest non-tender, lungs clear, normal breath sounds Cardiovascular: regular rate, rhythm, no murmur Abdomen: normal bowel sounds, non tender, soft Extremities: no pedal edema, no calf tenderness Neurologic/Psychiatric: alert, oriented x 3 Laboratory Results Last 24 Hours Test 08/10/17 16:49 08/10/17 20:24 08/11/17 05:15 08/11/17 07:54 Bedside Glucose 119 mg/dl 187 mg/dl 163 mg/dl Sodium Level 145 mmol/L Potassium Level 4.6 mmol/L Chloride Level 111 mmol/L Carbon Dioxide Level 30 mmol/L Anion Gap 4.0 mmol/L Blood Urea Nitrogen 9 mg/dl Creatinine 0.38 mg/dl Est Creatinine Clear Calc Drug Dose 134.6 ml/min Estimated GFR () 124.4 Estimated GFR (Non- 107.3 BUN/Creatinine Ratio 23.3 Random Glucose 156 mg/dl Calcium Level 7.7 mg/dl Test 08/11/17 11:56 Bedside Glucose 214 mg/dl Assessment and Plan 72yo female -readmission after treatment of hyperthyroidism and severe hypokalemia, returns with severe hypokalemia with non adherence to outpt treatment, now metastatic endometrial malignancy with rapid progression since january, not a candidate for chemo, patient and family on board with home hospice severe hypokalemia -hyperthyroidism and renal wasting, KCL 40meq ac needs reinforcement with compliance, she states she just wants to like as long as she can endometrial cancer, stage 4 - l[place]-CT 08/05/17 with extensive metastatic disease ( lungs, liver, peritoneum, possibly adrenal glands).progressed from january 2017 CT head in late July w/o overt mets. Heme/onc consult by Dr. Stern feels she is a poor candidate for palliative chemo unless functional status improves. failure to thrive Hospice/palliative care consult in play family on board need to arrange home care, pt just wants to return home Pt was fatigued in am, did stop remeron and trazadone, but poor sleep will add trazadone back hyperglycemia - Hemoglobin a1c in July was <6%. basal bolus, if moving to palliative care may not aggressively treat Abnormal LFTs - ?2nd to liver mets, no clinical symptoms dysphagia - recent thrush - nystatin QID. eating without complaints after EGD last week with dilatation of stricture, Speech evaluated him - slippery diet recommended. DVT proph - heparin hyperthyroidism - methimazole increased to 5mg BID at time of hospital presentation. anxiety/ depression - stopped remeron and return trazadone to usual level to help with sleep thrombocytopenia - 2nd to liver dysfunction dirty ua, culture with 3 organisms recollected 08/08 poor prognosis palliative care consult spoke to family and 08/10 spoke to daughters at bedside 08/11, they are on board to getting pt to home on palliative care, need to secure 24 hour care givers anticipate home this week Continued [facility] stay due to: inadequate po fluid intake, ambulation difficulties , multiple IV medications needed Discharge planning: uncertain
[2017-08-11 15:34] VITALS: BP 139/93; PULSE 92; TEMP 36.5; O2SAT 96
[2017-08-11] MEDS: BOOST GLUCOSE CONTROL PO SCH (17:00)
[2017-08-11] MEDS: TRAZODONE HCL 100 MG TAB PO SCH (20:35)
[2017-08-11] MEDS: ROPINIROLE HCL 1 MG TAB PO SCH (20:36)
[2017-08-12 00:06] VITALS: BP 119/82; PULSE 84; TEMP 36.5; O2SAT 95
[2017-08-12] MEDS: ARTIFICIAL TEARS OP SOLN OP SCH ×8 (06:22→19:00)
[2017-08-12] MEDS: POTASSIUM CHLORIDE 20 MEQ TABCR PO SCH ×4 (06:22→20:31)
[2017-08-12 06:39] LABS: BUN/CREATININE RATIO 27.8 (10-20); CREATININE 0.38 mg/dl (0.60-1.20); MAGNESIUM 1.9 mg/dl (1.8-2.4); POTASSIUM 4.1 mmol/L (3.5-5.1)
[2017-08-12 07:48] VITALS: BP 141/92; PULSE 101; TEMP 36.3; O2SAT 96
[2017-08-12 08:30] VITALS: O2SAT 96
[2017-08-12] MEDS: CALCITRIOL 0.25 MCG CAP PO SCH (08:32)
[2017-08-12] MEDS: PANTOprazole SOD 40 MG TAB PO SCH (08:32)
[2017-08-12] MEDS: METHIMAZOLE 5 MG TAB PO SCH ×2 (08:33→20:28)
[2017-08-12] MEDS: [UNRECOGNIZED DRUG - OTHER] OP SCH (08:35)
[2017-08-12] MEDS: INSULIN ASPART 100 UNITS/ML 3 ML PEN SC SCH ×4 (08:48→20:37)
[2017-08-12] MEDS: INSULIN GLARGINE SOLOSTAR 100 UNITS/ML 3 ML PEN SC SCH (08:49)
[2017-08-12] MEDS: BOOST GLUCOSE CONTROL PO SCH ×2 (08:49→17:59)
[2017-08-12] MEDS: SIMETHICONE 80 MG CHEW PO SCH (12:04)
[2017-08-12] MEDS: OXYCODONE HCL IR 5 MG TAB (IMMEDIATE RELEASE) PO PRN ×2 (13:15→20:36)
[2017-08-12 15:58] VITALS: BP 112/75; PULSE 104; TEMP 36.3; O2SAT 95
[2017-08-12 16:00] VITALS: O2SAT 95
--- NOTE | 2017-08-12 16:46 | Medical Student: [facility] ---
Med Student Progress Note Date of Service Aug 12, 2017. Subjective Pt evaluation today including: conversation w/ patient, conversation w/ family , physical exam, chart review, lab review Patient is somnolent throughout the morning and afternoon today when I went to check on her on 3 occasions spaced at least 1 hour apart each. I was able to arouse her for minutes only. Yesterday evening 08/11/17 we changed her trazodone from 100mg on 08/10/17 to 200mg because she did not sleep well through the night. She said that she had taken 300mg trazodone for a very long time. The reason for the change was that she had taken 300mg trazodone and 15 mg Remeron on 08/09/17 and felt very sedated the next morning. Her daughter also confirmed that her pain medication also "knocks her out", however, the patient had not received any pain medication since last evening 08/11/17 and was still very somnolent today. Her daughter was also concerned about nutrition since our patient hasn't been eating much recently. Objective Vital Signs Date Time Temp Pulse Resp B/P (MAP) Pulse Ox O2 Delivery O2 Flow Rate FiO2 08/12/17 15:58 36.3 104 18 112/75 (87) 95 Room Air 08/12/17 08:30 96 Room Air 08/12/17 07:48 36.3 101 18 141/92 (108) 96 Room Air 08/12/17 01:50 Room Air 08/12/17 00:06 36.5 84 18 119/82 (94) 95 Room Air Physical Exam General Appearance: WD/WN, no apparent distress Respiratory/Chest: normal breath sounds Cardiovascular: regular rate, rhythm Abdomen: normal bowel sounds Laboratory Results Last 24 Hours Test 08/11/17 16:57 08/11/17 19:43 08/12/17 05:25 08/12/17 07:37 Bedside Glucose 138 mg/dl 144 mg/dl 181 mg/dl Sodium Level 145 mmol/L Potassium Level 4.1 mmol/L Chloride Level 109 mmol/L Carbon Dioxide Level 27 mmol/L Anion Gap 9.0 mmol/L Blood Urea Nitrogen 11 mg/dl Creatinine 0.38 mg/dl Est Creatinine Clear Calc Drug Dose 134.6 ml/min Estimated GFR () 124.4 Estimated GFR (Non- 107.3 BUN/Creatinine Ratio 27.8 Random Glucose 167 mg/dl Calcium Level 8.0 mg/dl Magnesium Level 1.9 mg/dl Test 08/12/17 11:35 Bedside Glucose 186 mg/dl Medications Current Inpatient Medications Medications (Trade) Dose Ordered Sig/Jose Route Start Time Stop Time Status Last Admin Dose Admin Acetaminophen (Tylenol Tab) 650 mg Q4H PRN PO 08/04/17 23:15 09/03/17 23:14 Albuterol Sulfate (Ventolin 0.083% 2.5MG/3ML Neb) 2.5 mg Q4H PRN INH 08/04/17 23:15 09/03/17 23:14 Calcitriol (Rocaltrol Cap) 0.25 mcg QAM PO 08/05/17 09:00 09/04/17 08:59 08/12/17 08:32 0.25 MCG Fluticasone Propionate (Flonase Nasal [place]) 2 sprays DAILY PRN MAY 08/04/17 23:15 09/03/17 23:14 Methimazole (Methimazole Tab) 5 mg BID PO 08/05/17 09:00 09/04/17 08:59 08/12/17 08:33 5 MG Ropinirole HCl (Requip Tab) 1 mg HS PO 08/05/17 21:00 09/04/17 20:59 08/10/17 21:01 1 MG Simethicone (Mylicon Chew Tab) 240 mg QDL PO 08/05/17 11:00 09/04/17 10:59 08/12/17 12:04 240 MG Albuterol (Ventolin Hfa Inhaler) 2 puffs Q4H PRN INH 08/04/17 23:15 09/03/17 23:14 Oxycodone HCl (Roxicodone Immediate Rel Tab) 10 mg Q6H PRN PO 08/04/17 23:15 08/18/17 23:14 08/12/17 13:15 10 MG Ondansetron HCl (Zofran Inj) 4 mg Q6H PRN IV 08/04/17 23:30 09/03/17 23:29 08/10/17 11:00 4 MG Insulin Aspart (novoLOG ASPART) SLIDING SCALE If C... ACHS SC 08/05/17 07:00 09/04/17 06:59 08/12/17 13:14 4 UNITS Glucose (Glucose 40% Gel) UD PRN PO 08/05/17 02:45 09/04/17 02:44 Glucose (Glucose Chew Tab) 1 tabs UD PRN PO 08/05/17 02:45 09/04/17 02:44 Dextrose (Dextrose 50% 50ML Syringe) 50 ml UD PRN IV 08/05/17 02:45 09/04/17 02:44 Glucagon (Glucagon Inj) 1 mg UD PRN SQ 08/05/17 02:45 09/04/17 02:44 Insulin Glargine (Lantus Solostar Pen) 15 units QAM SC 08/06/17 09:00 09/04/17 08:59 08/12/17 08:49 15 UNITS Lorazepam (Ativan Tab) 0.5 mg Q6H PRN PO 08/06/17 15:30 09/05/17 15:29 08/11/17 02:41 0.5 MG Prednisolone Sodium Phosphate (Inflamase-Forte Soln) 2 drops DAILY OP 08/07/17 11:30 09/06/17 11:29 08/12/17 08:35 2 DROPS Artificial Tears (Artificial Tears) 2 drops 4XDQ4H OP 08/07/17 19:00 09/06/17 11:29 08/12/17 12:03 2 DROPS Miconazole Nitrate (Desenex Powder) 1 appln PRN PRN EXT 08/09/17 17:00 09/08/17 16:59 Lidocaine HCl/ Diphenhydramine HCl/Al Hydroxide/ Mg Hydroxide/ Glycerin/Barcode Q6 PRN MT 08/09/17 19:00 09/08/17 18:59 Potassium Chloride (Klor-Con Tab) 40 meq ACHS PO 08/10/17 11:00 09/09/17 10:59 08/12/17 12:03 40 MEQ Pantoprazole Sodium (Protonix Tab) 40 mg DAILY PO 08/11/17 08:00 09/10/17 07:59 08/12/17 08:32 40 MG Trazodone HCl (Desyrel Tab) 300 mg HS PO 08/11/17 21:00 09/10/17 20:59 Enteral Nutritional Formula (Boost Glucose Control) 1 can BIDM PO 08/11/17 17:00 09/10/17 16:59 Assessment and Plan Assessment and Plan: Assessment and Plan: Impression: Patient is a 72 year old female with endometrial adenocarcinoma and mets. Hospital stay has been complicated by severe hypokalemia, dehydration, and hyperthyroidism. Assessment/Plan: 1. Endometrial Adenocarcinoma w/ mets and poor prognosis 1a Stage 4 endometrial cancer as per [facility]-CT on 08/05/17 with extensive metastatic disease to lungs, liver, peritoneum, possible met to adrenal gland(s) 1b [facility] consult by Dr. Marcano - poor candidate for palliative chemo unless functional status improves 1d Establish plan for hospice/palliative care to get patient out of hospital when stable enough for discharge - Family says they are working on the paperwork when I spoke to her daughter today 08/12/12 1e medicine reconciliation as per palliation - Completed 2. Severe hypokalemia //Hyperthyroidism 2a hyperthyroidism and renal wasting 2b -K-C-L- -4-0- -m-E-q- -B-I-D- -t-o- -T-I-D- -d-a-i-l-y- -K-u-b-a-x-r-t-i-n-u-e--/--L-h-d-r-e-a-s-e- -K-C-l- -4-0-m-E-q- -r-i-a-l-i-h-t-i-o-n- -a-s- -p-e-r- -i-e-e-l-a-t-l-y-r-t-i-o-n- -o-f- -B-l-o-o-d- -W-s-z-u-p-o-i-u-m- -t-o- -4-.-6- -m-o-s-t- -u-a-x-e-n-t-l-y- Continue KCL 40mEq medication at 3 times per day 3. Dysphagia 3a Adjust meals in hospital accordingly with easy to swallow meals/meats 3b Educated the daughter about vigilance regarding caloric intake and watchfulness for patient getting appropriate nutrition 4. Dehydration 4a Care mgmt vigilance 4b Educated patient on maintaining fluid intake 5. Anxiety 5a -O-n- -G-z-y-f-l-n-n-1-5-m-g- -a-t- -n-i-g-h-t- -a-n-d- ativan prn Discontinue Remeron at night secondary to excessive morning drowsiness. 6. Difficulty Sleeping 6a She would like us to switch her trazodone 100mg higher - start trazodone 200mg qHS 6b somnolence during the day is likely multifactorial and at this point in her care appears to be more part of her disease process than sedation effects from trazadone - I educated the daughter about this Continued [facility] stay due to: inadequate po fluid intake, ambulation difficulties , multiple IV medications needed Continued [facility] stay due to: inadequate po fluid intake, ambulation difficulties , multiple IV medications needed Discharge planning: uncertain
[2017-08-12] MEDS ORDERED: FLUCONAZOLE 100 MG TAB PO ONE (17:15)
[2017-08-12] MEDS: ROPINIROLE HCL 1 MG TAB PO SCH (20:28)
[2017-08-12] MEDS: TRAZODONE HCL 100 MG TAB PO SCH (20:28)
[2017-08-13] VITALS (7 sets, daily range): BP systolic 116–128; BP diastolic 76–87; PULSE 97–106; TEMP 36.4–36.7; O2SAT 94–96
--- NOTE | 2017-08-13 05:25 | Progress Note ---
Subjective Date of Service: Aug 12, 2017. Subjective Pt evaluation today including: conversation w/ patient, conversation w/ family (daughter at bedside), physical exam, chart review, lab review, review of inpatient medication list Pain: lumbar spine - but controlled w/ pain meds PO Intake: poor patient rather quiet during the visit closing her eyes at times states "I know I am going to a better place" "I'm most worried about my daughters" still with mouth and throat pain Problem List Medical Problems: (1) Acute exacerbation of chronic low back pain Status: Acute (2) Anxiety Status: Acute (3) Cervical cancer Status: Acute (4) Dehydration Status: Acute (5) Dysphagia Status: Acute (6) Hypokalemia Status: Acute (7) Hypokalemia Status: Acute Review of Systems Constitutional: No fever Respiratory: No shortness of breath Cardiac: No chest pain Abdomen: No pain Psychiatric: No depression symptoms Objective Vital Signs Date Time Temp Pulse Resp B/P (MAP) Pulse Ox O2 Delivery O2 Flow Rate FiO2 08/12/17 16:00 95 Room Air 08/12/17 15:58 36.3 104 18 112/75 (87) 95 Room Air 08/12/17 08:30 96 Room Air 08/12/17 07:48 36.3 101 18 141/92 (108) 96 Room Air 08/12/17 01:50 Room Air 08/12/17 00:06 36.5 84 18 119/82 (94) 95 Room Air Physical Exam General Appearance: no apparent distress, + pertinent finding (looks depressed) ENT: + pertinent finding (still with thrush on tongue & buccal mucosa) Neck: no JVD Respiratory/Chest: lungs clear, no respiratory distress, no accessory muscle use Cardiovascular: no gallop, no murmur, + tachycardia Abdomen: normal bowel sounds, non tender, soft, no organomegaly Extremities: no pedal edema Neurologic/Psychiatric: alert, oriented x 3, + depressed affect Laboratory Results Last 24 Hours Test 08/11/17 19:43 08/12/17 05:25 08/12/17 07:37 08/12/17 11:35 Bedside Glucose 144 mg/dl 181 mg/dl 186 mg/dl Sodium Level 145 mmol/L Potassium Level 4.1 mmol/L Chloride Level 109 mmol/L Carbon Dioxide Level 27 mmol/L Anion Gap 9.0 mmol/L Blood Urea Nitrogen 11 mg/dl Creatinine 0.38 mg/dl Est Creatinine Clear Calc Drug Dose 134.6 ml/min Estimated GFR () 124.4 Estimated GFR (Non- 107.3 BUN/Creatinine Ratio 27.8 Random Glucose 167 mg/dl Calcium Level 8.0 mg/dl Magnesium Level 1.9 mg/dl Test 08/12/17 16:47 Bedside Glucose 162 mg/dl Assessment and Plan 72yo female - 1. severe hypokalemia - resolved. Multifactorial but renal wasting a large part of this. Cont supplementation. 2. endometrial cancer, stage 4 - [facility]-CT 08/05/17 with extensive metastatic disease (lungs, liver, peritoneum, possibly adrenal glands). CT head in late July w/o overt mets. Heme/onc consult by Dr. Stern appreciated. Patient declined any further intervention and opting for hospice. 3. hyperglycemia - improved with insulin Rx. 4. failure to thrive - due to #2. 5. recent thrush - ongoing despite nystatin. Start diflucan 100mg daily x 7- 10 days. 6. abnormal LFTs - likely 2nd to liver mets. 7. dysphagia - s/p EGD last week with dilatation. Still with symptoms at times. Speech evaluated him - slippery diet recommended. Thrush probably playing a role. 8. hyperthyroidism - methimazole increased to 5mg BID at time of hospital presentation. 9. anxiety - ativan 0.5mg q6h prn. 10. depression - remeron d/c, consider low-dose SSRI. 11. hypernatremia - resolved. social work staff getting all necessary equipment and caregivers in place for home she will be returning there w/ hospice hopefully tomorrow support given Continued [facility] stay due to: other (preparing home for hospice ) Discharge planning: home with Hospice
[2017-08-13] MEDS: POTASSIUM CHLORIDE 20 MEQ TABCR PO SCH ×4 (06:12→21:00)
[2017-08-13] MEDS: ARTIFICIAL TEARS OP SOLN OP SCH ×8 (06:12→16:14)
[2017-08-13] MEDS: INSULIN ASPART 100 UNITS/ML 3 ML PEN SC SCH ×4 (06:30→21:00)
[2017-08-13 06:41] LABS: BUN/CREATININE RATIO 30.1 (10-20); CREATININE 0.33 mg/dl (0.60-1.20); POTASSIUM 4.2 mmol/L (3.5-5.1)
[2017-08-13] MEDS: [UNRECOGNIZED DRUG - OTHER] OP SCH (07:37)
[2017-08-13] MEDS: PANTOprazole SOD 40 MG TAB PO SCH (07:37)
[2017-08-13] MEDS: METHIMAZOLE 5 MG TAB PO SCH ×2 (07:37→20:56)
[2017-08-13] MEDS: CALCITRIOL 0.25 MCG CAP PO SCH (07:37)
[2017-08-13] MEDS: FLUCONAZOLE 100 MG TAB PO SCH (07:38)
[2017-08-13] MEDS: BOOST GLUCOSE CONTROL PO SCH ×2 (07:40→16:14)
[2017-08-13] MEDS: INSULIN GLARGINE SOLOSTAR 100 UNITS/ML 3 ML PEN SC SCH (08:39)
[2017-08-13] MEDS: SIMETHICONE 80 MG CHEW PO SCH (13:15)
--- NOTE | 2017-08-13 13:21 | Palliative Care Progress Note ---
Palliative Care Progress Note Date of Service Aug 13, 2017. Subjective Pt evaluation today including: conversation w/ patient, conversation w/ family (daughter, Bella), conversation w/ solutions consultant (Dr. Rowell) Met briefly with patient today. She feels "okay," is smiling and seems oriented x4 with periods of forgetfulness. No pain or discomforts at this time. She is anxious to get out of the hospital and to get home. I spoke with Bella, patient's daughter and caregiver, on phone. Bella stated that she is still working with state-paid caregiver agency to get 24/7 care set up. So far, they have 8am-2pm covered and are currently working on evening shift. Bella is also anxious to get the patient home and is willing to take her home and provide the care needed until everything can be set up. I made the housing case manager and Dr. Rowell aware of this. All equipment was delivered by hospice agency yesterday. Anticipated discharge tomorrow to home with hospice.
--- NOTE | 2017-08-13 15:10 | Medical Student: [facility] ---
Med Student Progress Note Date of Service Aug 13, 2017. Subjective Pt evaluation today including: conversation w/ patient, conversation w/ family , chart review, lab review PO Intake: Decreased appetite - patient thinks secondary to constipation Patient is with Daughter at bedside today. She was awake and alert when I came in. She was offered an ice cream cup during my visit and she eagerly took and starting eating it. She tells me that she is doing ok. She tells me that she feels very bloated. Her last bowel movement was 3 days ago. She would like something to go to the bathroom. She told me that the last time she went to the bathroom in the hospital was a messy situation when she didn't get help as soon as she needed it. She is willing to try a mild laxative or medication of some sort. The daughter asked what she can do as far as helping or getting educated in the patients home care since she will be helping with this. Review of Systems ENT: + hearing loss, + trouble swallowing Respiratory: No shortness of breath Cardiac: No chest pain Abdomen: + constipation, No nausea, No vomiting, No diarrhea Psychiatric: + depression symptoms Objective Vital Signs Date Time Temp Pulse Resp B/P (MAP) Pulse Ox O2 Delivery O2 Flow Rate FiO2 08/13/17 11:44 36.5 103 20 126/85 (99) 95 Room Air 08/13/17 08:00 94 Room Air 08/13/17 07:27 36.6 104 16 120/80 (93) 94 Room Air 08/13/17 00:12 36.4 97 18 128/87 (101) 95 Room Air 08/13/17 00:05 Room Air 08/12/17 20:48 Room Air 08/12/17 16:00 95 Room Air 08/12/17 15:58 36.3 104 18 112/75 (87) 95 Room Air Physical Exam General Appearance: no apparent distress ENT: pharynx normal Neck: no JVD Respiratory/Chest: lungs clear, normal breath sounds, no respiratory distress Cardiovascular: regular rate, rhythm, no JVD Abdomen: + distended Extremities: no pedal edema Neurologic/Psychiatric: + depressed affect Laboratory Results Last 24 Hours Test 08/12/17 16:47 08/12/17 20:23 08/13/17 05:21 08/13/17 07:37 Bedside Glucose 162 mg/dl 146 mg/dl 140 mg/dl Sodium Level 145 mmol/L Potassium Level 4.2 mmol/L Chloride Level 109 mmol/L Carbon Dioxide Level 29 mmol/L Anion Gap 7.0 mmol/L Blood Urea Nitrogen 10 mg/dl Creatinine 0.33 mg/dl Est Creatinine Clear Calc Drug Dose 155.0 ml/min Estimated GFR () 130.3 Estimated GFR (Non- 112.4 BUN/Creatinine Ratio 30.1 Random Glucose 143 mg/dl Calcium Level 8.0 mg/dl Test 08/13/17 11:50 Bedside Glucose 177 mg/dl Medications Current Inpatient Medications Medications (Trade) Dose Ordered Sig/Jose Route Start Time Stop Time Status Last Admin Dose Admin Acetaminophen (Tylenol Tab) 650 mg Q4H PRN PO 08/04/17 23:15 09/03/17 23:14 Albuterol Sulfate (Ventolin 0.083% 2.5MG/3ML Neb) 2.5 mg Q4H PRN INH 08/04/17 23:15 09/03/17 23:14 Calcitriol (Rocaltrol Cap) 0.25 mcg QAM PO 08/05/17 09:00 09/04/17 08:59 08/13/17 07:37 0.25 MCG Fluticasone Propionate (Flonase Nasal [place]) 2 sprays DAILY PRN MAY 08/04/17 23:15 09/03/17 23:14 Methimazole (Methimazole Tab) 5 mg BID PO 08/05/17 09:00 09/04/17 08:59 08/13/17 07:37 5 MG Ropinirole HCl (Requip Tab) 1 mg HS PO 08/05/17 21:00 09/04/17 20:59 08/12/17 20:28 1 MG Simethicone (Mylicon Chew Tab) 240 mg QDL PO 08/05/17 11:00 09/04/17 10:59 08/13/17 13:15 240 MG Albuterol (Ventolin Hfa Inhaler) 2 puffs Q4H PRN INH 08/04/17 23:15 09/03/17 23:14 Oxycodone HCl (Roxicodone Immediate Rel Tab) 10 mg Q6H PRN PO 08/04/17 23:15 08/18/17 23:14 08/12/17 20:36 10 MG Ondansetron HCl (Zofran Inj) 4 mg Q6H PRN IV 08/04/17 23:30 09/03/17 23:29 08/10/17 11:00 4 MG Insulin Aspart (novoLOG ASPART) SLIDING SCALE If C... ACHS SC 08/05/17 07:00 09/04/17 06:59 08/13/17 13:19 2 UNITS Glucose (Glucose 40% Gel) UD PRN PO 08/05/17 02:45 09/04/17 02:44 Glucose (Glucose Chew Tab) 1 tabs UD PRN PO 08/05/17 02:45 09/04/17 02:44 Dextrose (Dextrose 50% 50ML Syringe) 50 ml UD PRN IV 08/05/17 02:45 09/04/17 02:44 Glucagon (Glucagon Inj) 1 mg UD PRN SQ 08/05/17 02:45 09/04/17 02:44 Insulin Glargine (Lantus Solostar Pen) 15 units QAM SC 08/06/17 09:00 09/04/17 08:59 08/13/17 08:39 15 UNITS Lorazepam (Ativan Tab) 0.5 mg Q6H PRN PO 08/06/17 15:30 09/05/17 15:29 08/11/17 02:41 0.5 MG Prednisolone Sodium Phosphate (Inflamase-Forte Soln) 2 drops DAILY OP 08/07/17 11:30 09/06/17 11:29 08/13/17 07:37 2 DROPS Artificial Tears (Artificial Tears) 2 drops 4XDQ4H OP 08/07/17 19:00 09/06/17 11:29 08/12/17 17:58 2 DROPS Miconazole Nitrate (Desenex Powder) 1 appln PRN PRN EXT 08/09/17 17:00 09/08/17 16:59 Lidocaine HCl/ Diphenhydramine HCl/Al Hydroxide/ Mg Hydroxide/ Glycerin/Barcode Q6 PRN MT 08/09/17 19:00 09/08/17 18:59 Potassium Chloride (Klor-Con Tab) 40 meq ACHS PO 08/10/17 11:00 09/09/17 10:59 08/13/17 13:13 40 MEQ Pantoprazole Sodium (Protonix Tab) 40 mg DAILY PO 08/11/17 08:00 09/10/17 07:59 08/13/17 07:37 40 MG Trazodone HCl (Desyrel Tab) 300 mg HS PO 08/11/17 21:00 09/10/17 20:59 08/12/17 20:28 300 MG Enteral Nutritional Formula (Boost Glucose Control) 1 can BIDM PO 08/11/17 17:00 09/10/17 16:59 Fluconazole (Diflucan Tab) 100 mg QAM PO 08/13/17 08:00 08/23/17 07:59 08/13/17 07:38 100 MG Assessment and Plan Assessment and Plan: Assessment and Plan: Impression: Patient is a 72 year old female with endometrial adenocarcinoma and mets. Hospital stay has been complicated by severe hypokalemia, dehydration, and hyperthyroidism. Assessment/Plan: 1. Endometrial Adenocarcinoma w/ mets and poor prognosis 1a Stage 4 endometrial cancer as per [facility]-CT on 08/05/17 with extensive metastatic disease to lungs, liver, peritoneum, possible met to adrenal gland(s) 1b [facility] consult by Dr. Marcano - poor candidate for palliative chemo unless functional status improves 1d Establish plan for hospice/palliative care to get patient out of hospital when stable enough for discharge - Family says they are working on the paperwork when I spoke to her daughter 08/12/12 1e medicine reconciliation as per palliation - Completed 2. Severe hypokalemia //Hyperthyroidism 2a hyperthyroidism and renal wasting 2b -K-C-L- -4-0- -m-E-q- -B-I-D- -t-o- -T-I-D- -d-a-i-l-y- -G-h-y-l-j-i-t-i-n-u-e--/--W-n-i-r-e-a-s-e- -K-C-l- -4-0-m-E-q- -j-n-x-b-t-g-t-i-o-n- -a-s- -p-e-r- -s-x-i-r-b-r-d-x-l-t-i-o-n- -o-f- -B-l-o-o-d- -Z-n-h-s-l-o-i-u-m- -t-o- -4-.-6- -m-o-s-t- -s-p-r-e-n-t-l-y- Continue KCL 40mEq medication at 3 times per day 3. Dysphagia 3a Adjust meals in hospital accordingly with easy to swallow meals/meats 3b Educated the daughter about vigilance regarding caloric intake and watchfulness for patient getting appropriate nutrition 4. Dehydration 4a Care mgmt vigilance 4b Educated patient on maintaining fluid intake 5. Anxiety 5a -O-n- -Y-u-v-u-p-i-n-1-5-m-g- -a-t- -n-i-g-h-t- -a-n-d- ativan prn Discontinue Remeron at night secondary to excessive morning drowsiness. 6. Difficulty Sleeping 6a She would like us to switch her trazodone 100mg higher - start trazodone 200mg qHS 6b somnolence during the day is likely multifactorial and at this point in her care appears to be more part of her disease process than sedation effects from trazadone - I educated the daughter about this 7. Constipation 7a. Prescribe laxative medication today 08/13/17 Continued [facility] stay due to: other (preparing home for hospice ) Discharge planning: home with Hospice
[2017-08-13] MEDS ORDERED: ESCITALOPRAM OXALATE 10 MG TAB PO ONE (16:49)
[2017-08-13] MEDS: OXYCODONE HCL IR 5 MG TAB (IMMEDIATE RELEASE) PO PRN (16:58)
[2017-08-13] MEDS ORDERED: POLYETHYLENE (MIRALAX) 17 GM PACK PO ONE (17:38)
--- NOTE | 2017-08-13 20:23 | Progress Note ---
Subjective Date of Service: Aug 13, 2017. Subjective Pt evaluation today including: conversation w/ patient, conversation w/ family (daughter by phone), physical exam, chart review, lab review, conversation w/ supply chain consultant (palliative care) Pain: back, abdomen, foot PO Intake: poor patient quite tired and quiet during the visit c/o pain in locations as noted above no vomiting pain in mouth improved Problem List Medical Problems: (1) Acute exacerbation of chronic low back pain Status: Acute (2) Anxiety Status: Acute (3) Cervical cancer Status: Acute (4) Dehydration Status: Acute (5) Dysphagia Status: Acute (6) Hypokalemia Status: Acute (7) Hypokalemia Status: Acute Review of Systems Constitutional: No fever Respiratory: No shortness of breath Cardiac: No chest pain Abdomen: + pain, + constipation, No nausea, No vomiting Objective Vital Signs Date Time Temp Pulse Resp B/P (MAP) Pulse Ox O2 Delivery O2 Flow Rate FiO2 08/13/17 15:16 36.7 103 20 126/76 (93) 96 Room Air 08/13/17 11:44 36.5 103 20 126/85 (99) 95 Room Air 08/13/17 08:00 94 Room Air 08/13/17 07:27 36.6 104 16 120/80 (93) 94 Room Air 08/13/17 00:12 36.4 97 18 128/87 (101) 95 Room Air 08/13/17 00:05 Room Air 08/12/17 20:48 Room Air Physical Exam General Appearance: no apparent distress ENT: pharynx normal (thrush improved) Neck: no JVD Respiratory/Chest: lungs clear, no respiratory distress, no accessory muscle use Cardiovascular: no gallop, + tachycardia Abdomen: normal bowel sounds, soft, no organomegaly, + tenderness (mild, epigastric) Extremities: no pedal edema Neurologic/Psychiatric: alert, + depressed affect Laboratory Results Last 24 Hours Test 08/12/17 20:23 08/13/17 05:21 08/13/17 07:37 08/13/17 11:50 Bedside Glucose 146 mg/dl 140 mg/dl 177 mg/dl Sodium Level 145 mmol/L Potassium Level 4.2 mmol/L Chloride Level 109 mmol/L Carbon Dioxide Level 29 mmol/L Anion Gap 7.0 mmol/L Blood Urea Nitrogen 10 mg/dl Creatinine 0.33 mg/dl Est Creatinine Clear Calc Drug Dose 155.0 ml/min Estimated GFR () 130.3 Estimated GFR (Non- 112.4 BUN/Creatinine Ratio 30.1 Random Glucose 143 mg/dl Calcium Level 8.0 mg/dl Test 08/13/17 16:27 Bedside Glucose 150 mg/dl Assessment and Plan 72yo female - 1. severe hypokalemia - resolved. Multifactorial but renal wasting a large part of this. Cont supplementation as tolerated. 2. endometrial cancer, stage 4 - [place]-CT 08/05/17 with extensive metastatic disease (lungs, liver, peritoneum, possibly adrenal glands). CT head in late July w/o overt mets. Heme/onc consult by Dr. Stern appreciated. Patient declined any further intervention and opting for hospice. Preparations for home with hospice in progress. 3. hyperglycemia - improved with insulin Rx. 4. failure to thrive - due to #2. 5. recent thrush - day #2 diflucan 100mg daily x 7-10 days. 6. abnormal LFTs - likely 2nd to liver mets. 7. dysphagia - s/p EGD last week with dilatation. Still with symptoms at times. Speech evaluated him - slippery diet recommended. Thrush probably playing a role. 8. hyperthyroidism - methimazole increased to 5mg BID at time of hospital presentation. 9. anxiety - ativan 0.5mg q6h prn. 10. depression - start lexapro 5mg daily. 11. constipation - add miralax + senna. spoke with daughter by phone they are trying to secure 24/7 caregivers for the house all necessary equipment - hospital bed, etc - has been delivered social work assisting with disposition consider fentanyl patch for generalized pains cont oxycodone prn Continued [facility] stay due to: other (preparing home for hospice ) Discharge planning: home with Hospice
[2017-08-13] MEDS: TRAZODONE HCL 100 MG TAB PO SCH (20:56)
[2017-08-13] MEDS: ROPINIROLE HCL 1 MG TAB PO SCH (20:56)
[2017-08-14] VITALS: O2SAT 96
[2017-08-14] MEDS ORDERED: ONDANSETRON 4MG OD TAB ONE (05:54)
[2017-08-14] MEDS ORDERED: NURSING VERBAL MED ORDER ONE (06:00)
[2017-08-14] MEDS ORDERED: ONDANSETRON 4MG OD TAB PO PRN (06:15)
[2017-08-14] MEDS: INSULIN ASPART 100 UNITS/ML 3 ML PEN SC SCH ×4 (06:30→21:00)
[2017-08-14] MEDS: POTASSIUM CHLORIDE 20 MEQ TABCR PO SCH ×4 (07:00→21:06)
[2017-08-14] MEDS: ARTIFICIAL TEARS OP SOLN OP SCH ×8 (07:00→18:52)
[2017-08-14] MEDS: [UNRECOGNIZED DRUG - OTHER] OP SCH (07:32)
[2017-08-14] MEDS: BOOST GLUCOSE CONTROL PO SCH ×2 (07:32→17:00)
[2017-08-14] MEDS: ESCITALOPRAM OXALATE 10 MG TAB PO SCH ×2 (07:38→08:00)
[2017-08-14] MEDS: CALCITRIOL 0.25 MCG CAP PO SCH ×2 (07:39→08:00)
[2017-08-14] MEDS: SENNA 8.6 MG TAB PO SCH ×2 (07:39→08:00)
[2017-08-14] MEDS: PANTOprazole SOD 40 MG TAB PO SCH ×2 (07:39→08:00)
[2017-08-14] MEDS: FLUCONAZOLE 100 MG TAB PO SCH ×2 (07:39→08:00)
[2017-08-14] MEDS: METHIMAZOLE 5 MG TAB PO SCH ×3 (07:39→21:06)
[2017-08-14] MEDS: POLYETHYLENE (MIRALAX) 17 GM PACK PO SCH ×2 (07:40→08:00)
[2017-08-14 07:59] VITALS: BP 124/83; PULSE 103; TEMP 36.5; O2SAT 95
[2017-08-14 08:00] VITALS: O2SAT 95
[2017-08-14] MEDS: INSULIN GLARGINE SOLOSTAR 100 UNITS/ML 3 ML PEN SC SCH (08:54)
--- NOTE | 2017-08-14 09:50 | DIAGNOSTIC IMAGING REPORT ---
KUB HISTORY: constipation, generalized abdominal pain COMPARISON: Abdomen and pelvis CT 08/05/2017. FINDINGS: Moderate amount well-formed stool seen within the transverse colon, descending colon, sigmoid colon, and rectum. Cholecystectomy. Mild superior endplate compression deformity at L3 is again noted. No dilated loops of small bowel to suggest an obstruction. No renal calculi. No ureteral calculi. No pneumoperitoneum or pneumatosis. IMPRESSION: Moderate amount of well-formed stool seen within the colon and rectum. No evidence for bowel obstruction. Electronically signed by: Pete Mills M.D. 08/14/2017 9:48 AM Dictated Date/Time: 08/14/2017 9:47 AM
[2017-08-14] MEDS: SIMETHICONE 80 MG CHEW PO SCH (11:04)
[2017-08-14] MEDS ORDERED: BISACODYL 10 MG SUPP PR STA (12:17)
[2017-08-14] MEDS ORDERED: SOD PHOSPHATE/SOD BIPHOSPHATE ENEMA 132 ML BTL PR PRN (12:30)
[2017-08-14 15:33] VITALS: BP 120/87; PULSE 114; TEMP 36.7; O2SAT 95
[2017-08-14] MEDS: ONDANSETRON INJ 2 MG/ML 2 ML VIAL IV PRN (18:01)
[2017-08-14] MEDS: OXYCODONE HCL IR 5 MG TAB (IMMEDIATE RELEASE) PO PRN (18:02)
--- NOTE | 2017-08-14 20:23 | Progress Note ---
Subjective Date of Service: Aug 14, 2017. Subjective Pt evaluation today including: conversation w/ patient, physical exam, chart review, lab review, review of studies (KUB x-ray) Pain: abd pain improved after having large bowel movement PO Intake: minimal patient complaining of her eyes "Stinging" with the use of her eye drops seemed mildly confused during the visit didn't complain of her back today had abdominal pain this am - relieved when she had a large bowel movement Problem List Medical Problems: (1) Acute exacerbation of chronic low back pain Status: Acute (2) Anxiety Status: Acute (3) Cervical cancer Status: Acute (4) Dehydration Status: Acute (5) Dysphagia Status: Acute (6) Hypokalemia Status: Acute (7) Hypokalemia Status: Acute Review of Systems Constitutional: No fever Respiratory: No shortness of breath Cardiac: No chest pain Objective Vital Signs Date Time Temp Pulse Resp B/P (MAP) Pulse Ox O2 Delivery O2 Flow Rate FiO2 08/14/17 16:30 Room Air 08/14/17 15:33 36.7 114 20 120/87 (98) 95 Room Air 08/14/17 08:00 95 Room Air 08/14/17 07:59 36.5 103 17 124/83 (97) 95 Room Air 08/14/17 00:00 96 Room Air 08/13/17 23:50 36.4 106 18 116/79 (91) 95 Room Air Physical Exam General Appearance: + mild distress (looks uncomfortable (rubbing her eyes); mildly confused) Eyes: normal inspection ENT: pharynx normal (thrush resolved) Neck: no JVD Respiratory/Chest: lungs clear, no respiratory distress, no accessory muscle use Cardiovascular: no gallop, + tachycardia Abdomen: normal bowel sounds, non tender, soft, no organomegaly Extremities: no pedal edema Neurologic/Psychiatric: alert, + pertinent finding (confused) Laboratory Results Last 24 Hours Test 08/14/17 07:38 08/14/17 11:49 08/14/17 16:45 08/14/17 19:57 Bedside Glucose 137 mg/dl 155 mg/dl 135 mg/dl 106 mg/dl Assessment and Plan 72yo female - 1. severe hypokalemia - resolved. 2. endometrial cancer, stage 4 - luevano-CT 08/05/17 with extensive metastatic disease (lungs, liver, peritoneum, possibly adrenal glands). CT head in late July w/o overt mets. Heme/onc consult by Dr. Stern appreciated. Patient declined any further intervention and opting for hospice. Preparations for home with hospice in progress. She has declined further since the decision was made to go home with hospice - could consider inpatient hospice if any worsening in the next 1-2 days. 3. hyperglycemia - resolved. 4. failure to thrive - due to #2. 5. recent thrush - day #3 diflucan 100mg daily. 6. abnormal LFTs - likely 2nd to liver mets. 7. dysphagia - s/p EGD last week with dilatation. Still with symptoms at times. Speech evaluated him - slippery diet recommended. Thrush probably playing a role. 8. hyperthyroidism - methimazole. 9. anxiety - ativan 0.5mg q6h prn. 10. depression - lexapro 5mg daily. 11. constipation - KUB x-ray with lots of distal stool. Suppos x 1; enema if necessary. 12. encephalopathy - due to hepatic encephalopathy? ensuing infection? brain mets? other? supportive care. Continued [facility] stay due to: other (preparing home for hospice ) Discharge planning: home with Hospice
[2017-08-14] MEDS: TRAZODONE HCL 100 MG TAB PO SCH (21:00)
[2017-08-14] MEDS: ROPINIROLE HCL 1 MG TAB PO SCH (21:00)
[2017-08-14 23:39] VITALS: BP 116/78; PULSE 98; TEMP 36.5; O2SAT 99
[2017-08-15] MEDS: OXYCODONE HCL IR 5 MG TAB (IMMEDIATE RELEASE) PO PRN (04:48)
[2017-08-15] MEDS: ARTIFICIAL TEARS OP SOLN OP SCH ×6 (07:00→14:24)
[2017-08-15 07:43] VITALS: BP 114/80; PULSE 118; O2SAT 94
[2017-08-15] MEDS: FLUCONAZOLE 100 MG TAB PO SCH (08:00)
[2017-08-15] MEDS: INSULIN ASPART 100 UNITS/ML 3 ML PEN SC SCH ×2 (09:24→13:22)
[2017-08-15] MEDS: BOOST GLUCOSE CONTROL PO SCH (09:25)
[2017-08-15] MEDS: METHIMAZOLE 5 MG TAB PO SCH (10:53)
[2017-08-15] MEDS: ESCITALOPRAM OXALATE 10 MG TAB PO SCH (10:53)
[2017-08-15] MEDS: POLYETHYLENE (MIRALAX) 17 GM PACK PO SCH (10:53)
[2017-08-15] MEDS: POTASSIUM CHLORIDE 20 MEQ TABCR PO SCH (10:53)
[2017-08-15] MEDS: SENNA 8.6 MG TAB PO SCH (10:54)
[2017-08-15] MEDS: PANTOprazole SOD 40 MG TAB PO SCH (10:54)
[2017-08-15] MEDS: SIMETHICONE 80 MG CHEW PO SCH (13:24)
[2017-08-15] MEDS ORDERED: HYDROmorphone INJ 1 MG/ML SYR IV ONE (13:45)
[2017-08-15] MEDS ORDERED: NURSING VERBAL MED ORDER ONE (13:45)
[2017-08-15] MEDS ORDERED: HYDROmorphone INJ 1 MG/ML SYR IV PRN (13:45)
[2017-08-15] MEDS ORDERED: LORAZEPAM 2 MG/ML 1 ML VIAL IV PRN (13:45)
[2017-08-15] MEDS ORDERED: SCOPOLAMINE 1.5 MG TDSY TD SCH (14:15)
[2017-08-15] MEDS ORDERED: LORAZEPAM INJ 0.5 MG in SYRINGE 0.75 ML IV PRN (14:15)
[2017-08-15] MEDS ORDERED: CHECK SCOPOLAMINE PATCH PLACEMENT SCH (16:00)
--- NOTE | 2017-08-15 17:29 | Progress Note ---
Subjective Date of Service: Aug 15, 2017. Subjective Pt evaluation today including: conversation w/ family (DAUGHTERS), physical exam, chart review, conversation w/ business analysis consultant (hospice nurse) Pain: abdomen PO Intake: none during my AM visit the patient was moaning when I asked her what was wrong she replied "I don't feel good" when asked where she hurt she initially didn't say anything but ultimately said "my belly" she remained lethargic the entire time 2nd visit to patient's bedside was later in the day when daughters were present the patient was resting more comfortably; she was obtunded during this visit we had a lengthy discussion about inpatient hospice and the plan of care unable to obtain ROS due to altered MS Problem List Medical Problems: (1) Acute exacerbation of chronic low back pain Status: Acute (2) Anxiety Status: Acute (3) Cervical cancer Status: Acute (4) Dehydration Status: Acute (5) Dysphagia Status: Acute (6) Hypokalemia Status: Acute (7) Hypokalemia Status: Acute Objective Vital Signs Date Time Temp Pulse Resp B/P (MAP) Pulse Ox O2 Delivery O2 Flow Rate FiO2 08/15/17 16:00 Room Air 08/15/17 11:37 Room Air 08/15/17 07:43 118 18 114/80 (91) 94 Room Air 08/15/17 00:00 Room Air 08/14/17 23:39 36.5 98 18 116/78 (91) 99 Room Air Physical Exam General Appearance: + moderate distress (due to abd pain) ENT: + pertinent finding (MM dry) Neck: no JVD Respiratory/Chest: lungs clear, no respiratory distress, no accessory muscle use Cardiovascular: no gallop, no murmur, + tachycardia Abdomen: + abnormal bowel sounds (decreased), + distended, + tenderness ( generalized with guarding) Extremities: no pedal edema Neurologic/Psychiatric: + pertinent finding (lethargic ) Laboratory Results Last 24 Hours Test 08/14/17 19:57 08/15/17 07:30 08/15/17 11:34 Bedside Glucose 106 mg/dl 111 mg/dl 130 mg/dl Assessment and Plan 72yo female - 1. severe hypokalemia. 2. endometrial cancer, stage 4 - start comfort measures. d/c all meds, fingersticks, blood draws, etc. place francis. dilaudid IV prn initially then consider morphine drip. She has declined further since the decision was made to go home with hospice; I requested the hospice nurse to come tonight to discuss whether she is a candidate for inpatient hospice. They have accepted her and we will initiate inpatient hospice status tonight. I explained this in detail to the daughters. 3. failure to thrive - due to #2. 4. encephalopathy - worse today. anticipate the patient will pass in the next ~48 hours. transition to inpatient hospice tonight. Continued [facility] stay due to: inadequate oral pain control, multiple IV medications needed Discharge planning: other (inpatient hospice )
[2017-08-15 17:46] VITALS: BP 114/80; PULSE 118; TEMP 36.5; O2SAT 94
--- NOTE | 2017-08-19 00:02 | Discharge Summary ---
Discharge Summary Date of Service Aug 18, 2017. Discharge Summary Admission Date: Aug 04, 2017 at 22:35 Discharge Date: Aug 11, 2017 Discharge Disposition: Acute care facility Principal Diagnosis: stage 4 endometrial cancer Problems/Secondary Diagnoses: 1. failure to thrive 2. severe hypokalemia 3. hyperthyroidism 4. hypophosphatemia 5. abnormal LFTs 6. anemia 7. radiation proctitis 8. urinary incontinence 9. ambulatory dysfunction / deconditioning 10. recent L3 compression fracture 11. osteoporosis 12. asthma 13. thrush 14. depression 15. moderate to severe protein calorie malnutrition 16. recent esophageal stricture s/p dilatation 17. metabolic encephalopathy Immunizations: Have You Had Influenza Vaccine: No History of Tetanus Vaccine?: Yes Tetanus Immunization Date: Jan 02, 2006 History of Pneumococcal: No History of Hepatitis B Vaccine: No Procedures: 1. CT chest/abd/pelvis with extensive metastatic disease to the liver, lungs, peritoneum, lymph nodes, adrenal glands, etc 2. liver u/s with innumerable mets Consultations: heme/onc palliative care ophthomology Discharge Exam Physical Exam: General Appearance: + mild distress (abdominal pain) ENT: + pertinent finding (MM dry) Neck: no JVD Respiratory/Chest: lungs clear, no respiratory distress, no accessory muscle use Cardiovascular: no gallop, no murmur, normal peripheral pulses, + tachycardia Abdomen / GI: + tenderness, + abnormal bowel sounds, + distended Extremities: no pedal edema Neurologic/Psychiatric: + pertinent finding (lethargic ) Hospital Course HISTORY OF PRESENT ILLNESS: The patient is a 72-year-old female, status post [facility] hospitalization from July 22 through July 28, who presents to the emergency department with persistent weakness over the past few months. She did undergo an EGD by Dr. Jaquez on July 31, which revealed a benign appearing 1.6 cm area of stenosis that was easily dilated. Her daughter reports that she was unable to take potassium pills, and her insurance would not pay for potassium liquid, so therefore she has not had any potassium supplementation since last hospitalization. During her last hospitalization she was admitted from the ED due to hypokalemia of 1.5. She has had intermittent issues with diarrhea during this interval, and reports that her diarrhea has been more severe again today. Her daughter brought her to the emergency department today due to concerns regarding low potassium again. HOSPITAL COURSE: The patient's severe hypokalemia was once again treated with oral and IV potassium. Despite normalization of the potassium the patient continued to feel poorly. In light of concerns of worsening endometrial cancer a CT of the chest/abd/ pelvis was obtained. This demonstrated severe metastatic disease to the liver, lungs, lymph nodes, adrenal glands, and peritoneal cavity. She was subsequently seen in consult by Dr. Carlos Stern from [facility]/onc. He felt that she was a very poor candidate for palliative chemotherapy due to her severe failure to thrive and other comorbidities. As a result hospice was recommended. Palliative care was then consulted and preparations were being made for her discharge to home with hospice. However, on August 15 the patient developed severe abdominal pain with worsening distension. A local hospice agency was consulted and it was requested that Ms. Marie transition to inpatient hospice status for palliative care measures & pain control. On the evening of Thursday, August 15 the patient was officially admitted to inpatient hospice status. Total Time Spent: Greater than 30 minutes This includes examination of the patient, discharge planning, medication reconciliation, and communication with other providers. Discharge Instructions Please refer to the electronic Patient Visit Report (Discharge Instructions) for additional information. Follow-Up none - inpatient hospice status at [facility] Additional Copies To Sury Jones M.D.
== END 2017-08-15 18:02 | disposition other institution (70) | DRG 641 ==
LOC: EDBD 19:12 → C.EDC 19:13 → C.2T 22:35 → ENRESERV 23:15 → CANRESERV 08-08 14:10 → ENRESERV 08-08 14:10 → C.4E 08-08 15:23
PROVIDERS: ADMIT Hospitalist; ATTEND Internal Medicine
DX: E87.6 Hypokalemia (principal); C78.00 Secondary malignant neoplasm of unspecified lung; C78.7 Secondary malignant neoplasm of liver and intrahepatic bile duct; Z51.5 Encounter for palliative care; J45.909 Unspecified asthma, uncomplicated; I10 Essential (primary) hypertension; M81.0 Age-related osteoporosis without current pathological fracture; E05.90 Thyrotoxicosis, unspecified without thyrotoxic crisis or storm; D69.6 Thrombocytopenia, unspecified; K21.9 Gastro-esophageal reflux disease without esophagitis; B37.9 Candidiasis, unspecified; F41.9 Anxiety disorder, unspecified; F32.9 Major depressive disorder, single episode, unspecified; G25.81 Restless legs syndrome; R74.0 Nonspecific elevation of levels of transaminase and lactic acid dehydrogenase [LDH]; C54.1 Malignant neoplasm of endometrium; R73.9 Hyperglycemia, unspecified; R62.7 Adult failure to thrive; R13.10 Dysphagia, unspecified; Z87.891 Personal history of nicotine dependence; Z82.49 Family history of ischemic heart disease and other diseases of the circulatory system; Z83.3 Family history of diabetes mellitus; Z80.9 Family history of malignant neoplasm, unspecified

== ENCOUNTER → 2017-08-04 | Outpatient (CLI) | payer OTHER ==
[~2017-08-04] MED LIST changes: -FENTANYL CITRATE INJ 50 MCG/1 ML 2 ML VIAL ONE; -LIDOCAINE HCL 2% 2 ML VIAL (20MG/ML) ONE; -PROPOFOL IV EMULSION 10 MG/ML 20 ML VIAL IV ONE
[2017-08-04 18:12] LABS: BLOOD UREA NITROGEN 8 mg/dl (7-18); BUN/CREATININE RATIO 11.6 (10-20); CARBON DIOXIDE 35 mmol/L (21-32); CHLORIDE 97 mmol/L (98-107); CREATININE 0.69 mg/dl (0.60-1.20); GLUCOSE 241 mg/dl (70-99); POTASSIUM 1.8 mmol/L (3.5-5.1); SODIUM 143 mmol/L (136-145); THYROID STIMULATING HORMONE 0.009 uIu/ml (0.300-4.500)
--- NOTE | 2017-08-04 18:23 | Progress Note ---
Progress Note Date of Service Aug 04, 2017. Progress Note Called and spoke with the daughter of Ms. Marie. Informed her that the potassium was 1.8 on check today. When asked why they didn't have the BMP drawn this past Thursday as discussed ( and written in d/c paperwork) she stated she had an EGD and they couldn't get it drawn that day. [employer] record reviewed - she no-showed her appt with Dr. Yadav yesterday. Apparently she has been refusing most of the potassium supplement at home. She also has been eating poorly, but then the daughter stated she ate steak yesterday (?). I recommended that Ms. Marie come to the ER immediately and that she would require another hospital stay. Ms. Marie then told the daughter that she was refusing to go to the ER. I recommended they call 911 to transport her to the hospital. Chava Rowell MD
== END | disposition home or self-care (01) ==
LOC: C.LABSPEC 11:56
PROVIDERS: ATTEND Internal Medicine
DX: E87.6 Hypokalemia (principal); E05.90 Thyrotoxicosis, unspecified without thyrotoxic crisis or storm

== ENCOUNTER 2017-08-15 18:02 | Inpatient (IN) | payer OTHER ==
[~2017-08-15 18:02] MED LIST changes: +CALC1CAP36 PO; -CELE1CAP30 PO; -DICY10CA12 PO; -DPH/ PO; +DSY100 PO; -ERGO1CAP41 PO; +ERGO500037 PO; +MBXC PO; -MCRK20 PO; -METH-589 PO; +METH-848 PO; -MIRT15TA PO; -NYSS5 PO; +ONDA-63 PO; -ONDA8TAB62 SL; +POTA20TA13 PO; -RCL25 PO; +ROPI1TAB29 PO; -RQP2 PO; -RTL20 PO; -TRAZ100T29 PO; -VNTHFA/IN INH
[2017-08-15] MEDS ORDERED: HYDROmorphone INJ 1 MG/ML SYR ONE (18:17)
[2017-08-15] MEDS ORDERED: NURSING VERBAL MED ORDER ONE (18:30)
[2017-08-15] MEDS ORDERED: ATROPINE SULFATE 1% OP SOLN 5 ML BTL OP PRN (18:30)
[2017-08-15] MEDS ORDERED: ONDANSETRON INJ 2 MG/ML 2 ML VIAL IV PRN (18:30)
[2017-08-15] MEDS ORDERED: LORAZEPAM INJ 0.5 MG in SYRINGE 0.75 ML IV PRN (18:30)
[2017-08-15] MEDS ORDERED: SCOPOLAMINE 1.5 MG TDSY TD SCH (18:30)
[2017-08-15] MEDS ORDERED: LORAZEPAM 2 MG/ML 1 ML VIAL IV PRN (18:30)
--- NOTE | 2017-08-15 18:36 | History and Physical ---
History & Physical Date & Time of Service: Aug 15, 2017 at 18:23 Chief Complaint: Severe Hypokalemia Primary Care Physician: Sury Jones M.D. History of Present Illness Source: hospital records 72yo female with known stage 4 endometrial cancer with mets to the liver, lungs , peritoneal cavity, and lymph nodes who was admitted to [facility] on 08/04/17 with difficulty swallowing, poor oral intake, failure to thrive, and hypokalemia. Soon after admission she had luevano-CTs demonstrating extensive metastatic disease from her endometrial cancer. She was seen in consult by heme/onc who recommended pursuing palliative care/hospice rather than palliative chemotherapy. Palliative care was formally consulted who worked with her family to ultimately have her transition home with hospice services. However, while making preparations for this transition home, the patient had a significant decline in her status over the last 1-2 days. This was demonstrated by lethargy, little to no oral intake, refusal of oral medications , confusion, and development of worsening abdominal pain requiring IV narcotics. A home hospice nurse met with the patient's two daughters today regarding her treatment plan and she will now be transitioned to inpatient hospice status for comfort care measures and pain control. Past Medical/Surgical History PMH: 1. stage 4 endometrial cancer 2. abnormal LFTs likely 2nd to liver mets 3. hyperthyroidism 4. radiation proctitis 5. urinary incontinence 6. ambulatory dysfunction / deconditioning 7. L3 compression fracture 8. osteoporosis 9. recent esophageal stricture with dilatation via EGD 10. hypokalemia 11. abdominal pain likely 2nd to carcinomatosis and constipation 12. asthma 13. thrush 14. depression 15. anemia of chronic disease 16. vitamin D deficiency 17. thyroid nodule PSH: D & C Family History Cancer Diabetes mellitus Hypertension Lung disease Social History Smoking Status: Never Smoker Smokeless Tobacco Use: No Alcohol Use: none Drug Use: none Marital Status: (2 daughters) Housing status: lives alone Occupational Status: retired Immunizations History of Influenza Vaccine: No History of Tetanus Vaccine?: Yes Tetanus Immunization Date: Jan 02, 2006 History of Pneumococcal: No History of Hepatitis B Vaccine: No Multi-Drug Resistant Organisms History of MDRO: No Allergies Coded Allergies: Codeine (Verified Allergy, Intermediate, ANAPHYLAXIS, 08/15/17) LIQUID CODEINE CAN TAKE PERCOCET OR HYDROCODONE VIA TABLET Homatropine (Verified Allergy, Intermediate, CHEST TIGHTNESS, 07/22/17) PT STATES SHE HAS USED PERCOCET AND VICODIN WITH NO S/SX Hydrocodone (Verified Allergy, Intermediate, CHEST TIGHTNESS, 07/22/17) PT STATES SHE HAS USED PERCOCET AND VICODIN WITH NO S/SX Aspirin (Verified Adverse Reaction, Mild, ACID REFLUX, 07/22/17) Ketorolac (Verified Adverse Reaction, Mild, SICK IN STOMACH, THROWS UP, ) Home Medications Scheduled Calcitriol (Calcitriol), 0.25 MCG PO QAM Ergocalciferol (Vitamin D 25431 Unit), 50,000 INTER.UNIT PO WK Esomeprazole Magnesium (Esomeprazole Magnesium), 40 MG PO BID Magic Swizzle (Magic Swizzle - SUCRALFA/ALUM/MAG/DIPHEN/LIDO), 3-4 TSP PO ACHS Methimazole (Methimazole), 5 MG PO BID Oxycodone Hcl (Oxycodone Hcl), 10 MG PO Q6H Potassium Chloride Microencaps (Potassium Chloride Er), 40 MEQ PO AC Ropinirole HCl (Ropinirole HCl), 1 MG PO HS Simethicone (Simethicone), 250 MG PO QDL Trazodone HCl (Trazodone HCl), 100 MG PO HS Scheduled PRN Albuterol Sulf (Proventil 0.083% 2.5MG/3ML), 2.5 MG NEB Q4-6HRS PRN for Wheezing Fluticasone Propionate (Fluticasone Propionate), 2 SPRAYS MAY DAILY PRN for Allergy Symptoms Ondansetron (Ondansetron HCl), 8 MG PO Q6H PRN for Nausea Review of Systems unable to obtain ROS due to altered mental status Physical Exam General Appearance: no apparent distress (comfortable following dilaudid administration; apneas present) Head: normocephalic, atraumatic ENT: + pertinent finding (MM dry) Neck: no JVD Respiratory/Chest: lungs clear, no respiratory distress, no accessory muscle use Cardiovascular: no gallop, no murmur, normal peripheral pulses, + tachycardia Abdomen/GI: no organomegaly, + tenderness (generalized), + distended, + guarding (previously seen earlier in the day) Neurologic/Psych: + pertinent finding (lethargic/obtunded) Impression Assessment and Plan 72yo female with stage 4 endometrial cancer with known mets to the liver, lungs , lymph nodes, and abdominal cavity along with hyperthyroidism, persistent hypokalemia, failure to thrive - being transitioned to inpatient hospice status for comfort care measures & pain control. * d/c all fingerstick blood sugar checks, labs, etc * d/c all unnecessary medications * dilaudid 1mg IV q2h prn pain/air hunger; suspect we will need to transition to drip in the next 12-24 hours * francis * ativan prn * scopalamine patch + atropine drops by mouth prn excess oral secretions * advertising photographer consult * appreciate hospice services and the help of the hospice nurse * POLST form was completed and resigned by lino Level of Care Med/Surg Advanced Directives Existing Advance Directive: Yes Existing Living Will: Yes Existing Power of Research/Program Director: Yes Resuscitation Status DO NOT RESUSCITATE VTE Prophylaxis VTE Risk Assessment Done? Y/N: No Given or contraindicated: Treatment not indicated Additional Copies To Sury Jones M.D.
[2017-08-16] MEDS: CHECK SCOPOLAMINE PATCH PLACEMENT SCH ×3 (00:21→16:07)
[2017-08-16] MEDS: HYDROmorphone INJ 1 MG/ML SYR IV PRN ×3 (07:31→14:31)
[2017-08-16] MEDS ORDERED: HYDROmorphone/NSS 100MG/100ML 100 ML IV SCH (13:00)
--- NOTE | 2017-08-16 18:07 | Progress Note ---
Progress Note Date of Service Aug 16, 2017. Progress Note time - 1800 S: pt's daughter and a good friend at bedside need 2 doses of IV dilaudid this am; apparently woke up very briefly with severe abdominal pain (was moaning) O: gen - obtunded mouth - MM dry heart - tachy lungs - CTA b/l abd - distended, BS+, grimaces with palpation thus she is likely tender ext - warm, pulses 2+ b/l A/P: 72yo female with stage 4 endometrial cancer, now on comfort measures and inpatient hospice status. Start dilaudid infusion, titrate as needed for optimal patient comfort. Scopalamine patch, ativan prn, zofran. Support given to daughter at bedside. Appreciate hospice agency support. Chava Rowell MD
[2017-08-17] MEDS: CHECK SCOPOLAMINE PATCH PLACEMENT SCH ×3 (00:06→16:00)
[2017-08-17] MEDS: HYDROmorphone INJ 1 MG/ML SYR IV PRN (00:06)
--- NOTE | 2017-08-17 08:51 | Family Medicine Progress Note ---
Progress Note Date of Service Aug 17, 2017. Subjective no concerns overnight reviewed with nursing Objective Physical Exam General Appearance: + pertinent finding ([id number]) Respiratory/Chest: lungs clear, + pertinent finding (slow respiratory rate) Cardiovascular: regular rate, rhythm Skin: warm/dry Assessment and Plan 72yo female with stage 4 endometrial cancer, now on comfort measures and inpatient hospice status. Continue dilaudid infusion, titrate as needed for optimal patient comfort. Scopalamine patch, ativan prn, zofran. Appreciate hospice agency support.
[2017-08-17] MEDS ORDERED: NURSING VERBAL MED ORDER ONE ×4 (09:45→15:45)
--- NOTE | 2017-08-18 19:32 | Death Summary ---
Summary of Admission Date Aug 15, 2017 at 18:02 Date & Time of Aug 17, 2017. 2307 Cause of Metastatic Endometrial cancer Hospital Course HPI - 72yo female with known stage 4 endometrial cancer with mets to the liver, lungs , peritoneal cavity, and lymph nodes who was admitted to [facility] on 08/04/17 with difficulty swallowing, poor oral intake, failure to thrive, and hypokalemia. Soon after admission she had luevano-CTs demonstrating extensive metastatic disease from her endometrial cancer. She was seen in consult by heme/onc who recommended pursuing palliative care/hospice rather than palliative chemotherapy. Palliative care was formally consulted who worked with her family to ultimately have her transition home with hospice services. However, while making preparations for this transition home, the patient had a significant decline in her status over the last 1-2 days. This was demonstrated by lethargy, little to no oral intake, refusal of oral medications , confusion, and development of worsening abdominal pain requiring IV narcotics. A home hospice nurse met with the patient's two daughters on day of admission regarding her treatment plan and she will now be transitioned to inpatient hospice status for comfort care measures and pain control. Hospital course --- 72yo female with stage 4 endometrial cancer with known mets to the liver, lungs , lymph nodes, and abdominal cavity along with hyperthyroidism, persistent hypokalemia, failure to thrive - transitioned to inpatient hospice status for comfort care measures & pain control. Started on IV pain medication, IV lorazepam and scopolamine patch. Patient on 08/17 at 2307 Copy To Sury Jones M.D.
== END 2017-08-17 23:50 | disposition expired | DRG 755 ==
LOC: C.4E 18:02
PROVIDERS: ADMIT Hospitalist; ATTEND Family Medicine
DX: C54.1 Malignant neoplasm of endometrium (principal); C78.7 Secondary malignant neoplasm of liver and intrahepatic bile duct; C78.00 Secondary malignant neoplasm of unspecified lung; C78.6 Secondary malignant neoplasm of retroperitoneum and peritoneum; C79.89 Secondary malignant neoplasm of other specified sites; Z51.5 Encounter for palliative care; R62.7 Adult failure to thrive; Z66 Do not resuscitate; Z79.899 Other long term (current) drug therapy